=== PATIENT | male | born 1950 | race Caucasian/White ===

== ENCOUNTER 2018-10-24 09:43 | Emergency (ER) | payer MEDICARE ==
[~2018-10-24] VITALS: Ht 180.3 cm; Wt 94.3 kg
--- NOTE | 2018-10-24 10:39 | Diagnostic Imaging Report ---
Indication: Cough and congestion with fever. Comparison: None. Discussion: Two views of the chest were obtained. Infiltrates are noted within the right lung, likely pneumonia. Normal heart size. The lungs are mildly hyperinflated. No pleural fluid or pneumothorax. No osseous abnormality. Impression: 1. Right lung pneumonia. Dictated by: Dictated on workstation # [id number]
--- NOTE | 2018-10-24 11:07 | ED Cough/URI ---
General Chief Complaint: Respiratory Problems Stated Complaint: WHEEZING,SOB,COUGH History of Present Illness Date Seen by Provider: October 24, 2018 Time Seen by Provider: 10:48 This is a 68-year-old man with a history of atrial fibrillation on xarelto, here for 1 week of cough. He is concerned that he has pneumonia as he has had it several times in the past. He has not smoked for 30 years. Cough is productive of clear mucus. No chest pain, has mild shortness of breath. No leg swelling. He may have had a mild subjective fever yesterday. No antibiotics, hospitalizations, or travel within 3 months. Allergies and Home Medications Allergies Coded Allergies: No Known Drug Allergies (Unverified , 10/24/18) Home Medications Albuterol Sulfate 1 Puff Puff, 2 PUFF INH Q4H PRN for COUGH 1 PUFF = 90 MCG Prescribed by: MASSIEL CALDERA on 10/24/18 1110 Azithromycin 250 Mg Tablet, 250 MG PO DAILY Prescribed by: MASSIEL CALDERA on 10/24/18 1110 Benzonatate 100 Mg Capsule, 200 MG PO BID PRN for COUGH Prescribed by: MASSIEL CALDERA on 10/24/18 1110 Patient Home Medication List Home Medication List Reviewed: Yes Review of Systems Review of Systems Constitutional: no symptoms reported EENTM: no symptoms reported Respiratory: see HPI Cardiovascular: no symptoms reported Gastrointestinal: no symptoms reported Genitourinary: no symptoms reported Musculoskeletal: no symptoms reported Skin: no symptoms reported Psychiatric/Neurological: No Symptoms Reported Hematologic/Lymphatic: No Symptoms Reported Immunological/Allergic: no symptoms reported Past Jbuqlfm-Tyglcb-Homupw Hx Past Med/Social Hx: Reviewed Nursing Past Med/Soc Hx Patient Social History Alcohol Use: Occasionally Uses Recreational Drug Use: No Smoking Status: Never a Smoker 2nd Hand Smoke Exposure: No Recent Foreign Travel: No Contact w/Someone Who Travel: No Recent Hopitalizations: No Physical Abuse: No Sexual Abuse: No Mistreated: No Fear: No Seasonal Allergies Seasonal Allergies: No Past Medical History Surgeries: Yes Appendectomy, Tonsillectomy Respiratory: Yes Pneumonia Cardiac: Yes Atrial Fibrillation, Hypertension Neurological: No Genitourinary: No Gastrointestinal: No Musculoskeletal: No Endocrine: No HEENT: No Cancer: No Psychosocial: No Integumentary: No Blood Disorders: No Physical Exam Vital Signs - First Documented 10/24/18 09:58 Temp 99.8 Pulse 99 Resp 24 B/P (MAP) 160/101 (120) Pulse Ox 91 Capillary Refill : Height: '" Weight: lbs. oz. kg; BMI Method: General Appearance: no apparent distress Eyes: Bilateral Eye Normal Inspection, Bilateral Eye PERRL, Bilateral Eye EOMI HEENT: other (moist mucous membranes) Neck: supple Respiratory: other (good air exchange bilaterally with scattered wheezes in the left upper lung field anteriorly) Cardiovascular: normal peripheral pulses, regular rate, rhythm, no edema Gastrointestinal: non tender, soft Neurologic/Psychiatric: alert, normal mood/affect, oriented x 3; No abnormal gait Skin: warm/dry Progress/Results/Core Measures Suspected Sepsis SIRS Temperature: Pulse: Respiratory Rate: Blood Pressure / Mean: Results/Orders My Orders Orders - MASSIEL CALDERA DO Chest Pa/Lat (2 View) (10/24/18 10:10) Ekg Tracing (10/24/18 10:10) Amoxicillin/Clavulanate Tablet (Augmenti (10/24/18 11:11) Azithromycin Tablet (Zithromax Tablet) (10/24/18 11:15) Vital Signs/I&O 10/24/18 09:58 Temp 99.8 Pulse 99 Resp 24 B/P (MAP) 160/101 (120) Pulse Ox 91 Capillary Refill : Progress Note : Progress Note We will treat for community-acquired pneumonia with first dose of Augmentin and azithromycin given in the emergency department. He has minimal wheezing as documented in physical exam, I will prescribe an albuterol inhaler that he may try, I do not feel he needs to add steroids and have him using the inhaler around the clock. I will also prescribe Tessalon. I have recommended the patient follow up with his doctor soon as possible. Paper rx for augmentin (2g PO BID X 10 days)) given. Departure Impression Primary Impression: CAP (community acquired pneumonia) Disposition: 01 HOME, SELF-CARE Condition: Stable Departure-Patient Inst. Referrals: NO,LOCAL PHYSICIAN (PCP) Primary Care Physician Patient Instructions: Pneumonia, Adult (DC) Scripts Albuterol Sulfate (VENTOLIN HFA) 1 Puff Puff 2 PUFF INH Q4H PRN for COUGH for 7 Days, #1 INHALER 1 PUFF = 90 MCG Prov: MASSIEL CALDERA DO 10/24/18 Benzonatate (TESSALON PERLES) 100 Mg Capsule 200 MG PO BID PRN for COUGH, #20 CAP Prov: MASSIEL CALDERA DO 10/24/18 Azithromycin (Azithromycin) 250 Mg Tablet 250 MG PO DAILY, #4 TAB 0 Refills Prov: MASSIEL CALDERA DO 10/24/18 MASSIEL CALDERA DO October 24, 2018 11:07
[2018-10-24] MEDS ORDERED: BENZ100C18 PO (11:10)
[2018-10-24] MEDS ORDERED: AZIT250T12 PO (11:10)
[2018-10-24] MEDS ORDERED: RT-ALBUINH INH (11:10)
[2018-10-24] MEDS ORDERED: AUGMENTIN 500 MG TAB (AMOXICILLIN/CLAVULANATE) PO STA (11:11)
[2018-10-24] MEDS ORDERED: AZITHROMYCIN 250 MG TAB (ZITHROMAX) PO ONE (11:15)
[2018-10-24] MEDS ORDERED: AUGMENTIN 875 MG TAB (AMOXICILLIN/CLAVULANATE) ONE (11:23)
[2018-10-24 11:30] VITALS: BP 155/95
== END 2018-10-24 11:30 | disposition home or self-care (01) ==
LOC: ER FS 09:45
DX: J18.9 Pneumonia, unspecified organism (principal); I48.91 Unspecified atrial fibrillation; I10 Essential (primary) hypertension; Z87.01 Personal history of pneumonia (recurrent); Z90.89 Acquired absence of other organs; Z90.49 Acquired absence of other specified parts of digestive tract
CPT/HCPCS: 71046; 93005

== ENCOUNTER 2018-10-31 14:45 | Inpatient (IN) | payer MEDICARE ==
[~2018-10-31] VITALS: Ht 180.3 cm; Wt 98.5 kg
[~2018-10-31 14:45] MED LIST: AZIT250T12 PO; BENZ100C18 PO; RT-ALBUINH INH
--- NOTE | 2018-10-31 15:13 | ED Respiratory ---
General Chief Complaint: Respiratory Problems Stated Complaint: SOA Source: patient, RN notes reviewed, old records Exam Limitations: no limitations History of Present Illness Date Seen by Provider: October 31, 2018 Time Seen by Provider: 15:08 Allergies and Home Medications Allergies Coded Allergies: lisinopril (Verified Allergy, Severe, Anaphylaxis, 10/31/18) allopurinol (Verified Allergy, Unknown, Hives, 10/31/18) amlodipine (Verified Allergy, Unknown, swelling, 10/31/18) hydralazine (Verified Allergy, Unknown, 10/31/18) levofloxacin (Verified Allergy, Unknown, Hallucinations, 10/31/18) Home Medications Albuterol Sulfate 1 Puff Puff, 2 PUFF INH Q4H PRN for COUGH 1 PUFF = 90 MCG Prescribed by: MASSIEL CALDERA on 10/24/18 1110 Azithromycin 250 Mg Tablet, 250 MG PO DAILY Prescribed by: MASSIEL CALDERA on 10/24/18 1110 Benzonatate 100 Mg Capsule, 200 MG PO BID PRN for COUGH Prescribed by: MASSIEL CALDERA on 10/24/18 1110 Patient Home Medication List Home Medication List Reviewed: No Review of Systems Review of Systems Constitutional: see HPI Respiratory: see HPI, short of breath All Other Systems Reviewed Negative Unless Noted: Yes (Negative excepted noted.) Past Aysikcb-Hzyatq-Uvvszf Hx Patient Social History 2nd Hand Smoke Exposure: No Recent Hopitalizations: No Seasonal Allergies Seasonal Allergies: No Past Medical History Surgeries: Yes Appendectomy, Tonsillectomy Respiratory: Yes Pneumonia Cardiac: Yes Atrial Fibrillation, Hypertension Neurological: No Genitourinary: No Gastrointestinal: No Musculoskeletal: No Endocrine: No HEENT: No Cancer: No Psychosocial: No Integumentary: No Blood Disorders: No Physical Exam Vital Signs - First Documented 10/31/18 15:00 Temp 97.8 Pulse 114 Resp 24 B/P (MAP) 160/116 (131) Pulse Ox 91 O2 Delivery Room Air Capillary Refill : Height: 5'11.00" Weight: 208lbs. oz. 94.774329aj; BMI Method:Stated General Appearance: WD/WN, no apparent distress Respiratory: crackles Cardiovascular: irregularly irregular Neurologic/Psychiatric: no motor/sensory deficits, alert, normal mood/affect, oriented x 3 Skin: warm/dry Progress/Results/Core Measures Suspected Sepsis SIRS Temperature: Pulse: Respiratory Rate: Laboratory Tests 10/31/18 15:15: White Blood Count 8.9 Blood Pressure / Mean: Laboratory Tests 10/31/18 15:15: Creatinine 0.90, Platelet Count 284, Total Bilirubin 1.1H Results/Orders Lab Results Laboratory Tests Test 10/31/18 15:15 Range/Units White Blood Count 8.9 4.3-11.0 10^3/uL Red Blood Count 4.16 L 4.35-5.85 10^6/uL Hemoglobin 13.7 13.3-17.7 G/DL Hematocrit 42 40-54 % Mean Corpuscular Volume 100 H 80-99 FL Mean Corpuscular Hemoglobin 33 25-34 PG Mean Corpuscular Hemoglobin Concent 33 32-36 G/DL Red Cell Distribution Width 14.2 10.0-14.5 % Platelet Count 284 130-400 10^3/uL Mean Platelet Volume 10.5 H 7.4-10.4 FL Neutrophils (%) (Auto) 71 42-75 % Lymphocytes (%) (Auto) 14 12-44 % Monocytes (%) (Auto) 9 0-12 % Eosinophils (%) (Auto) 3 0-10 % Basophils (%) (Auto) 1 0-10 % Neutrophils # (Auto) 6.3 1.8-7.8 X 10^3 Lymphocytes # (Auto) 1.2 1.0-4.0 X 10^3 Monocytes # (Auto) 0.8 0.0-1.0 X 10^3 Eosinophils # (Auto) 0.3 0.0-0.3 10^3/uL Basophils # (Auto) 0.1 0.0-0.1 10^3/uL Sodium Level 139 135-145 MMOL/L Potassium Level 4.1 3.6-5.0 MMOL/L Chloride Level 99 98-107 MMOL/L Carbon Dioxide Level 25 21-32 MMOL/L Anion Gap 15 H 5-14 MMOL/L Blood Urea Nitrogen 22 H 7-18 MG/DL Creatinine 0.90 0.60-1.30 MG/DL Estimat Glomerular Filtration Rate > 60 BUN/Creatinine Ratio 24 Glucose Level 180 H 70-105 MG/DL Calcium Level 9.1 8.5-10.1 MG/DL Corrected Calcium 8.9 8.5-10.1 MG/DL Magnesium Level 2.0 1.8-2.4 MG/DL Total Bilirubin 1.1 H 0.1-1.0 MG/DL Aspartate Amino Transf (AST/SGOT) 20 5-34 U/L Alanine Aminotransferase (ALT/SGPT) 18 0-55 U/L Alkaline Phosphatase 100 40-136 U/L Troponin T 18 H <=15 NG/L Pro-B-Type Natriuretic Peptide 70164.0 H <75.0 PG/ML Total Protein 7.1 6.4-8.2 GM/DL Albumin 4.2 3.2-4.5 GM/DL My Orders Orders - SIMON MEYER DO Cbc With Automated Diff (10/31/18 15:11) Comprehensive Metabolic Panel (10/31/18 15:11) Magnesium (10/31/18 15:11) Probnp Fs (10/31/18 15:11) Ed Iv/Invasive Line Start (10/31/18 15:11) Chest Pa/Lat (2 View) (10/31/18 15:11) Troponin T (10/31/18 15:50) Ekg Tracing (10/31/18 15:50) Furosemide Injection (Lasix Injection) (10/31/18 16:00) Furosemide Injection (Lasix Injection) (10/31/18 16:45) Nitroglycerin Ointment (Nitrobid Ointme (10/31/18 16:45) Losartan Tablet (Cozaar Tablet) (10/31/18 17:30) Medications Given in ED Current Medications Medications Dose Ordered Sig/Dov Route Start Time Stop Time Status Last Admin Dose Admin Furosemide 40 mg ONCE ONCE IVP 10/31/18 16:00 10/31/18 16:09 DC 10/31/18 16:19 40 MG Furosemide 40 mg ONCE ONCE IVP 10/31/18 16:45 10/31/18 16:46 DC 10/31/18 16:55 40 MG Nitroglycerin 1 inch ONCE ONCE TOP 10/31/18 16:45 10/31/18 16:46 DC 10/31/18 16:55 1 INCH Vital Signs/I&O 10/31/18 15:00 Temp 97.8 Pulse 114 Resp 24 B/P (MAP) 160/116 (131) Pulse Ox 91 O2 Delivery Room Air Capillary Refill : Progress Note : Progress Note Improved c/ O2 and meds. Dr. Robert good c/ the 80 MG of Lasix IV and request the patient receive 100 mg of Losartan po now and daily. Patient has seen a ocean biologist @ [facility] but wishes not to return there. Will attempt to obtain records from there to aid in the transition of care. ECG Initial ECG Impression Date: October 31, 2018 Initial ECG Impression Time: 16:13 Initial ECG Rate: 92 Initial ECG Rhythm: A Fib/Flutter Initial ECG Intervals: QT (prolonged) Initial ECG Impression: Nonspecific Changes (ST-T wave ), Atrial Fibrillation Initial ECG Comparisson: No Previous ECG Available Diagnostic Imaging Diagonstic Imaging: Xray Plain Films/CT/US/NM/MRI: chest (pneumonia appears slightly improved) Departure Impression Primary Impression: Dyspnea Additional Impressions: Acute exacerbation of CHF (congestive heart failure) Atrial fibrillation with normal ventricular rate Labile hypertension Disposition: XFER SHT-TRM HOSP Condition: Stable Transfer Time Spoke to Accepting Phy: 16:30 Transfer Progress Notes Discussed patient c/ both Dr. Barber and then Dr. Jones @ Dr. Barber's request. Patient has been accepted in transfer by Dr. Barber & Dr. Jones will see the patient in consultation in the AM, 11/01. Transfer Facility: [facility] Method of Transfer: EMS Departure-Patient Inst. Referrals: ERICH SANDOVAL MD (PCP/Family) Primary Care Physician SIMON MEYER DO October 31, 2018 15:13
[2018-10-31 15:23] LABS: EOSINOPHILS % (AUTO) 3 % (0-10); HEMATOCRIT 42 % (40-54); HEMOGLOBIN 13.7 G/DL (13.3-17.7); LYMPHOCYTES % (AUTO) 14 % (12-44); MEAN CORPUSCULAR HEMOGLOBIN 33 PG (25-34); MEAN CORPUSCULAR HGB CONC 33 G/DL (32-36); MEAN CORPUSCULAR VOLUME 100 FL (80-99); MEAN PLATELET VOLUME 10.5 FL (7.4-10.4); MONOCYTES % (AUTO) 9 % (0-12); NEUTROPHILS % (AUTO) 71 % (42-75); PLATELET COUNT 284 10^3/uL (130-400); RED CELL DISTRIBUTION WIDTH 14.2 % (10.0-14.5); WHITE BLOOD COUNT 8.9 10^3/uL (4.3-11.0)
[2018-10-31 15:24] LABS: BASOPHILS # (AUTO) 0.1 10^3/uL (0.0-0.1); BASOPHILS % (AUTO) 1 % (0-10); EOSINOPHILS # (AUTO) 0.3 10^3/uL (0.0-0.3); LYMPHOCYTES # (AUTO) 1.2 X 10^3 (1.0-4.0); MONOCYTES # (AUTO) 0.8 X 10^3 (0.0-1.0); NEUTROPHILS # (AUTO) 6.3 X 10^3 (1.8-7.8)
--- NOTE | 2018-10-31 15:37 | Diagnostic Imaging Report ---
INDICATION: Shortness of breath. Comparison made with prior examination from 10/24/2018. FINDINGS: There is cardiomegaly. There is minimal venous congestion. There is persistent right basilar infiltrate which may be slightly improved. There is no pleural effusion or pneumothorax. Mediastinum is unremarkable. IMPRESSION: Slight improvement in the right basilar infiltrate. Cardiomegaly and mild central pulmonary venous congestion. Dictated by: Dictated on workstation # [id number]
[2018-10-31 15:48] LABS: BUN/CREATININE RATIO 24; CARBON DIOXIDE 25 MMOL/L (21-32); CHLORIDE 99 MMOL/L (98-107); GFR ESTIMATED > 60; POTASSIUM 4.1 MMOL/L (3.6-5.0); SODIUM 139 MMOL/L (135-145)
[2018-10-31 15:49] LABS: ALANINE AMINOTRANSFERASE 18 U/L (0-55); ALBUMIN 4.2 GM/DL (3.2-4.5); ALKALINE PHOSPHATASE 100 U/L (40-136); BILIRUBIN,TOTAL 1.1 MG/DL (0.1-1.0); CALCIUM 9.1 MG/DL (8.5-10.1); GLUCOSE 180 MG/DL (70-105); TOTAL PROTEIN 7.1 GM/DL (6.4-8.2)
[2018-10-31] MEDS ORDERED: FUROSEMIDE 40 MG/4 ML INJ (LASIX) IVP ONE ×2 (16:00→16:45)
[2018-10-31] MEDS ORDERED: NITROGLYCERIN 2% OINT 1 GM UNIT DOSE PACKET TOP ONE (16:45)
[2018-10-31] MEDS ORDERED: LOSARTAN 100 MG (COZAAR) TABLET PO ONE (17:30)
--- NOTE | 2018-10-31 17:53 | NUR ---
REPORT RECEIVED FROM VOIP NETWORK TECHNICIAN.
[2018-10-31 18:39] VITALS: BP 162/93
--- NOTE | 2018-10-31 18:40 | NUR ---
ANNA LUNA admitted to room 412-1, with an admitting diagnosis of PNEUMONIA, CHF, A-FIB, AND DYSPNEA, on 10/31/18 from [facility] via [facility], accompanied by EMS STAFF.ANNA LUNA introduced to surroundings, call light, bed controls, phone, TV, temperature control, lights, meal times, smoking policy, visitor policy, side rail policy, bathrooms and showers. Patient Rights given to patient in the handbook. ANNA LUNA verbalizes understanding that [facility] is not responsible for the loss or damage to any personal effects or valuables that are kept in the patients posession during their hospitalization. ANNA LUNA verbalizes understanding of Interdisciplinary Patient Education. Patient and/or family were informed about the Rapid Response Team and its purpose.
[2018-10-31 19:26] VITALS: BP 160/89
[2018-10-31 19:51] VITALS: BP 160/89
[2018-10-31] MEDS ORDERED: RT-ALBUTEROL/IPRATROPIUM 3 ML (DUONEB) VIAL INH PRN (20:00)
[2018-10-31] MEDS ORDERED: POTA-51 PO (20:10)
[2018-10-31] MEDS ORDERED: RANI150T90 PO (20:18)
[2018-10-31] MEDS ORDERED: RIVA20TA PO (20:18)
[2018-10-31] MEDS ORDERED: FURO20TA4 PO (20:18)
[2018-10-31] MEDS ORDERED: CLON0.2T PO (20:18)
[2018-10-31] MEDS ORDERED: TAMS0.4C98 PO (20:18)
[2018-10-31] MEDS ORDERED: CARV25TA PO (20:18)
[2018-10-31] MEDS ORDERED: FESO4TAB PO (20:18)
[2018-10-31] MEDS ORDERED: DOCU100C37 PO (20:30)
[2018-10-31] MEDS ORDERED: MELA1TAB15 PO (20:30)
[2018-10-31] MEDS ORDERED: AMOX1TAB39 PO (20:30)
[2018-10-31] MEDS ORDERED: DOXE25CA46 PO (20:30)
[2018-10-31] MEDS ORDERED: TRAM50TA2 PO (20:30)
[2018-10-31] MEDS: RT-ALBUTEROL/IPRATROPIUM 3 ML (DUONEB) VIAL INH SCH (21:20)
[2018-10-31] MEDS ORDERED: cloNIDine 0.2 MG (CATAPRES) TAB ONE (21:45)
[2018-10-31] MEDS ORDERED: LOSARTAN 100 MG (COZAAR) TABLET ONE (21:52)
[2018-11-01] VITALS (7 sets, daily range): BP systolic 131–186; BP diastolic 82–119
[2018-11-01] MEDS: RT-ALBUTEROL/IPRATROPIUM 3 ML (DUONEB) VIAL INH SCH ×4 (02:24→21:39)
[2018-11-01] MEDS ORDERED: DOXEPIN HCL 25 MG PO SCH (05:30)
[2018-11-01] MEDS: FUROSEMIDE 40 MG/4 ML INJ (LASIX) IVP SCH ×2 (05:41→06:01)
[2018-11-01] MEDS: CARVEDILOL 12.5 MG (COREG) TABLET PO SCH ×2 (06:17→17:09)
[2018-11-01] MEDS: KCL 20 MEQ TAB (K-DUR) PO SCH (06:17)
[2018-11-01] MEDS ORDERED: ALPRAZolam 0.25 MG (XANAX) TAB PO PRN (07:30)
[2018-11-01] MEDS ORDERED: ALPR0.254 PO (07:50)
[2018-11-01 08:03] LABS: BILIRUBIN,URINE NEGATIVE (NEGATIVE); CLARITY,URINE SLIGHTLY CLOUDY; COLOR,URINE YELLOW; GLUCOSE, URINE (UA) NEGATIVE (NEGATIVE); KETONES,URINE NEGATIVE (NEGATIVE); LEUKOCYTE ESTERASE ,URINE NEGATIVE (NEGATIVE); NITRITE,URINE NEGATIVE (NEGATIVE); PH,URINE 8 (5-9); PROTEIN,URINE 2+ (NEGATIVE); UROBILINOGEN,URINE NORMAL (NORMAL)
[2018-11-01 08:19] LABS: RBC,URINE RARE /HPF
[2018-11-01 08:20] LABS: BACTERIA,URINE NEGATIVE /HPF; SQUAMOUS EPITHELIAL CELL,UR RARE /HPF
[2018-11-01] MEDS: DOCUSATE SODIUM 100 MG (COLACE) CAP PO SCH ×2 (08:30→21:00)
[2018-11-01] MEDS: cloNIDine 0.2 MG (CATAPRES) TAB PO SCH ×2 (08:31→21:00)
[2018-11-01] MEDS: FAMOTIDINE 20 MG (PEPCID) TABLET PO SCH ×2 (08:31→20:08)
[2018-11-01] MEDS ORDERED: NON-FORMULARY MEDICATION 1 EA EA (Ranitidine HCl (Acid Reducer (RANITIDINE)) 150 MG) PO SCH (09:00)
[2018-11-01] MEDS ORDERED: NON-FORMULARY MEDICATION 1 EA EA (Carvedilol 25 MG) PO SCH (09:00)
[2018-11-01] MEDS ORDERED: NON-FORMULARY MEDICATION 1 EA EA (Docusate Sodium 100 MG) PO SCH (09:00)
[2018-11-01] MEDS ORDERED: [UNRECOGNIZED DRUG - OTHER] PO SCH (09:00)
[2018-11-01] MEDS ORDERED: NON-FORMULARY MEDICATION 1 EA EA (Potassium Chloride 20 MEQ) PO SCH (09:00)
[2018-11-01] MEDS ORDERED: FUROSEMIDE 20 MG (LASIX) TAB PO SCH (09:00)
[2018-11-01] MEDS ORDERED: NON-FORMULARY MEDICATION 1 EA EA (Clonidine HCl 0.2 MG) PO SCH (09:00)
[2018-11-01] MEDS ORDERED: AMOXICILLIN PO SCH (09:00)
[2018-11-01] MEDS ORDERED: POTASSIUM CLAV PO SCH (09:00)
--- NOTE | 2018-11-01 10:51 | NUR ---
0900 PO DOSE OF LASIX NOT GIVEN. PATIENT RECEIVED 80 MG IV LASIX EARLIER THIS MORNING. LIST OF MEDICATION NOT AVAILABLE IN OUR PHARMACY GIVEN TO PATIENT'S . SHE THINKS THE PATIENT WILL GO HOME TODAY SO SHE WILL WAIT FOR THE DOCTOR TO COME THIS MORNING BEFORE SHE DRIVES HOME TO GET IT.. REQUEST FOR MEDICAL RECORDS FROM [facility] IN [place] SIGNED AND FAXED.
--- NOTE | 2018-11-01 13:57 | Consultation-Cardiology ---
HPI-Cardiology Cardiology Consultation: Date of Consultation 11/01/18 Time Seen by a Provider: 13:50 Date of Admission Attending Physician Gita Jones MD [facility] Physician requesting consult: Dr Barber Admitting Physician Laura Hill MD Consulting Physician GITA JONES MD, [facility] HPI: Chief Complaint: Reason for consultation: Elevated BNP HPI 68 yo man with multiple comorbidities that are outlined below who has been having increasing shortness of breath for the last 1-2 weeks. Was diagnosed with pneumonia a week ago, according to him, and started on antibiotics. Shortness of breath was even worse a week later. Went to ER yesterday and was hosp for decomp CHF. Denies cp or palp or syncope or significant ankle swelling. Notes gen malaise and weakness and tiredness Review of Systems-Cardiology Review of Systems Constitutional: malaise, tiredness; No weight loss, No weight gain Eyes: No vision change Ears/Nose/Throat: No ear discharge, No nasal drainage, No recent hearing loss Respiratory: As described under HPI Cardiovascular: As described under HPI Gastrointestinal: No constipation, No diarrhea, No nausea, No vomiting Genitourinary: No dysuria, No hematuria, No urine frequency changes Musculoskeletal: No back pain, No joint pain Skin: No rash, No ulcerations Psychiatric/Neurological: No seizure, No focal weakness, No syncope Hematologic: No bleeding abnormalities All Other Systems Reviewed Negative Unless Noted: Yes (Negative excepted noted.) THR-Nsibay-Zpvagj Hx Patient Social History Alcohol Use: Occasionally Uses Recreational Drug Use: No Smoking Status: Former Smoker 2nd Hand Smoke Exposure: No Recent Foreign Travel: No Recent Infectious Disease Expo: No Past Medical History PMH As described under Assessment. Family Medical History Family Medical History: Does not report fam h/o early CAD Allergies and Home Medications Allergies Coded Allergies: lisinopril (Verified Allergy, Severe, Anaphylaxis, 10/31/18) allopurinol (Verified Allergy, Unknown, Hives, 10/31/18) amlodipine (Verified Allergy, Unknown, swelling, 10/31/18) hydralazine (Verified Allergy, Unknown, 10/31/18) levofloxacin (Verified Allergy, Unknown, Hallucinations, 10/31/18) Home Medications Albuterol Sulfate 1 Puff Puff, 2 PUFF INH Q4H PRN for COUGH 1 PUFF = 90 MCG Prescribed by: MASSIEL CALDERA on 10/24/18 1110 Alprazolam 0.25 Mg Tablet, 1 TAB PO TID, (Reported) Amoxicillin/Potassium Clav 1 Each Tab.er.12h, 2 EACH PO BID, (Reported) Azithromycin 250 Mg Tablet, 250 MG PO DAILY Prescribed by: MASSIEL CALDERA on 10/24/18 1110 Benzonatate 100 Mg Capsule, 200 MG PO BID PRN for COUGH Prescribed by: MASSIEL CALDERA on 10/24/18 1110 Carvedilol 25 Mg Tablet, 25 MG PO BID, (Reported) Clonidine HCl 0.2 Mg Tablet, 0.2 MG PO BID, (Reported) Docusate Sodium 100 Mg Capsule, 100 MG PO BID, (Reported) Doxepin HCl 25 Mg Capsule, 25 MG PO PRN, (Reported) Fesoterodine Fumarate 4 Mg Tab.sr.24h, 4 MG PO HS, (Reported) Furosemide 20 Mg Tablet, 20 MG PO BID, (Reported) Melatonin/Pyridoxine 1 Each Tablet, 1 EACH PO HS, (Reported) Potassium Chloride 20 Meq Tablet.er, 20 MEQ PO DAILY, (Reported) Ranitidine HCl 150 Mg Tablet, 150 MG PO BID, (Reported) Rivaroxaban 20 Mg Tablet, 20 MG PO HS, (Reported) Tamsulosin HCl 0.4 Mg Cap, 0.4 MG PO HS, (Reported) Tramadol HCl 50 Mg Tablet, 50 MG PO HS, (Reported) Patient Home Medication List Home Medication List Reviewed: Yes Physical Exam-Cardiology Physical Exam Vital Signs/I&O 11/01/18 11/01/18 11/01/18 11/01/18 04:55 06:51 06:59 07:00 Temp 98.6 Pulse 92 84 77 Resp 16 B/P (MAP) 186/119 (141) 163/86 (111) Pulse Ox 96 O2 Delivery Nasal Cannula Nasal Cannula O2 Flow Rate 3.00 2.00 11/01/18 11/01/18 11/01/18 11/01/18 08:00 08:23 11:18 13:00 Temp 98.0 98.0 Pulse 76 60 57 Resp 18 B/P (MAP) 170/88 (115) 131/82 (98) Pulse Ox 94 94 98 O2 Delivery Nasal Cannula Nasal Cannula Nasal Cannula O2 Flow Rate 2.00 2.00 2.00 11/01/18 00:00 Intake Total 100 ml Output Total 1150 ml Balance -1050 ml Capillary Refill : Less Than 3 Seconds Constitutional: AAO x 3, well-developed, well-nourished HEENT: EOMI, hearing is well preserved, xanthelasmas are seen Neck: carotid pulses are 2 + bilaterally, with good upstrokes Respiratory: No accessory muscle use; other (fair air entry, diminished at the bases; basal crackles) Cardiovascular: irregularly irregular, S1 and S2, systolic murmur (2/6 KIM at card base) Gastrointestinal: No tender; soft; No guarding, No rebound; audible bowel sounds Extremities: No clubbing, No cyanosis, No significant edema Neurologic/Psychiatric: oriented x 3, grossly intact, power is 5/5 both on sides Skin: No rash on exposed areas, No ulcerations on exposed areas Data Review Labs Laboratory Tests 10/31/18 15:15: White Blood Count 8.9, Red Blood Count 4.16L, Hemoglobin 13.7, Hematocrit 42, Mean Corpuscular Volume 100H, Mean Corpuscular Hemoglobin 33, Mean Corpuscular Hemoglobin Concent 33, Red Cell Distribution Width 14.2, Platelet Count 284, Mean Platelet Volume 10.5H, Neutrophils (%) (Auto) 71, Lymphocytes (%) (Auto) 14, Monocytes (%) (Auto) 9, Eosinophils (%) (Auto) 3, Basophils (%) (Auto) 1, Neutrophils # (Auto) 6.3, Lymphocytes # (Auto) 1.2, Monocytes # (Auto) 0.8, Eosinophils # (Auto) 0.3, Basophils # (Auto) 0.1, Sodium Level 139, Potassium Level 4.1, Chloride Level 99, Carbon Dioxide Level 25, Anion Gap 15H, Blood Urea Nitrogen 22H, Creatinine 0.90, Estimat Glomerular Filtration Rate > 60, BUN/Creatinine Ratio 24, Glucose Level 180H, Calcium Level 9.1, Corrected Calcium 8.9, Magnesium Level 2.0, Total Bilirubin 1.1H, Aspartate Amino Transf (AST/SGOT) 20, Alanine Aminotransferase (ALT/SGPT) 18, Alkaline Phosphatase 100, Troponin T 18H, Pro-B-Type Natriuretic Peptide 95969.0H, Total Protein 7.1, Albumin 4.2 11/01/18 05:33: Urine Color YELLOW, Urine Clarity SLIGHTLY CLOUDY, Urine pH 8, Urine Specific Herod 1.015L, Urine Protein 2+H, Urine Glucose (UA) NEGATIVE, Urine Ketones NEGATIVE, Urine Nitrite NEGATIVE, Urine Bilirubin NEGATIVE, Urine Urobilinogen NORMAL, Urine Leukocyte Esterase NEGATIVE, Urine RBC (Auto) NEGATIVE, Urine RBC RARE, Urine WBC NONE, Urine Squamous Epithelial Cells RARE, Urine Crystals NONE, Urine Bacteria NEGATIVE, Urine Casts NONE, Urine Mucus NEGATIVE, Urine Culture Indicated NO Laboratory Tests 10/31/18 15:15 A/P-Cardiology Assessment/Admission Diagnosis Ac on chronic diastolic CHF. Echo of 10/15/17 at [facility]: LVEF 55-60%, mod MR, mod LVH, RV enlargement mod TR, RVSP 51 mmHg Chronic A Fib Chronic oral anticoag (rivaroxaban) Intolerance/allergy to AKIL-inhib and ARB, per pt report (rash and hives) DM II Pt reports that a card cath in or around 2014 at [facility] did not show any significant CAD Remote h/o tobacco use Recent pneumonia, managed by the Med ce Discussion and Recomendations * Diuretics to treat decompensated CHF * Continue rivaroxaban for stroke prophylaxis * Continue arvedilol for hypertension and for vent rate control * Continue clonidine for htn * Add hydralazine for bp control. D/c losartan because of reported allergy * Monitor labs * Echo * I discussed his case with Dr Barber this am * I reviewed the records of his hospitalization to [facility] in October 2017 for similar symptoms Clinical Quality Measures DVT/VTE Risk/Contraindication: Risk Factor Score Per Nursin RFS Level Per Nursing on Admit: 4+=Very High GITA JONES MD FACP FAC CCDS November 01, 2018 13:57
--- NOTE | 2018-11-01 14:18 | History & Physicial (CHS) ---
HPI History of Present Illness: This is a 68 yo male, patient of Dr. Sandoval's who presented to the [place] ER with c/o of increasing dyspnea. Pt has had dyspnea worse than his baseline for the past 1-2 weeks. He has been treated with antibiotics for pnuemonia and was starting to improve. He then developed increased SOA, especially with activity over the past couple of days and was found to have a BNP of 17,000 in the ER. 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 Pt reports improvement in dyspnea since admission. Denies, fever/chills, or increased swelling. Source: patient Exam Limitations: no limitations Date seen by provider: November 01, 2018 Time Seen by Provider: 11:30 Attending Physician Gita Jones MD Facp Facc Ccds PCP Erich Sandoval MD Consult Date of Admission October 31, 2018 at 17:25 Home Medications Home Medications Reviewed patient Home Medication Reconciliation performed by pharmacy medication reconciliations audiovisual aids technician and/or nursing. Patients Allergies have been reviewed. Allergies Coded Allergies: lisinopril (Verified Allergy, Severe, Anaphylaxis, 10/31/18) allopurinol (Verified Allergy, Unknown, Hives, 10/31/18) amlodipine (Verified Allergy, Unknown, swelling, 10/31/18) hydralazine (Verified Allergy, Unknown, 10/31/18) levofloxacin (Verified Allergy, Unknown, Hallucinations, 10/31/18) RIC-Sylyml-Nrtcnx Hx Patient Social History Marrital Status: Alcohol Use: Occasionally Uses Recreational Drug Use: No Smoking Status: Former Smoker 2nd Hand Smoke Exposure: No Recent Foreign Travel: No Contact w/other who traveled: No Recent Hopitalizations: No Recent Infectious Disease Expo: No Past Medical History Chronic A-fib Cardiomyopathy COPD, O2 dependent CHF Hypertension 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 hx of esophageal stricture s/p dilation s/p EGD s/p Appendectomy s/p tonsillectomy s/p heart cath Review of Systems (CHC) Constitutional: see HPI Reviewed Test Results Reviewed Test Results Lab Laboratory Tests 10/31/18 15:15: White Blood Count 8.9, Red Blood Count 4.16L, Hemoglobin 13.7, Hematocrit 42, Mean Corpuscular Volume 100H, Mean Corpuscular Hemoglobin 33, Mean Corpuscular Hemoglobin Concent 33, Red Cell Distribution Width 14.2, Platelet Count 284, Mean Platelet Volume 10.5H, Neutrophils (%) (Auto) 71, Lymphocytes (%) (Auto) 14, Monocytes (%) (Auto) 9, Eosinophils (%) (Auto) 3, Basophils (%) (Auto) 1, Neutrophils # (Auto) 6.3, Lymphocytes # (Auto) 1.2, Monocytes # (Auto) 0.8, Eosinophils # (Auto) 0.3, Basophils # (Auto) 0.1, Sodium Level 139, Potassium L evel 4.1, Chloride Level 99, Carbon Dioxide Level 25, Anion Gap 15H, Blood Urea Nitrogen 22H, Creatinine 0.90, Estimat Glomerular Filtration Rate > 60, BUN/Creatinine Ratio 24, Glucose Level 180H, Calcium Level 9.1, Corrected Calcium 8.9, Magnesium Level 2.0, Total Bilirubin 1.1H, Aspartate Amino Transf (AST/SGOT) 20, Alanine Aminotransferase (ALT/SGPT) 18, Alkaline Phosphatase 100, Troponin T 18H, Pro-B-Type Natriuretic Peptide 78776.0H, Total Protein 7.1, Albumin 4.2 11/01/18 05:33: Urine Color YELLOW, Urine Clarity SLIGHTLY CLOUDY, Urine pH 8, Urine Specific Edison 1.015L, Urine Protein 2+H, Urine Glucose (UA) NEGATIVE, Urine Ketones NEGATIVE, Urine Nitrite NEGATIVE, Urine Bilirubin NEGATIVE, Urine Urobilinogen NORMAL, Urine Leukocyte Esterase NEGATIVE, Urine RBC (Auto) NEGATIVE, Urine RBC RARE, Urine WBC NONE, Urine Squamous Epithelial Cells RARE, Urine Crystals NONE, Urine Bacteria NEGATIVE, Urine Casts NONE, Urine Mucus NEGATIVE, Urine Culture Indicated NO Radiology Date of Exam: 10/31/18 CHEST PA/LAT (2 VIEW) INDICATION: Shortness of breath. Comparison made with prior examination from 10/24/2018. FINDINGS: There is cardiomegaly. There is minimal venous congestion. There is persistent right basilar infiltrate which may be slightly improved. There is no pleural effusion or pneumothorax. Mediastinum is unremarkable. IMPRESSION: Slight improvement in the right basilar infiltrate. Cardiomegaly and mild central pulmonary venous congestion. Physical Exam-([facility]) Physical Exam Vital Signs VS - Last 72 Hours, by Label 10/31/18 10/31/18 10/31/18 10/31/18 15:00 17:53 18:39 19:22 Temp 97.8 97.8 97.9 Pulse 114 84 86 Resp 24 19 20 B/P (MAP) 160/116 (131) 167/117 (134) 162/93 Pulse Ox 91 96 93 98 O2 Delivery Room Air Room Air Nasal Cannula Nasal Cannula O2 Flow Rate 3.00 2.00 10/31/18 10/31/18 10/31/18 10/31/18 19:26 19:46 19:51 21:20 Temp 98.1 Pulse 84 80 84 Resp 18 B/P (MAP) 160/89 (112) Pulse Ox 94 91 97 O2 Delivery Nasal Cannula Nasal Cannula O2 Flow Rate 2.00 2.00 FiO2 21 11/01/18 11/01/18 11/01/18 11/01/18 00:36 01:00 04:55 06:51 Temp 98.9 98.6 Pulse 89 80 92 Resp 19 B/P (MAP) 169/93 (118) 186/119 (141) Pulse Ox 93 96 O2 Delivery Nasal Cannula Nasal Cannula O2 Flow Rate 3.00 2.00 11/01/18 11/01/18 11/01/18 11/01/18 06:59 07:00 08:00 08:23 Temp 98.0 Pulse 84 77 76 Resp 16 18 B/P (MAP) 163/86 (111) 170/88 (115) Pulse Ox 94 94 O2 Delivery Nasal Cannula Nasal Cannula O2 Flow Rate 2.00 2.00 11/01/18 11/01/18 11:18 13:00 Temp 98.0 Pulse 60 57 Resp 18 B/P (MAP) 131/82 (98) Pulse Ox 98 O2 Delivery Nasal Cannula O2 Flow Rate 2.00 Capillary Refill : Less Than 3 Seconds General Appearance: WD/WN, no apparent distress HEENT: PERRL/EOMI Respiratory: no respiratory distress, no accessory muscle use, decreased breath sounds Cardiovascular: regular rate, rhythm, no edema Gastrointestinal: soft Extremities: normal capillary refill Neurologic/Psychiatric: alert, normal mood/affect, oriented x 3 Skin: normal color, warm/dry Assessment/Plan Assessment/Plan Admission Status: Inpatient Order (span 2 midnights) Reason for Inpatient Admission: Anticipate need for 2 midnights for monitoring and treatment with IV diuretics Assessment & Plan Hospital follow-up appointment schedule with Dr. Sandoval for 11/13/18 at 9am. (1) Acute exacerbation of CHF (congestive heart failure) Status: Acute Assessment & Plan: 11/01 - BNP on admission 17,423; CXR c/w with CHF exacerbation, improvement in infiltrate - admitted to medical floor; cardiology consulted - IV Lasix; continue other cardiac medications; intolerance to AKIL-I w/ h/o of angioedema Qualifiers: Qualified Codes: I50.23 - Acute on chronic systolic (congestive) heart failure (2) Dyspnea Status: Acute Assessment & Plan: - secondary to CHF exacerbation and chronic COPD (3) Atrial fibrillation with normal ventricular rate Status: Chronic Assessment & Plan: - rate controlled - continue Xarelto (4) Labile hypertension Status: Acute Assessment & Plan: - continue home medications; hydralazine added by Cardiology (5) COPD with hypoxia Status: Chronic Assessment & Plan: - continue Duoneb/MAT protocol - on 2L O2 at home (currently on 2L) - was given Incruse samples by Dr. Sandoval but had not yet started (6) Diabetes Status: Chronic Assessment & Plan: - A1c done 10/21/18 5.3; not currently on medications/diet controlled. Qualifiers: Qualified Codes: E11.42 - Type 2 diabetes mellitus with diabetic polyneuropathy Clinical Quality Measures DVT/VTE Risk/Contraindication: Risk Factor Score Per Nursin RFS Level Per Nursing on Admit: 4+=Very High Copy Copies To 1: ERICH SANDOVAL MD, LINDA K DO November 01, 2018 14:18
[2018-11-01] MEDS ORDERED: LOSARTAN 100 MG (COZAAR) TABLET PO SCH (17:00)
[2018-11-01] MEDS ORDERED: doxAzosin 4 MG (CARDURA) TAB PO SCH (21:00)
[2018-11-01] MEDS ORDERED: TAMSULOSIN 0.4 MG (FLOMAX) CAP PO SCH (21:00)
[2018-11-01] MEDS ORDERED: NON-FORMULARY MEDICATION 1 EA EA (Fesoterodine Fumarate (Toviaz) 4 MG) PO SCH (21:00)
[2018-11-01] MEDS ORDERED: MELATONIN 3 MG TABLET PO SCH (21:00)
[2018-11-01] MEDS ORDERED: RIVAROXABAN 20 MG TABLET (XARELTO) PO SCH (21:00)
[2018-11-02 00:25] VITALS: BP 150/88
[2018-11-02] MEDS: RT-ALBUTEROL/IPRATROPIUM 3 ML (DUONEB) VIAL INH SCH ×2 (03:14→08:31)
[2018-11-02 04:45] VITALS: BP 161/106
[2018-11-02 05:38] LABS: BASOPHILS % (AUTO) 0 % (0-10); EOSINOPHILS # (AUTO) 0.3 10^3/uL (0.0-0.3); EOSINOPHILS % (AUTO) 5 % (0-10); HEMATOCRIT 38 % (40-54); HEMOGLOBIN 12.4 G/DL (13.3-17.7); LYMPHOCYTES # (AUTO) 1.1 X 10^3 (1.0-4.0); LYMPHOCYTES % (AUTO) 17 % (12-44); MEAN CORPUSCULAR HEMOGLOBIN 33 PG (25-34); MEAN CORPUSCULAR HGB CONC 33 G/DL (32-36); MEAN CORPUSCULAR VOLUME 99 FL (80-99); MEAN PLATELET VOLUME 9.9 FL (7.4-10.4); MONOCYTES # (AUTO) 0.7 X 10^3 (0.0-1.0); MONOCYTES % (AUTO) 11 % (0-12); NEUTROPHILS # (AUTO) 4.6 X 10^3 (1.8-7.8); NEUTROPHILS % (AUTO) 68 % (42-75); PLATELET COUNT 226 10^3/uL (130-400); RED CELL DISTRIBUTION WIDTH 14.3 % (10.0-14.5); WHITE BLOOD COUNT 6.8 10^3/uL (4.3-11.0)
[2018-11-02 05:59] LABS: ALANINE AMINOTRANSFERASE 18 U/L (0-55); ALBUMIN 3.8 GM/DL (3.2-4.5); ALKALINE PHOSPHATASE 90 U/L (40-136); BUN/CREATININE RATIO 19; CARBON DIOXIDE 21 MMOL/L (21-32); CHLORIDE 104 MMOL/L (98-107); CREATININE SERUM 1.02 MG/DL (0.60-1.30); GFR ESTIMATED > 60; GLUCOSE 119 MG/DL (70-105); MAGNESIUM 2.2 MG/DL (1.8-2.4); SODIUM 137 MMOL/L (135-145); TOTAL PROTEIN 6.7 GM/DL (6.4-8.2)
[2018-11-02] MEDS ORDERED: CARVEDILOL 12.5 MG (COREG) TABLET PO SCH (07:00)
[2018-11-02] MEDS: KCL 20 MEQ TAB (K-DUR) PO SCH (07:36)
--- NOTE | 2018-11-02 07:39 | NUR ---
Dr. Simons notified this am with update on Patient's vs and bradycardia of 45-55 throughout night. Medication changes made cardura and carvedilol. Patient informed and vu.
[2018-11-02 08:00] VITALS: BP 141/83
[2018-11-02] MEDS: DOCUSATE SODIUM 100 MG (COLACE) CAP PO SCH (08:28)
[2018-11-02] MEDS: FAMOTIDINE 20 MG (PEPCID) TABLET PO SCH (08:28)
[2018-11-02] MEDS: cloNIDine 0.2 MG (CATAPRES) TAB PO SCH (08:28)
[2018-11-02] MEDS ORDERED: FUROSEMIDE 40 MG (LASIX) TAB PO SCH (09:00)
[2018-11-02] MEDS ORDERED: doxAzosin 4 MG (CARDURA) TAB PO SCH (09:00)
[2018-11-02] MEDS ORDERED: DOXA4TAB2 PO (10:12)
[2018-11-02] MEDS ORDERED: FURO80TA3 PO (10:12)
[2018-11-02] MEDS ORDERED: CARV12.53 PO (10:12)
--- NOTE | 2018-11-02 10:41 | Discharge Summary-Hospitalist ---
Diagnosis/Chief Complaint Date of Admission October 31, 2018 at 17:25 Date of Discharge Discharge Date: November 02, 2018 Discharge Diagnosis (1) Acute exacerbation of CHF (congestive heart failure) Status: Acute (2) Atrial fibrillation with normal ventricular rate Status: Chronic (3) COPD with hypoxia Status: Chronic (4) Diabetes Status: Chronic (5) Dyspnea Status: Acute (6) Labile hypertension Status: Acute Discharge Summary Discharge Physical Exam Allergies: Coded Allergies: lisinopril (Verified Allergy, Severe, Anaphylaxis, 10/31/18) allopurinol (Verified Allergy, Unknown, Hives, 10/31/18) amlodipine (Verified Allergy, Unknown, swelling, 10/31/18) hydralazine (Verified Allergy, Unknown, 10/31/18) levofloxacin (Verified Allergy, Unknown, Hallucinations, 10/31/18) Vitals & I&Os Vital Signs Date Time Temp Pulse Resp B/P (MAP) Pulse Ox O2 Delivery O2 Flow Rate FiO2 11/02/18 11:00 61 16 141/83 95 Nasal Cannula 2.00 11/02/18 08:00 98.2 10/31/18 19:51 21 General Appearance: No Apparent Distress, WD/WN, Chronically ill Respiratory: Chest Non Tender, Lungs Clear, Normal Breath Sounds, No Accessory Muscle Use, No Respiratory Distress Cardiovascular: Regular Rate, Rhythm, No Edema, No Gallop, No JVD, No Murmur, Normal Peripheral Pulses Neurologic/Psychiatric: Alert, Oriented x3, No Motor/Sensory Deficits, Normal Mood/Affect Hospital Course Was the Problem List Reviewed?: Yes Hospital course: patient had a brief hospital course. Patient was admitted and Cardiology managed AFw/RVR and exacerbation of CHF with volume overload. Patient tolerated aggressive diuresis well. Dr Hill is his PCP and Dr Rivera if his primary [place]. Patient did very well thru the course and hypoxia resolved with diuresis and overall he did well and was able to be DC with modification of his diuretic therapy at DC. Labs (last 24 hrs) Laboratory Tests 11/02/18 05:15: White Blood Count 6.8, Red Blood Count 3.80L, Hemoglobin 12.4L, Hematocrit 38L, Mean Corpuscular Volume 99, Mean Corpuscular Hemoglobin 33, Mean Corpuscular Hemoglobin Concent 33, Red Cell Distribution Width 14.3, Platelet Count 226, Mean Platelet Volume 9.9, Neutrophils (%) (Auto) 68, Lymphocytes (%) (Auto) 17, Monocytes (%) (Auto) 11, Eosinophils (%) (Auto) 5, Basophils (%) (Auto) 0, Neutrophils # (Auto) 4.6, Lymphocytes # (Auto) 1.1, Monocytes # (Auto) 0.7, Eosinophils # (Auto) 0.3, Basophils # (Auto) 0.0, Sodium Level 137, Potassium Level 4.0, Chloride Level 104, Carbon Dioxide Level 21, Anion Gap 12, Blood Urea Nitrogen 19H, Creatinine 1.02, Estimat Glomerular Filtration Rate > 60, BUN/Creatinine Ratio 19, Glucose Level 119H, Calcium Level 9.0, Corrected Calcium 9.2, Magnesium Level 2.2, Total Bilirubin 1.0, Aspartate Amino Transf (AST/SGOT) 17, Alanine Aminotransferase (ALT/SGPT) 18, Alkaline Phosphatase 90, Total Protein 6.7, Albumin 3.8, Thyroid Stimulating Hormone (TSH) 3.65 Patient resulted labs reviewed. Pending Labs Discussion & Recommendations Discharge Planning: <30 minutes discharge planning Discharge Home Medications: Active Scripts Active Furosemide 80 Mg Tablet 80 Mg PO DAILY Carvedilol 12.5 Mg Tablet 12.5 Mg PO BID WITH MEALS Doxazosin Mesylate 4 Mg Tablet 4 Mg PO BID Ventolin Hfa (Albuterol Sulfate) 1 Puff Puff 2 Puff INH Q4H PRN 7 Days 1 PUFF = 90 MCG Tessalon Perles (Benzonatate) 100 Mg Capsule 200 Mg PO BID PRN Reported Alprazolam 0.25 Mg Tablet 1 Tab PO TID Doxepin HCl 25 Mg Capsule 25 Mg PO PRN Tramadol HCl 50 Mg Tablet 50 Mg PO HS Melatonin 5 mg Tablet (Melatonin/Pyridoxine) 1 Each Tablet 1 Each PO HS Docusate Sodium 100 Mg Capsule 100 Mg PO BID Acid Pipe Fitter Marine (RANITIDINE) (Ranitidine HCl) 150 Mg Tablet 150 Mg PO BID Toviaz (Fesoterodine Fumarate) 4 Mg Tab.sr.24h 4 Mg PO HS Xarelto (Rivaroxaban) 20 Mg Tablet 20 Mg PO HS Clonidine HCl 0.2 Mg Tablet 0.2 Mg PO BID Flomax (Tamsulosin HCl) 0.4 Mg Cap 0.4 Mg PO HS Potassium Chloride 20 Meq Tablet.er 20 Meq PO DAILY Instructions to patient/family Please see electronic discharge instructions given to patient. 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
[2018-11-02 11:00] VITALS: BP 141/83
--- NOTE | 2018-11-02 18:06 | Progress Note-Cardiology ---
Cardiology SOAP Progress Note Subjective: Shortness of breath better. No cp or palp or syncope. Doesn't wish to stay in the hosp any longer. Insists on going home Objective: I&O/Vital Signs 11/02/18 11/02/18 11/02/18 11/02/18 07:00 08:00 08:00 08:32 Temp 98.2 Pulse 50 61 Resp 16 B/P (MAP) 141/83 (102) Pulse Ox 94 93 95 O2 Delivery Nasal Cannula Nasal Cannula Nasal Cannula O2 Flow Rate 2.00 2.00 2.00 11/02/18 11:00 Pulse 61 Resp 16 B/P (MAP) 141/83 Pulse Ox 95 O2 Delivery Nasal Cannula O2 Flow Rate 2.00 11/01/18 23:59 Intake Total 950 ml Output Total 300 ml Balance 650 ml Weight (Pounds): 217 Weight (Ounces): 4.0 Weight (Calculated Kilograms): 98.911600 Constitutional: AAO x 3, well-developed, well-nourished Respiratory: No accessory muscle use; other (fair air entry, diminished at the bases; basal crackles) Cardiovascular: irregularly irregular, S1 and S2, systolic murmur (2/6 KIM at card base) Gastrointestional: No tender; soft; No guarding, No rebound; audible bowel sounds Extremities: No clubbing, No cyanosis, No significant edema Neurologic/Psychiatric: oriented x 3, grossly intact, power is 5/5 both on sides Skin: No rash on exposed areas, No ulcerations on exposed areas Results/Procedures: Labs Laboratory Tests 11/02/18 05:15: White Blood Count 6.8, Red Blood Count 3.80L, Hemoglobin 12.4L, Hematocrit 38L, Mean Corpuscular Volume 99, Mean Corpuscular Hemoglobin 33, Mean Corpuscular Hemoglobin Concent 33, Red Cell Distribution Width 14.3, Platelet Count 226, Mean Platelet Volume 9.9, Neutrophils (%) (Auto) 68, Lymphocytes (%) (Auto) 17, Monocytes (%) (Auto) 11, Eosinophils (%) (Auto) 5, Basophils (%) (Auto) 0, Neutrophils # (Auto) 4.6, Lymphocytes # (Auto) 1.1, Monocytes # (Auto) 0.7, Eosinophils # (Auto) 0.3, Basophils # (Auto) 0.0, Sodium Level 137, Potassium Level 4.0, Chloride Level 104, Carbon Dioxide Level 21, Anion Gap 12, Blood Urea Nitrogen 19H, Creatinine 1.02, Estimat Glomerular Filtration Rate > 60, BUN/Creatinine Ratio 19, Glucose Level 119H, Calcium Level 9.0, Corrected Calcium 9.2, Magnesium Level 2.2, Total Bilirubin 1.0, Aspartate Amino Transf (AST/SGOT) 17, Alanine Aminotransferase (ALT/SGPT) 18, Alkaline Phosphatase 90, Total Protein 6.7, Albumin 3.8, Thyroid Stimulating Hormone (TSH) 3.65 A/P: Assessment: Ac on chronic systolic and diastolic CHF Echo of 11/02/18: LVEF 40-45%, mod MR, mod to sev TR, biatrial enlargement, RVSP 35 mmHg Chronic A Fib Chronic oral anticoag (rivaroxaban) Intolerance/allergy to AKIL-inhib and ARB, per pt report (rash and hives). He also reports intolerance to hydralazine (nonspecific) DM II Pt reports that a card cath in or around 2014 at [facility] did not show any significant CAD Remote h/o tobacco use Recent pneumonia, managed by the Med Svce Plan: * Diuretics to treat decompensated CHF * Continue rivaroxaban for stroke prophylaxis * Reduce carvedilol because of bradycardia (slow vent response to A Fib) * Add doxazosin for bp control * Increase furosemide. 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
== END 2018-11-02 11:00 | disposition home or self-care (01) | DRG 293 ==
LOC: EDUNIT# 14:45 → ER FS 14:46 → 4TH 17:25
PROVIDERS: ADMIT Family Medicine; ATTEND Internal Medicine Cardiovascular Disease
DX: I11.0 Hypertensive heart disease with heart failure (principal); I50.43 Acute on chronic combined systolic (congestive) and diastolic (congestive) heart failure; I48.2 Chronic atrial fibrillation; I08.1 Rheumatic disorders of both mitral and tricuspid valves; E11.42 Type 2 diabetes mellitus with diabetic polyneuropathy; J44.9 Chronic obstructive pulmonary disease, unspecified; R09.02 Hypoxemia; Z87.01 Personal history of pneumonia (recurrent); Z99.81 Dependence on supplemental oxygen; Z87.891 Personal history of nicotine dependence
CPT/HCPCS: 36415; 71046; 80053; 81000; 83735; 83880; 84443; 84484; 85025; 93005; 93306; 94640; 94760; 96374; 96375

== ENCOUNTER 2021-05-29 10:35 | Emergency (ER) | payer MEDICARE ==
[~2021-05-29] VITALS: Ht 180 cm; Wt 104.0 kg
[~2021-05-29 10:35] MED LIST changes: +ALPR.25T PO; +AMOX1TAB39 PO; +CARV12.53 PO; +CARV25TA PO; +CLN.2T PO; +DOCU100C37 PO; +DOXA4TAB2 PO; +DOXE25CA46 PO; +FESO4TAB PO; +FURO20TA4 PO; +FURO80TA3 PO; +MELA1TAB15 PO; +POTA-51 PO; +RANI150T90 PO; +RIVA20TA PO; +TMSL.4C PO; +TRM50T PO
--- OUTSIDE RECORDS SUMMARY | 2021-05-29 10:45 | XMS REPORT | Clinical Summary ---
Author Author [facility] Organization [facility] Address Unknown Phone Unavailable Care Team Providers Care Hydroponics Worker Name Role Phone PCP Unavailable Allergies Not on File Medications End Date Status Medication Sig Dispensed Refills Start Date Active furosemide (LASIX) 20 MG Take 1 tablet 1 0 tablet by mouth 4 daily Active tamsulosin (FLOMAX) 0.4 Take 1 tablet 1 0 mg Cp24 by mouth 4 daily Active potassium chloride Take 1 tablet 1 0 08/20 (K-DUR,KLOR-CON) 20 MEQ by mouth 4 tablet daily Active lisinopril Take 1 tablet 1 0 (PRINIVIL,ZESTRIL) 40 MG by mouth 4 tablet daily Active traMADol 100 mg TM24 Take 1 tablet 1 0 by mouth as 4 needed Active digoxin (LANOXIN) 250 mcg Take 1 tablet 1 0 tablet by mouth 4 daily Active carvedilol (COREG) 12.5 take 1 tablet 1 0 MG tablet by mouth 4 twice daily Active apixaban (ELIQUIS) 5 mg Take 1 tablet 1 0 tablet by mouth 4 twice daily Active Problems Not on file Family History Relation Name Status Comments Father Cause of was RA, pneumonia at age 42. (Age 42) Mother Cause of was Parkinson's at age 75. 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
--- OUTSIDE RECORDS SUMMARY | 2021-05-29 10:45 | XMS REPORT | Clinical Summary ---
Author Author [facility] Organization [facility] Address Unknown Phone Unavailable Care Team Providers Care Software Installation Engineer Name Role Phone Laura Hill MD PCP Source Comments Some departments are not documenting in the electronic medical record. If you d o not see the information that you expected, contact Release of Information in [facility] [employer] Information Management department at [phone] for further assistan ce in locating additional records.[facility] Allergies Comments Active Allergy Reactions Severity Noted Date Allopurinol RASH Medium 03/20/2018 Amlodipine UNKNOWN Low 12/04/2017 Lupus syndrome Hydralazine SEE COMMENTS High 11/16/2018 Levofloxacin HALLUCINATION High 12/04/2017 S Lisinopril ANAPHYLAXIS High 12/04/2017 Medications End Date Status Medication Sig Dispensed Refills Start Date Active tamsulosin (FLOMAX) 0.4 Take 0.4 mg 0 mg capsule by mouth daily. Do not crush, chew or open capsules. Take 30 minutes following the same meal each day. Active traMADol (ULTRAM) 50 mg Take 100 mg 0 tablet by mouth every 6 hours as needed for Pain. Active ranitidine(+) (ZANTAC) Take 150 mg 0 150 mg tablet by mouth twice daily. Active fesoterodine ER(+) Take 4 mg by 0 (TOVIAZ) 4 mg tablet mouth at bedtime daily. Active ALPRAZolam (XANAX) 0.25 Take 0.25 mg 0 mg tablet by mouth three times daily as needed for Anxiety. Active potassium chloride SR Take 20 mEq 0 (K-DUR) 20 mEq tablet by mouth daily. Take with a meal and a full glass of water. Active albuterol-ipratropium Inhale 3 mL 0 (DUO-NEB, DUO-VENT) 0.5 solution by mg-3 mg(2.5 mg base)/3 mL nebulizer as nebulizer solution directed twice daily. Active rivaroxaban (XARELTO) 20 Take 20 mg by 0 mg tablet mouth daily. Take with food. Active cloNIDine (CATAPRESS) 0.2 Take 0.2 mg 0 mg tablet by mouth twice daily. Active carvedilol (COREG) 25 mg Take 1 tablet 180 tablet 3 tablet by mouth 8 twice daily. Take with food. Additional Information Patient taking differently: 25 mg Oral TWICE DAILY, Take with food., Indications: 12.5 BID, Reported on 11/16/2018 Active furosemide (LASIX) 40 mg Take 1 tablet 90 tablet 3 tablet by mouth 8 daily. Additional Information Patient taking differently: 80 mg Oral DAILY, Reported on 11/16/2018 Active doxepin (SINEQUAN) 25 mg Take 25 mg by 0 capsule mouth at bedtime daily. Active melatonin 5 mg tab Take 5 mg by 0 mouth at bedtime daily. Active docusate sodium (STOOL Take by 0 SOFTENER PO) mouth daily. Active triamcinolone acetonide Apply 80 g 0 (KENALOG) 0.1 % topical topically to 8 cream affected area twice daily. Apply to your legs and her feet. Do not use on there areas including the face Active metOLazone (ZAROXOLYN) Take 2.5 mg 0 2.5 mg tablet by mouth every 48 hours. Active triamcinolone acetonide Apply twice 454 g 1 (KENALOG) 0.1 % topical daily to 8 ointment affected areas on the body. Do not apply to the face, armpits, genitalia Active digoxin (LANOXIN) 250 mcg Take 1 tablet 0 03/0 tablet by mouth 4 daily Active ketoconazole (NIZORAL) 2 APPLY TO 3 04/28 % topical cream AFFECTED AREA 8 ON FEET BID Active blood sugar diagnostic TEST FOUR 0 08/04/2 01 ([employer] ULTRA BLUE TEST TIMES DAILY 8 STRIP) test strip Active Ceramides 1,3,6-11 lotn Apply to 0 affected area. Active doxazosin (CARDURA) 4 mg Take 4 mg by 0 tablet mouth twice daily. Active Problems Problem Noted Date Weakness 02/24/2018 Overview: Formatting of this note might be differ ent from the original. Unclear if residual weakness could b e related to previous use of Hydralazine, though symptoms do not see m to be improving with stopping the medication Neuromuscular weakness could cause r estrictive pattern on PFT and should remain in the differential given curren t symptoms Family history or parkinson's in mot her - further evaluation with PCP vs neurology referral No previous imaging of head for revi ew SOB (shortness of breath) 01/01/2018 Last Assessment & Plan: Formatting of this note might be differ ent from the original. Continued profound fatigue with asso ciated dyspnea Given CT findings cardiac etiology s hould remain in the differential Hgb improved at 12 on most recent la bs CT with small bilateral pleural effu sions, though these are unlikely to be contributing give the small size Restrictive pattern present on pulmonary function tyrone ting 12/08/2017 Overview: Formatting of this note might be differ ent from the original. PFT (11/2017) FVC 2.64L (58% pred) FEV1 1.92L (51% pred) FEV1/FVC 73 RV 1.68L (70% pred) DLCO 80% pred Inhaler Regimen Incruse Ellipta Albuterol CT screening CT CHEST W (02/19/18) There is mild pulmonary venous conge stion and interstitial edema throughout both lung s. Mild diffuse groundglass opacity is also seen throughout both lungs, lik chel representing edema. mild emphysema and central bronchiec tasis compatible with DOPE Last Assessment & Plan: Formatting of this note might be differ ent from the original. CT chest today with findings most co nsistent with volume overload without evidence of interstitial lung d isease Previous PFT reviewed with moderate restriction with preserved DLCO - also suggestive of cardiac etiology Referral to cardiology for further e valuation and management of diuretics vs PCP Given associated weakness could cons ider obtaining MIP/MEP to assess for neuromuscular weakness. Chronic respiratory failure with hypoxia 12/08/2017 Type 2 diabetes mellitus 12/08/2017 Atrial fibrillation 12/08/2017 Chronic anticoagulation 12/08/2017 Essential hypertension 12/08/[address] 12/04/2017 Overview: Formatting of this note is different fr om the original. Hilar and mediastinal lymphadenopathy ? CTA chest (12/04/17) - without evidenc e of PE and worsening mediastinal and hilar lymphadenopathy with associat ed diffuse GGO throughout both lungs, and focal consolidation of bilat eral lower lobes ? PET (12/08/17) - bulky metabolically a ctive mediastinal and hilar lymphadenopathy with right subclavicula r lymphadenopathy (max SUV noted in pretracheal LN at 6.64) ? EBUS (12/08/17) Cytology negative Pathology/flow cytometry negative L ast Assessment & Plan: Formatting of this note might be differ ent from the original. Repeat chest CT with decrease in siz e of thoracic lymphadenopathy - decreased suspicion for malignant etiol ogy Plan for repeat chest CT in 3 mo Resolved Problems Problem Noted Date Resolved Date Severe malnutrition 12/07/2017 05/26/2018 Fever 12/04/2017 05/26/2018 Overview: Formatting of this note is different fr om the original. ? Bone Marrow (11/24/17) - Low level mon oclonal B population of uncertain significance. ? Blood cx (12/04) negative ? 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 Symptoms improved with d/c of hydral azine No longer having cyclical fevers or sweating Continue with plan for follow-up wit h rheumatology 03/20/18 for further evaluation Surgical History Surgery Date Site/Laterality Comments BRONCHOSCOPY 12/08/2017 N/A BRONCHOSCOPY pe rformed by Sachin Kwan MD at [facility] BRONCHOSCOPY 12/08/2017 N/A BRONCHOSCOPY WI TH ULTRASOUND performed by Sachin Kwan MD at END[facility]GI BRONCHOSCOPY 12/08/2017 BRONCHOSCOPY WITH B IOPSY performed by Sachin Kwan MD at END[facility]GI Medical History Medical History Date Comments COPD (chronic obstructive pulmonary disease) (HCC) A-fib (HCC) Heart failure (HCC) Chronic respiratory failure with hypoxia (HCC) Diabetes (HCC) Family History Medical History Relation Name Comments Arthritis-rheumatoid Father Relation Name Status Comments Father Social History Date Tobacco Use Types Packs/Day Years Used Quit: 12/05/1996 Former Smoker 1 35 Smokeless Tobacco: Former Quit: 12/05/1996 User Comments Alcohol Use Standard Drinks/Week Yes 0 (1 standard drink = 0.6 o z pure alcohol) Alcohol Habits Answer Date Recorded How often do you have a drink containing alcohol? Monthly or less 05/25/2018 How many drinks containing alcohol do you have on No t asked a typical day when you are drinking? How often do you have six or more drinks on one Not asked occasion? Comment: Not asked Sex Assigned at Date Recorded Not on file Last Filed Vital Signs Reading Time Taken Comments Vital Sign 147/79 11/16/2018 1:07 PM CDT Blood Pressure 70 11/16/2018 1:07 PM CDT Pulse 36.7 C (98.1 F) 11/16/2018 1:07 PM CDT Temperature 16 11/16/2018 1:07 PM CDT Respiratory Rate 95% 11/16/2018 1:07 PM CDT ra Oxygen Saturation - - Inhaled Oxygen Concentration 96.2 kg (212 lb) 11/16/2018 1:07 PM CDT Weight 177.2 cm (5' 9.75") 11/16/2018 1:07 PM CDT Height 30.64 11/16/2018 1:07 PM CDT Body Mass Index Plan of Treatment Health Maintenance Due Date Last Done Comments MEDICARE ANNUAL WELLNESS 1950 VISIT PNEUMONIA (PPSV23) 1956 VACCINE (1 of 2 - PPSV23) DTAP/TDAP VACCINES (1 - 1968 Tdap) PHYSICAL (COMPREHENSIVE) 1968 EXAM COLORECTAL CANCER 2000 SCREENING SHINGLES RECOMBINANT 2000 VACCINE (1 of 2) ABDOMINAL AORTIC ANEURYSM 08/26/2015 SCREENING INFLUENZA VACCINE 01/14/2021 HEPATITIS C SCREENING Completed 12/30/2017 Results Not on filefrom Last 3 Months Insurance Type Payer Benefit Subscriber ID Effective Phone Address Plan / Dates Group Medicare MEDICARE MEDICARE [id number] 2015-P [phone] [address] [place] [address] PPO [facility] [id number] 2017-P [id number] [place] [address] [phone] 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 12/11/2017 7:32 PM Full Code 12/04/2017 7:24 PM Provider has discussed Code Status No, more discussi on w/Patient or Family? needed Care Teams Start Date End Date Software Installation Engineer Relationship Specialty 12/12/17 Laura Hill MD PCP - General [address] [address]
--- NOTE | 2021-05-29 10:48 | ED Cough/URI ---
General Chief Complaint: Respiratory Problems Stated Complaint: COUGH,SOB History of Present Illness Date Seen by Provider: May 29, 2021 Time Seen by Provider: 10:43 Initial Comments 70-year-old male presents with shortness of breath. He reports that he started out couple days ago with a "cold" feels like it is worsened over the last 2 to 3 days. He has a history of both pulmonary edema with CHF along with COPD. Reports increased cough. He denies any fevers or chills. Patient denies any chest pain. Patient normally uses 3 L oxygen at night for the last couple years but has been using it during the day recently. Patient reports he is tried his inhalers with no relief. Patient has been vaccinated for Covid along with receiving a booster shot. Allergies and Home Medications Allergies Coded Allergies: lisinopril (Verified Allergy, Severe, Anaphylaxis, 10/31/18) allopurinol (Verified Allergy, Unknown, Hives, 10/31/18) amlodipine (Verified Allergy, Unknown, swelling, 10/31/18) hydralazine (Verified Allergy, Unknown, 10/31/18) levofloxacin (Verified Allergy, Unknown, Hallucinations, 10/31/18) Patient Home Medication List Home Medication List Reviewed: Yes ALPRAZolam (Xanax Tablet) 0.25 Mg Tablet, 1 TAB PO TID, (Reported) Entered as Reported by: GE HAWKINS on 11/01/18 0750 Albuterol Sulfate (Ventolin Hfa) 1 Puff Puff, 2 PUFF INH Q4H PRN for COUGH Prescribed by: MASSIEL CALDERA on 10/24/18 111 Benzonatate (Tessalon Perles) 100 Mg Capsule, 200 MG PO BID PRN for COUGH Prescribed by: MASSIEL CALDERA on 10/24/18 111 Carvedilol (Carvedilol) 12.5 Mg Tablet, 12.5 MG PO BID WITH MEALS Prescribed by: HERMES REN on 11/02/18 1012 Clonidine HCl (Clonidine HCl) 0.2 Mg Tablet, 0.2 MG PO BID, (Reported) Entered as Reported by: JACQUI CORONADO on 10/31/182017 Docusate Sodium (Docusate Sodium) 100 Mg Capsule, 100 MG PO BID, (Reported) Entered as Reported by: JACQUI CORONADO on 10/31/182029 Doxazosin Mesylate (Doxazosin Mesylate) 4 Mg Tablet, 4 MG PO BID Prescribed by: HERMES REN on 11/02/18 101 Doxepin HCl (Doxepin HCl) 25 Mg Capsule, 25 MG PO PRN, (Reported) Entered as Reported by: JACQUI CORONADO on 10/31/182029 Doxycycline Hyclate (Doxycycline Hyclate) 100 Mg Tablet, 100 MG PO BID Prescribed by: CAROLINE SU on 05/29/21 120 Fesoterodine Fumarate (Toviaz) 4 Mg Tab.sr.24h, 4 MG PO HS, (Reported) Entered as Reported by: JACQUI CORONADO on 10/31/182017 Furosemide (Furosemide) 80 Mg Tablet, 80 MG PO DAILY Prescribed by: HERMES REN on 11/02/18 101 Melatonin/Pyridoxine (Melatonin 5 mg Tablet) 1 Each Tablet, 1 EACH PO HS, (Reported) Entered as Reported by: JACQUI CORONADO on 10/31/182029 Potassium Chloride (Potassium Chloride) 20 Meq Tablet.er, 20 MEQ PO DAILY, (Reported) Entered as Reported by: JACQUI CORONADO on 10/31/182009 Prednisone (Prednisone) 20 Mg Tab, 40 MG PO DAILY Prescribed by: CAROLINE SU on 05/29/21 120 Ranitidine HCl (Acid Petroleum Inspector (RANITIDINE)) 150 Mg Tablet, 150 MG PO BID, (R eported) Entered as Reported by: JACQUI CORONADO on 10/31/182017 Rivaroxaban (Xarelto) 20 Mg Tablet, 20 MG PO HS, (Reported) Entered as Reported by: JACQUI CORONADO on 10/31/182017 Tamsulosin HCl (Flomax) 0.4 Mg Cap, 0.4 MG PO HS, (Reported) Entered as Reported by: JACQUI CORNOADO on 10/31/182017 Tramadol HCl (Tramadol HCl) 50 Mg Tablet, 50 MG PO HS, (Reported) Entered as Reported by: JACQUI CORONADO on 10/31/182029 Review of Systems Review of Systems Constitutional: No chills, No fever EENTM: nose congestion Respiratory: cough, orthopnea, short of breath Cardiovascular: No chest pain, No palpitations Gastrointestinal: No abdominal pain, No nausea, No vomiting Genitourinary: no symptoms reported Musculoskeletal: no symptoms reported Skin: no symptoms reported Psychiatric/Neurological: No Symptoms Reported Hematologic/Lymphatic: No Symptoms Reported Immunological/Allergic: no symptoms reported Past [place]-Ngyoah-Atsipp Hx Seasonal Allergies Seasonal Allergies: No Past Medical History Surgeries: Yes Appendectomy, Tonsillectomy Respiratory: Yes Pneumonia Cardiac: Yes Atrial Fibrillation, Hypertension Neurological: No Genitourinary: No Gastrointestinal: No Musculoskeletal: No Endocrine: No HEENT: No Cancer: No Psychosocial: No Integumentary: No Blood Disorders: No Physical Exam Vital Signs - First Documented 05/29/21 05/29/21 10:45 10:57 Temp 36.2 Pulse 81 Resp 16 B/P (MAP) 142/78 (99) Pulse Ox 94 O2 Delivery Room Air O2 Flow Rate 2.00 Capillary Refill : Height: 5'11.00" Weight: 217lbs. 4.0oz. 98.950579yh; 30.3 BMI Method:Stated General Appearance: mild distress HEENT: PERRL/EOMI Respiratory: no respiratory distress, no accessory muscle use, decreased breath sounds, other (Coarse breath sounds throughout) Cardiovascular: normal peripheral pulses, regular rate, rhythm Gastrointestinal: non tender, soft Neurologic/Psychiatric: alert, normal mood/affect, oriented x 3 Skin: normal color, warm/dry Focused Exam Lactate Level 05/29/21 10:50: Lactic Acid Level 1.83 Lactic Acid Level Laboratory Tests Test 05/29/21 10:50 Lactic Acid Level 1.83 MMOL/L (0.50-2.00) Progress/Results/Core Measures Suspected Sepsis SIRS Temperature: Pulse: Respiratory Rate: Laboratory Tests 05/29/21 10:50: White Blood Count 7.7 Blood Pressure / Mean: 05/29/21 10:50: Lactic Acid Level 1.83 Laboratory Tests 05/29/21 10:50: Creatinine 1.22, Platelet Count 234, Total Bilirubin 1.2H Results/Orders Lab Results Laboratory Tests Test 05/29/21 10:50 Range/Units White Blood Count 7.7 4.3-11.0 10^3/uL Red Blood Count 4.27 L 4.30-5.52 10^6/uL Hemoglobin 13.5 13.3-17.7 g/dL Hematocrit 41 40-54 % Mean Corpuscular Volume 97 80-99 fL Mean Corpuscular Hemoglobin 32 25-34 pg Mean Corpuscular Hemoglobin Concent 33 32-36 g/dL Red Cell Distribution Width 13.6 10.0-14.5 % Platelet Count 234 130-400 10^3/uL Mean Platelet Volume 9.9 9.0-12.2 fL Neutrophils (%) (Auto) 82 H 42-75 % Lymphocytes (%) (Auto) 7 L 12-44 % Monocytes (%) (Auto) 6 0-12 % Eosinophils (%) (Auto) 4 0-10 % Basophils (%) (Auto) 1 0-10 % Neutrophils # (Auto) 6.3 1.8-7.8 X 10^3 Lymphocytes # (Auto) 0.5 L 1.0-4.0 X 10^3 Monocytes # (Auto) 0.5 0.0-1.0 X 10^3 Eosinophils # (Auto) 0.3 0.0-0.3 10^3/uL Basophils # (Auto) 0.0 0.0-0.1 10^3/uL Neutrophils % (Manual) 71 % Lymphocytes % (Manual) 5 % Monocytes % (Manual) 5 % Eosinophils % (Manual) 5 % Basophils % (Manual) 1 % Band Neutrophils 11 % Atypical Lymphocytes 2 % Platelet Estimate NORMAL Macrocytosis 1+ Sodium Level 132 L 135-145 MMOL/L Potassium Level 4.3 3.6-5.0 MMOL/L Chloride Level 94 L 98-107 MMOL/L Carbon Dioxide Level 23 21-32 MMOL/L Anion Gap 15 H 5-14 MMOL/L Blood Urea Nitrogen 15 7-18 MG/DL Creatinine 1.22 0.60-1.30 MG/DL Estimat Glomerular Filtration Rate 59 BUN/Creatinine Ratio 12 Glucose Level 171 H 70-105 MG/DL Lactic Acid Level 1.83 0.50-2.00 MMOL/L Calcium Level 9.6 8.5-10.1 MG/DL Corrected Calcium 8.5-10.1 MG/DL Magnesium Level 1.8 1.6-2.4 MG/DL Total Bilirubin 1.2 H 0.1-1.0 MG/DL Aspartate Amino Transf (AST/SGOT) 14 5-34 U/L Alanine Aminotransferase (ALT/SGPT) 7 0-55 U/L Alkaline Phosphatase 136 40-136 U/L C-Reactive Protein 3.05 H <0.50 MG/DL Pro-B-Type Natriuretic Peptide 6832.0 H <75.0 PG/ML Total Protein 9.2 H 6.4-8.2 GM/DL Albumin 4.6 H 3.2-4.5 GM/DL Influenza Type A Antigen NEGATIVE NEGATIVE Influenza Type B Antigen NEGATIVE NEGATIVE My Orders Orders - SU,CAROLINE L DO Cbc With Automated Diff (05/29/21 10:51) Comprehensive Metabolic Panel (05/29/21 10:51) Lactic Acid Analyzer (05/29/21 10:51) Magnesium (05/29/21 10:51) Probnp Fs (05/29/21 10:51) Crp Fs (05/29/21 10:51) Covid 19 Inhouse Test (05/29/21 10:51) Chest Pa/Lat (2 View) (05/29/21 10:51) Albuterol/Ipra Inhalation Soln (Duoneb I (05/29/21 11:00) Svn Small Volume Nebulizer (05/29/21 10:55) Influenza A & B Antigens (05/29/21 11:04) Ekg Tracing (05/29/21 11:05) Manual Differential (05/29/21 10:50) Medications Given in ED Current Medications Medications Dose Ordered Sig/Dov Route Start Time Stop Time Status Last Admin Dose Admin Albuterol/ Ipratropium 3 ml ONCE ONCE INH 05/29/21 11:00 05/29/21 11:01 DC 05/29/21 11:14 3 ML Vital Signs/I&O 05/29/21 05/29/21 05/29/21 10:45 10:57 12:05 Temp 36.2 36.2 Pulse 81 82 Resp 16 20 B/P (MAP) 142/78 (99) 132/76 Pulse Ox 94 98 O2 Delivery Room Air Nasal Cannula Nasal Cannula O2 Flow Rate 2.00 2.00 Capillary Refill : Progress Note : Progress Note Patient stable in the upper 90s oxygen on his baseline 2 to 3 L home oxygen. Patient's x-ray shows some bilateral infiltrates. I will start him on doxycycline and prednisone with his history of COPD. Patient should follow-up with a primary care provider in the next 2 to 3 days for recheck of his symptoms. Patient stable and discharged home ECG Initial ECG Impression Date: May 29, 2021 Initial ECG Impression Time: 10:53 Initial ECG Impression: Atrial Fibrillation Initial ECG Comparisson: Unchanged Comment no acute finding Departure Impression Primary Impression: Pneumonia Qualified Codes: J18.9 - Pneumonia, unspecified organism Disposition: 01 HOME, SELF-CARE Condition: Stable Departure-Patient Inst. Referrals: ERICH SANDOVAL MD (PCP/Family) Primary Care Physician Patient Instructions: Pneumonia, Adult ED Add. Discharge Instructions: Use your inhaler every 4 hours while awake for the next 24 to 48 hours, follow- up with your primary care provider Friday of the week for recheck of your symp toms All discharge instructions reviewed with patient and/or family. Voiced understanding. Scripts Prednisone (Prednisone) 20 Mg Tab 40 MG PO DAILY, #6 TAB 0 Refills Prov: CAROLINE SU DO 05/29/21 Doxycycline Hyclate (Doxycycline Hyclate) 100 Mg Tablet 100 MG PO BID, #20 TAB 0 Refills Prov: CAROLINE SU DO 05/29/21 CAROLINE SU DO May 29, 2021 10:48
[2021-05-29] MEDS ORDERED: RT-ALBUTEROL/IPRATROPIUM 3 ML (DUONEB) VIAL INH ONE (11:00)
[2021-05-29 11:14] LABS: BASOPHILS % (AUTO) 1 % (0-10); EOSINOPHILS % (AUTO) 4 % (0-10); HEMATOCRIT 41 % (40-54); HEMOGLOBIN 13.5 g/dL (13.3-17.7); LYMPHOCYTES % (AUTO) 7 % (12-44); MEAN CORPUSCULAR HEMOGLOBIN 32 pg (25-34); MEAN CORPUSCULAR HGB CONC 33 g/dL (32-36); MEAN CORPUSCULAR VOLUME 97 fL (80-99); MEAN PLATELET VOLUME 9.9 fL (9.0-12.2); MONOCYTES % (AUTO) 6 % (0-12); PLATELET COUNT 234 10^3/uL (130-400); WHITE BLOOD COUNT 7.7 10^3/uL (4.3-11.0)
[2021-05-29 11:15] LABS: EOSINOPHILS # (AUTO) 0.3 10^3/uL (0.0-0.3); LYMPHOCYTES # (AUTO) 0.5 X 10^3 (1.0-4.0); MONOCYTES # (AUTO) 0.5 X 10^3 (0.0-1.0); NEUTROPHILS # (AUTO) 6.3 X 10^3 (1.8-7.8); NEUTROPHILS % (AUTO) 82 % (42-75)
--- NOTE | 2021-05-29 11:23 | Diagnostic Imaging Report ---
INDICATION: Cough. Comparison with 10/31/2018. FINDINGS: Two views. Cardiomegaly is again noted. Prominence of the pulmonary vasculature. Increased interstitial infiltrates are noted throughout both lungs. No pneumothorax or pleural effusion. IMPRESSION: Cardiomegaly with pulmonary venous congestive changes. Increasing interstitial infiltrates are noted bilaterally. Dictated by: Dictated on workstation # [id number]
[2021-05-29 11:32] LABS: ALANINE AMINOTRANSFERASE 7 U/L (0-55); ALKALINE PHOSPHATASE 136 U/L (40-136); BILIRUBIN,TOTAL 1.2 MG/DL (0.1-1.0); BUN/CREATININE RATIO 12; CALCIUM 9.6 MG/DL (8.5-10.1); CARBON DIOXIDE 23 MMOL/L (21-32); CHLORIDE 94 MMOL/L (98-107); CREATININE SERUM 1.22 MG/DL (0.60-1.30); GFR ESTIMATED 59; GLUCOSE 171 MG/DL (70-105); MAGNESIUM 1.8 MG/DL (1.6-2.4); POTASSIUM 4.3 MMOL/L (3.6-5.0); SODIUM 132 MMOL/L (135-145)
[2021-05-29 11:33] LABS: ALBUMIN 4.6 GM/DL (3.2-4.5); TOTAL PROTEIN 9.2 GM/DL (6.4-8.2)
[2021-05-29 11:39] LABS: ATYPICAL LYMPHOCYTES 2 %; BAND NEUTROPHILS 11 %; BASOPHILS % (MANUAL) 1 %; EOSINOPHILS % (MANUAL) 5 %; LYMPHOCYTES % (MANUAL) 5 %; MONOCYTES % (MANUAL) 5 %; NEUTROPHILS % (MANUAL) 71 %
[2021-05-29 11:40] LABS: PLATELET ESTIMATE NORMAL
[2021-05-29] MEDS ORDERED: DOXY100T2 PO (12:01)
[2021-05-29] MEDS ORDERED: PRD20T PO (12:01)
[2021-05-29 12:05] VITALS: BP 132/76
== END 2021-05-29 12:11 | disposition home or self-care (01) ==
LOC: EDUNIT# 10:35 → ER FS 10:40
DX: J18.9 Pneumonia, unspecified organism (principal); I11.0 Hypertensive heart disease with heart failure; I50.9 Heart failure, unspecified; I48.91 Unspecified atrial fibrillation; Z20.822 Contact with and (suspected) exposure to COVID-19; Z79.01 Long term (current) use of anticoagulants
CPT/HCPCS: 36415; 71046; 80053; 83605; 83735; 83880; 85007; 85027; 86141; 87636; 87804; 93005

== ENCOUNTER → 2021-06-04 | Outpatient (CLI) | payer MEDICARE ==
[~2021-06-04] MED LIST changes: +DOXY100T2 PO; +PRD20T PO
--- NOTE | 2021-06-04 09:21 | Diagnostic Imaging Report ---
EXAMINATION: CHEST (PA AND LATERAL) CLINICAL INDICATION: 70-year-old male, shortness of breath. Evaluation for pneumonia. COMPARISON: May 29, 2021. FINDINGS: Heart size and mediastinal contours are unchanged. There is no identified pneumothorax. There is no large pleural effusion. There are multifocal bilateral alveolar and/or interstitial opacities with unchanged appearance since the comparison study. There is a redemonstrated chronic deformity of the left clavicle. IMPRESSION: 1. Unchanged multifocal bilateral interstitial and/or alveolar opacities. Differential diagnostic considerations would include COVID 19 infection and multifocal pneumonia/pneumonitis. Interstitial edema, additional alveolar consolidative processes, and additional causes of pneumonitis are also in the differential diagnosis. Dictated by: Dictated on workstation # [id number]
== END ==
LOC: RAD FS 09:00
PROVIDERS: ATTEND Registered Nurse Emergency
DX: J18.9 Pneumonia, unspecified organism (principal)
CPT/HCPCS: 71046

== ENCOUNTER 2021-12-02 21:11 | Inpatient (IN) | payer MEDICARE ==
[~2021-12-02] VITALS: Ht 187.9 cm; Wt 90.0 kg
[2021-12-02 21:31] LABS: BASOPHILS % (AUTO) 0 % (0-10); EOSINOPHILS # (AUTO) 0.1 10^3/uL (0.0-0.3); EOSINOPHILS % (AUTO) 1 % (0-10); HEMATOCRIT 40 % (40-54); HEMOGLOBIN 13.1 g/dL (13.3-17.7); LYMPHOCYTES # (AUTO) 0.9 10^3/uL (1.0-4.0); LYMPHOCYTES % (AUTO) 7 % (12-44); MEAN CORPUSCULAR HEMOGLOBIN 30 pg (25-34); MEAN CORPUSCULAR HGB CONC 33 g/dL (32-36); MEAN CORPUSCULAR VOLUME 90 fL (80-99); MEAN PLATELET VOLUME 10.2 fL (9.0-12.2); MONOCYTES # (AUTO) 0.7 10^3/uL (0.0-1.0); MONOCYTES % (AUTO) 5 % (0-12); NEUTROPHILS # (AUTO) 11.4 10^3/uL (1.8-7.8); NEUTROPHILS % (AUTO) 86 % (42-75); PLATELET COUNT 121 10^3/uL (130-400); WHITE BLOOD COUNT 13.3 10^3/uL (4.3-11.0)
--- NOTE | 2021-12-02 21:31 | ED Cough/URI ---
General Chief Complaint: Respiratory Problems Stated Complaint: TROUBLE BREATHING/FEVER/COUGH Source: patient Exam Limitations: no limitations History of Present Illness Date Seen by Provider: Dec 02, 2021 Time Seen by Provider: 21:20 Initial Comments Patient is a 71-year-old male with history of COPD, and congestive heart failure home O2 dependent requiring 3 L at baseline who presents with increased shortness of breath, productive cough with clear sputum and tactile fever earlier this evening. Symptoms began earlier today and have gradually progressed throughout this evening. Patient has used his home inhaler twice today with limited relief. He reports generalized weakness fatigue and wheezing. He is unable to walk greater than 6 feet without stopping to catch his breath which is less than 25% his normal capacity. He denies increased leg pain or swelling. He has been immunized for both COVID and influenza and last received his COVID booster May 14, 2021. No other acute symptoms or complaints. Patient is a non-smoker. Timing/Duration: this morning Severity/Quality: other Prior Episodes/Possible Cause: other Associated Symptoms: other Allergies and Home Medications Allergies Coded Allergies: lisinopril (Verified Allergy, Severe, Anaphylaxis, 10/31/18) allopurinol (Verified Allergy, Unknown, Hives, 10/31/18) amlodipine (Verified Allergy, Unknown, swelling, 10/31/18) hydralazine (Verified Allergy, Unknown, 10/31/18) levofloxacin (Verified Allergy, Unknown, Hallucinations, 10/31/18) Patient Home Medication List Home Medication List Reviewed: Yes ALPRAZolam (Xanax Tablet) 0.25 Mg Tablet, 1 TAB PO TID, (Reported) Entered as Reported by: GE HAWKINS on 11/01/18 0750 Albuterol Sulfate (Ventolin Hfa) 1 Puff Puff, 2 PUFF INH Q4H PRN for COUGH Prescribed by: MASSIEL CALDERA on 10/24/18 1110 Benzonatate (Tessalon Perles) 100 Mg Capsule, 200 MG PO BID PRN for COUGH Prescribed by: MASSIEL CALDERA on 10/24/18 1110 Carvedilol (Carvedilol) 12.5 Mg Tablet, 12.5 MG PO BID WITH MEALS Prescribed by: HERMES REN on 11/02/18 1012 Clonidine HCl (Clonidine HCl) 0.2 Mg Tablet, 0.2 MG PO BID, (Reported) Entered as Reported by: JACQUI CORONADO on 10/31/182017 Docusate Sodium (Docusate Sodium) 100 Mg Capsule, 100 MG PO BID, (Reported) Entered as Reported by: JACQUI CORONADO on 10/31/182029 Doxazosin Mesylate (Doxazosin Mesylate) 4 Mg Tablet, 4 MG PO BID Prescribed by: HERMES REN on 11/02/18 101 Doxepin HCl (Doxepin HCl) 25 Mg Capsule, 25 MG PO PRN, (Reported) Entered as Reported by: JACQUI CORONADO on 10/31/182029 Doxycycline Hyclate (Doxycycline Hyclate) 100 Mg Tablet, 100 MG PO BID Prescribed by: CAROLINE SU on 05/29/21 120 Fesoterodine Fumarate (Toviaz) 4 Mg Tab.sr.24h, 4 MG PO HS, (Reported) Entered as Reported by: JACQUI CORONADO on 10/31/182017 Furosemide (Furosemide) 80 Mg Tablet, 80 MG PO DAILY Prescribed by: HERMES REN on 11/02/18 1012 Melatonin/Pyridoxine (Melatonin 5 mg Tablet) 1 Each Tablet, 1 EACH PO HS, (Reported) Entered as Reported by: JACQUI CORONADO on 10/31/182029 Potassium Chloride (Potassium Chloride) 20 Meq Tablet.er, 20 MEQ PO DAILY, (Reported) Entered as Reported by: JACQUI CORONADO on 10/31/182009 Prednisone (Prednisone) 20 Mg Tab, 40 MG PO DAILY Prescribed by: CAROLINE SU on 05/29/21 120 Ranitidine HCl (Acid Casing Wringer Operator (RANITIDINE)) 150 Mg Tablet, 150 MG PO BID, (Reported) Entered as Reported by: JACQUI CORONADO on 10/31/182017 Rivaroxaban (Xarelto) 20 Mg Tablet, 20 MG PO HS, (Reported) Entered as Reported by: JACQUI CORONADO on 10/31/182017 Tamsulosin HCl (Flomax) 0.4 Mg Cap, 0.4 MG PO HS, (Reported) Entered as Reported by: JACQUI CORONADO on 10/31/182017 Tramadol HCl (Tramadol HCl) 50 Mg Tablet, 50 MG PO HS, (Reported) Entered as Reported by: JACQUI CORONADO on 10/31/18 2030 Review of Systems Review of Systems Constitutional: see HPI EENTM: see HPI Respiratory: see HPI Cardiovascular: see HPI Gastrointestinal: see HPI Genitourinary: see HPI Musculoskeletal: see HPI Skin: see HPI Psychiatric/Neurological: See HPI Hematologic/Lymphatic: See HPI Immunological/Allergic: see HPI All Other Systems Reviewed Negative Unless Noted: Yes Past Bdcjjae-Malzms-Pyfmso Hx Patient Social History Tobacco Use?: No Smoking Status: Former Smoker Use of E-Cig and/or Vaping dev: No Substance use?: No Alcohol Use?: No Seasonal Allergies Seasonal Allergies: No Past Medical History Surgeries: Yes Appendectomy, Tonsillectomy Respiratory: Yes Pneumonia Cardiac: Yes Atrial Fibrillation, Hypertension Neurological: No Genitourinary: No Gastrointestinal: No Musculoskeletal: No Endocrine: No HEENT: No Cancer: No Psychosocial: No Integumentary: No Blood Disorders: No Physical Exam Vital Signs - First Documented 12/02/21 21:15 Temp 38.2 Pulse 110 Resp 24 B/P (MAP) 154/78 (103) Pulse Ox 80 O2 Delivery Room Air Capillary Refill : Height: 5'11.00" Weight: 217lbs. 4.0oz. 98.563921hv; 32.00 BMI Method:Stated General Appearance: mild distress (Respiratory) Eyes: Bilateral Eye Normal Inspection, Bilateral Eye PERRL, Bilateral Eye EOMI HEENT: PERRL/EOMI, pharynx normal Neck: full range of motion, supple Respiratory: decreased breath sounds, accessory muscle use, rhonchi, wheezing, other Cardiovascular: regular rate, rhythm Gastrointestinal: non tender, soft Extremities: non-tender, normal inspection Neurologic/Psychiatric: shade cutter II-XII nml as tested, no motor/sensory deficits, alert, oriented x 3 Skin: normal color Focused Exam Sepsis Stage: Ruled Out Lactate Level 12/02/21 21:25: Lactic Acid Level 2.88*H Lactic Acid Level Laboratory Tests Test 12/02/21 21:25 Lactic Acid Level 2.88 MMOL/L (0.50-2.00) *H Progress/Results/Core Measures Suspected Sepsis SIRS Temperature: Pulse: Respiratory Rate: Laboratory Tests 12/02/21 21:25: White Blood Count 13.3H Blood Pressure / Mean: 12/02/21 21:25: Lactic Acid Level 2.88*H Laboratory Tests 12/02/21 21:25: Creatinine 0.97, Platelet Count 121L, Total Bilirubin 0.8 Results/Orders Lab Results Laboratory Tests Test 12/02/21 21:25 12/02/21 21:35 12/02/21 21:45 Range/Units White Blood Count 13.3 H 4.3-11.0 10^3/uL Red Blood Count 4.39 4.30-5.52 10^6/uL Hemoglobin 13.1 L 13.3-17.7 g/dL Hematocrit 40 40-54 % Mean Corpuscular Volume 90 80-99 fL Mean Corpuscular Hemoglobin 30 25-34 pg Mean Corpuscular Hemoglobin Concent 33 32-36 g/dL Red Cell Distribution Width 16.3 H 10.0-14.5 % Platelet Count 121 L 130-400 10^3/uL Mean Platelet Volume 10.2 9.0-12.2 fL Immature Granulocyte % (Auto) 1 % Neutrophils (%) (Auto) 86 H 42-75 % Lymphocytes (%) (Auto) 7 L 12-44 % Monocytes (%) (Auto) 5 0-12 % Eosinophils (%) (Auto) 1 0-10 % Basophils (%) (Auto) 0 0-10 % Neutrophils # (Auto) 11.4 H 1.8-7.8 10^3/uL Lymphocytes # (Auto) 0.9 L 1.0-4.0 10^3/uL Monocytes # (Auto) 0.7 0.0-1.0 10^3/uL Eosinophils # (Auto) 0.1 0.0-0.3 10^3/uL Basophils # (Auto) 0.0 0.0-0.1 10^3/uL Immature Granulocyte # (Auto) 0.1 0.0-0.1 10^3/uL Neutrophils % (Manual) 91 % Lymphocytes % (Manual) 5 % Monocytes % (Manual) 4 % Percent Immature Platelet Fraction 3.3 0.0-7.6 % Sodium Level 131 L 135-145 MMOL/L Potassium Level 4.4 3.6-5.0 MMOL/L Chloride Level 95 L 98-107 MMOL/L Carbon Dioxide Level 21 21-32 MMOL/L Anion Gap 15 H 5-14 MMOL/L Blood Urea Nitrogen 22 H 7-18 MG/DL Creatinine 0.97 0.60-1.30 MG/DL Estimat Glomerular Filtration Rate 83 BUN/Creatinine Ratio 23 Glucose Level 199 H 70-105 MG/DL Lactic Acid Level 2.88 *H 0.50-2.00 MMOL/L Calcium Level 9.0 8.5-10.1 MG/DL Corrected Calcium 8.8 8.5-10.1 MG/DL Total Bilirubin 0.8 0.1-1.0 MG/DL Aspartate Amino Transf (AST/SGOT) 19 5-34 U/L Alanine Aminotransferase (ALT/SGPT) 20 0-55 U/L Alkaline Phosphatase 104 40-136 U/L Troponin I < 0.30 <0.30 NG/ML Pro-B-Type Natriuretic Peptide 5510.0 H <75.0 PG/ML Total Protein 7.7 6.4-8.2 GM/DL Albumin 4.3 3.2-4.5 GM/DL Blood Gas Puncture Site RIGHT WRIST Blood Gas Patient Temperature 38.2 Arterial Blood pH 7.54 H 7.37-7.43 Arterial Blood Partial Pressure CO2 27 L 35-45 MMHG Arterial Blood Partial Pressure O2 172 H 79-93 MMHG Arterial Blood HCO3 23 23-27 MMOL/L Arterial Blood Total CO2 23.9 21.0-31.0 MMOL/L Arterial Blood Oxygen Saturation 100 94-100 % Arterial Blood Base Excess 1.5 -2.5-2.5 MMOL/L Khalif Test N/A Blood Gas Ventilator Setting NO Blood Gas Inspired Oxygen ROOM AIR My Orders Orders - VANG,YU DO Chest 1 View Ap/Pa Only (12/02/21 21:24) Cbc With Automated Diff (12/02/21 21:25) Comprehensive Metabolic Panel (12/02/21 21:25) Troponin I Fs (12/02/21 21:25) Probnp Fs (12/02/21 21:25) Blood Culture (12/02/21 21:25) Lactic Acid Analyzer (12/02/21 21:25) Covid 19 Inhouse Test (12/02/21 21:25) Influenza A And B By Pcr (12/02/21 21:25) Isolation Central Supply Req (12/02/21 21:25) Albuterol/Ipra Inhalation Soln (Duoneb I (12/02/21 21:45) Svn Small Volume Nebulizer (12/02/21 21:31) Ed Iv/Invasive Line Start (12/02/21 21:32) Manual Differential (12/02/21 21:25) Ekg Tracing (12/02/21 21:32) Blood Culture (12/02/21 21:35) Furosemide Injection (Lasix Injection) (12/02/21 21:45) Piperacillin Sodium/Tazobactam (Zosyn Vi (12/02/21 21:45) Methylprednisolone Sod Succ (Solu-Medrol (12/02/21 21:45) Arterial Blood Gas (12/02/21 21:45) Oxygen-Administer (12/02/21 21:59) Medications Given in ED Current Medications Medications Dose Ordered Sig/Dov Route Start Time Stop Time Status Last Admin Dose Admin Albuterol/ Ipratropium 6 ml ONCE ONCE INH 12/02/21 21:45 12/02/21 21:46 DC 12/02/21 21:40 6 ML Furosemide 40 mg ONCE ONCE IVP 12/02/21 21:45 12/02/21 21:46 DC 12/02/21 21:52 40 MG Methylprednisolone Sodium Succinate 125 mg ONCE ONCE IVP 12/02/21 21:45 12/02/21 21:46 DC 12/02/21 21:51 125 MG Piperacillin Sod/ Tazobactam Sod 4.5 gm/Sodium Chloride 100 ml @ 200 mls/hr ONCE ONCE IV 12/02/21 21:45 12/02/21 22:14 12/02/21 21:51 200 MLS/HR Vital Signs/I&O 12/02/21 21:15 Temp 38.2 Pulse 110 Resp 24 B/P (MAP) 154/78 (103) Pulse Ox 80 O2 Delivery Room Air Capillary Refill : Departure Communication (Admissions) EKG: A. fib, rate controlled, no acute ST-T wave changes. Chest x-ray: Pulmonary edema with right basilar infiltrate per radiology report. Patient with acute on chronic respiratory failure, multifactorial secondary to COPD exacerbation, CHF, and pneumonia. Patient requiring 4 to 5 L of oxygen at baseline. Lactic acid likely elevated due to hypoxia. Patient is clinically fluid overloaded with elevated BNP with findings of heart failure. IV fluid bolus currently not indicated. Blood pressure is stable. Antibiotics, steroid DuoNeb given with clinical improvement. Case discussed in detail with Dr. Fraser on-call for hospitalist service who requests ICU admission. Impression Primary Impression: COPD with hypoxia Additional Impressions: Pneumonia Congestive heart failure Disposition: 20 Condition: Critical Admissions Decision to Admit Reason: Admit from ER (General) Decision to Admit/Date: Dec 02, 2021 Time/Decision to Admit Time: 22:00 (Dr. Fraser) Transfer Method of Transfer: EMS Departure-Patient Inst. Referrals: ERICH SANDOVAL MD (PCP/Family) Primary Care Physician YU VANG DO Dec 02, 2021 21:31
--- NOTE | 2021-12-02 21:36 | Diagnostic Imaging Report ---
INDICATION: Shortness of air and fever. EXAMINATION: Chest, 12/02/2021. FINDINGS: There is cardiomegaly. There is pulmonary vascular congestion with findings of edema throughout both lungs. There is a focal infiltrate in the medial right lung base. There is no effusion. There is no pneumothorax. IMPRESSION: 1. Pulmonary edema. 2. Right base infiltrate. Dictated by: Dictated on workstation # [id number]
[2021-12-02] MEDS ORDERED: methylPREDNISolone 125 MG (Solu-MEDROL) VIAL IVP ONE (21:45)
[2021-12-02] MEDS ORDERED: RT-ALBUTEROL/IPRATROPIUM 3 ML (DUONEB) VIAL INH ONE (21:45)
[2021-12-02] MEDS ORDERED: FUROSEMIDE 40 MG/4 ML INJ (LASIX) IVP ONE (21:45)
[2021-12-02] MEDS ORDERED: methylPREDNISolone 125 MG (Solu-MEDROL) VIAL IM ONE (21:45)
[2021-12-02] MEDS ORDERED: PIPERACILLIN SODIUM/TAZOBACTAM 4.5 GM in NS (IVPB) 100 ML IV ONE (21:45)
[2021-12-02 21:48] LABS: LYMPHOCYTES % (MANUAL) 5 %; MONOCYTES % (MANUAL) 4 %; NEUTROPHILS % (MANUAL) 91 %
[2021-12-02 21:49] LABS: ALANINE AMINOTRANSFERASE 20 U/L (0-55); ALBUMIN 4.3 GM/DL (3.2-4.5); ALKALINE PHOSPHATASE 104 U/L (40-136); BILIRUBIN,TOTAL 0.8 MG/DL (0.1-1.0); BUN/CREATININE RATIO 23; CARBON DIOXIDE 21 MMOL/L (21-32); CHLORIDE 95 MMOL/L (98-107); CREATININE SERUM 0.97 MG/DL (0.60-1.30); GFR ESTIMATED 83; GLUCOSE 199 MG/DL (70-105); POTASSIUM 4.4 MMOL/L (3.6-5.0); SODIUM 131 MMOL/L (135-145); TOTAL PROTEIN 7.7 GM/DL (6.4-8.2)
[2021-12-02 22:03] LABS: ABG BASE EXCESS 1.5 MMOL/L (-2.5-2.5); ABG OXYGEN SATURATION 100 % (94-100); ABG PCO2 27 MMHG (35-45); ABG PH 7.54 (7.37-7.43); ABG PO2 172 MMHG (79-93); ABG TCO2 23.9 MMOL/L (21.0-31.0)
[2021-12-02 22:04] LABS: INSPIRED O2 ROOM AIR; VENTILATOR NO
[2021-12-02 22:05] LABS: PATIENT TEMP 38.2
[2021-12-03] MEDS ORDERED: ACETAMINOPHEN 500 MG TAB (TYLENOL) PO PRN (01:15)
[2021-12-03] MEDS ORDERED: VANCOMYCIN 750 MG/NS 250 ML IVPB IV ONE ×2 (01:15)
[2021-12-03] MEDS ORDERED: VANCOMYCIN 1 GM/NS 250 ML IVPB IV ONE ×2 (01:30)
--- NOTE | 2021-12-03 01:38 | Tele-ICU Consult ---
History of Present Illness History of Present Illness Date Seen by Provider: Dec 03, 2021 Time Seen by Provider: 01:31 History of Present Illness 71 yo M with Hx of CHF, COPD on 3 lpm oxygen at home, chronic a fib , HTN, comes to ED with worsening exercise tolerance, cough, fatigue Given IV Lasix, started on IV Vanco, IV Zosyn, IV Medtrol, previous echo in 2018 showed LVEF 55-60%, had then elevated RVSP 54 ABG 7.54/, CXR shows marked cardiomegaly, mild CHF Allergies and Home Medications Allergies Coded Allergies: lisinopril (Verified Allergy, Severe, Anaphylaxis, 10/31/18) allopurinol (Verified Allergy, Unknown, Hives, 10/31/18) amlodipine (Verified Allergy, Unknown, swelling, 10/31/18) hydralazine (Verified Allergy, Unknown, 10/31/18) levofloxacin (Verified Allergy, Unknown, Hallucinations, 10/31/18) Home Medications ALPRAZolam 0.25 Mg Tablet, 1 TAB PO TID, (Reported) Albuterol Sulfate 1 Puff Puff, 2 PUFF INH Q4H PRN for COUGH 1 PUFF = 90 MCG Prescribed by: MASSIEL CALDERA on 10/24/18 1110 Benzonatate 100 Mg Capsule, 200 MG PO BID PRN for COUGH Prescribed by: MASSIEL CALDERA on 10/24/18 1110 Carvedilol 12.5 Mg Tablet, 12.5 MG PO BID WITH MEALS Prescribed by: HERMES REN on 11/02/18 1012 Clonidine HCl 0.2 Mg Tablet, 0.2 MG PO BID, (Reported) Docusate Sodium 100 Mg Capsule, 100 MG PO BID, (Reported) Doxazosin Mesylate 4 Mg Tablet, 4 MG PO BID Prescribed by: HERMES REN on 11/02/18 1012 Doxepin HCl 25 Mg Capsule, 25 MG PO PRN, (Reported) Doxycycline Hyclate 100 Mg Tablet, 100 MG PO BID Prescribed by: CAROLINE SU on 05/29/21 1201 Fesoterodine Fumarate 4 Mg Tab.sr.24h, 4 MG PO HS, (Reported) Furosemide 80 Mg Tablet, 80 MG PO DAILY Prescribed by: HERMES REN on 11/02/18 1012 Melatonin/Pyridoxine 1 Each Tablet, 1 EACH PO HS, (Reported) Potassium Chloride 20 Meq Tablet.er, 20 MEQ PO DAILY, (Reported) Prednisone 20 Mg Tab, 40 MG PO DAILY Prescribed by: CAROLINE SU on 05/29/21 1201 Ranitidine HCl 150 Mg Tablet, 150 MG PO BID, (Reported) Rivaroxaban 20 Mg Tablet, 20 MG PO HS, (Reported) Tamsulosin HCl 0.4 Mg Cap, 0.4 MG PO HS, (Reported) Tramadol HCl 50 Mg Tablet, 50 MG PO HS, (Reported) Past Medical/Social/Family Hx Patient Social History Tobacco Use?: No Smoking Status: Former Smoker Use of E-Cig and/or Vaping dev: No Substance use?: No Alcohol Use?: No Current Status Advance Directives: No Primary Language: Georgian Preferred Spoken Language: Georgian Past Medical History Chronic A-fib Cardiomyopathy COPD, O2 dependent CHF Hypertension 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 4.0oz. 98.965598bf; 32.00 BMI Method:Stated Lactic Acid Level Laboratory Tests Test 12/02/21 23:00 Lactic Acid Level 1.39 MMOL/L (0.50-2.00) Exam Exam Patient acknowledged, consented, and participated in this virtual visit which was conducted using real time audio/video Vital Signs Date Time Temp Pulse Resp B/P (MAP) Pulse Ox O2 Delivery O2 Flow Rate FiO2 12/03/21 01:08 86 14 131/91 96 Nasal Cannula 4.00 12/03/21 00:59 87 12/03/21 00:45 36.7 87 31 128/84 93 Nasal Cannula 4.00 12/02/21 23:29 88 20 117/71 98 Nasal Cannula 4.00 12/02/21 21:15 38.2 110 24 154/78 (103) 80 Room Air 12/02/21 21:15 97 Nasal Cannula 4.00 97 Height & Weight Height: 5'11.00" Weight: 217lbs. 4.0oz. 98.589576we; 32.00 BMI Method:Stated General Appearance: Anxious Respiratory: Crackles, Wheezing Cardiovascular: Irregularly Irregular Capillary Refill: Less Than 3 Seconds Gastrointestinal: normal bowel sounds, non tender, soft Extremity: Pedal Edema, Other (+1 leg edema) Results Lab Laboratory Tests 12/02/21 21:25 Assessment/Plan Assessment/Plan Looks like CHF with BNP > 5000, marked cardiomegaly on CHF got 20 mg IV Lasix, will give another 40, UO has been good, Cr 0.97 Critical Care: Critically Ill Patient Time spent with patient (mins): 30 JUDIT SERRATO MD Dec 03, 2021 01:38
[2021-12-03] MEDS ORDERED: VANCOMYCIN 750 MG/VIAL IV ONE (02:12)
[2021-12-03] MEDS ORDERED: NS IV ONE (02:15)
[2021-12-03] MEDS ORDERED: VANCOMYCIN IV ONE (02:15)
[2021-12-03] MEDS ORDERED: FUROSEMIDE 40 MG/4 ML INJ (LASIX) ONE (03:44)
[2021-12-03] MEDS: methylPREDNISolone 125 MG (Solu-MEDROL) VIAL IV SCH ×2 (03:52→09:00)
[2021-12-03] MEDS: PIPERACILLIN SODIUM/TAZOBACTAM 4.5 GM in NS (IVPB) 100 ML IV SCH ×3 (03:53→20:49)
[2021-12-03] MEDS: CATHETER FLUSH 10 ML SYR IVP SCH ×3 (03:53→20:45)
[2021-12-03] MEDS ORDERED: FUROSEMIDE 40 MG/4 ML INJ (LASIX) IVP ONE (04:00)
[2021-12-03 04:54] LABS: BASOPHILS % (AUTO) 0 % (0-10); EOSINOPHILS % (AUTO) 0 % (0-10); LYMPHOCYTES # (AUTO) 0.7 10^3/uL (1.0-4.0); LYMPHOCYTES % (AUTO) 6 % (12-44)
[2021-12-03 04:56] LABS: HEMATOCRIT 41 % (40-54); HEMOGLOBIN 13.3 g/dL (13.3-17.7); MEAN CORPUSCULAR HEMOGLOBIN 30 pg (25-34); MEAN CORPUSCULAR HGB CONC 33 g/dL (32-36); MEAN CORPUSCULAR VOLUME 92 fL (80-99); MEAN PLATELET VOLUME 10.1 fL (9.0-12.2); MONOCYTES # (AUTO) 0.2 10^3/uL (0.0-1.0); MONOCYTES % (AUTO) 2 % (0-12); NEUTROPHILS # (AUTO) 10.9 10^3/uL (1.8-7.8); NEUTROPHILS % (AUTO) 92 % (42-75); PLATELET COUNT 122 10^3/uL (130-400); WHITE BLOOD COUNT 11.8 10^3/uL (4.3-11.0)
[2021-12-03 05:03] LABS: ALBUMIN 4.2 GM/DL (3.2-4.5)
[2021-12-03 05:04] LABS: POTASSIUM 3.5 MMOL/L (3.6-5.0)
[2021-12-03 05:05] LABS: CALCIUM 8.8 MG/DL (8.5-10.1)
[2021-12-03 05:06] LABS: TOTAL PROTEIN 7.9 GM/DL (6.4-8.2)
[2021-12-03 05:08] LABS: BILIRUBIN,TOTAL 1.2 MG/DL (0.1-1.0)
[2021-12-03 05:09] LABS: PHOSPHORUS 3.5 MG/DL (2.3-4.7)
[2021-12-03 05:10] LABS: CREATININE SERUM 1.12 MG/DL (0.60-1.30)
[2021-12-03 05:13] LABS: MAGNESIUM 1.8 MG/DL (1.6-2.4)
[2021-12-03] MEDS ORDERED: KCL 20 MEQ TAB (K-DUR) PO ONE ×3 (06:30→08:00)
--- NOTE | 2021-12-03 07:30 | Diagnostic Imaging Report ---
HISTORY: Acute on chronic respiratory failure COMPARISON: 12/02/2021 TECHNIQUE: Frontal view of the chest FINDINGS: There are interstitial and airspace opacities throughout the lungs bilaterally, with central predominance. There is no pleural effusion or pneumothorax. There is mild cardiomegaly. There is an old posttraumatic deformity of the left clavicle. IMPRESSION: 1. Interstitial and airspace opacities bilaterally, similar to the prior exam, may be due to edema or infection. Dictated by: Dictated on workstation # [id number]
[2021-12-03] MEDS ORDERED: RT-ALBUTEROL/IPRATROPIUM 3 ML (DUONEB) VIAL IH SCH (08:00)
[2021-12-03] MEDS: FUROSEMIDE 40 MG/4 ML INJ (LASIX) IVP SCH ×2 (08:59→16:44)
[2021-12-03 09:22] LABS: ABG BASE EXCESS 6.2 MMOL/L (-2.5-2.5); ABG OXYGEN SATURATION 75 % (94-100); ABG PCO2 39 MMHG (35-45); ABG PH 7.49 (7.37-7.43); ABG TCO2 31.1 MMOL/L (21.0-31.0)
[2021-12-03 09:35] LABS: ABG PO2 36 MMHG (79-93)
[2021-12-03 09:36] LABS: INSPIRED O2 4 L; VENTILATOR NO
--- NOTE | 2021-12-03 10:18 | Tele-ICU Progress Note ---
Progress Note f/up on consult done last night Available chart/ vitals / labs / Images reviewed Video assessment done using teleICU camera Discussed with RN. 71 yo M with Hx of CHF, COPD on 3 lpm oxygen at home, chronic a fib , HTN, comes to ED with worsening exercise tolerance, cough, fatigue Acute resp failure - combination LRTI , VO , bronchospm -lasix given , responded well- to continue - IV steroids and ABX started Advanced COPD with AECOPD ( home on 3 l o2 at night ) -IV steroids , nebs Elevated lactate - probably due to hypoxia Sao2 80s on arrival and not repsresent saepsis severity LRTI -NEG covid and flu - if no riskfor MDR - CAP coverage is suggested while cx pending A fib h/o EF 45% 2018 -? AC FUEL VERIFICATION TECHNICIAN Focused Exam Lactate Level 12/02/21 21:25: Lactic Acid Level 2.88*H 12/02/21 23:00: Lactic Acid Level 1.39 Height, Weight, BMI Height: 5'11.00" Weight: 217lbs. 4.0oz. 98.761151ny; 25.49 BMI Method:Stated SADIE WISDOM MD Dec 03, 2021 10:18
[2021-12-03] MEDS ORDERED: GBPN600T PO (11:20)
[2021-12-03] MEDS ORDERED: ISOS30TA82 PO (11:20)
[2021-12-03] MEDS ORDERED: TOLT4CAP26 PO (11:20)
[2021-12-03] MEDS ORDERED: PRED5TAB PO (11:20)
[2021-12-03] MEDS ORDERED: BUME1TAB8 PO (11:20)
[2021-12-03] MEDS ORDERED: ACET-2267 PO (11:20)
[2021-12-03] MEDS ORDERED: RIVA20TA2 PO (11:20)
[2021-12-03] MEDS ORDERED: POTA-179 PO (11:20)
[2021-12-03] MEDS ORDERED: AMLO-250 PO (11:20)
[2021-12-03] MEDS ORDERED: DOCU100C37 PO (11:20)
[2021-12-03] MEDS ORDERED: CARV25TA PO (11:20)
[2021-12-03] MEDS ORDERED: METF-399 PO (11:20)
[2021-12-03] MEDS ORDERED: GUAI600T43 PO (11:20)
[2021-12-03] MEDS ORDERED: TRAM50TA3 PO (11:20)
[2021-12-03] MEDS ORDERED: LOSA100T57 PO (11:20)
[2021-12-03] MEDS ORDERED: IPRA3AMP31 NEB (11:23)
[2021-12-03] MEDS ORDERED: VANCOMYCIN 1 GM/NS 250 ML IVPB IV SCH ×2 (14:00)
[2021-12-03] MEDS: GABAPENTIN 600 MG (NEURONTIN) TAB PO PRN (17:36)
[2021-12-03] MEDS: methylPREDNISolone 40 MG/ML (Solu-MEDROL) VIAL IV SCH (17:37)
[2021-12-03] MEDS: RT-ALBUTEROL/IPRATROPIUM 3 ML (DUONEB) VIAL IH SCH (18:50)
[2021-12-03] MEDS ORDERED: NS 100 ML (IVPB) BAG IV ONE (19:30)
[2021-12-03] MEDS ORDERED: IOHEXOL 350 MG/ML 100 ML (OMNIPAQUE 350) VIAL IV ONE (19:30)
[2021-12-03] MEDS ORDERED: HOLD METFORMIN - RECEIVED CONTRAST 20 ML VIAL IV SCH (19:30)
[2021-12-03] MEDS ORDERED: CATHETER FLUSH 10 ML SYR IV PRN (19:30)
--- NOTE | 2021-12-03 19:32 | History & Physical-Hospitalist ---
History of Present Illness HPI/Chief Complaint Mauro Park is a 71 year old male with PMH HTN, HFpEF, COPD, chronic respiratory failure on nocturnal oxygen, former smoker, T2DM, AFib on Xarelto, who presented with shortness of breath. He has had a cough productive of clear sputum. He has had fever. He denies nausea and vomiting. He denies abdominal pain. He denies diarrhea. He denies dysuria. He denies chest pain. He reports compliance with his medications. He quit smoking many years ago. Source: patient Exam Limitations: no limitations Date Seen 12/03/21 Time Seen by a Provider: 10:00 Attending Physician Laura Hill MD PCP Admitting Physician: Norma Butcher MD Attending Physician: Norma Butcher MD Referring Physician Date of Admission Dec 03, 2021 at 00:31 Home Medications & Allergies Home Medications Reviewed patient Home Medication Reconciliation performed by pharmacy medication reconciliations radio electronics technician and/or nursing. Patients Allergies have been reviewed. Allergies Allergies Coded Allergies lisinopril (Verified Allergy, Severe, Anaphylaxis, 10/31/18) allopurinol (Verified Allergy, Unknown, Hives, 10/31/18) amlodipine (Verified Allergy, Unknown, swelling, PT STILL TAKES AT HOME, 12/03/21) hydralazine (Verified Allergy, Unknown, 10/31/18) levofloxacin (Verified Allergy, Unknown, Hallucinations, 10/31/18) Past Cmwoboi-Ssukne-Jzkcwg Hx Patient Social History Tobacco Use?: No Smoking Status: Unknown if Ever Smoked Use of E-Cig and/or Vaping dev: No Substance use?: No Alcohol Use?: No Seasonal Allergies Seasonal Allergies: No Current Status Advance Directives: No Communicates: Verbally Primary Language: Jamaican Preferred Spoken Language: Jamaican Past Medical History Surgeries: Appendectomy, Tonsillectomy Pneumonia Atrial Fibrillation, Hypertension Blood Disorders: No Chronic A-fib Cardiomyopathy COPD, O2 dependent CHF Hypertension 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 hx of esophageal stricture s/p dilation s/p EGD s/p Appendectomy s/p tonsillectomy s/p heart cath Family Medical History No Pertinent Family Hx Review of Systems Constitutional: fever, malaise EENTM: no symptoms reported Respiratory: cough, phlegm, short of breath Cardiovascular: no symptoms reported Gastrointestinal: no symptoms reported Genitourinary: no symptoms reported Musculoskeletal: no symptoms reported Skin: no symptoms reported Psychiatric/Neurological: No Symptoms Reported Physical Exam Physical Exam Vital Signs Vital Signs - First Documented 12/02/21 21:15 Temp 38.2 Pulse 110 Resp 24 B/P (MAP) 154/78 (103) Pulse Ox 97 O2 Delivery Nasal Cannula O2 Flow Rate 4.00 FiO2 97 Capillary Refill : Less Than 3 Seconds Height, Weight, BMI Height: 5'11.00" Weight: 217lbs. 4.0oz. 98.663072dj; 25.49 BMI Method:Stated General Appearance: No Apparent Distress, WD/WN HEENT: PERRL/EOMI, Pharynx Normal Neck: Normal Inspection, Supple Respiratory: No Respiratory Distress, Decreased Breath Sounds, Wheezing Cardiovascular: Regular Rate, Rhythm, No Murmur Gastrointestinal: Normal Bowel Sounds, Non Tender, Soft Extremity: Normal Inspection, No Pedal Edema Neurologic/Psychiatric: Alert, Oriented x3, No Motor/Sensory Deficits, Normal Mood/Affect Skin: Normal Color, Warm/Dry Results Results/Procedures Labs Laboratory Tests 12/02/21 21:25 12/03/21 04:45 Patient resulted labs reviewed. Imaging: Reviewed Imaging Report Assessment/Plan Admission Diagnosis Severe sepsis due to pneumonia Admission Status: Inpatient Order (span 2 midnights) Reason for Inpatient Admission: Respiratory failure Assessment and Plan Acute on chronic respiratory failure with hypoxia Severe sepsis due to pneumonia Acute on chronic HFpEF COPD with acute exacerbation Supplemental oxygen requirement above baseline Chest xray with bilateral infiltrates, pneumonia vs fluid overload Lactic acid >2 IV fluids held due to fluid overload Given Lasix, continue IV antibiotics IV steroids MAT protocol Echo with elevated right heart pressures Obtain CT chest to further evaluate Cardiology consulted HTN AFib Continue home meds T2DM Sliding scale insulin Diagnosis/Problems Diagnosis/Problems (1) Acute on chronic respiratory failure with hypoxia Status: Acute (2) Severe sepsis Status: Acute (3) Lactic acidosis Status: Acute (4) PNA (pneumonia) Status: Acute (5) Acute on chronic heart failure with preserved ejection fraction (HFpEF) Status: Acute (6) COPD with acute exacerbation Status: Acute (7) Pulmonary hypertension Status: Acute (8) Permanent atrial fibrillation Status: Chronic (9) Primary hypertension Status: Chronic (10) Diabetes Status: Chronic Qualifiers: Diabetes mellitus type: type 2 NORMA BUTCHER MD Dec 03, 2021 19:32
--- NOTE | 2021-12-03 19:40 | Consultation-Cardiology ---
HPI-Cardiology Cardiology Consultation: Date of Consultation 12/03/21 Date of Admission 12/02/21 Attending Physician Laura Hill MD Admitting Physician Admitting Physician: Norma Fraser MD Attending Physician: Norma Fraser MD Consulting Physician ALEKSANDER VILLA JR, MD HPI: Time Seen by a Provider: 19:35 Chief Complaint: REASON FOR CONSULTATION: Atrial fibrillation and heart failure. I had the pleasure of seeing Mauro on the medical/surgical unit at [facility] in [place], [place] today. He has a history of probable permanent atrial fibrillation, heart failure with preserved ejection fraction, severe hypertension and chronic obstructive pulmonary disease. He normally follows with a data management specialist in [place]. For the past couple of days he has had increasing dyspnea accompanied by a slight fever and cough productive of some light-colored sputum. He was also having some worsening wheezing. His shortness of breath continued to get worse so he came to the emergency room for further evaluation. He was felt to be having an exacerbation of his chronic obstructive pulmonary disease as well as possible superimposed pneumonia and heart failure. As such, in light of the heart failure, a cardiology consultation was requested. He states that his breathing is starting to improve but is not completely back to his baseline. He denies chest discomfort, paroxysmal nocturnal dyspnea, orthopnea, palpitations, lightheadedness, syncope, or ankle edema. Certain portions of this document may have been dictated utilizing voice recognition technology. Inherent to this technology, typographical and grammatical errors may exist. As much as I am diligent to identify and correct these mistakes, some errors may remain in the document. Review of Systems-Cardiology Review of Systems Other comments Review of 10 organ systems is as per the history of present illness, otherwise negative. All Other Systems Reviewed Negative Unless Noted: Yes [id number] Hx Patient Social History Marrital Status: Smoking Status: Former Smoker 2nd Hand Smoke Exposure: No Have you traveled recently?: No Alcohol Use?: No Past Medical History PMH As described under Assessment. Family Medical History Family Medical History: The patient does not know of any family history of premature coronary artery disease in first-degree relatives. Allergies and Home Medications Allergies Coded Allergies: lisinopril (Verified Allergy, Severe, Anaphylaxis, 10/31/18) allopurinol (Verified Allergy, Unknown, Hives, 10/31/18) amlodipine (Verified Allergy, Unknown, swelling, PT STILL TAKES AT HOME, 12/03/21) hydralazine (Verified Allergy, Unknown, 10/31/18) levofloxacin (Verified Allergy, Unknown, Hallucinations, 10/31/18) Patient Home Medication List Home Medication List Reviewed: Yes Acetaminophen (Tylenol Extra Strength) 500 Mg Tablet, 1,000 MG PO Q8H PRN for PAIN-MILD (1-4), (Reported) Entered as Reported by: JUAN WHITLEY on 12/03/211119 Last Action: Held Amlodipine Besylate (Amlodipine Besylate) 5 Mg Tablet, 5 MG PO HS, (Reported) Entered as Reported by: JUAN WHITLEY on 12/03/211119 Last Action: Continued Bumetanide (Bumetanide) 1 Mg Tablet, 2 MG PO DAILY, (Reported) Entered as Reported by: JUAN WHITLEY on 12/03/211119 Last Action: Held Carvedilol (Carvedilol) 25 Mg Tablet, 25 MG PO BID, (Reported) Entered as Reported by: JUAN WHITLEY on 12/03/211119 Last Action: Converted Clonidine HCl (Clonidine HCl) 0.2 Mg Tablet, 0.2 MG PO BID, (Reported) Entered as Reported by: JACQUI CORONADO on 10/31/182017 Last Action: Continued Docusate Sodium (Docusate Sodium) 100 Mg Capsule, 100 MG PO DAILY, (Reported) Entered as Reported by: JUAN WHITLEY on 12/03/211119 Last Action: Continued Gabapentin (Gabapentin) 600 Mg Tablet, 600 MG PO TID PRN for PAIN-BREAKTHROUGH, (Reported) Entered as Reported by: JUAN WHITLEY on 12/03/211119 Last Action: Continued Guaifenesin (Mucinex) 600 Mg Tab.er.12h, 600 MG PO Q12H PRN for CONGESTION, (Reported) Entered as Reported by: JUAN WHITLEY on 12/03/211119 Last Action: Held Ipratropium/Albuterol Sulfate (Iprat-Albut 0.5-3(2.5) mg/3 ml) 0.5 Mg-3 Mg (2.5 Mg Base)/3 Ml Ampul.neb, 3 ML NEB Q6H PRN for SHORTNESS OF BREATH, (Reported) Entered as Reported by: JUAN WHITLEY on 12/03/211122 Last Action: Held Isosorbide Mononitrate (Isosorbide Mononitrate ER) 30 Mg Tab.er.24h, 30 MG PO DAILY, (Reported) Entered as Reported by: JUAN WHITLEY on 12/03/211119 Last Action: Continued Losartan Potassium (Losartan Potassium) 100 Mg Tablet, 100 MG PO HS, (Reported) Entered as Reported by: JUAN WHITLEY on 12/03/211119 Last Action: Continued Metformin HCl (Metformin HCl) 1,000 Mg Tablet, 1,000 MG PO BID WITH MEALS, (Reported) Entered as Reported by: JUAN WHITLEY on 12/03/211119 Last Action: Held Potassium Chloride (Potassium Chloride) 20 Meq Tab.er.prt, 20 MEQ PO DAILY, (Reported) Entered as Reported by: JUAN WHITLEY on 12/03/211119 Last Action: Held Prednisone (Prednisone) 5 Mg Tablet, 5 MG PO DAILY, (Reported) Entered as Reported by: JUAN WHITLEY on 12/03/211119 Last Action: Held Rivaroxaban (Xarelto Tablet) 20 Mg Tablet, 20 MG PO HS, (Reported) Entered as Reported by: JUAN WHITLEY on 12/03/211119 Last Action: Continued Tamsulosin HCl (Flomax) 0.4 Mg Cap, 0.4 MG PO HS, (Reported) Entered as Reported by: JACQUI CORONADO on 10/31/182017 Last Action: Continued Tolterodine Tartrate (Tolterodine Tartrate ER) 4 Mg Cap.er.24h, 4 MG PO HS, (Reported) Entered as Reported by: JUAN WHITLEY on 12/03/211119 Last Action: Held Tramadol HCl (Tramadol HCl) 50 Mg Tablet, 100 MG PO Q6H PRN for PAIN-MODERATE (5-7), (Reported) Entered as Reported by: JUAN WHITLEY on 12/03/211119 Last Action: Continued Discontinued Medications ALPRAZolam (Xanax Tablet) 0.25 Mg Tablet, 1 TAB PO TID, (Reported) Discontinued Reason: No Longer Taking Entered as Reported by: GE HAWKINS on 11/01/18 0750 Last Action: Discontinued Albuterol Sulfate (Ventolin Hfa) 1 Puff Puff, 2 PUFF INH Q4H PRN for COUGH Discontinued Reason: No Longer Taking Prescribed by: MASSIEL CALDERA on 10/24/181109 Last Action: Discontinued Benzonatate (Tessalon Perles) 100 Mg Capsule, 200 MG PO BID PRN for COUGH Discontinued Reason: No Longer Taking Prescribed by: MASSIEL CALDERA on 10/24/181109 Last Action: Discontinued Carvedilol (Carvedilol) 12.5 Mg Tablet, 12.5 MG PO BID WITH MEALS Discontinued Reason: No Longer Taking Prescribed by: HERMES REN on 11/02/181011 Last Action: Discontinued Docusate Sodium (Docusate Sodium) 100 Mg Capsule, 100 MG PO BID, (Reported) Discontinued Reason: No Longer Taking Entered as Reported by: JACQUI CORONADO on 10/31/182029 Last Action: Discontinued Doxazosin Mesylate (Doxazosin Mesylate) 4 Mg Tablet, 4 MG PO BID Discontinued Reason: No Longer Taking Prescribed by: HERMES REN on 11/02/181011 Last Action: Discontinued Doxepin HCl (Doxepin HCl) 25 Mg Capsule, 25 MG PO PRN, (Reported) Discontinued Reason: No Longer Taking Entered as Reported by: JACQUI CORONADO on 10/31/182029 Last Action: Discontinued Doxycycline Hyclate (Doxycycline Hyclate) 100 Mg Tablet, 100 MG PO BID Discontinued Reason: No Longer Taking Prescribed by: CAROLINE SU on 05/29/21 1201 Last Action: Discontinued Fesoterodine Fumarate (Toviaz) 4 Mg Tab.sr.24h, 4 MG PO HS, (Reported) Discontinued Reason: No Longer Taking Entered as Reported by: JACQUI CORONADO on 10/31/182017 Last Action: Discontinued Furosemide (Furosemide) 80 Mg Tablet, 80 MG PO DAILY Discontinued Reason: No Longer Taking Prescribed by: HERMES REN on 11/02/181011 Last Action: Discontinued Melatonin/Pyridoxine (Melatonin 5 mg Tablet) 1 Each Tablet, 1 EACH PO HS, (Reported) Discontinued Reason: No Longer Taking Entered as Reported by: JACQUI CORONADO on 10/31/182029 Last Action: Discontinued Potassium Chloride (Potassium Chloride) 20 Meq Tablet.er, 20 MEQ PO DAILY, (Reported) Discontinued Reason: No Longer Taking Entered as Reported by: JACQUI CORONADO on 10/31/182009 Last Action: Discontinued Prednisone (Prednisone) 20 Mg Tab, 40 MG PO DAILY Discontinued Reason: No Longer Taking Prescribed by: CAROLINE SU on 05/29/21 1201 Last Action: Discontinued Ranitidine HCl (Acid Gunstock Repairer (RANITIDINE)) 150 Mg Tablet, 150 MG PO BID, (Reported) Discontinued Reason: No Longer Taking Entered as Reported by: JACQUI CORONADO on 10/31/182017 Last Action: Discontinued Rivaroxaban (Xarelto) 20 Mg Tablet, 20 MG PO HS, (Reported) Discontinued Reason: No Longer Taking Entered as Reported by: JACQUI CORONADO on 10/31/182017 Last Action: Discontinued Tramadol HCl (Tramadol HCl) 50 Mg Tablet, 50 MG PO HS, (Reported) Discontinued Reason: No Longer Taking Entered as Reported by: JACQUI CORONADO on 10/31/182029 Last Action: Discontinued Exam Vital Signs Vital Signs Date Time Temp Pulse Resp B/P (MAP) Pulse Ox O2 Delivery O2 Flow Rate FiO2 12/03/21 18:50 95 Nasal Cannula 2.00 12/03/21 16:15 36.7 70 20 161/81 12/02/21 21:15 97 Physical Exam General: Alert. No acute distress. Well nourished and appears stated age. Eye: Extraocular movements are intact. Conjunctivae are clear. There are no xanthelasma. HENT: Normocephalic. Atraumatic. Carotid pulsations 2/2 without bruits. Neck: Jugular venous pressure does not appear elevated. No thyromegaly appreciated. Respiratory: Lungs have diffusely decreased breath sounds with some scattered wheezes. Respirations are non-labored. Breath sounds are equal. Symmetrical chest wall expansion. Cardiovascular: Normal rate. Iregular rhythm. No murmur. No gallop. Point of maximal impulse is not appear displaced. Good pulses equal in all extremities. No edema. Gastrointestinal: Soft. Normal bowel sounds. Skin: Skin turgor is normal. There is no pallor. Musculoskeletal: No kyphosis or scoliosis appreciated. Neurologic: Alert and oriented to person, place, time. Cranial nerves 3-12 appear grossly intact. The patient has good motor tone strength in the upper and lower extremities bilaterally. Psychiatric: Cooperative. Appropriate mood & affect. Labs Laboratory Tests Test 12/02/21 21:25 12/02/21 21:35 12/02/21 21:45 12/02/21 23:00 Range/Units White Blood Count 13.3 H 4.3-11.0 10^3/uL Red Blood Count 4.39 4.30-5.52 10^6/uL Hemoglobin 13.1 L 13.3-17.7 g/dL Hematocrit 40 40-54 % Mean Corpuscular Volume 90 80-99 fL Mean Corpuscular Hemoglobin 30 25-34 pg Mean Corpuscular Hemoglobin Concent 33 32-36 g/dL Red Cell Distribution Width 16.3 H 10.0-14.5 % Platelet Count 121 L 130-400 10^3/uL Mean Platelet Volume 10.2 9.0-12.2 fL Immature Granulocyte % (Auto) 1 % Neutrophils (%) (Auto) 86 H 42-75 % Lymphocytes (%) (Auto) 7 L 12-44 % Monocytes (%) (Auto) 5 0-12 % Eosinophils (%) (Auto) 1 0-10 % Basophils (%) (Auto) 0 0-10 % Neutrophils # (Auto) 11.4 H 1.8-7.8 10^3/uL Lymphocytes # (Auto) 0.9 L 1.0-4.0 10^3/uL Monocytes # (Auto) 0.7 0.0-1.0 10^3/uL Eosinophils # (Auto) 0.1 0.0-0.3 10^3/uL Basophils # (Auto) 0.0 0.0-0.1 10^3/uL Immature Granulocyte # (Auto) 0.1 0.0-0.1 10^3/uL Neutrophils % (Manual) 91 % Lymphocytes % (Manual) 5 % Monocytes % (Manual) 4 % Percent Immature Platelet Fraction 3.3 0.0-7.6 % Sodium Level 131 L 135-145 MMOL/L Potassium Level 4.4 3.6-5.0 MMOL/L Chloride Level 95 L 98-107 MMOL/L Carbon Dioxide Level 21 21-32 MMOL/L Anion Gap 15 H 5-14 MMOL/L Blood Urea Nitrogen 22 H 7-18 MG/DL Creatinine 0.97 0.60-1.30 MG/DL Estimat Glomerular Filtration Rate 83 BUN/Creatinine Ratio 23 Glucose Level 199 H 70-105 MG/DL Lactic Acid Level 2.88 *H 1.39 0.50-2.00 MMOL/L Calcium Level 9.0 8.5-10.1 MG/DL Corrected Calcium 8.8 8.5-10.1 MG/DL Total Bilirubin 0.8 0.1-1.0 MG/DL Aspartate Amino Transf (AST/SGOT) 19 5-34 U/L Alanine Aminotransferase (ALT/SGPT) 20 0-55 U/L Alkaline Phosphatase 104 40-136 U/L Troponin I < 0.30 <0.30 NG/ML Pro-B-Type Natriuretic Peptide 5510.0 H <75.0 PG/ML Total Protein 7.7 6.4-8.2 GM/DL Albumin 4.3 3.2-4.5 GM/DL Influenza Type A (RT-PCR) Not Detected Not Detecte Influenza Type B (RT-PCR) Not Detected Not Detecte SARS-CoV-2 RNA (RT-PCR) Not Detected Not Detecte Blood Gas Puncture Site RIGHT WRIST Blood Gas Patient Temperature 38.2 Arterial Blood pH 7.54 H 7.37-7.43 Arterial Blood Partial Pressure CO2 27 L 35-45 MMHG Arterial Blood Partial Pressure O2 172 H 79-93 MMHG Arterial Blood HCO3 23 23-27 MMOL/L Arterial Blood Total CO2 23.9 21.0-31.0 MMOL/L Arterial Blood Oxygen Saturation 100 94-100 % Arterial Blood Base Excess 1.5 -2.5-2.5 MMOL/L Khalif Test N/A Blood Gas Ventilator Setting NO Blood Gas Inspired Oxygen ROOM AIR Test 12/03/21 04:45 12/03/21 09:10 Range/Units White Blood Count 11.8 H 4.3-11.0 10^3/uL Red Blood Count 4.41 4.30-5.52 10^6/uL Hemoglobin 13.3 13.3-17.7 g/dL Hematocrit 41 40-54 % Mean Corpuscular Volume 92 80-99 fL Mean Corpuscular Hemoglobin 30 25-34 pg Mean Corpuscular Hemoglobin Concent 33 32-36 g/dL Red Cell Distribution Width 16.4 H 10.0-14.5 % Platelet Count 122 L 130-400 10^3/uL Mean Platelet Volume 10.1 9.0-12.2 fL Immature Granulocyte % (Auto) 1 % Neutrophils (%) (Auto) 92 H 42-75 % Lymphocytes (%) (Auto) 6 L 12-44 % Monocytes (%) (Auto) 2 0-12 % Eosinophils (%) (Auto) 0 0-10 % Basophils (%) (Auto) 0 0-10 % Neutrophils # (Auto) 10.9 H 1.8-7.8 10^3/uL Lymphocytes # (Auto) 0.7 L 1.0-4.0 10^3/uL Monocytes # (Auto) 0.2 0.0-1.0 10^3/uL Eosinophils # (Auto) 0.0 0.0-0.3 10^3/uL Basophils # (Auto) 0.0 0.0-0.1 10^3/uL Immature Granulocyte # (Auto) 0.1 0.0-0.1 10^3/uL Percent Immature Platelet Fraction 2.5 0.0-7.6 % Sodium Level 138 135-145 MMOL/L Potassium Level 3.5 L 3.6-5.0 MMOL/L Chloride Level 98 98-107 MMOL/L Carbon Dioxide Level 24 21-32 MMOL/L Anion Gap 16 H 5-14 MMOL/L Blood Urea Nitrogen 21 H 7-18 MG/DL Creatinine 1.12 0.60-1.30 MG/DL Estimat Glomerular Filtration Rate 70 BUN/Creatinine Ratio 19 Glucose Level 261 H 70-105 MG/DL Calcium Level 8.8 8.5-10.1 MG/DL Corrected Calcium 8.6 8.5-10.1 MG/DL Phosphorus Level 3.5 2.3-4.7 MG/DL Magnesium Level 1.8 1.6-2.4 MG/DL Total Bilirubin 1.2 H 0.1-1.0 MG/DL Aspartate Amino Transf (AST/SGOT) 21 5-34 U/L Alanine Aminotransferase (ALT/SGPT) 24 0-55 U/L Alkaline Phosphatase 96 40-136 U/L Total Protein 7.9 6.4-8.2 GM/DL Albumin 4.2 3.2-4.5 GM/DL Blood Gas Puncture Site LT RAD Blood Gas Patient Temperature 36.0 Arterial Blood pH 7.49 H 7.37-7.43 Arterial Blood Partial Pressure CO2 39 35-45 MMHG Arterial Blood Partial Pressure O2 36 *L 79-93 MMHG Arterial Blood HCO3 30 H 23-27 MMOL/L Arterial Blood Total CO2 31.1 H 21.0-31.0 MMOL/L Arterial Blood Oxygen Saturation 75 L 94-100 % Arterial Blood Base Excess 6.2 H -2.5-2.5 MMOL/L Khalif Test NA Blood Gas Ventilator Setting NO Blood Gas Inspired Oxygen 4 L ECG Impression ECG Comment Electrocardiogram from the emergency room on 12/02 shows atrial fibrillation with a ventricular rate of [address] changes. Diagnosis/Problems Diagnosis/Problems (1) Acute on chronic heart failure with preserved ejection fraction (HFpEF) Status: Acute Assessment & Plan: His echocardiogram shows normal ejection fraction. He did have an elevated BNP level and pulmonary congestion on his chest x-ray. He is now on intravenous Lasix and his shortness of breath seems to be improving. I suspect a good portion of his dyspnea is related to his underlying lung disease with possible superimposed pneumonia. (2) Permanent atrial fibrillation Status: Chronic Assessment & Plan: His heart rate seems reasonably controlled with carvedilol and he is on Xarelto for stroke prophylaxis. These should be continued. (3) Mitral regurgitation Assessment & Plan: He also has mild to moderate mitral regurgitation. 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 (4) Pulmonary hypertension Status: Acute Assessment & Plan: He has severe pulmonary hypertension noted on his echocardiogram from earlier today. This is most likely due to his chronic obstructive pulmonary disease as well as superimposed heart failure. He should continue with home oxygen as he already has in place. (5) Primary hypertension Status: Chronic Assessment & Plan: Continue outpatient antihypertensive medication. (6) Acute on chronic respiratory failure with hypoxia Status: Acute Assessment & Plan: I suspect the majority of his respiratory failure is related to his underlying lung disease. The hospitalist is managing the lung disease. ALEKSANDER VILLA JR, MD Dec 03, 2021 19:40
--- NOTE | 2021-12-03 20:24 | Diagnostic Imaging Report ---
PROCEDURE: CT angiography of the chest with contrast. TECHNIQUE: Multiple contiguous axial images were obtained through the chest after uneventful bolus administration of intravenous contrast. 3D reconstructed CTA MIP acquisitions were also performed. Auto Exposure Controls were utilized during the CT exam to meet ALARA standards for radiation dose reduction. INDICATION: Acute on chronic respiratory failure. EXAMINATION: CTA of the chest from 12/03/2021. FINDINGS: There are no central or proximal segmental pulmonary emboli. There is atherosclerotic disease within the aorta which is poorly opacified. There is a small hiatal hernia. There is diffuse adenopathy within the perihilar regions bilaterally with mediastinal adenopathy also noted. Diffuse airspace opacities noted throughout both lungs worse in the right lower lobe. Some airspace opacity scattered about both upper lobes as well. Findings consistent with pneumonia perhaps superimposed upon chronic interstitial disease. There are emphysematous changes in the apices. No pneumothorax. There are no significant pericardial or pleural effusions. There is hepatic steatosis. No acute process in the visualized upper abdomen. There is no acute osseous abnormality. IMPRESSION: 1. No central or proximal segmental pulmonary embolus. 2. Diffuse bilateral infiltrates likely superimposed upon chronic interstitial disease with emphysematous changes also noted. Other findings as above. Dictated by: Dictated on workstation # [id number]
[2021-12-03] MEDS: cloNIDine 0.2 MG (CATAPRES) TAB PO SCH (20:44)
[2021-12-03] MEDS ORDERED: amLODIPine 5 MG (NORVASC) TAB PO SCH (21:00)
[2021-12-03] MEDS ORDERED: LOSARTAN 100 MG (COZAAR) TABLET PO SCH (21:00)
[2021-12-03] MEDS ORDERED: RIVAROXABAN 20 MG TABLET (XARELTO) PO SCH (21:00)
[2021-12-03] MEDS ORDERED: TAMSULOSIN 0.4 MG (FLOMAX) CAP PO SCH (21:00)
[2021-12-03] MEDS: inSUlin ASPART (NovoLOG) 1 UNIT/0.01 ML (CHARGE PER UNIT) SC SCH (22:11)
[2021-12-04] MEDS: methylPREDNISolone 40 MG/ML (Solu-MEDROL) VIAL IV SCH ×2 (01:05→09:39)
[2021-12-04] MEDS: CATHETER FLUSH 10 ML SYR IVP SCH ×2 (03:58→14:00)
[2021-12-04] MEDS: GABAPENTIN 600 MG (NEURONTIN) TAB PO PRN (03:58)
[2021-12-04] MEDS: PIPERACILLIN SODIUM/TAZOBACTAM 4.5 GM in NS (IVPB) 100 ML IV SCH ×2 (03:58→11:25)
[2021-12-04 05:35] LABS: BASOPHILS % (AUTO) 0 % (0-10); EOSINOPHILS % (AUTO) 0 % (0-10); HEMATOCRIT 40 % (40-54); HEMOGLOBIN 13.3 g/dL (13.3-17.7); LYMPHOCYTES # (AUTO) 0.8 10^3/uL (1.0-4.0); LYMPHOCYTES % (AUTO) 7 % (12-44); MEAN CORPUSCULAR HEMOGLOBIN 30 pg (25-34); MEAN CORPUSCULAR HGB CONC 34 g/dL (32-36); MEAN CORPUSCULAR VOLUME 90 fL (80-99); MONOCYTES # (AUTO) 0.3 10^3/uL (0.0-1.0); MONOCYTES % (AUTO) 3 % (0-12); NEUTROPHILS # (AUTO) 9.8 10^3/uL (1.8-7.8); NEUTROPHILS % (AUTO) 89 % (42-75); PLATELET COUNT 132 10^3/uL (130-400)
[2021-12-04 05:52] LABS: ALBUMIN 3.9 GM/DL (3.2-4.5); POTASSIUM 3.2 MMOL/L (3.6-5.0)
[2021-12-04 05:53] LABS: CALCIUM 8.6 MG/DL (8.5-10.1)
[2021-12-04 05:55] LABS: TOTAL PROTEIN 7.7 GM/DL (6.4-8.2)
[2021-12-04 05:56] LABS: BILIRUBIN,TOTAL 0.9 MG/DL (0.1-1.0)
[2021-12-04 05:58] LABS: CREATININE SERUM 1.15 MG/DL (0.60-1.30); PHOSPHORUS 3.8 MG/DL (2.3-4.7)
[2021-12-04] MEDS ORDERED: KCL 20 MEQ TAB (K-DUR) PO SCH (06:00)
[2021-12-04] MEDS ORDERED: MAGNESIUM 1 GM/100 ML IVPB 100 ML IV SCH (06:00)
[2021-12-04] MEDS: inSUlin ASPART (NovoLOG) 1 UNIT/0.01 ML (CHARGE PER UNIT) SC SCH ×2 (06:26→11:32)
[2021-12-04] MEDS: FUROSEMIDE 40 MG/4 ML INJ (LASIX) IVP SCH (06:26)
[2021-12-04] MEDS ORDERED: KCL 20 MEQ TAB (K-DUR) PO ONE ×2 (06:30→08:30)
[2021-12-04] MEDS: RT-ALBUTEROL/IPRATROPIUM 3 ML (DUONEB) VIAL IH SCH (07:46)
[2021-12-04 07:58] VITALS: BP 120/70
[2021-12-04] MEDS: cloNIDine 0.2 MG (CATAPRES) TAB PO SCH (08:19)
[2021-12-04] MEDS ORDERED: DOCUSATE SODIUM 100 MG (COLACE) CAP PO SCH (09:00)
[2021-12-04] MEDS ORDERED: ISOSORBIDE MONONITRATE 30 MG (IMDUR) TAB PO SCH (09:00)
[2021-12-04 11:20] VITALS: BP 137/75
[2021-12-04] MEDS ORDERED: AMOX1TAB12 PO (11:58)
[2021-12-04] MEDS ORDERED: PRED10TA22 PO (11:58)
[2021-12-04] MEDS ORDERED: TROUGH ORDER-PHARMACY XX ONE (13:00)
--- NOTE | 2021-12-04 19:06 | Discharge Summary ---
Discharge Summary Hospital Course Problems/Dx: (1) Severe sepsis Status: Acute (2) PNA (pneumonia) Status: Acute (3) COPD with acute exacerbation Status: Acute (4) Acute on chronic heart failure with preserved ejection fraction (HFpEF) Status: Acute (5) Permanent atrial fibrillation Status: Chronic (6) Mitral regurgitation (7) Pulmonary hypertension Status: Acute (8) Primary hypertension Status: Chronic (9) Acute on chronic respiratory failure with hypoxia Status: Acute Hospital Course Date of Admission: Dec 03, 2021 at 00:31 Admission Diagnosis : Severe sepsis due to pneumonia Family Physician/Provider: Erich Sandoval MD Date of Discharge: 12/04/21 Discharge Diagnosis: Severe sepsis due to pneumonia, acute on chronic respiratory failure with hypoxia, COPD exacerbation, CHF exacerbation Hospital Course: Mauro Park is a 71 year old male who was admitted with multi-factorial respiratory failure. He had severe sepsis due to pneumonia. He was treated with IV antibiotics and improved. He was given a course of antibiotics to complete at home. He was also treated for acute on chronic HFpEF exacerbation with IV diuretics. Cardiology was consulted and assisted with his care. He was treated for acute COPD exacerbation with steroids and was given a taper to complete as an outpatient. His oxygen requirement returned to his baseline and he was discharged home in stable condition. He should follow up with his PCP in about a week. Labs and Pending Lab Test: Laboratory Tests 12/03/21 21:06: Glucometer 381H 12/04/21 05:23: White Blood Count 11.0, Red Blood Count 4.39, Hemoglobin 13.3, Hematocrit 40, Mean Corpuscular Volume 90, Mean Corpuscular Hemoglobin 30, Mean Corpuscular Hemoglobin Concent 34, Red Cell Distribution Width 15.9H, Platelet Count 132, Mean Platelet Volume 10.0, Immature Granulocyte % (Auto) 1, Neutrophils (%) (Auto) 89H, Lymphocytes (%) (Auto) 7L, Monocytes (%) (Auto) 3, Eosinophils (%) (Auto) 0, Basophils (%) (Auto) 0, Neutrophils # (Auto) 9.8H, Lymphocytes # (Auto) 0.8L, Monocytes # (Auto) 0.3, Eosinophils # (Auto) 0.0, Basophils # (Auto) 0.0, Immature Granulocyte # (Auto) 0.1, Sodium Level 137, Potassium Level 3.2L, Chloride Level 97L, Carbon Dioxide Level 24, Anion Gap 16H, Blood Urea Nitrogen 27H, Creatinine 1.15, Estimat Glomerular Filtration Rate 68, BUN/Creatinine Ratio 23, Glucose Level 276H, Calcium Level 8.6, Corrected Calcium 8.7, Phosphorus Level 3.8, Magnesium Level 2.0, Total Bilirubin 0.9, Aspartate Amino Transf (AST/SGOT) 18, Alanine Aminotransferase (ALT/SGPT) 22, Alkaline Phosphatase 91, Total Protein 7.7, Albumin 3.9 12/04/21 11:19: Glucometer 385H Microbiology 12/03/21 Gram Stain - Final, Resulted 12/03/21 Sputum Culture - Preliminary, Resulted Usual upper respiratory maria eugenia 12/02/21 Blood Culture - Preliminary, Resulted No growth Home Meds Active Amox Tr-K Clv 875-125 mg Tab (Amoxicillin/Potassium Clav) 875 Mg-125 Mg Tablet 1 Each PO BID 5 Days Prednisone 10 Mg Tab.ds.pk 10 Mg PO DAILY Take 6 tabs(60mg)daily,decrease by 1 tab(10mg)every other day. Reported Iprat-Albut 0.5-3(2.5) mg/3 ml (Ipratropium/Albuterol Sulfate) 0.5 Mg-3 Mg (2.5 Mg Base)/3 Ml Ampul.neb 3 Ml NEB Q6H PRN Docusate Sodium 100 Mg Capsule 100 Mg PO DAILY Mucinex (Guaifenesin) 600 Mg Tab.er.12h 600 Mg PO Q12H PRN Tylenol Extra Strength (Acetaminophen) 500 Mg Tablet 1,000 Mg PO Q8H PRN Amlodipine Besylate 5 Mg Tablet 5 Mg PO HS Bumetanide 1 Mg Tablet 2 Mg PO DAILY TAKES 2 (1MG) TABS Carvedilol 25 Mg Tablet 25 Mg PO BID Isosorbide Mononitrate ER (Isosorbide Mononitrate) 30 Mg Tab.er.24h 30 Mg PO DAILY Losartan Potassium 100 Mg Tablet 100 Mg PO HS Xarelto Tablet (Rivaroxaban) 20 Mg Tablet 20 Mg PO HS Metformin HCl 1,000 Mg Tablet 1,000 Mg PO BID WITH MEALS Prednisone 5 Mg Tablet 5 Mg PO DAILY Tolterodine Tartrate ER (Tolterodine Tartrate) 4 Mg Cap.er.24h 4 Mg PO HS Tramadol HCl 50 Mg Tablet 100 Mg PO Q6H PRN TAKES 2 (50MG) TABS Gabapentin 600 Mg Tablet 600 Mg PO TID PRN Potassium Chloride 20 Meq Tab.er.prt 20 Meq PO DAILY Clonidine HCl 0.2 Mg Tablet 0.2 Mg PO BID Flomax (Tamsulosin HCl) 0.4 Mg Cap 0.4 Mg PO HS Assessment/Pt Instructions See instructions Discharge Planning: >30 minutes discharge planning Discharge Instructions Discharge Diet: Low Sodium Diet Activity as Tolerated: Yes Consultations Cardiology, TeleICU Discharge Physical Examination Vital Signs Vital Signs Date Time Temp Pulse Resp B/P (MAP) Pulse Ox O2 Delivery O2 Flow Rate FiO2 12/04/21 14:29 12/04/21 12:24 65 12/04/21 12:21 36.4 17 91 Nasal Cannula 1.00 12/04/21 08:00 97 General Appearance: No Apparent Distress, WD/WN Allergies: Coded Allergies: lisinopril (Verified Allergy, Severe, Anaphylaxis, 10/31/18) allopurinol (Verified Allergy, Unknown, Hives, 10/31/18) amlodipine (Verified Allergy, Unknown, swelling, PT STILL TAKES AT HOME, 12/03/21) hydralazine (Verified Allergy, Unknown, 10/31/18) levofloxacin (Verified Allergy, Unknown, Hallucinations, 10/31/18) Copy Copies To 1: ERICH SANDOVAL MD Discharge Summary Date of Admission Dec 03, 2021 at 00:31 Date of Discharge Dec 04, 2021 at 14:55 Discharge Date: Dec 04, 2021 Discharge Time: 14:55 Admission Diagnosis Severe sepsis due to pneumonia Consults/Procedures Consulations Cardiology, TeleICU Discharge Diagnosis Acute on chronic respiratory failure with hypoxia Severe sepsis due to pneumonia Acute on chronic HFpEF COPD with acute exacerbation (1) Severe sepsis Status: Acute (2) PNA (pneumonia) Status: Acute (3) COPD with acute exacerbation Status: Acute (4) Acute on chronic heart failure with preserved ejection fraction (HFpEF) Status: Acute (5) Permanent atrial fibrillation Status: Chronic (6) Mitral regurgitation (7) Pulmonary hypertension Status: Acute (8) Primary hypertension Status: Chronic (9) Acute on chronic respiratory failure with hypoxia Status: Acute PABLO BUTCHER MD Dec 04, 2021 19:06
== END 2021-12-04 14:55 | disposition home or self-care (01) | DRG 871 ==
LOC: EDUNIT# 21:11 → ER FS 21:15 → ICU 12-03 00:31 → 4TH 12-03 15:25
PROVIDERS: ADMIT Internal Medicine; ATTEND Internal Medicine
DX: A41.9 Sepsis, unspecified organism (principal); J18.9 Pneumonia, unspecified organism; I50.33 Acute on chronic diastolic (congestive) heart failure; J96.21 Acute and chronic respiratory failure with hypoxia; J44.0 Chronic obstructive pulmonary disease with (acute) lower respiratory infection; J44.1 Chronic obstructive pulmonary disease with (acute) exacerbation; I48.21 Permanent atrial fibrillation; I42.9 Cardiomyopathy, unspecified; Z20.822 Contact with and (suspected) exposure to COVID-19; R65.20 Severe sepsis without septic shock; I11.0 Hypertensive heart disease with heart failure; Z79.01 Long term (current) use of anticoagulants; E11.40 Type 2 diabetes mellitus with diabetic neuropathy, unspecified; I34.0 Nonrheumatic mitral (valve) insufficiency; I27.20 Pulmonary hypertension, unspecified; Z99.81 Dependence on supplemental oxygen; Z87.891 Personal history of nicotine dependence; Z79.52 Long term (current) use of systemic steroids; Z88.1 Allergy status to other antibiotic agents; Z91.09 Other allergy status, other than to drugs and biological substances
CPT/HCPCS: 36415; 71045; 71275; 80053; 82805; 82947; 83605; 83735; 83880; 84100; 84484; 85007; 85025; 85027; 87040; 87070; 87081; 87205; 87636; 93005; 93306; 94640; 94761; 99291

== ENCOUNTER 2021-12-31 06:24 | Inpatient (IN) | payer MEDICARE ==
[~2021-12-31] VITALS: Ht 180 cm; Wt 85.0 kg
[~2021-12-31 06:24] MED LIST changes: +ACET-2267 PO; +AMLO-250 PO; +AMOX1TAB12 PO; +BUME1TAB8 PO; +GBPN600T PO; +GUAI600T43 PO; +IPRA3AMP31 NEB; +ISOS30TA82 PO; +LOSA100T57 PO; +METF-399 PO; +POTA-179 PO; +PRED10TA22 PO; +PRED5TAB PO; +RIVA20TA2 PO; +TOLT4CAP26 PO; +TRAM50TA3 PO
[2021-12-31 06:49] LABS: BASOPHILS % (AUTO) 0 % (0-10); EOSINOPHILS # (AUTO) 0.2 10^3/uL (0.0-0.3); EOSINOPHILS % (AUTO) 2 % (0-10); HEMATOCRIT 30 % (40-54); HEMOGLOBIN 9.8 g/dL (13.3-17.7); LYMPHOCYTES # (AUTO) 0.6 10^3/uL (1.0-4.0); LYMPHOCYTES % (AUTO) 8 % (12-44); MEAN CORPUSCULAR HEMOGLOBIN 30 pg (25-34); MEAN CORPUSCULAR HGB CONC 33 g/dL (32-36); MEAN CORPUSCULAR VOLUME 91 fL (80-99); MEAN PLATELET VOLUME 9.3 fL (9.0-12.2); MONOCYTES # (AUTO) 0.6 10^3/uL (0.0-1.0); MONOCYTES % (AUTO) 9 % (0-12); NEUTROPHILS # (AUTO) 5.5 10^3/uL (1.8-7.8); NEUTROPHILS % (AUTO) 79 % (42-75); PLATELET COUNT 216 10^3/uL (130-400)
[2021-12-31] MEDS ORDERED: RT-ALBUTEROL/IPRATROPIUM 3 ML (DUONEB) VIAL INH STA (06:49)
[2021-12-31] MEDS ORDERED: FUROSEMIDE 40 MG/4 ML INJ (LASIX) IVP STA (06:49)
--- NOTE | 2021-12-31 06:56 | ED Dyspnea ---
General Chief Complaint: Respiratory Problems Stated Complaint: SOB Nursing Triage Note: Pt brought in by ems with sob that has worsened over the last few days Source of Information: Patient, EMS, Old Records (RYAN NOLAND MD) History of Present Illness Date Seen by Provider: Dec 31, 2021 Time Seen by Provider: 06:24 Initial Comments 71-year-old male presenting by EMS from home with complaint of increased shortness of breath over the day yesterday and tonight. He recently was admitted to the hospital in [place] at the end of November for similar symptoms. At that time he was found to have COPD exacerbation with CHF and pneumonia. He reports that he is on home oxygen and his baseline is 3 L/min. He feels like he has increased swelling in his legs compared to usual. He has increased shortness of breath with minimal exertion. He states he has been coughing up clear-colored sputum. He felt like he had a fever overnight. He has not done a breathing treatment since yesterday. EMS reports he was 85 to 87% on his home oxygen so they placed him on a nonrebreather which brought him up to 97%. Timing/Duration: Increasing (over the last 24 hours or more) Severity: Severe Activities at Onset: None Prior Episodes/Possible Cause: Chronic Episodes, Frequent Episodes Modifying Factors: Worse With Activity, Worse With Coughing; Improves With Oxygen Associated Symptoms: Anxiety, Cough, Edema, Fever (subjective), Weakness, Wheezing (RYAN NOLAND MD) Initial Comments Agree with H & P (LIZZY BOWSER MD) Allergies and Home Medications Allergies Coded Allergies: lisinopril (Verified Allergy, Severe, Anaphylaxis, 10/31/18) allopurinol (Verified Allergy, Unknown, Hives, 10/31/18) amlodipine (Verified Allergy, Unknown, swelling, PT STILL TAKES AT HOME, 12/03/21) hydralazine (Verified Allergy, Unknown, 10/31/18) levofloxacin (Verified Allergy, Unknown, Hallucinations, 10/31/18) Patient Home Medication List Home Medication List Reviewed: Yes (RYAN NOLAND MD) Home Medication List Reviewed: Yes (LIZZY BOWSER MD) Acetaminophen (Tylenol Extra Strength) 500 Mg Tablet, 1,000 MG PO Q8H PRN for PAIN-MILD (1-4), (Reported) Entered as Reported by: JUAN WHITLEY on 12/03/21 112 Amlodipine Besylate (Amlodipine Besylate) 5 Mg Tablet, 5 MG PO HS, (Reported) Entered as Reported by: JUAN WHITLEY on 12/03/21 112 Amoxicillin/Potassium Clav (Amox Tr-K Clv 875-125 mg Tab) 875 Mg-125 Mg Tablet, 1 EACH PO BID Prescribed by: PABLO BUTCHER on 12/04/21 1158 Bumetanide (Bumetanide) 1 Mg Tablet, 2 MG PO DAILY, (Reported) Entered as Reported by: JUAN WHITLEY on 12/03/211119 Carvedilol (Carvedilol) 25 Mg Tablet, 25 MG PO BID, (Reported) Entered as Reported by: JUAN WHITLEY on 12/03/211119 Clonidine HCl (Clonidine HCl) 0.2 Mg Tablet, 0.2 MG PO BID, (Reported) Entered as Reported by: JACQUI CORONADO on 10/31/182017 Docusate Sodium (Docusate Sodium) 100 Mg Capsule, 100 MG PO DAILY, (Reported) Entered as Reported by: JUAN WHITLEY on 12/03/211119 Gabapentin (Gabapentin) 600 Mg Tablet, 600 MG PO TID PRN for PAIN-BREAKTHROUGH, (Reported) Entered as Reported by: JUAN WHITLEY on 12/03/211119 Guaifenesin (Mucinex) 600 Mg Tab.er.12h, 600 MG PO Q12H PRN for CONGESTION, (Reported) Entered as Reported by: JUAN WHITLEY on 12/03/211119 Ipratropium/Albuterol Sulfate (Iprat-Albut 0.5-3(2.5) mg/3 ml) 0.5 Mg-3 Mg (2.5 Mg Base)/3 Ml Ampul.neb, 3 ML NEB Q6H PRN for SHORTNESS OF BREATH, (Reported) Entered as Reported by: JUAN WHITLEY on 12/03/21 112 Isosorbide Mononitrate (Isosorbide Mononitrate ER) 30 Mg Tab.er.24h, 30 MG PO DAILY, (Reported) Entered as Reported by: JUAN WHITLEY on 12/03/21 112 Losartan Potassium (Losartan Potassium) 100 Mg Tablet, 100 MG PO HS, (Reported) Entered as Reported by: JUAN WHITLEY on 12/03/211119 Metformin HCl (Metformin HCl) 1,000 Mg Tablet, 1,000 MG PO BID WITH MEALS, (Reported) Entered as Reported by: JUAN WHITLEY on 12/03/211119 Potassium Chloride (Potassium Chloride) 20 Meq Tab.er.prt, 20 MEQ PO DAILY, (Reported) Entered as Reported by: JUAN WHITLEY on 12/03/211119 Prednisone (Prednisone) 5 Mg Tablet, 5 MG PO DAILY, (Reported) Entered as Reported by: JUAN WHITLEY on 12/03/211119 Prednisone (Prednisone) 10 Mg Tab.ds.pk, 10 MG PO DAILY Prescribed by: PABLO BUTCHER on 12/04/21 115 Rivaroxaban (Xarelto Tablet) 20 Mg Tablet, 20 MG PO HS, (Reported) Entered as Reported by: JUAN WHITLEY on 12/03/211119 Tamsulosin HCl (Flomax) 0.4 Mg Cap, 0.4 MG PO HS, (Reported) Entered as Reported by: JACQUI CORONADO on 10/31/182017 Tolterodine Tartrate (Tolterodine Tartrate ER) 4 Mg Cap.er.24h, 4 MG PO HS, (Reported) Entered as Reported by: JUAN WHITLEY on 12/03/211119 Tramadol HCl (Tramadol HCl) 50 Mg Tablet, 100 MG PO Q6H PRN for PAIN-MODERATE (5-7), (Reported) Entered as Reported by: JUAN WHITLEY on 12/03/211119 Review of Systems Review of Systems Constitutional: fever (subjective) EENTM: no symptoms reported Respiratory: see HPI, cough, dyspnea on exertion, phlegm, short of breath; No stridor; wheezing Cardiovascular: No chest pain Gastrointestinal: No abdominal pain, No nausea, No vomiting Genitourinary: no symptoms reported Musculoskeletal: no symptoms reported Skin: No rash Psychiatric/Neurological: Anxiety Endocrine: No Symptoms Reported Hematologic/Lymphatic: Denies Blood Clots (RYAN NOLAND MD) Past Guzdktt-Rcvjpr-Auwptr Hx Patient Social History Tobacco Use?: No Use of E-Cig and/or Vaping dev: No Substance use?: No Alcohol Use?: No Pt feels they are or have been: No (RYAN NOLAND MD) Seasonal Allergies Seasonal Allergies: No (RYAN NOLAND MD) Past Medical History Surgery/Hospitalization HX: Hypertension, atrial fibrillation, congestive heart failure, COPD that is O2 dependent at home, pneumonia Surgeries: Yes Appendectomy, Tonsillectomy Respiratory: Yes Pneumonia, COPD Cardiac: Yes Atrial Fibrillation, Cardiomyopathy, Hypertension Neurological: No Genitourinary: No Gastrointestinal: No Musculoskeletal: No Endocrine: No HEENT: No Cancer: No Psychosocial: No Integumentary: No Blood Disorders: No (RYAN NOLAND MD) Family Medical History No Pertinent Family Hx (RYAN NOLAND MD) Physical Exam Vital Signs Vital Signs - First Documented 12/31/21 06:35 Temp 37.1 Pulse 89 Resp 24 B/P (MAP) 108/84 (92) Pulse Ox 87 O2 Delivery Room Air O2 Flow Rate 6.00 FiO2 93 (LIZZY BOWSER MD) Vital Signs Capillary Refill : (RYAN NOLAND MD) Height, Weight, BMI Height: 5'11.00" Weight: 217lbs. 4.0oz. 98.684800sk; 25.49 BMI Method:Stated General Appearance: Anxious, Chronically ill, Moderate Distress HEENT: PERRL/EOMI, Pharynx Normal, Other (poor dentition) Neck: Full Range of Motion, Normal Inspection, Non Tender, Supple Respiratory: Chest Non Tender, Accessory Muscle Use, Decreased Breath Sounds, Rales, Respiratory Distress, Wheezing Cardiovascular: Normal Peripheral Pulses, Irregularly Irregular Peripheral Pulses: 2+ Radial Pulses (R), 2+ Radial Pulses (L) Gastrointestinal: Normal Bowel Sounds, No Pulsatile Mass, Non Tender, Soft Rectal: Deferred Extremity: Normal Capillary Refill, No Calf Tenderness, Pedal Edema (1+ pitting edema up to his knees) Neurologic/Psychiatric: Alert, Oriented x3, extract operator II-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 Norm as Tested Skin: Normal Color, Warm/Dry (RYAN NOLAND MD) Focused Exam Lactate Level 12/31/21 06:55: Lactic Acid Level 1.88 (LIZZY BOWSER MD) Lactic Acid Level Laboratory Tests Test 12/31/21 06:55 Lactic Acid Level 1.88 MMOL/L (0.50-2.00) (LIZZY BOWSER MD) Progress/Results/Core Measures Results/Orders Lab Results Laboratory Tests Test 12/31/21 06:43 12/31/21 06:49 12/31/21 06:55 12/31/21 07:31 Range/Units White Blood Count 7.0 4.3-11.0 10^3/uL Red Blood Count 3.25 L 4.30-5.52 10^6/uL Hemoglobin 9.8 L 13.3-17.7 g/dL Hematocrit 30 L 40-54 % Mean Corpuscular Volume 91 80-99 fL Mean Corpuscular Hemoglobin 30 25-34 pg Mean Corpuscular Hemoglobin Concent 33 32-36 g/dL Red Cell Distribution Width 17.1 H 10.0-14.5 % Platelet Count 216 130-400 10^3/uL Mean Platelet Volume 9.3 9.0-12.2 fL Immature Granulocyte % (Auto) 2 % Neutrophils (%) (Auto) 79 H 42-75 % Lymphocytes (%) (Auto) 8 L 12-44 % Monocytes (%) (Auto) 9 0-12 % Eosinophils (%) (Auto) 2 0-10 % Basophils (%) (Auto) 0 0-10 % Neutrophils # (Auto) 5.5 1.8-7.8 10^3/uL Lymphocytes # (Auto) 0.6 L 1.0-4.0 10^3/uL Monocytes # (Auto) 0.6 0.0-1.0 10^3/uL Eosinophils # (Auto) 0.2 0.0-0.3 10^3/uL Basophils # (Auto) 0.0 0.0-0.1 10^3/uL Immature Granulocyte # (Auto) 0.2 H 0.0-0.1 10^3/uL Neutrophils % (Manual) 86 % Lymphocytes % (Manual) 10 % Monocytes % (Manual) 3 % Eosinophils % (Manual) 1 % Prothrombin Time 17.9 H 12.2-14.7 SEC INR Comment 1.4 0.8-1.4 Activated Partial Thromboplast Time 42 H 24-35 SEC D-Dimer 0.81 H 0.00-0.49 UG/ML Sodium Level 132 L 135-145 MMOL/L Potassium Level 4.5 3.6-5.0 MMOL/L Chloride Level 98 98-107 MMOL/L Carbon Dioxide Level 23 21-32 MMOL/L Anion Gap 11 5-14 MMOL/L Blood Urea Nitrogen 19 H 7-18 MG/DL Creatinine 1.30 0.60-1.30 MG/DL Estimat Glomerular Filtration Rate 59 BUN/Creatinine Ratio 15 Glucose Level 183 H 70-105 MG/DL Calcium Level 8.5 8.5-10.1 MG/DL Corrected Calcium 8.7 8.5-10.1 MG/DL Magnesium Level 1.6 1.6-2.4 MG/DL Total Bilirubin 1.2 H 0.1-1.0 MG/DL Aspartate Amino Transf (AST/SGOT) 19 5-34 U/L Alanine Aminotransferase (ALT/SGPT) 9 0-55 U/L Alkaline Phosphatase 114 40-136 U/L Troponin I < 0.30 <0.30 NG/ML C-Reactive Protein 8.01 H <0.50 MG/DL Pro-B-Type Natriuretic Peptide 9507.0 H <125.0 PG/ML Total Protein 7.2 6.4-8.2 GM/DL Albumin 3.7 3.2-4.5 GM/DL Influenza Type A (RT-PCR) Not Detected Not Detecte Influenza Type B (RT-PCR) Not Detected Not Detecte SARS-CoV-2 RNA (RT-PCR) Not Detected Not Detecte Blood Gas Puncture Site RT RADIAL Blood Gas Patient Temperature 37.1 C Arterial Blood pH 7.48 H 7.37-7.43 Arterial Blood Partial Pressure CO2 31 L 35-45 MMHG Arterial Blood Partial Pressure O2 62 L 79-93 MMHG Arterial Blood HCO3 23 23-27 MMOL/L Arterial Blood Total CO2 24.1 21.0-31.0 MMOL/L Arterial Blood Oxygen Saturation 93 L 94-100 % Arterial Blood Base Excess 0.3 -2.5-2.5 MMOL/L Khalif Test OK Blood Gas Ventilator Setting NO Blood Gas Inspired Oxygen 6 LITERS Lactic Acid Level 1.88 0.50-2.00 MMOL/L Urine Color YELLOW Urine Clarity CLEAR Urine pH 5.5 5-9 Urine Specific [place] 1.015 L 1.016-1.022 Urine Protein NEGATIVE NEGATIVE Urine Glucose (UA) NEGATIVE NEGATIVE Urine Ketones NEGATIVE NEGATIVE Urine Nitrite NEGATIVE NEGATIVE Urine Bilirubin NEGATIVE NEGATIVE Urine Urobilinogen 1.0 < = 1.0 MG/DL Urine Leukocyte Esterase NEGATIVE NEGATIVE Urine RBC (Auto) NEGATIVE NEGATIVE Urine RBC NONE /HPF Urine WBC RARE /HPF Urine Squamous Epithelial Cells NONE /HPF Urine Crystals NONE /LPF Urine Bacteria NEGATIVE /HPF Urine Casts PRESENT /LPF Urine Hyaline Casts RARE /LPF Urine Mucus NEGATIVE /LPF Urine Culture Indicated NO (LIZZY BOWSER MD) My Orders Orders - LIZZY BOWSER MD Albuterol/Ipra Inhalation Soln (Duoneb I (12/31/21 07:30) Svn Small Volume Nebulizer (12/31/21 07:28) Azithromycin Injection (Zithromax Inject (12/31/21 07:45) Cefepime Injection (Maxipime Injection) (12/31/21 07:45) Ed Admission (Communication) (12/31/21 07:38) Ct Angio Chest W (12/31/21 07:41) Iohexol Injection (Omnipaque 350 Mg/Ml 1 (12/31/21 08:15) Received Contrast (Hold Metformin- Contr (12/31/21 08:15) Ns (Ivpb) (Sodium Chloride 0.9% Ivpb Bag (12/31/21 08:15) (LIZZY BOWSER MD) Medications Given in ED Current Medications Medications Dose Ordered Sig/Dov Route Start Time Stop Time Status Last Admin Dose Admin Albuterol/ Ipratropium 3 ml ONCE ONCE INH 12/31/21 07:30 12/31/21 07:31 DC 12/31/21 07:31 3 ML Azithromycin 500 mg/Sodium Chloride 255 ml @ 250 mls/hr ONCE ONCE IV 12/31/21 07:45 12/31/21 08:46 12/31/21 08:23 250 MLS/HR Cefepime HCl 1000 mg/Sodium Chloride 50 ml @ 100 mls/hr ONCE ONCE IV 12/31/21 07:45 12/31/21 08:14 DC 12/31/21 07:49 100 MLS/HR Iohexol 100 ml ONCE ONCE IV 12/31/21 08:15 12/31/21 08:16 DC 12/31/21 08:07 100 ML Sodium Chloride 100 ml ONCE ONCE IV 12/31/21 08:15 12/31/21 08:16 DC 12/31/21 08:07 100 ML (LIZZY BOWSER MD) Vital Signs/I&O 12/31/21 12/31/21 12/31/21 12/31/21 06:35 06:35 06:59 07:37 Temp 37.1 37.0 Pulse 89 81 Resp 24 23 B/P (MAP) 108/84 (92) 98/57 Pulse Ox 87 93 98 O2 Delivery Room Air Nasal Cannula Nasal Cannula OxyMask O2 Flow Rate 6.00 6.00 5.00 FiO2 93 (LIZZY BOWSER MD) Blood Pressure Mean: 92 Admisison Planning May Need Admission (Planning): 06:30 (RYAN NOLAND MD) Progress Progress Note : Progress Note Obtain labs and chest x-ray as well as electrocardiogram. ABG to look for his pH and check his CO2 and O2 levels. Evaluate for CO2 retention. Blood cultures and lactic acid since he reports having subjective fever at home. Cardiac enzymes including troponin and proBNP to evaluate for congestive heart failure or acute myocardial infarction. Nasal swab to check for COVID and influenza. Give DuoNeb breathing treatment to try and help with his breathing, Lasix 80 mg IV x1 to try and help for possible congestive heart failure standpoint, Decadron 10 mg IV to help from the COPD standpoint. Differential diagnosis includes COPD exacerbation, CHF exacerbation, pneumonia, COVID, influenza, pulmonary embolism (RYAN NOLAND MD) Progress Note : Progress Note Signed out to me by Dr Noland 1. ACUTE CHF EXACERBATION/ ACUTE PULMONARY EDEMA: - CXR: - BNP is in the 9,000's - Lasix 80mg iv given by night physician - On 5 L NC, noticed pt breathing through mouth and changed to oxi-mask - Discussed with hospitalist, Dr Butcher and pt accepted to ICU. - Pt will benefit from ICU consult and cardiology consult 2. ACUTE COPD EXACERBATION: - Duo Neb x2 & Dexa 10mg iv given - Pt normally on 3L O2 at home 3. RECURRENT PNA: - Pt was admitted for PNA at the end of November 2021 - WBC is normal but elevated neutrophils - Blood cultures sent - COVID test and Rapid Flu test negative - Azithro & Cefepime iv STAT 4. ELEVATED D-DIMER: - D-dimer is 0.81 - CTA CHEST : No pulmonary emboli. Advanced emphysema. Diffuse geographic groundglass opacities are similar to the prior exam. These could be due to edema and/or infectious process. There is also likely a degree of air trapping given the COPD. Diffuse mediastinal and bilateral hilar lymphadenopathy is similar to the prior exam and is indeterminate. Cardiomegaly. Small right pleural effusion. - No PE 5. ANEMIA: - Drop in Hb from 13 to 9 since November 2021 - Further work-up and monitoring needed upon admission (LIZZY BOWSER MD) Initial ECG Impression Date: Dec 31, 2021 Initial ECG Impression Time: 06:48 Initial ECG Rate: 92 Initial ECG Rhythm: A Fib/Flutter Initial ECG Comparisson: Unchanged Comment Atrial fibrillation with a heart rate [address] elevation QT interval 370 ms with a QTc interval 419 ms. There is artifact on the tracing. Overall appears similar to prior tracings in the system. (RYAN NOLAND MD) Diagnostic Imaging Diagonstic Imaging: Xray Plain Films/CT/US/NM/MRI: chest (RYAN NOLAND MD) Diagonstic Imaging: CT Comments [facility] [place], [place] NAME: [facility] REC#: [id number] PT STATUS: REG ER : 1950 PHYSICIAN: LIZZY BOWSER MD ADMIT DATE: 12/31/21/ER FS Draft Date of Exam:12/31/21 CT ANGIO CHEST W PROCEDURE: CT angiography of the chest with contrast. TECHNIQUE: Multiple contiguous axial images were obtained through the chest after uneventful bolus administration of intravenous contrast. 3D reconstructed CTA MIP acquisitions were also performed. Auto Exposure Controls were utilized during the CT exam to meet ALARA standards for radiation dose reduction. INDICATION: Shortness of breath. Elevated D-dimer. COMPARISON: CTA chest 12/03/2021. FINDINGS: No pulmonary artery filling defects. Normal caliber thoracic aorta. Cardiomegaly. No pericardial effusion. Diffuse mediastinal and bilateral hilar lymphadenopathy. Advanced emphysema. Diffuse geographic groundglass opacities are similar to the prior exam. Small right pleural effusion. No pneumothorax. No acute osseous findings. The visualized upper abdominal contents are unremarkable. IMPRESSION: 1. No pulmonary emboli. 2. Advanced emphysema. Diffuse geographic groundglass opacities are similar to the prior exam. These could be due to edema and/or infectious process. There is also likely a degree of air trapping given the COPD. 3. Diffuse mediastinal and bilateral hilar lymphadenopathy is similar to the prior exam and is indeterminate. 4. Cardiomegaly. 5. Small right pleural effusion. Dictated on workstation # [id number] Dict: 12/31/21 0813 Trans: 12/31/21 0819 CVB [id number] Interpreted by: JULIA GARCIA MD Electronically signed by: [place], [place] NAME: [facility] REC#: [id number] PT STATUS: REG ER : 1950 PHYSICIAN: RYAN NOLAND MD ADMIT DATE: 12/31/21/ER FS Draft Date of Exam:12/31/21 CHEST 1 VIEW AP/PA ONLY EXAM: CHEST 1 VIEW AP/PA ONLY INDICATION: Cough. Shortness of breath. COMPARISON: 12/03/2021. FINDINGS: Cardiomegaly. Stable diffuse interstitial and airspace opacities. No pleural effusion or pneumothorax. No acute osseous findings. IMPRESSION: Cardiomegaly with diffuse interstitial and airspace opacities are similar to the prior exam. Findings could be chronic versus residual recurrent pneumonitis and/or edema. Dictated on workstation # [id number] Dict: 12/31/21 0700 Trans: 12/31/21 0704 CVB [id number] Interpreted by: JULIA GARCIA MD Electronically signed by: (LIZZY BOWSER MD) Transfer of Care Time: 07:00 Care transferred to: Dr. Bowser (RYAN NOLAND MD) Departure Impression Primary Impression: COPD with hypoxia Additional Impressions: Permanent atrial fibrillation Pulmonary edema Qualified Codes: J81.0 - Acute pulmonary edema Recurrent pneumonia Anemia Qualified Codes: D64.9 - Anemia, unspecified Disposition: 30 STILL A PATIENT Condition: Stable Admissions Decision to Admit Reason: Admit from ER (General) (LIZZY BOWSER MD) Transfer Transfer Reason: Exceeds level of care Time Spoke to Accepting Phy: 07:15 Transfer Progress Notes dISCUSSED WITH dR Butcher Transfer Facility: [facility] (LIZZY BOWSER MD) Departure-Patient Inst. Referrals: ERICH SANDOVAL MD (PCP/Family) Primary Care Physician RYAN NOLAND MD Dec 31, 2021 06:56 LIZZY BOWSER MD Dec 31, 2021 07:38
[2021-12-31 07:02] LABS: EOSINOPHILS % (MANUAL) 1 %; LYMPHOCYTES % (MANUAL) 10 %; MONOCYTES % (MANUAL) 3 %; NEUTROPHILS % (MANUAL) 86 %
--- NOTE | 2021-12-31 07:04 | Diagnostic Imaging Report ---
EXAM: CHEST 1 VIEW AP/PA ONLY INDICATION: Cough. Shortness of breath. COMPARISON: 12/03/2021. FINDINGS: Cardiomegaly. Stable diffuse interstitial and airspace opacities. No pleural effusion or pneumothorax. No acute osseous findings. IMPRESSION: Cardiomegaly with diffuse interstitial and airspace opacities are similar to the prior exam. Findings could be chronic versus residual recurrent pneumonitis and/or edema. Dictated by: Dictated on workstation # [id number]
[2021-12-31 07:05] LABS: INR 1.4 (0.8-1.4); PROTHROMBIN TIME PATIENT 17.9 SEC (12.2-14.7)
[2021-12-31 07:10] LABS: ABG PH 7.48 (7.37-7.43)
[2021-12-31 07:11] LABS: ABG BASE EXCESS 0.3 MMOL/L (-2.5-2.5); ABG OXYGEN SATURATION 93 % (94-100); ABG PCO2 31 MMHG (35-45); ABG PO2 62 MMHG (79-93); ABG TCO2 24.1 MMOL/L (21.0-31.0); ALLENS TEST OK; VENTILATOR NO
[2021-12-31 07:13] LABS: INSPIRED O2 6 LITERS; PATIENT TEMP 37.1 C
[2021-12-31 07:20] LABS: BUN/CREATININE RATIO 15; CALCIUM 8.5 MG/DL (8.5-10.1); CARBON DIOXIDE 23 MMOL/L (21-32); CHLORIDE 98 MMOL/L (98-107); GFR ESTIMATED 59; GLUCOSE 183 MG/DL (70-105); POTASSIUM 4.5 MMOL/L (3.6-5.0); SODIUM 132 MMOL/L (135-145)
[2021-12-31 07:22] LABS: ALKALINE PHOSPHATASE 114 U/L (40-136); BILIRUBIN,TOTAL 1.2 MG/DL (0.1-1.0)
[2021-12-31 07:23] LABS: ALANINE AMINOTRANSFERASE 9 U/L (0-55); ALBUMIN 3.7 GM/DL (3.2-4.5); MAGNESIUM 1.6 MG/DL (1.6-2.4); TOTAL PROTEIN 7.2 GM/DL (6.4-8.2)
[2021-12-31] MEDS ORDERED: RT-ALBUTEROL/IPRATROPIUM 3 ML (DUONEB) VIAL INH ONE (07:30)
[2021-12-31 07:37] LABS: BILIRUBIN,URINE NEGATIVE (NEGATIVE); CLARITY,URINE CLEAR; COLOR,URINE YELLOW; GLUCOSE, URINE (UA) NEGATIVE (NEGATIVE); KETONES,URINE NEGATIVE (NEGATIVE); LEUKOCYTE ESTERASE ,URINE NEGATIVE (NEGATIVE); NITRITE,URINE NEGATIVE (NEGATIVE); PH,URINE 5.5 (5-9); PROTEIN,URINE NEGATIVE (NEGATIVE)
[2021-12-31 07:41] LABS: BACTERIA,URINE NEGATIVE /HPF; WBC,URINE RARE /HPF
[2021-12-31 07:42] LABS: HYALINE CASTS, URINE RARE /LPF
[2021-12-31] MEDS ORDERED: CEFEPIME INJECTION 1,000 MG in NS (IVPB) 50 ML IV ONE (07:45)
[2021-12-31] MEDS ORDERED: AZITHROMYCIN INJECTION 500 MG in NS (IVPB) 250 ML IV ONE (07:45)
[2021-12-31] MEDS ORDERED: IOHEXOL 350 MG/ML 100 ML (OMNIPAQUE 350) VIAL IV ONE (08:15)
[2021-12-31] MEDS ORDERED: HOLD METFORMIN - RECEIVED CONTRAST 20 ML VIAL IV SCH (08:15)
[2021-12-31] MEDS ORDERED: NS 100 ML (IVPB) BAG IV ONE (08:15)
--- NOTE | 2021-12-31 08:20 | Diagnostic Imaging Report ---
PROCEDURE: CT angiography of the chest with contrast. TECHNIQUE: Multiple contiguous axial images were obtained through the chest after uneventful bolus administration of intravenous contrast. 3D reconstructed CTA MIP acquisitions were also performed. Auto Exposure Controls were utilized during the CT exam to meet ALARA standards for radiation dose reduction. INDICATION: Shortness of breath. Elevated D-dimer. COMPARISON: CTA chest 12/03/2021. FINDINGS: No pulmonary artery filling defects. Normal caliber thoracic aorta. Cardiomegaly. No pericardial effusion. Diffuse mediastinal and bilateral hilar lymphadenopathy. Advanced emphysema. Diffuse geographic groundglass opacities are similar to the prior exam. Small right pleural effusion. No pneumothorax. No acute osseous findings. The visualized upper abdominal contents are unremarkable. IMPRESSION: 1. No pulmonary emboli. 2. Advanced emphysema. Diffuse geographic groundglass opacities are similar to the prior exam. These could be due to edema and/or infectious process. There is also likely a degree of air trapping given the COPD. 3. Diffuse mediastinal and bilateral hilar lymphadenopathy is similar to the prior exam and is indeterminate. 4. Cardiomegaly. 5. Small right pleural effusion. Dictated by: Dictated on workstation # [id number]
[2021-12-31] MEDS ORDERED: ONDANSETRON 4 MG/2 ML (SDV) Z0FRAN IVP PRN (10:00)
[2021-12-31] MEDS ORDERED: MELATONIN 3 MG TABLET PO PRN (10:00)
[2021-12-31] MEDS ORDERED: diphenhydrAMINE 25 MG TAB (BENADRYL) PO PRN (10:00)
[2021-12-31] MEDS ORDERED: LACTULOSE SYRUP 10GM/15ML (ENULOSE) 30ML UDC PO PRN (10:00)
[2021-12-31] MEDS ORDERED: ENOXAPARIN 40 MG/0.4 ML (LOVENOX) SYR SC SCH (10:00)
[2021-12-31] MEDS ORDERED: CALCIUM CARBONATE 500 MG (TUMS) TAB.CHEW PO PRN (10:00)
[2021-12-31] MEDS ORDERED: ACETAMINOPHEN 325 MG TABLET PO PRN (10:00)
[2021-12-31] MEDS ORDERED: ALPRAZolam 0.25 MG (XANAX) TAB PO PRN ×2 (10:00→21:00)
[2021-12-31] MEDS ORDERED: guaiFENesin/CODEINE (ROBITUSSIN AC) 10ML UDC PO PRN (10:00)
--- NOTE | 2021-12-31 10:00 | Tele-ICU Consult ---
History of Present Illness History of Present Illness Date Seen by Provider: Dec 31, 2021 Time Seen by Provider: 10:00 Date of Admission (Tele-ICU Physician , consultation) Available chart/ vitals / labs / Images reviewed H&P is from ER notes Patient's information available about PMH, Shx, Fhx allergy reviewed in EMR. ROS as per chart and RN report Now in ICU, hemodynamically stable Video assessment done using teleICU camera, rest of exam as per RN Discussed with RN. Consultants: Hospital course: RECENT admission 12/03/21-->12/04/21, TX for sepsis/PNA with abx and for CHF with diuresis and AECOPD with steroids 12/31/21 to ER with Dwight ALEMAN, in ER given Lasix 80 mg IV x1 Decadron 10 mg IV, CTA - neg for PE A/P Acute resp failure - combination LRTI , VO , bronchospm ( 12/31/21 - CTA - neg for PE , + GGO -lasix given -- IV steroids and ABX started Advanced COPD with AECOPD ( home on 3 l o2 at night ) -IV steroids , nebs LRTI vs PNA -NEG covid and flu -- CAP coverage is suggested while cx pending A fib , rate controllled - 12-03-21 LVEF 55-60% -OAC xarelto Anemia - hb 9.8 from 13 previously , no acute bleeding - as per PCP Puln HTN - ECHO 12/2021 PASP 78 mmHg DM II - ISS Lines : (Central Line Necessity Reviewed) Morfin: OG: Nutrition: Analgesia: Anxiety/ delirium VTE Prophylaxis: xarelto Stress Ulcer Prophylaxis: na Plans in collaboration with bedside consultants and IM MDs. Discussed with RN to reach out if any questions or concerns A total of 31 minutes of critical care time was devoted to this patient today, required to treat and/or prevent further deterioration of critical care condition ( as above ) . Allergies and Home Medications Allergies Coded Allergies: lisinopril (Verified Allergy, Severe, Anaphylaxis, 10/31/18) allopurinol (Verified Allergy, Unknown, Hives, 10/31/18) amlodipine (Verified Allergy, Unknown, swelling, PT STILL TAKES AT HOME, 12/03/21) hydralazine (Verified Allergy, Unknown, 10/31/18) levofloxacin (Verified Allergy, Unknown, Hallucinations, 10/31/18) Home Medications Acetaminophen 500 Mg Tablet, 1,000 MG PO Q8H PRN for PAIN-MILD (1-4), (Reported) Amlodipine Besylate 5 Mg Tablet, 5 MG PO HS, (Reported) Amoxicillin/Potassium Clav 875 Mg-125 Mg Tablet, 1 EACH PO BID Prescribed by: PABLO BUTCHER on 12/04/21 1158 Bumetanide 1 Mg Tablet, 2 MG PO DAILY, (Reported) TAKES 2 (1MG) TABS Carvedilol 25 Mg Tablet, 25 MG PO BID, (Reported) Clonidine HCl 0.2 Mg Tablet, 0.2 MG PO BID, (Reported) Docusate Sodium 100 Mg Capsule, 100 MG PO DAILY, (Reported) Gabapentin 600 Mg Tablet, 600 MG PO TID PRN for PAIN-BREAKTHROUGH, (Reported) Guaifenesin 600 Mg Tab.er.12h, 600 MG PO Q12H PRN for CONGESTION, (Reported) Ipratropium/Albuterol Sulfate 0.5 Mg-3 Mg (2.5 Mg Base)/3 Ml Ampul.neb, 3 ML NEB Q6H PRN for SHORTNESS OF BREATH, (Reported) Isosorbide Mononitrate 30 Mg Tab.er.24h, 30 MG PO DAILY, (Reported) Losartan Potassium 100 Mg Tablet, 100 MG PO HS, (Reported) Metformin HCl 1,000 Mg Tablet, 1,000 MG PO BID WITH MEALS, (Reported) Potassium Chloride 20 Meq Tab.er.prt, 20 MEQ PO DAILY, (Reported) Prednisone 5 Mg Tablet, 5 MG PO DAILY, (Reported) Prednisone 10 Mg Tab.ds.pk, 10 MG PO DAILY Take 6 tabs(60mg)daily,decrease by 1 tab(10mg)every other day. Prescribed by: PABLO BUTCHER on 12/04/21 1158 Rivaroxaban 20 Mg Tablet, 20 MG PO HS, (Reported) Tamsulosin HCl 0.4 Mg Cap, 0.4 MG PO HS, (Reported) Tolterodine Tartrate 4 Mg Cap.er.24h, 4 MG PO HS, (Reported) Tramadol HCl 50 Mg Tablet, 100 MG PO Q6H PRN for PAIN-MODERATE (5-7), (Reported) TAKES 2 (50MG) TABS Past Medical/Social/Family Hx Patient Social History Tobacco Use?: No Use of E-Cig and/or Vaping dev: No Substance use?: No Alcohol Use?: No Pt stated abuse/neglect: No Current Status Advance Directives: No Primary Language: Spanish Preferred Spoken Language: Spanish Past Medical History Chronic A-fib Cardiomyopathy COPD, O2 dependent CHF Hypertension 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 4.0oz. 98.843799ub; 25.49 BMI Method:Stated Lactic Acid Level Laboratory Tests Test 12/31/21 06:55 Lactic Acid Level 1.88 MMOL/L (0.50-2.00) Exam Exam Patient acknowledged, consented, and participated in this virtual visit which was conducted using real time audio/video Vital Signs Date Time Temp Pulse Resp B/P (MAP) Pulse Ox O2 Delivery O2 Flow Rate FiO2 12/31/21 07:37 37.0 81 23 98/57 98 OxyMask 5.00 12/31/21 06:59 Nasal Cannula 6.00 12/31/21 06:35 93 Nasal Cannula 6.00 93 12/31/21 06:35 37.1 89 24 108/84 (92) 87 Room Air Height & Weight Height: 5'11.00" Weight: 217lbs. 4.0oz. 98.269482qc; 25.49 BMI Method:Stated General Appearance: Anxious, Chronically ill, Moderate Distress, Other HEENT: PERRL/EOMI, Pharynx Normal, Other (poor dentition) Neck: Full Range of Motion, Normal Inspection, Non Tender, Supple Respiratory: Chest Non Tender, Accessory Muscle Use, Decreased Breath Sounds, Rales, Respiratory Distress, Wheezing Cardiovascular: Normal Peripheral Pulses, Irregularly Irregular Peripheral Pulses: 2+ Radial Pulses (R), 2+ Radial Pulses (L) Extremity: Normal Capillary Refill, No Calf Tenderness, Pedal Edema (1+ pitting edema up to his knees) Neurologic/Psychiatric: Alert, Oriented x3, 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
--- NOTE | 2021-12-31 11:11 | Consultation-Cardiology ---
HPI-Cardiology Cardiology Consultation: Date of Consultation 12/31/21 Time Seen by a Provider: 10:40 Date of Admission 12-31-21 Attending Physician Laura Hill MD Admitting Physician Admitting Physician: Pablo Butcher MD Attending Physician: Daniella Donald DO Consulting Physician Gita Jones MD HPI: Chief Complaint: Progressive dyspnea Mr. Park is a 71 yr old male admitted to ICU 6 from the [facility] ED. His is at the bedside. They report he has had increasing SOB, cough at home over the last few days. He denies any c/o chest pain, other than musculoskeletal w hen he coughs. No c/o palpitations, syncope or near syncope. He has had increasing LE swelling over the last few days. He has chronic a-fib for which he is on Xarelto for stroke prophylaxis and has been compliant. He follow with cardiology in [place], [place] (Dr. James) and pulmonolgy (Dr. Gray). He reports his breathing is better now than it was earlier this morning. No c/o fever or chills. No c/o n/v/d. Review of Systems-Cardiology Review of Systems Constitutional: No chills, No fever Eyes: No vision change Ears/Nose/Throat: No epistaxis, No recent hearing loss Respiratory: As described under HPI Cardiovascular: As described under HPI Gastrointestinal: As described under HPI Genitourinary: No dysuria, No hematuria Musculoskeletal: no symptoms reported Skin: No rash on exposed areas, No ulcerations on exposed areas Psychiatric/Neurological: No anxiety, No depression, No seizure, No focal weakness, No syncope Hematologic: No bleeding abnormalities BML-Xejugu-Sdtunj Hx Patient Social History 2nd Hand Smoke Exposure: No Have you traveled recently?: No Alcohol Use?: No Pt feels they are or have been: No Past Medical History PMH As described under Assessment. Family Medical History Family Medical History: No reported family h/o CAD. He reports his mother had HTN. Allergies and Home Medications Allergies Coded Allergies: lisinopril (Verified Allergy, Severe, Anaphylaxis, 10/31/18) allopurinol (Verified Allergy, Unknown, Hives, 10/31/18) amlodipine (Verified Allergy, Unknown, swelling, PT STILL TAKES AT HOME, ) hydralazine (Verified Allergy, Unknown, 10/31/18) levofloxacin (Verified Allergy, Unknown, Hallucinations, 10/31/18) Patient Home Medication List ALPRAZolam (ALPRAZolam) 0.25 Mg Tablet, 0.25 MG PO TID PRN for ANXIETY, (Reported) Entered as Reported by: JUAN WHITLEY on 12/31/211338 Last Action: Continued Acetaminophen (Tylenol Extra Strength) 500 Mg Tablet, 1,000 MG PO Q8H PRN for PAIN-MILD (1-4), (Reported) Entered as Reported by: JUAN WHITLEY on 12/03/211119 Last Action: Held Albuterol Sulfate (Ventolin Hfa) 1 Puff Puff, 2 PUFF INH Q4H PRN for SHORTNESS OF BREATH, (Reported) Entered as Reported by: JUAN WHITLEY on 12/31/211338 Last Action: Continued Amlodipine Besylate (Amlodipine Besylate) 5 Mg Tablet, 5 MG PO HS, (Reported) Entered as Reported by: JUAN WHITLEY on 12/03/211119 Last Action: Reviewed Bumetanide (Bumetanide) 1 Mg Tablet, 2 MG PO DAILY, (Reported) Entered as Reported by: JUAN WHITLEY on 12/03/211119 Last Action: Held Carvedilol (Carvedilol) 25 Mg Tablet, 25 MG PO BID, (Reported) Entered as Reported by: JUAN WHITLEY on 12/03/211119 Last Action: Converted Clonidine HCl (Clonidine HCl) 0.2 Mg Tablet, 0.2 MG PO BID, (Reported) Entered as Reported by: JACQUI CORONADO on 10/31/182017 Last Action: Continued Docusate Sodium (Docusate Sodium) 100 Mg Capsule, 100 MG PO DAILY, (Reported) Entered as Reported by: JUAN WHITLEY on 12/03/211119 Last Action: Continued Gabapentin (Gabapentin) 600 Mg Tablet, 600 MG PO TID PRN for PAIN-BREAKTHROUGH, (Reported) Entered as Reported by: JUAN WHITLEY on 12/03/211119 Last Action: Continued Guaifenesin (Mucinex) 600 Mg Tab.er.12h, 600 MG PO Q12H PRN for CONGESTION, ( Reported) Entered as Reported by: JUAN WHITLEY on 12/03/211119 Last Action: Continued Ipratropium/Albuterol Sulfate (Iprat-Albut 0.5-3(2.5) mg/3 ml) 0.5 Mg-3 Mg (2.5 Mg Base)/3 Ml Ampul.neb, 3 ML NEB Q6H PRN for SHORTNESS OF BREATH, (Reported) Entered as Reported by: JUAN WHITLEY on 12/03/211122 Last Action: Continued Isosorbide Mononitrate (Isosorbide Mononitrate ER) 30 Mg Tab.er.24h, 30 MG PO DAILY, (Reported) Entered as Reported by: JUAN WHITLEY on 12/03/211119 Last Action: Continued Losartan Potassium (Losartan Potassium) 100 Mg Tablet, 100 MG PO HS, (Reported) Entered as Reported by: JUAN WHITLEY on 12/03/211119 Last Action: Continued Metformin HCl (Metformin HCl) 1,000 Mg Tablet, 1,000 MG PO BID WITH MEALS, (Reported) Entered as Reported by: JUAN WHITLEY on 12/03/211119 Last Action: Converted Potassium Chloride (Potassium Chloride) 20 Meq Tab.er.prt, 20 MEQ PO DAILY, (Reported) Entered as Reported by: JUAN WHITLEY on 12/03/211119 Last Action: Continued Prednisone (Prednisone) 5 Mg Tablet, 5 MG PO DAILY, (Reported) Entered as Reported by: JUAN WHITLEY on 12/03/211119 Last Action: Held Rivaroxaban (Xarelto Tablet) 20 Mg Tablet, 20 MG PO HS, (Reported) Entered as Reported by: JUAN WHITLEY on 12/03/211119 Last Action: Continued Tamsulosin HCl (Flomax) 0.4 Mg Cap, 0.4 MG PO HS, (Reported) Entered as Reported by: JACQUI CORONADO on 10/31/182017 Last Action: Continued Tolterodine Tartrate (Tolterodine Tartrate ER) 4 Mg Cap.er.24h, 4 MG PO HS, (Reported) Entered as Reported by: JUAN WHITLEY on 12/03/211119 Last Action: Converted Tramadol HCl (Tramadol HCl) 50 Mg Tablet, 100 MG PO Q6H PRN for PAIN-MODERATE (5-7), (Reported) Entered as Reported by: JUAN WHITLEY on 12/03/21 1120 Last Action: Continued Discontinued Medications Prednisone (Prednisone) 10 Mg Tab.ds.pk, 10 MG PO DAILY Discontinued Reason: No Longer Taking Prescribed by: PABLO BUTCHER on 12/04/21 1158 Last Action: Discontinued Physical Exam-Cardiology Physical Exam Vital Signs/I&O 01/01/22 01/01/22 01/01/22 01/01/22 00:00 00:00 00:00 01:00 Temp 36.0 Pulse 78 80 Resp 29 22 B/P (MAP) 153/92 144/95 Pulse Ox 96 95 O2 Delivery High Flow N/C Nasal Cannula Nasal Cannula O2 Flow Rate 3.00 3.00 01/01/22 01/01/22 01/01/22 01/01/22 01:00 02:00 03:00 04:00 Pulse 73 78 74 82 Resp 15 27 B/P (MAP) 139/101 129/79 126/73 Pulse Ox 97 99 98 O2 Delivery Nasal Cannula Nasal Cannula Nasal Cannula O2 Flow Rate 3.00 3.00 3.00 01/01/22 01/01/22 01/01/22 01/01/22 04:00 04:00 05:00 06:00 Temp 35.9 Pulse 75 80 Resp 34 14 B/P (MAP) 117/69 112/73 Pulse Ox 99 92 O2 Delivery High Flow N/C Nasal Cannula Nasal Cannula O2 Flow Rate 3.00 3.00 01/01/22 01/01/22 01/01/22 01/01/22 06:34 07:00 07:38 08:00 Temp 35.8 Pulse 78 86 78 Resp 20 14 B/P (MAP) 118/82 118/73 Pulse Ox 96 95 O2 Delivery Nasal Cannula Nasal Cannula O2 Flow Rate 3.00 3.00 01/01/22 09:00 Pulse 87 Resp 13 B/P (MAP) 118/105 Pulse Ox 93 O2 Delivery Nasal Cannula O2 Flow Rate 3.00 01/01/22 00:00 Intake Total 1145 ml Output Total 2010 ml Balance -865 ml Capillary Refill : Constitutional: AAO x 3, well-developed, well-nourished HEENT: PERRL, hearing is well preserved, oral hygience is good Neck: No carotid bruit; carotid pulses are 2 + bilaterally Respiratory: No accessory muscle use, No respiratory distress; other (diminished throughout with scattered rhonchi) Cardiovascular: irregularly irregular; No JVD; S1 and S2 Gastrointestinal: No tender; soft, round, audible bowel sounds Extremities: other (bilat pitting edema LE) Neurologic/Psychiatric: grossly intact (moves all extremities) Skin: No rash on exposed areas, No ulcerations on exposed areas Data Review Labs Laboratory Tests 12/31/21 11:33: Glucometer 240H 12/31/21 15:40: Glucometer 356H 12/31/21 17:08: Glucometer 364H 12/31/21 20:35: Glucometer 374H 01/01/22 04:15: Blood Gas Puncture Site NOT INDICATED, Blood Gas Patient Temperature 36.0, Arterial Blood pH 7.44H, Arterial Blood Partial Pressure CO2 40, Arterial Blood Partial Pressure O2 67L, Arterial Blood HCO3 27, Arterial Blood Total CO2 28.6, Arterial Blood Oxygen Saturation 96, Arterial Blood Base Excess 3.3H, Khalif Test NA, Blood Gas Ventilator Setting NO, Blood Gas Inspired Oxygen 3L 01/01/22 05:00: White Blood Count 6.5, Red Blood Count 3.43L, Hemoglobin 10.3L, Hematocrit 31L, Mean Corpuscular Volume 91, Mean Corpuscular Hemoglobin 30, Mean Corpuscular Hemoglobin Concent 33, Red Cell Distribution Width 16.5H, Platelet Count 239, Mean Platelet Volume 9.7, Immature Granulocyte % (Auto) 2, Neutrophils (%) (Auto) 81H, Lymphocytes (%) (Auto) 12, Monocytes (%) (Auto) 5, Eosinophils (%) (Auto) 0, Basophils (%) (Auto) 0, Neutrophils # (Auto) 5.2, Lymphocytes # (Auto) 0.8L, Monocytes # (Auto) 0.3, Eosinophils # (Auto) 0.0, Basophils # (Auto) 0.0, Immature Granulocyte # (Auto) 0.1, Sodium Level 136, Potassium Level 3.2L, Chloride Level 100, Carbon Dioxide Level 22, Anion Gap 14, Blood Urea Nitrogen 20H, Creatinine 1.07, Estimat Glomerular Filtration Rate 74, BUN/Creatinine Ratio 19, Glucose Level 184H, Calcium Level 8.5, Corrected Calcium 8.9, Phosphorus Level 3.2, Magnesium Level 1.9, Total Bilirubin 1.0, Aspartate Amino Transf (AST/SGOT) 19, Alanine Aminotransferase (ALT/SGPT) 12, Alkaline Phosphatase 99, Total Protein 7.4, Albumin 3.5 01/01/22 10:29: Glucometer 216H Microbiology 12/31/21 MRSA Screen - Final, Complete MRSA not isolated Radiology NAME: ANNA PARK [facility] REC#: [id number] PT STATUS: REG ER : 1950 PHYSICIAN: RYAN NOLAND MD ADMIT DATE: 12/31/21/ER FS Signed Date of Exam:12/31/21 CHEST 1 VIEW AP/PA ONLY EXAM: CHEST 1 VIEW AP/PA ONLY INDICATION: Cough. Shortness of breath. COMPARISON: 12/03/2021. FINDINGS: Cardiomegaly. Stable diffuse interstitial and airspace opacities. No pleural effusion or pneumothorax. No acute osseous findings. IMPRESSION: Cardiomegaly with diffuse interstitial and airspace opacities are similar to the prior exam. Findings could be chronic versus residual recurrent pneumonitis and/or edema. Dictated by: Dictated on workstation # [id number] Dict: 12/31/21 0700 Trans: 12/31/21 0858 [facility] [id number] Interpreted by: JULIA GARCIA MD Electronically signed by: JULIA GARCIA MD 12/31/21 0858 NAME: ANNA PARK [facility] REC#: [id number] PT STATUS: REG ER : 1950 PHYSICIAN: LIZZY CABRALES MD ADMIT DATE: 12/31/21/ER FS Signed Date of Exam:12/31/21 CT ANGIO CHEST W PROCEDURE: CT angiography of the chest with contrast. TECHNIQUE: Multiple contiguous axial images were obtained through the chest after uneventful bolus administration of intravenous contrast. 3D reconstructed CTA MIP acquisitions were also performed. Auto Exposure Controls were utilized during the CT exam to meet ALARA standards for radiation dose reduction. INDICATION: Shortness of breath. Elevated D-dimer. COMPARISON: CTA chest 12/03/2021. FINDINGS: No pulmonary artery filling defects. Normal caliber thoracic aorta. Cardiomegaly. No pericardial effusion. Diffuse mediastinal and bilateral hilar lymphadenopathy. Advanced emphysema. Diffuse geographic groundglass opacities are similar to the prior exam. Small right pleural effusion. No pneumothorax. No acute osseous findings. The visualized upper abdominal contents are unremarkable. IMPRESSION: 1. No pulmonary emboli. 2. Advanced emphysema. Diffuse geographic groundglass opacities are similar to the prior exam. These could be due to edema and/or infectious process. There is also likely a degree of air trapping given the COPD. 3. Diffuse mediastinal and bilateral hilar lymphadenopathy is similar to the prior exam and is indeterminate. 4. Cardiomegaly. 5. Small right pleural effusion. Dictated by: Dictated on workstation # [id number] Dict: 12/31/21 0813 Trans: 12/31/21 0859 [facility] [id number] Interpreted by: JULIA GARCIA MD Electronically signed by: JULIA GARCIA MD 12/31/2159 ECG Impression ECG Initial ECG Impression: Atrial Fibrillation A/P-Cardiology Assessment/Admission Diagnosis Multi-factorial progressive dyspnea likely d/t acute on chronic exacerbation of COPD and acute on chronic diastolic CHF Chronic a-fib - rate controlled - OAC with Xarelto Acute on chronic exacerbation of COPD Ac on chronic diastolic CHF Echocardiogram of 12-03-[address] Alcazar showed LVEF 55-60%. Biatrial enlargement. Mild to mod MR. Mod TR. Grade 2 diastolic dysfunction. PASP 78 mmHg Intolerance/allergy to AKIL-inhib and ARB, per pt report (rash and hives). He also reports intolerance to hydralazine (nonspecific) DM II Pt reports that a card cath in or around 2014 at [facility] did not show any significant CAD Remote h/o tobacco us Discussion and Recomendations Multi-factorial progressive dyspnea for reasons noted above Acute on chronic diastolic CHF - treat with diuretics - echo from 12-03-[address] Alcazar reviewed Acute on chronic exacerbation of COPD - management per medical services Chronic a-fib - rate controlled - continue Xarelto for stroke prophylaxis Monitor lab closely - replace electrolytes as indicated We would like to thank medical services for this consult Further recs will be based on his hospital course HERMES REN Dec 31, 2021 11:11
--- NOTE | 2021-12-31 11:38 | History & Physical ---
NATY LUONG A MED STUDENT 12/31/21 1138: History of Present Illness History of Present Illness Reason for visit/HPI Mauro is a 71 yo male who presented to ED for SOA and increased lower extremity edema. Pt has pmhx of HTN, Afib on OAC, CHF and COPD. Pt was last seen in hospital on November for acute CHF exacerbation, COPD exacerbation and severe sepsis d/t pneumonia. Pt reports he is on 3L of oxygen at home and became SOA yesterday and last noc so he went to the ED this morning. Pt also noticed increased swelling in his legs. In the ED pt was found to have an ABG of 7.48/ , BNP of 9507.0 and Hgb of 9.8. Pt was given duoneb, lasix and decadron in ED. Pt was admitted to ICU for suspected acute CHF exacerbation and pulmonary edema. Once on the floor, pt reported he was feeling better already and his SOA had improved. Pt reports his PCP is Dr. Hill, buttoner is Dr. James of [place] and Food Packer is Dr. Gray of [place]. Pt denies fever, chills, CP, palpitations, abdominal pain at this time. Date of Admission Dec 31, 2021 at 09:25 Date Seen by a Provider: Dec 31, 2021 Time Seen by a Provider: 11:45 I consulted on this patient on 12/31/21 11:33 Attending Physician Laura Hill MD Admitting Physician Admitting Physician: Pablo Butcher MD Attending Physician: Daniella Soto DO Consult Allergies and Home Medications Allergies Coded Allergies: lisinopril (Verified Allergy, Severe, Anaphylaxis, 10/31/18) allopurinol (Verified Allergy, Unknown, Hives, 10/31/18) amlodipine (Verified Allergy, Unknown, swelling, PT STILL TAKES AT HOME, 12/03/21) hydralazine (Verified Allergy, Unknown, 10/31/18) levofloxacin (Verified Allergy, Unknown, Hallucinations, 10/31/18) Patient Home Medication List ALPRAZolam (ALPRAZolam) 0.25 Mg Tablet, 0.25 MG PO TID PRN for ANXIETY, (Reported) Entered as Reported by: JUAN WHITLEY on 7/181338 Last Action: Continued Acetaminophen (Tylenol Extra Strength) 500 Mg Tablet, 1,000 MG PO Q8H PRN for PAIN-MILD (1-4), (Reported) Entered as Reported by: JUAN WHITLEY on 12/03/211119 Last Action: Held Albuterol Sulfate (Ventolin Hfa) 1 Puff Puff, 2 PUFF INH Q4H PRN for SHORTNESS OF BREATH, (Reported) Entered as Reported by: JUAN WHITLEY on 12/31/211338 Last Action: Continued Amlodipine Besylate (Amlodipine Besylate) 5 Mg Tablet, 5 MG PO HS, (Reported) Entered as Reported by: JUAN WHITLEY on 12/03/211119 Last Action: Reviewed Bumetanide (Bumetanide) 1 Mg Tablet, 2 MG PO DAILY, (Reported) Entered as Reported by: JUAN WHITLEY on 12/03/211119 Last Action: Held Carvedilol (Carvedilol) 25 Mg Tablet, 25 MG PO BID, (Reported) Entered as Reported by: JUAN WHITLEY on 12/03/211119 Last Action: Converted Clonidine HCl (Clonidine HCl) 0.2 Mg Tablet, 0.2 MG PO BID, (Reported) Entered as Reported by: JACQUI CORONADO on 10/31/182017 Last Action: Continued Docusate Sodium (Docusate Sodium) 100 Mg Capsule, 100 MG PO DAILY, (Reported) Entered as Reported by: JUAN WHITLEY on 12/03/211119 Last Action: Continued Gabapentin (Gabapentin) 600 Mg Tablet, 600 MG PO TID PRN for PAIN-BREAKTHROUGH, (Reported) Entered as Reported by: JUAN WHITLEY on 12/03/211119 Last Action: Continued Guaifenesin (Mucinex) 600 Mg Tab.er.12h, 600 MG PO Q12H PRN for CONGESTION, (Reported) Entered as Reported by: JUAN WHITLEY on 12/03/211119 Last Action: Continued Ipratropium/Albuterol Sulfate (Iprat-Albut 0.5-3(2.5) mg/3 ml) 0.5 Mg-3 Mg (2.5 Mg Base)/3 Ml Ampul.neb, 3 ML NEB Q6H PRN for SHORTNESS OF BREATH, (Reported) Entered as Reported by: JUAN WHITLEY on 12/03/211122 Last Action: Continued Isosorbide Mononitrate (Isosorbide Mononitrate ER) 30 Mg Tab.er.24h, 30 MG PO DAILY, (Reported) Entered as Reported by: JUAN WHITLEY on 12/03/211119 Last Action: Continued Losartan Potassium (Losartan Potassium) 100 Mg Tablet, 100 MG PO HS, (Reported) Entered as Reported by: JUAN WHITLEY on 12/03/211119 Last Action: Continued Metformin HCl (Metformin HCl) 1,000 Mg Tablet, 1,000 MG PO BID WITH MEALS, (Reported) Entered as Reported by: JUAN WHITLEY on 12/03/211119 Last Action: Converted Potassium Chloride (Potassium Chloride) 20 Meq Tab.er.prt, 20 MEQ PO DAILY, (Reported) Entered as Reported by: JUAN WHITLEY on 12/03/211119 Last Action: Continued Prednisone (Prednisone) 5 Mg Tablet, 5 MG PO DAILY, (Reported) Entered as Reported by: JUAN WHITLEY on 12/03/211119 Last Action: Held Rivaroxaban (Xarelto Tablet) 20 Mg Tablet, 20 MG PO HS, (Reported) Entered as Reported by: JUAN WHITLEY on 12/03/211119 Last Action: Continued Tamsulosin HCl (Flomax) 0.4 Mg Cap, 0.4 MG PO HS, (Reported) Entered as Reported by: JACQUI CORONADO on 10/31/182017 Last Action: Continued Tolterodine Tartrate (Tolterodine Tartrate ER) 4 Mg Cap.er.24h, 4 MG PO HS, (Reported) Entered as Reported by: JUAN WHITLEY on 12/03/211119 Last Action: Converted Tramadol HCl (Tramadol HCl) 50 Mg Tablet, 100 MG PO Q6H PRN for PAIN-MODERATE (5-7), (Reported) Entered as Reported by: JUAN WHITLEY on 12/03/211119 Last Action: Continued Discontinued Medications Prednisone (Prednisone) 10 Mg Tab.ds.pk, 10 MG PO DAILY Discontinued Reason: No Longer Taking Prescribed by: PABLO BUTCHER on 12/04/21 1158 Last Action: Discontinued Past Hyqvtqq-Lozuka-Htzsid Hx Patient Social History Tobacco Use?: No Smoking Status: Former Smoker Smokeless type used: Chew Smokeless Tobacco Frequency: Former User Use of E-Cig and/or Vaping dev: No Use of E-Cig and/or Vaping Antione: Never a User Substance use?: No Alcohol Use?: Yes Alcohol type: Beer Alcohol Frequency: Couple times a week Additional Alcohol Comments: 2 BEERS Pt feels they are or have been: No Seasonal Allergies Seasonal Allergies: No Current Status Advance Directives: No Primary Language: Paraguayan Preferred Spoken Language: Paraguayan Sensory deficits: Vision impairment Past Medical History Surgeries: Appendectomy, Tonsillectomy Pneumonia, COPD Atrial Fibrillation, Cardiomyopathy, Hypertension Blood Disorders: No Chronic A-fib Cardiomyopathy COPD, O2 dependent CHF Hypertension 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 hx of esophageal stricture s/p dilation s/p EGD s/p Appendectomy s/p tonsillectomy s/p heart cath Family Medical History No Pertinent Family Hx Review of Systems Constitutional: No chills, No fever EENTM: No blurred vision, No double vision Respiratory: cough (clear sputum), short of breath Cardiovascular: No chest pain, No palpitations Gastrointestinal: No abdominal pain, No nausea, No vomiting Genitourinary: No dysuria, No frequency Skin: No lesions, No lumps Psychiatric/Neurological: Denies Numbness, Denies Weakness Physical Exam Vital Signs Vital Signs - First Documented 12/31/21 06:35 Temp 37.1 Pulse 89 Resp 24 B/P (MAP) 108/84 (92) Pulse Ox 87 O2 Delivery Room Air O2 Flow Rate 6.00 FiO2 93 Capillary Refill : Height, Weight, BMI Height: 5'11.00" Weight: 217lbs. 4.0oz. 98.037436lj; 28.36 BMI Method:Stated General Appearance: No Apparent Distress, WD/WN HEENT: PERRL/EOMI, Pharynx Normal Neck: Full Range of Motion, Normal Inspection Respiratory: Chest Non Tender, Lungs Clear Cardiovascular: Regular Rate, Rhythm, No Murmur Gastrointestinal: Non Tender, Soft Extremity: Non Tender, No Calf Tenderness Neurologic/Psychiatric: Alert, Oriented x3, Normal Mood/Affect Skin: Normal Color, Warm/Dry Lymphatic: No Adenopathy Assessment/Plan Assessment and Plan Acute CHF exacerbation with pulmonary edema COPD exacerbation Recurrent pneumonia Anemia Afib on OAC Diabetes HTN Acute CHF exacerbation with pulmonary edema -BNP 9507.0 -Recent hospitalization 12/03/21-echo was done and was normal -Cardiology consulted, appreciate their recs -Lasix started -Troponin normal, less likely to be acute NE COPD exacerbation -Duoneb -CTA showed advanced emphysema, bilateral hilar lymphadenopathy, cardiomegaly and R. pleural effusion -CXR confirmed this -MAT protocol Recurrent pneumonia -Azithromycin and Cefepime -Encourage incentive spirometry Anemia -Hgb currently 9.8, will continue to monitor Afib on OAC -Rate controlled -On enoxaparin Diabetes -SSI HTN -Currently well controlled Diet: Regular DVT prophylaxis: Enoxaparin and SCDs DANIELLA SOTO DO 01/01/22 0843: Allergies and Home Medications Allergies Coded Allergies: lisinopril (Verified Allergy, Severe, Anaphylaxis, 10/31/18) allopurinol (Verified Allergy, Unknown, Hives, 10/31/18) amlodipine (Verified Allergy, Unknown, swelling, PT STILL TAKES AT HOME, 12/03/21) hydralazine (Verified Allergy, Unknown, 10/31/18) levofloxacin (Verified Allergy, Unknown, Hallucinations, 10/31/18) Patient Home Medication List Home Medication List Reviewed: Yes ALPRAZolam (ALPRAZolam) 0.25 Mg Tablet, 0.25 MG PO TID PRN for ANXIETY, (Reported) Entered as Reported by: JUAN WHITLEY on 12/31/211338 Last Action: Continued Acetaminophen (Tylenol Extra Strength) 500 Mg Tablet, 1,000 MG PO Q8H PRN for PAIN-MILD (1-4), (Reported) Entered as Reported by: JUAN WHITLEY on 12/03/211119 Last Action: Held Albuterol Sulfate (Ventolin Hfa) 1 Puff Puff, 2 PUFF INH Q4H PRN for SHORTNESS OF BREATH, (Reported) Entered as Reported by: JUAN WHITLEY on 12/31/211338 Last Action: Continued Amlodipine Besylate (Amlodipine Besylate) 5 Mg Tablet, 5 MG PO HS, (Reported) Entered as Reported by: JUAN WHITLEY on 12/03/21 112 Last Action: Reviewed Bumetanide (Bumetanide) 1 Mg Tablet, 2 MG PO DAILY, (Reported) Entered as Reported by: JUAN WHITLEY on 12/03/211119 Last Action: Held Carvedilol (Carvedilol) 25 Mg Tablet, 25 MG PO BID, (Reported) Entered as Reported by: JUAN WHITLEY on 12/03/211119 Last Action: Converted Clonidine HCl (Clonidine HCl) 0.2 Mg Tablet, 0.2 MG PO BID, (Reported) Entered as Reported by: JACQUI CORONADO on 10/31/182017 Last Action: Continued Docusate Sodium (Docusate Sodium) 100 Mg Capsule, 100 MG PO DAILY, (Reported) Entered as Reported by: JUAN WHITLEY on 12/03/211119 Last Action: Continued Gabapentin (Gabapentin) 600 Mg Tablet, 600 MG PO TID PRN for PAIN-BREAKTHROUGH, (Reported) Entered as Reported by: JUAN WHITLEY on 12/03/211119 Last Action: Continued Guaifenesin (Mucinex) 600 Mg Tab.er.12h, 600 MG PO Q12H PRN for CONGESTION, (Rep orted) Entered as Reported by: JUAN WHITLEY on 12/03/211119 Last Action: Continued Ipratropium/Albuterol Sulfate (Iprat-Albut 0.5-3(2.5) mg/3 ml) 0.5 Mg-3 Mg (2.5 Mg Base)/3 Ml Ampul.neb, 3 ML NEB Q6H PRN for SHORTNESS OF BREATH, (Reported) Entered as Reported by: JUAN WHITLEY on 12/03/211122 Last Action: Continued Isosorbide Mononitrate (Isosorbide Mononitrate ER) 30 Mg Tab.er.24h, 30 MG PO DAILY, (Reported) Entered as Reported by: JUAN WHITLEY on 12/03/211119 Last Action: Continued Losartan Potassium (Losartan Potassium) 100 Mg Tablet, 100 MG PO HS, (Reported) Entered as Reported by: JUAN WHITLEY on 12/03/211119 Last Action: Continued Metformin HCl (Metformin HCl) 1,000 Mg Tablet, 1,000 MG PO BID WITH MEALS, (Reported) Entered as Reported by: JUAN WHITLEY on 12/03/211119 Last Action: Converted Potassium Chloride (Potassium Chloride) 20 Meq Tab.er.prt, 20 MEQ PO DAILY, (Reported) Entered as Reported by: JUAN WHITLEY on 12/03/211119 Last Action: Continued Prednisone (Prednisone) 5 Mg Tablet, 5 MG PO DAILY, (Reported) Entered as Reported by: JUAN WHITLEY on 12/03/211119 Last Action: Held Rivaroxaban (Xarelto Tablet) 20 Mg Tablet, 20 MG PO HS, (Reported) Entered as Reported by: JUAN WHITLEY on 12/03/211119 Last Action: Continued Tamsulosin HCl (Flomax) 0.4 Mg Cap, 0.4 MG PO HS, (Reported) Entered as Reported by: JACQUI CORONADO on 10/31/182017 Last Action: Continued Tolterodine Tartrate (Tolterodine Tartrate ER) 4 Mg Cap.er.24h, 4 MG PO HS, (Reported) Entered as Reported by: JUAN WHITLEY on 12/03/211119 Last Action: Converted Tramadol HCl (Tramadol HCl) 50 Mg Tablet, 100 MG PO Q6H PRN for PAIN-MODERATE (5-7), (Reported) Entered as Reported by: JUAN WHITLEY on 12/03/211119 Last Action: Continued Discontinued Medications Prednisone (Prednisone) 10 Mg Tab.ds.pk, 10 MG PO DAILY Discontinued Reason: No Longer Taking Prescribed by: PABLO BUTCHER on 12/04/211157 Last Action: Discontinued Past Tlthteb-Kirnzz-Ejnxeg Hx Patient Social History Marrital Status: Employed/Student: retired Review of Systems Constitutional: see HPI Respiratory: dyspnea on exertion, short of breath Cardiovascular: chest pain Physical Exam General Appearance: WD/WN, Anxious, Chronically ill, Mild Distress Eyes: Bilateral Eye Normal Inspection, Bilateral Eye PERRL, Bilateral Eye EOMI HEENT: PERRL/EOMI, Normal ENT Inspection, Pharynx Normal Neck: Full Range of Motion, Normal Inspection, Non Tender, Supple, Carotid Bruit Respiratory: Chest Non Tender, No Accessory Muscle Use, No Respiratory Distress, Decreased Breath Sounds, Rales, Wheezing Cardiovascular: Regular Rate, Rhythm, No Edema, No Gallop, No JVD, No Murmur, Normal Peripheral Pulses Gastrointestinal: Normal Bowel Sounds, No Organomegaly, No Pulsatile Mass, Non Tender, Soft Back: Normal Inspection, No CVA Tenderness, No Vertebral Tenderness Extremity: Normal Capillary Refill, Normal Inspection, Normal Range of Motion, Non Tender, No Calf Tenderness, No Pedal Edema Neurologic/Psychiatric: Alert, Oriented x3, No Motor/Sensory Deficits, Normal Mood/Affect Skin: Normal Color, Warm/Dry Lymphatic: No Adenopathy Assessment/Plan Assessment and Plan Problems: (1) COPD with hypoxia Status: Chronic (2) Congestive heart failure Status: Acute (3) Pulmonary hypertension Status: Acute (4) Primary hypertension Status: Chronic (5) Diabetes Status: Chronic (6) Mitral regurgitation (7) Permanent atrial fibrillation Status: Chronic (8) Recurrent pneumonia Status: Acute (9) Pneumonia Status: Acute (10) Pulmonary edema Status: Acute Qualifiers: Qualified Codes: J81.0 - Acute pulmonary edema Admission Diagnosis Admission Status: Inpatient Order (span 2 midnights) Reason for Inpatient Admission: CHF and pneumonia Supervisory-Addendum Brief Verification & Attestation Participated in pt care: history, MDM, physical Personally performed: exam, history, MDM, supervision of care Care discussed with: Medical Student Procedures: n/a Results interpretation: Verified all documentation Verification and Attestation of Medical Student E/M Service A medical student performed and documented this service in my presence. I reviewed and verified all information documented by the medical student and made modifications to such information, when appropriate. I personally performed the physical exam and medical decision making. Daniella Soto, Jan 01, 2022,08:44 NATY LUONG MED STUDENT Dec 31, 2021 11:38 DANIELLA SOTO DO Jan 01, 2022 08:43
[2021-12-31] MEDS ORDERED: CEFEPIME INJECTION 1,000 MG in NS (IVPB) 50 ML IV SCH (12:00)
[2021-12-31] MEDS: methylPREDNISolone 125 MG (Solu-MEDROL) VIAL IVP SCH ×2 (12:37→18:18)
[2021-12-31] MEDS: inSUlin ASPART (NovoLOG) 1 UNIT/0.01 ML (CHARGE PER UNIT) SC SCH ×3 (12:37→20:38)
[2021-12-31] MEDS ORDERED: ALPR0.254 PO (13:39)
[2021-12-31] MEDS ORDERED: RT-ALBUINH INH (13:39)
[2021-12-31] MEDS ORDERED: RIVAROXABAN 20 MG TABLET (XARELTO) PO SCH (17:00)
[2021-12-31] MEDS: FUROSEMIDE 40 MG/4 ML INJ (LASIX) IVP SCH (18:18)
[2021-12-31] MEDS: HYDROcodone/APAP 5 MG/325 MG (LORTAB) TAB PO PRN (18:20)
--- NOTE | 2021-12-31 18:36 | Consultation-Cardiology ---
HPI-Cardiology Cardiology Consultation: Date of Consultation 12/31/21 Time Seen by a Provider: 17:30 Date of Admission Attending Physician Laura Hill MD Admitting Physician Admitting Physician: Pablo Butcher MD Attending Physician: Daniella Donald DO Consulting Physician DANIELA DEGROOT MD, MA, FACP, FACC, [facility] [place], CCDS HPI: Chief Complaint: Progressive dyspnea Mr. Park is a 71 yr old male admitted to ICU 6 from the [facility] ED. His is at the bedside. They report he has had increasing SOB, cough at home over the last few days. He denies any c/o chest pain, other than musculoskeletal when he coughs. No c/o palpitations, syncope or near syncope. He has had increasing LE swelling over the last few days. He has chronic a-fib for which he is on Xarelto for stroke prophylaxis and has been compliant. He follow with cardiology in [place], [place] (Dr. James) and pulmonolgy (Dr. Gray). He reports his breathing is better now than it was earlier this morning. No c/o fever or chills. No c/o n/v/d. Review of Systems-Cardiology Review of Systems Constitutional: No chills, No fever Eyes: No vision change Ears/Nose/Throat: No epistaxis, No recent hearing loss Respiratory: As described under HPI Cardiovascular: As described under HPI Gastrointestinal: As described under HPI Genitourinary: No dysuria, No hematuria Musculoskeletal: no symptoms reported Skin: No rash on exposed areas, No ulcerations on exposed areas Psychiatric/Neurological: No anxiety, No depression, No seizure, No focal weakness, No syncope Hematologic: No bleeding abnormalities XIS-Hvxwmg-Iuotmg Hx Patient Social History Smoking Status: Former Smoker 2nd Hand Smoke Exposure: No Have you traveled recently?: Yes Alcohol Use?: Yes Pt feels they are or have been: No Past Medical History PMH As described under Assessment. Family Medical History Family Medical History: No reported family h/o CAD. He reports his mother had HTN. Allergies and Home Medications Allergies Coded Allergies: lisinopril (Verified Allergy, Severe, Anaphylaxis, 10/31/18) allopurinol (Verified Allergy, Unknown, Hives, 10/31/18) amlodipine (Verified Allergy, Unknown, swelling, PT STILL TAKES AT HOME, 12/03/21) hydralazine (Verified Allergy, Unknown, 10/31/18) levofloxacin (Verified Allergy, Unknown, Hallucinations, 10/31/18) Patient Home Medication List Home Medication List Reviewed: Yes ALPRAZolam (ALPRAZolam) 0.25 Mg Tablet, 0.25 MG PO TID PRN for ANXIETY, (Reported) Entered as Reported by: JUAN WHITLEY on 12/31/211338 Last Action: Reviewed Acetaminophen (Tylenol Extra Strength) 500 Mg Tablet, 1,000 MG PO Q8H PRN for PAIN-MILD (1-4), (Reported) Entered as Reported by: JUAN WHITLEY on 12/03/211119 Last Action: Reviewed Albuterol Sulfate (Ventolin Hfa) 1 Puff Puff, 2 PUFF INH Q4H PRN for SHORTNESS OF BREATH, (Reported) Entered as Reported by: JUAN WHITLEY on 12/31/211338 Last Action: Reviewed Amlodipine Besylate (Amlodipine Besylate) 5 Mg Tablet, 5 MG PO HS, (Reported) Entered as Reported by: JUAN WHITLEY on 12/03/211119 Last Action: Reviewed Bumetanide (Bumetanide) 1 Mg Tablet, 2 MG PO DAILY, (Reported) Entered as Reported by: JUAN WHITLEY on 12/03/211119 Last Action: Reviewed Carvedilol (Carvedilol) 25 Mg Tablet, 25 MG PO BID, (Reported) Entered as Reported by: JUAN WHITLEY on 12/03/211119 Last Action: Reviewed Clonidine HCl (Clonidine HCl) 0.2 Mg Tablet, 0.2 MG PO BID, (Reported) Entered as Reported by: JACQUI CORONADO on 10/31/182017 Last Action: Reviewed Docusate Sodium (Docusate Sodium) 100 Mg Capsule, 100 MG PO DAILY, (Reported) Entered as Reported by: JUAN WHITLEY on 12/03/211119 Last Action: Reviewed Gabapentin (Gabapentin) 600 Mg Tablet, 600 MG PO TID PRN for PAIN-BREAKTHROUGH, (Reported) Entered as Reported by: JUAN WHITLEY on 12/03/211119 Last Action: Reviewed Guaifenesin (Mucinex) 600 Mg Tab.er.12h, 600 MG PO Q12H PRN for CONGESTION, (Reported) Entered as Reported by: JUAN WHITLEY on 12/03/211119 Last Action: Reviewed Ipratropium/Albuterol Sulfate (Iprat-Albut 0.5-3(2.5) mg/3 ml) 0.5 Mg-3 Mg (2.5 Mg Base)/3 Ml Ampul.neb, 3 ML NEB Q6H PRN for SHORTNESS OF BREATH, (Reported) Entered as Reported by: JUAN WHITLEY on 12/03/211122 Last Action: Reviewed Isosorbide Mononitrate (Isosorbide Mononitrate ER) 30 Mg Tab.er.24h, 30 MG PO DAILY, (Reported) Entered as Reported by: JUAN WHITLEY on 12/03/211119 Last Action: Reviewed Losartan Potassium (Losartan Potassium) 100 Mg Tablet, 100 MG PO HS, (Reported) Entered as Reported by: JUAN WHITLEY on 12/03/211119 Last Action: Reviewed Metformin HCl (Metformin HCl) 1,000 Mg Tablet, 1,000 MG PO BID WITH MEALS, (Reported) Entered as Reported by: JUAN WHITLEY on 12/03/211119 Last Action: Reviewed Potassium Chloride (Potassium Chloride) 20 Meq Tab.er.prt, 20 MEQ PO DAILY, (Reported) Entered as Reported by: JUAN WHITLEY on 12/03/211119 Last Action: Reviewed Prednisone (Prednisone) 5 Mg Tablet, 5 MG PO DAILY, (Reported) Entered as Reported by: JUAN WHITLEY on 12/03/211119 Last Action: Reviewed Rivaroxaban (Xarelto Tablet) 20 Mg Tablet, 20 MG PO HS, (Reported) Entered as Reported by: JUAN WHITLEY on 12/03/211119 Last Action: Reviewed Tamsulosin HCl (Flomax) 0.4 Mg Cap, 0.4 MG PO HS, (Reported) Entered as Reported by: JACQUI CORONADO on 10/31/182017 Last Action: Reviewed Tolterodine Tartrate (Tolterodine Tartrate ER) 4 Mg Cap.er.24h, 4 MG PO HS, (Reported) Entered as Reported by: JUAN WHITLEY on 12/03/211119 Last Action: Reviewed Tramadol HCl (Tramadol HCl) 50 Mg Tablet, 100 MG PO Q6H PRN for PAIN-MODERATE (5-7), (Reported) Entered as Reported by: JUAN WHITLEY on 12/03/21 1120 Last Action: Reviewed Discontinued Medications Prednisone (Prednisone) 10 Mg Tab.ds.pk, 10 MG PO DAILY Discontinued Reason: No Longer Taking Prescribed by: PABLO BUTCHER on 12/04/21 1158 Last Action: Discontinued Physical Exam-Cardiology Physical Exam Vital Signs/I&O 12/31/21 12/31/21 12/31/21 12/31/21 06:35 06:35 06:59 07:37 Temp 37.1 37.0 Pulse 89 81 Resp 24 23 B/P (MAP) 108/84 (92) 98/57 Pulse Ox 87 93 98 O2 Delivery Room Air Nasal Cannula Nasal Cannula OxyMask O2 Flow Rate 6.00 6.00 5.00 FiO2 93 12/31/21 12/31/21 12/31/21 12/31/21 09:15 09:30 09:45 09:46 Pulse 86 82 83 Resp 21 15 B/P (MAP) 108/90 113/75 120/86 Pulse Ox 94 96 O2 Delivery OxyMask OxyMask OxyMask O2 Flow Rate 5.00 5.00 5.00 12/31/21 12/31/21 12/31/21 12/31/21 10:00 10:30 11:00 12:00 Pulse 87 93 84 93 Resp 30 13 25 55 B/P (MAP) 117/89 126/87 128/73 115/85 Pulse Ox 96 99 96 93 O2 Delivery OxyMask OxyMask OxyMask OxyMask O2 Flow Rate 5.00 5.00 5.00 5.00 12/31/21 12/31/21 12/31/21 12/31/21 13:00 13:00 14:00 15:00 Pulse 96 94 85 95 Resp 16 30 38 B/P (MAP) 123/75 108/87 122/72 Pulse Ox 91 90 86 O2 Delivery OxyMask OxyMask OxyMask O2 Flow Rate 5.00 5.00 5.00 12/31/21 12/31/21 12/31/21 12/31/21 15:36 16:00 17:00 18:00 Temp 36.0 Pulse 84 92 74 Resp 16 43 44 B/P (MAP) 107/56 135/72 127/81 Pulse Ox 98 91 90 O2 Delivery OxyMask OxyMask OxyMask O2 Flow Rate 5.00 5.00 5.00 12/31/21 18:02 O2 Delivery OxyMask O2 Flow Rate 3.00 Capillary Refill : Constitutional: AAO x 3, well-developed, well-nourished HEENT: PERRL, hearing is well preserved, oral hygience is good Neck: No carotid bruit; carotid pulses are 2 + bilaterally Respiratory: No accessory muscle use, No respiratory distress; other (diminished throughout with scattered rhonchi) Cardiovascular: irregularly irregular; No JVD; S1 and S2 Gastrointestinal: No tender; soft, round, audible bowel sounds Extremities: other (bilat pitting edema LE) Neurologic/Psychiatric: grossly intact (moves all extremities) Skin: No rash on exposed areas, No ulcerations on exposed areas Data Review Labs Laboratory Tests 12/31/21 06:43: White Blood Count 7.0, Red Blood Count 3.25L, Hemoglobin 9.8L, Hematocrit 30L, Mean Corpuscular Volume 91, Mean Corpuscular Hemoglobin 30, Mean Corpuscular H emoglobin Concent 33, Red Cell Distribution Width 17.1H, Platelet Count 216, Mean Platelet Volume 9.3, Immature Granulocyte % (Auto) 2, Neutrophils (%) (Auto) 79H, Lymphocytes (%) (Auto) 8L, Monocytes (%) (Auto) 9, Eosinophils (%) (Auto) 2, Basophils (%) (Auto) 0, Neutrophils # (Auto) 5.5, Lymphocytes # (Auto) 0.6L, Monocytes # (Auto) 0.6, Eosinophils # (Auto) 0.2, Basophils # (Auto) 0.0, Immature Granulocyte # (Auto) 0.2H, Neutrophils % (Manual) 86, Lymphocytes % (Manual) 10, Monocytes % (Manual) 3, Eosinophils % (Manual) 1, Prothrombin Time 17.9H, INR Comment 1.4, Activated Partial Thromboplast Time 42H, D-Dimer 0.81H, Sodium Level 132L, Potassium Level 4.5, Chloride Level 98, Carbon Dioxide Level 23, Anion Gap 11, Blood Urea Nitrogen 19H, Creatinine 1.30, Estimat Glomerular Filtration Rate 59, BUN/Creatinine Ratio 15, Glucose Level 183H, Calcium Level 8.5, Corrected Calcium 8.7, Magnesium Level 1.6, Total Bilirubin 1.2H, Aspartate Amino Transf (AST/SGOT) 19, Alanine Aminotransferase (ALT/SGPT) 9, Alkaline Phos phatase 114, Troponin I < 0.30, C-Reactive Protein 8.01H, Pro-B-Type Natriuretic Peptide 9507.0H, Total Protein 7.2, Albumin 3.7 12/31/21 06:49: Influenza Type A (RT-PCR) Not Detected, Influenza Type B (RT-PCR) Not Detected, SARS-CoV-2 RNA (RT-PCR) Not Detected 12/31/21 06:55: Blood Gas Puncture Site RT RADIAL, Blood Gas Patient Temperature 37.1 C, Arterial Blood pH 7.48H, Arterial Blood Partial Pressure CO2 31L, Arterial Blood Partial Pressure O2 62L, Arterial Blood HCO3 23, Arterial Blood Total CO2 24.1, Arterial Blood Oxygen Saturation 93L, Arterial Blood Base Excess 0.3, Khalif Test OK, Blood Gas Ventilator Setting NO, Blood Gas Inspired Oxygen 6 LITERS, Lactic Acid Level 1.88 12/31/21 07:31: Urine Color YELLOW, Urine Clarity CLEAR, Urine pH 5.5, Urine Specific [place] 1.015L, Urine Protein NEGATIVE, Urine Glucose (UA) NEGATIVE, Urine Ketones NEGATIVE, Urine Nitrite NEGATIVE, Urine Bilirubin NEGATIVE, Urine Urobilinogen 1.0, Urine Leukocyte Esterase NEGATIVE, Urine RBC (Auto) NEGATIVE, Urine RBC NONE, Urine WBC RARE, Urine Squamous Epithelial Cells NONE, Urine Crystals NONE, Urine Bacteria NEGATIVE, Urine Casts PRESENT, Urine Hyaline Casts RARE, Urine Mucus NEGATIVE, Urine Culture Indicated NO 12/31/21 11:33: Glucometer 240H 12/31/21 15:40: Glucometer 356H 12/31/21 17:08: Glucometer 364H A/P-Cardiology Assessment/Admission Diagnosis Multi-factorial progressive dyspnea (see below) - ac exac of COPD - probable reactive airways disease - pulmnary hypertension and cor pulmonale - ac on ch diastolic dysfunction of LV due to hypertensive cardiovascular disease - pt reports a cardiac that showed no significant CAD and normal LV function at [place], [place] within the last 2-3 years Chronic a-fib - rate controlled - OAC with Xarelto Echocardiogram of 12-03-[address] Alcazar showed LVEF 55-60%. Biatrial enlargement. Mild to mod MR. Mod TR. Grade 2 diastolic dysfunction. PASP 78 mmHg Intolerance/allergy to AKIL-inhib and ARB, per pt report (rash and hives). He also reports intolerance to hydralazine (nonspecific) DM II Remote h/o tobacco use (quit in 1995, 1ppd for several years prior to that) Discussion and Recomendations Multi-factorial progressive dyspnea for reasons noted above Acute on chronic diastolic CHF - treat with diuretics - echo from 12-03-[address] Alcazar reviewed Acute on chronic exacerbation of COPD - management per medical services Chronic a-fib - rate controlled - continue Xarelto for stroke prophylaxis Monitor lab closely - replace electrolytes as indicated We would like to thank Medical services for this consult Further recs will be based on his hospital course DANIELA DEGROOT MD FACP FAC CCDS Dec 31, 2021 18:36
[2021-12-31] MEDS: SENNA W/DOCUSATE (SENOKOT S) TABLET PO SCH (20:38)
[2021-12-31] MEDS: DOCUSATE SODIUM 100 MG (COLACE) CAP PO SCH (20:38)
[2021-12-31] MEDS: CEFEPIME INJECTION 1,000 MG in NS (IVPB) 50 ML IV SCH (20:39)
[2021-12-31] MEDS ORDERED: RT-ALBUTEROL SULF 2.5 MG/3 ML PRE-MIX VIAL INH PRN (21:00)
[2021-12-31] MEDS ORDERED: GABAPENTIN 600 MG (NEURONTIN) TAB PO PRN (21:00)
[2021-12-31] MEDS ORDERED: RT-ALBUTEROL/IPRATROPIUM 3 ML (DUONEB) VIAL IH PRN (21:00)
[2021-12-31] MEDS ORDERED: guaiFENesin (MUCINEX) 600 MG TAB PO PRN (21:00)
[2021-12-31] MEDS: RIVAROXABAN 20 MG TABLET (XARELTO) PO SCH (22:05)
[2021-12-31] MEDS: cloNIDine 0.2 MG (CATAPRES) TAB PO SCH (22:05)
[2021-12-31] MEDS: TAMSULOSIN 0.4 MG (FLOMAX) CAP PO SCH (22:06)
[2021-12-31] MEDS: LOSARTAN 100 MG (COZAAR) TABLET PO SCH (22:26)
[2022-01-01] MEDS: methylPREDNISolone 125 MG (Solu-MEDROL) VIAL IVP SCH ×5 (00:47→23:26)
[2022-01-01] MEDS: CEFEPIME INJECTION 1,000 MG in NS (IVPB) 50 ML IV SCH ×4 (03:26→20:51)
[2022-01-01 04:23] LABS: ABG BASE EXCESS 3.3 MMOL/L (-2.5-2.5); ABG OXYGEN SATURATION 96 % (94-100); ABG PCO2 40 MMHG (35-45); ABG PH 7.44 (7.37-7.43); ABG PO2 67 MMHG (79-93); ABG TCO2 28.6 MMOL/L (21.0-31.0)
[2022-01-01 04:28] LABS: INSPIRED O2 3L; VENTILATOR NO
[2022-01-01 05:26] LABS: BASOPHILS % (AUTO) 0 % (0-10); EOSINOPHILS % (AUTO) 0 % (0-10); HEMATOCRIT 31 % (40-54); HEMOGLOBIN 10.3 g/dL (13.3-17.7); LYMPHOCYTES # (AUTO) 0.8 10^3/uL (1.0-4.0); LYMPHOCYTES % (AUTO) 12 % (12-44); MEAN CORPUSCULAR HEMOGLOBIN 30 pg (25-34); MEAN CORPUSCULAR HGB CONC 33 g/dL (32-36); MEAN CORPUSCULAR VOLUME 91 fL (80-99); MEAN PLATELET VOLUME 9.7 fL (9.0-12.2); MONOCYTES # (AUTO) 0.3 10^3/uL (0.0-1.0); MONOCYTES % (AUTO) 5 % (0-12); NEUTROPHILS # (AUTO) 5.2 10^3/uL (1.8-7.8); NEUTROPHILS % (AUTO) 81 % (42-75); PLATELET COUNT 239 10^3/uL (130-400); WHITE BLOOD COUNT 6.5 10^3/uL (4.3-11.0)
[2022-01-01 05:43] LABS: ALBUMIN 3.5 GM/DL (3.2-4.5); POTASSIUM 3.2 MMOL/L (3.6-5.0)
[2022-01-01 05:44] LABS: CALCIUM 8.5 MG/DL (8.5-10.1)
[2022-01-01 05:46] LABS: TOTAL PROTEIN 7.4 GM/DL (6.4-8.2)
[2022-01-01 05:49] LABS: CREATININE SERUM 1.07 MG/DL (0.60-1.30); PHOSPHORUS 3.2 MG/DL (2.3-4.7)
[2022-01-01 05:52] LABS: MAGNESIUM 1.9 MG/DL (1.6-2.4)
[2022-01-01] MEDS ORDERED: POTASSIUM CL 10MEQ/50ML IVPB 50 ML IV SCH ×2 (06:00)
[2022-01-01] MEDS ORDERED: KCL 20 MEQ TAB (K-DUR) PO SCH (06:00)
[2022-01-01] MEDS ORDERED: MAGNESIUM 1 GM/100 ML IVPB 100 ML IV SCH ×2 (06:00)
[2022-01-01] MEDS: KCL 20 MEQ TAB (K-DUR) PO SCH ×2 (06:26→10:33)
[2022-01-01] MEDS: FUROSEMIDE 40 MG/4 ML INJ (LASIX) IVP SCH ×2 (06:33→16:02)
[2022-01-01] MEDS: inSUlin ASPART (NovoLOG) 1 UNIT/0.01 ML (CHARGE PER UNIT) SC SCH ×4 (06:33→20:51)
[2022-01-01] MEDS ORDERED: metFORMIN 500 MG (GLUCOPHAGE) TAB PO SCH (08:00)
--- NOTE | 2022-01-01 08:36 | Diagnostic Imaging Report ---
INDICATION: CHF. COPD. Respiratory failure. COMPARISON: CT chest dated 12/31/2021 FINDINGS: Single frontal radiograph view of the chest was obtained and again demonstrates diffuse coarse prominence of the interstitium, right greater than left. This does appear progressed on the right when compared to prior study. This may relate to layering pleural effusion. There is no large effusion on the left. No pneumothorax is seen on either side. Cardiac silhouette is enlarged. Osseous structures show no gross acute abnormalities. IMPRESSION: 1. Persistent diffuse coarse prominence interstitium with interval diffuse progression on the right. Again, this may relate to layering pleural effusion superimposed on acute interstitial pneumonia or edema. Progression of underlying interstitial disease, however must be considered as well. 2. Mild cardiomegaly. Dictated by: Dictated on workstation # [id number]
--- NOTE | 2022-01-01 08:55 | Progress Note - Cardiology ---
Cardiology SOAP Progress Note Subjective: Breathing has improved No cp or palp or syncope No n/v/d Gen weakness and malaise present Objective: I&O/Vital Signs 12/31/21 12/31/21 12/31/21 01/01/22 21:00 22:00 23:00 00:00 Pulse 76 80 93 Resp 21 30 B/P (MAP) 141/90 148/86 144/113 Pulse Ox 97 97 O2 Delivery Nasal Cannula Nasal Cannula Nasal Cannula High Flow N/C O2 Flow Rate 3.00 3.00 3.00 01/01/22 01/01/22 01/01/22 01/01/22 00:00 00:00 01:00 01:00 Temp 36.0 Pulse 78 80 73 Resp 29 22 B/P (MAP) 153/92 144/95 Pulse Ox 96 95 O2 Delivery Nasal Cannula Nasal Cannula O2 Flow Rate 3.00 3.00 01/01/22 01/01/22 01/01/22 01/01/22 02:00 03:00 04:00 04:00 Temp 35.9 Pulse 78 74 82 Resp 15 27 B/P (MAP) 139/101 129/79 126/73 Pulse Ox 97 99 98 O2 Delivery Nasal Cannula Nasal Cannula Nasal Cannula O2 Flow Rate 3.00 3.00 3.00 01/01/22 01/01/22 01/01/22 01/01/22 04:00 05:00 06:00 07:38 Temp 35.8 Pulse 75 80 Resp 34 14 B/P (MAP) 117/69 112/73 Pulse Ox 99 92 O2 Delivery High Flow N/C Nasal Cannula Nasal Cannula O2 Flow Rate 3.00 3.00 01/01/22 00:00 Intake Total 1145 ml Output Total 2010 ml Balance -865 ml Weight (Pounds): 217 Weight (Ounces): 4.0 Weight (Calculated Kilograms): 98.245440 Constitutional: AAO x 3, well-developed, well-nourished Respiratory: No accessory muscle use, No respiratory distress; other (diminished throughout with scattered rhonchi) Cardiovascular: irregularly irregular; No JVD; S1 and S2 Gastrointestional: No tender; soft, round, audible bowel sounds Extremities: other (bilat pitting edema LE) Neurologic/Psychiatric: grossly intact (moves all extremities) Skin: No rash on exposed areas, No ulcerations on exposed areas Results/Procedures: Labs Laboratory Tests 12/31/21 11:33: Glucometer 240H 12/31/21 15:40: Glucometer 356H 12/31/21 17:08: Glucometer 364H 12/31/21 20:35: Glucometer 374H 01/01/22 04:15: Blood Gas Puncture Site NOT INDICATED, Blood Gas Patient Temperature 36.0, Arterial Blood pH 7.44H, Arterial Blood Partial Pressure CO2 40, Arterial Blood Partial Pressure O2 67L, Arterial Blood HCO3 27, Arterial Blood Total CO2 28.6, Arterial Blood Oxygen Saturation 96, Arterial Blood Base Excess 3.3H, Khalif Test NA, Blood Gas Ventilator Setting NO, Blood Gas Inspired Oxygen 3L 01/01/22 05:00: White Blood Count 6.5, Red Blood Count 3.43L, Hemoglobin 10.3L, Hematocrit 31L, Mean Corpuscular Volume 91, Mean Corpuscular Hemoglobin 30, Mean Corpuscular Hemoglobin Concent 33, Red Cell Distribution Width 16.5H, Platelet Count 239, Mean Platelet Volume 9.7, Immature Granulocyte % (Auto) 2, Neutrophils (%) (Auto) 81H, Lymphocytes (%) (Auto) 12, Monocytes (%) (Auto) 5, Eosinophils (%) (Auto) 0, Basophils (%) (Auto) 0, Neutrophils # (Auto) 5.2, Lymphocytes # (Auto) 0.8L, Monocytes # (Auto) 0.3, Eosinophils # (Auto) 0.0, Basophils # (Auto) 0.0, Immature Granulocyte # (Auto) 0.1, Sodium Level 136, Potassium Level 3.2L, Chloride Level 100, Carbon Dioxide Level 22, Anion Gap 14, Blood Urea Nitrogen 20H, Creatinine 1.07, Estimat Glomerular Filtration Rate 74, BUN/Creatinine Ratio 19, Glucose Level 184H, Calcium Level 8.5, Corrected Calcium 8.9, Phos phorus Level 3.2, Magnesium Level 1.9, Total Bilirubin 1.0, Aspartate Amino Transf (AST/SGOT) 19, Alanine Aminotransferase (ALT/SGPT) 12, Alkaline Phosphatase 99, Total Protein 7.4, Albumin 3.5 Microbiology 12/31/21 MRSA Screen - Final, Complete MRSA not isolated Laboratory Tests 12/31/21 06:43 01/01/22 05:00 A/P: Assessment: Multi-factorial progressive dyspnea (see below) - ac exac of COPD - probable reactive airways disease - pulmnary hypertension and cor pulmonale - ac on ch diastolic dysfunction of LV due to hypertensive cardiovascular disease - pt reports a cardiac that showed no significant CAD and normal LV function at [place], [place] within the last 2-3 years Chronic a-fib - rate controlled - OAC with Xarelto Echocardiogram of 12-03-[address] Alcazar showed LVEF 55-60%. Biatrial enlargement. Mild to mod MR. Mod TR. Grade 2 diastolic dysfunction. PASP 78 mmHg Intolerance/allergy to AKIL-inhib and ARB, per pt report (rash and hives). He also reports intolerance to hydralazine (nonspecific) DM II Remote h/o tobacco use (quit in 1995, 1ppd for several years prior to that) Plan: Management plan as outline in consultation note of 12/31/21 Monitor lab closely - replace electrolytes as indicated We would like to thank Medical services for this consult Further recs will be based on his hospital course DANIELA DEGROOT MD FACP FAC CCDS Jan 01, 2022 08:55
[2022-01-01] MEDS ORDERED: KCL 20 MEQ TAB (K-DUR) PO ONE (09:00)
[2022-01-01] MEDS: ISOSORBIDE MONONITRATE 30 MG (IMDUR) TAB PO SCH (09:39)
[2022-01-01] MEDS: AZITHROMYCIN INJECTION 500 MG in NS (IVPB) 250 ML IV SCH (09:39)
[2022-01-01] MEDS: cloNIDine 0.2 MG (CATAPRES) TAB PO SCH ×2 (09:40→20:50)
[2022-01-01] MEDS: SENNA W/DOCUSATE (SENOKOT S) TABLET PO SCH ×2 (09:40→20:50)
[2022-01-01] MEDS: HYDROcodone/APAP 5 MG/325 MG (LORTAB) TAB PO PRN ×3 (09:47→20:51)
--- NOTE | 2022-01-01 10:31 | Progress Note ---
NATY LUONG A MED STUDENT 01/01/22 1030: Subjective Date Seen by a Provider: Jan 01, 2022 Time Seen by a Provider: 07:55 Subjective/Events-last exam Pt lying in bed comfortably this morning. Pt reports he had a liquid BM yesterday. At baseline pt has constipation and upset stomach with little appetite. Pt has no other concerns at this time. Review of Systems General: No Chills, No Fatigue HEENT: No Head Aches, No Visual Changes Pulmonary: Dyspnea; No Cough Cardiovascular: No: Chest Pain, Palpitations Gastrointestinal: Abdominal Pain, Diarrhea; No: Nausea, Vomiting Genitourinary: No Dysuria, No Frequency Musculoskeletal: No: neck pain, shoulder pain Neurological: No: Weakness, Numbness Focused Exam Lactate Level 12/31/21 06:55: Lactic Acid Level 1.88 Objective Exam Last Set of Vital Signs Vital Signs Date Time Temp Pulse Resp B/P (MAP) Pulse Ox O2 Delivery O2 Flow Rate FiO2 01/01/22 09:00 87 13 118/105 93 Nasal Cannula 3.00 01/01/22 07:38 35.8 12/31/21 06:35 93 Capillary Refill : I&O Intake and Output 01/01/22 00:00 Intake Total 1145 ml Output Total 2860 ml Balance -1715 ml Intake Oral 840 ml IV Total 305 ml Output Urine Total 2860 ml Daily Weight Change No General: Alert, Oriented X3 HEENT: Atraumatic, PERRLA Neck: Supple, No JVD Lungs: Other (Diffuse crackles bilaterally) Heart: No Murmurs, Other (irregularly irregular rhythm) Abdomen: Normal Bowel Sounds, Soft Extremities: No Edema, No Tenderness/Swelling Skin: No Rashes, No Breakdown Neuro: Normal Speech, Normal Tone Psych/Mental Status: Mental Status NL Results Lab Laboratory Tests 12/31/21 11:33: Glucometer 240H 12/31/21 15:40: Glucometer 356H 12/31/21 17:08: Glucometer 364H 12/31/21 20:35: Glucometer 374H 01/01/22 04:15: Blood Gas Puncture Site NOT INDICATED, Blood Gas Patient Temperature 36.0, Arterial Blood pH 7.44H, Arterial Blood Partial Pressure CO2 40, Arterial Blood Partial Pressure O2 67L, Arterial Blood HCO3 27, Arterial Blood Total CO2 28.6, Arterial Blood Oxygen Saturation 96, Arterial Blood Base Excess 3.3H, Khalif Test NA, Blood Gas Ventilator Setting NO, Blood Gas Inspired Oxygen 3L 01/01/22 05:00: White Blood Count 6.5, Red Blood Count 3.43L, Hemoglobin 10.3L, Hematocrit 31L, Mean Corpuscular Volume 91, Mean Corpuscular Hemoglobin 30, Mean Corpuscular Hemoglobin Concent 33, Red Cell Distribution Width 16.5H, Platelet Count 239, Mean Platelet Volume 9.7, Immature Granulocyte % (Auto) 2, Neutrophils (%) (Auto) 81H, Lymphocytes (%) (Auto) 12, Monocytes (%) (Auto) 5, Eosinophils (%) (Auto) 0, Basophils (%) (Auto) 0, Neutrophils # (Auto) 5.2, Lymphocytes # (Auto) 0.8L, Monocytes # (Auto) 0.3, Eosinophils # (Auto) 0.0, Basophils # (Auto) 0.0, Immature Granulocyte # (Auto) 0.1, Sodium Level 136, Potassium Level 3.2L, Chloride Level 100, Carbon Dioxide Level 22, Anion Gap 14, Blood Urea Nitrogen 20H, Creatinine 1.07, Estimat Glomerular Filtration Rate 74, BUN/Creatinine Ratio 19, Glucose Level 184H, Calcium Level 8.5, Corrected Calcium 8.9, Phosphorus Level 3.2, Magnesium Level 1.9, Total Bilirubin 1.0, Aspartate Amino Transf (AST/SGOT) 19, Alanine Aminotransferase (ALT/SGPT) 12, Alkaline Phosphatase 99, Total Protein 7.4, Albumin 3.5 Microbiology 12/31/21 MRSA Screen - Final, Complete MRSA not isolated Assessment/Plan Assessment/Plan Assess & Plan/Chief Complaint Acute CHF exacerbation with pulmonary edema COPD exacerbation Recurrent pneumonia Anemia Afib on OAC Diabetes HTN Acute CHF exacerbation with pulmonary edema -Requiring 3L NC, baseline at home is 2.5L NC -Will need home O2 study at some point prior to d/c -ABG 7. -Diuretics per cardiology management, appreciate their assistance COPD exacerbation -MAT protocol -Encourage incentive spirometry Recurrent pneumonia -Azithromycin and Cefepime -CXR showed diffuse coarse interstitium with progression on right-possibly from worsening pleural effusion or worsening interstitial disease -F/u CXR tomorrow 01/02 Anemia -Hgb stable Afib on OAC -Xarelto Diabetes -SSI HTN -Well controlled, continue to monitor Diet: Regular DVT prophylaxis: SCDs Will transfer to 4th floor today Clinical Quality Measures Admission Status Admission Dx Acute CHF exacerbation with pulmonary edema COPD exacerbation Recurrent pneumonia Anemia Afib on OAC Diabetes HTN Acute CHF exacerbation with pulmonary edema -BNP 9507.0 -Recent hospitalization 12/03/21-echo was done and was normal -Cardiology consulted, appreciate their recs -Lasix started -Troponin normal, less likely to be acute OR COPD exacerbation -Duoneb -CTA showed advanced emphysema, bilateral hilar lymphadenopathy, cardiomegaly and R. pleural effusion -CXR confirmed this -MAT protocol Recurrent pneumonia -Azithromycin and Cefepime -Encourage incentive spirometry Anemia -Hgb currently 9.8, will continue to monitor Afib on OAC -Rate controlled -On enoxaparin Diabetes -SSI HTN -Currently well controlled Diet: Regular DVT prophylaxis: Enoxaparin and SCDs DANIELLA SOTO DO 01/02/22 0641: Subjective Subjective/Events-last exam Doing better Moving to 4th floor Assessment/Plan Assessment/Plan Assess & Plan/Chief Complaint Move to 4th PT OT Supervisory-Addendum Brief Verification & Attestation Participated in pt care: history, MDM, physical Personally performed: exam, history, MDM, supervision of care Care discussed with: Medical Student Procedures: n/a Results interpretation: Verified all documentation Verification and Attestation of Medical Student E/M Service A medical student performed and documented this service in my presence. I reviewed and verified all information documented by the medical student and made modifications to such information, when appropriate. I personally performed the physical exam and medical decision making. Daniella Soto, Jan 02, 2022,06:41 NATY LUONG MED STUDENT Jan 01, 2022 10:30 DANIELLA SOTO DO Jan 02, 2022 06:41
[2022-01-01] MEDS: DOCUSATE SODIUM 100 MG (COLACE) CAP PO SCH ×3 (10:33→20:50)
--- NOTE | 2022-01-01 10:47 | Tele-ICU Progress Note ---
Subjective Date Seen by a Provider: Jan 01, 2022 Time Seen by a Provider: 10:47 Subjective/Events-last exam (Tele-ICU Physician , Progress Note ) Available chart/ vitals / labs / Images reviewed Video assessment done using teleICU camera, rest of exam as per RN Discussed with RN , EXAM PER RN Events overnight : Afebrile FiO2 - 3L I/O = neg Drips: Pressors: , hemodynamically stable Consultants: Hospital course: (RECENT admission 12/03/21-->12/04/21, TX for sepsis/PNA with abx and for CHF with diuresis and AECOPD with steroids ) 12/31/21 to ER with Dwight SOB, in ER given Lasix 80 mg IV x1 Decadron 10 mg IV, CTA - neg for PE A/P Acute resp failure - combination LRTI , VO , bronchospm ( 12/31/21 - CTA - neg for PE , + GGO -lasix given-- IV steroids and ABX started - on 3 L ( home level ) Advanced COPD with AECOPD ( home on 2.5 l o2 at night ) -IV steroids , nebs LRTI vs PNA -NEG covid and flu -- CAP coverage is suggested while cx pending A fib , rate controllled - 12-03-21 LVEF 55-60% -OAC xarelto Anemia - hb 9.8 from 13 previously , no acute bleeding - as per PCP Puln HTN - ECHO 12/2021 PASP 78 mmHg - monitor fluid status DM II - ISS Lines : (Central Line Necessity Reviewed) Morfin: OG: Nutrition: Analgesia: Anxiety/ delirium VTE Prophylaxis: xarelto Stress Ulcer Prophylaxis: na Plans in collaboration with bedside consultants and IM MDs. Discussed with RN to reach out if any questions or concerns A total of 31 minutes of critical care time was devoted to this patient today, required to treat and/or prevent further deterioration of critical care condition ( as above ) . Sepsis Event Evaluation Height, Weight, BMI Height: 5'11.00" Weight: 217lbs. 4.0oz. 98.920436lc; 26.82 BMI Method:Stated Focused Exam Lactate Level 12/31/21 06:55: Lactic Acid Level 1.88 Exam Exam Patient acknowledged, consented, and participated in this virtual visit which was conducted using real time audio/video Vital Signs Date Time Temp Pulse Resp B/P (MAP) Pulse Ox O2 Delivery O2 Flow Rate FiO2 01/01/22 09:00 87 13 118/105 93 Nasal Cannula 3.00 01/01/22 08:00 78 14 118/73 95 Nasal Cannula 3.00 01/01/22 07:38 35.8 01/01/22 07:00 86 20 118/82 96 Nasal Cannula 3.00 01/01/22 06:34 78 01/01/22 06:00 80 14 112/73 92 Nasal Cannula 3.00 01/01/22 05:00 75 34 117/69 99 Nasal Cannula 3.00 01/01/22 04:00 High Flow N/C 01/01/22 04:00 35.9 01/01/22 04:00 82 126/73 98 Nasal Cannula 3.00 01/01/22 03:00 74 27 129/79 99 Nasal Cannula 3.00 01/01/22 02:00 78 15 139/101 97 Nasal Cannula 3.00 01/01/22 01:00 73 01/01/22 01:00 80 22 144/95 95 Nasal Cannula 3.00 01/01/22 00:00 78 29 153/92 96 Nasal Cannula 3.00 01/01/22 00:00 36.0 01/01/22 00:00 High Flow N/C 12/31/21 23:00 93 144/113 Nasal Cannula 3.00 12/31/21 22:00 80 30 148/86 97 Nasal Cannula 3.00 12/31/21 21:00 76 21 141/90 97 Nasal Cannula 3.00 12/31/21 20:27 36.0 12/31/21 20:05 High Flow N/C 12/31/21 20:00 86 18 118/75 98 Nasal Cannula 3.00 12/31/21 19:00 85 36 136/85 95 Nasal Cannula 3.00 12/31/21 19:00 88 12/31/21 18:02 OxyMask 3.00 12/31/21 18:00 74 44 127/81 90 OxyMask 5.00 12/31/21 17:00 92 43 135/72 91 OxyMask 5.00 12/31/21 16:30 94 High Flow N/C 3.00 12/31/21 16:00 84 16 107/56 98 OxyMask 5.00 12/31/21 15:36 36.0 12/31/21 15:00 95 38 122/72 86 OxyMask 5.00 12/31/21 14:00 85 30 108/87 90 OxyMask 5.00 12/31/21 13:00 94 12/31/21 13:00 96 16 123/75 91 OxyMask 5.00 12/31/21 12:30 100 OxyMask 5.00 12/31/21 12:00 93 55 115/85 93 OxyMask 5.00 12/31/21 11:00 84 25 128/73 96 OxyMask 5.00 I & O 01/01/22 07:00 Intake Total 1145 ml Output Total 3180 ml Balance -2035 ml Height & Weight Height: 5'11.00" Weight: 217lbs. 4.0oz. 98.553157rb; 26.82 BMI Method:Stated General Appearance: WD/WN, Anxious, Chronically ill, Mild Distress HEENT: PERRL/EOMI, Normal ENT Inspection, Pharynx Normal Neck: Full Range of Motion, Normal Inspection, Non Tender, Supple, Carotid Bruit Respiratory: Chest Non Tender, No Accessory Muscle Use, No Respiratory Distress, Decreased Breath Sounds, Rales, Wheezing Cardiovascular: Regular Rate, Rhythm, No Edema, No Gallop, No JVD, No Murmur, Normal Peripheral Pulses Peripheral Pulses: 2+ Radial Pulses (R), 2+ Radial Pulses (L) Extremity: Normal Capillary Refill, Normal Inspection, Normal Range of Motion, Non Tender, No Calf Tenderness, No Pedal Edema Neurologic/Psychiatric: Alert, Oriented x3, No Motor/Sensory Deficits, Normal Mood/Affect Skin: Normal Color, Warm/Dry Lymphatic: No Adenopathy Results Lab Laboratory Tests 12/31/21 06:43 01/01/22 05:00 Assessment/Plan Assessment/Plan 1 SADIE WISDOM MD Jan 01, 2022 10:47
--- NOTE | 2022-01-01 11:09 | Physical Therapy Evaluation ---
PT Evaluation-General Medical Diagnosis Admission Date Dec 31, 2021 at 09:25 Medical Diagnosis: acute CHF/COPD with hypoxia/pulmonary edema Onset Date: Dec 31, 2021 Therapy Diagnosis Therapy Diagnosis: debility/weakness Height/Weight Height (Feet): 5 Height (Inches): 11.00 Weight (Pounds): 217 Weight (Ounces): 4.0 Precautions Precautions/Isolations: Standard Precautions Referral Physician: Odilon Reason for Referral: Evaluation/Treatment Medical History Pertinent Medical History: Atrial Fib, COPD (3L O2 baseline), DM, HTN Current History ER secondary to SOA Reviewed History: Yes Social History Home: Single Level Current Living Status: Spouse Prior Prior Level of Function SCALE: Activities may be completed with or without assistive devices. 3-Conzhekped-tqkoejc completes the activity by him/herself with no assistance from a helper. 5-Set-up or Clean-up Assistance-helper sets up or cleans up; patient completes activity. [place] assists only prior to or following the activity. 4-Supervision or Touching Assistance-helper provides verbal cues and/or touching/steadying and/or contact guard assistance as patient completes activity. Assistance may be provided throughout the activity or intermittently. 3-Partial/Moderate Assistance-helper does LESS THAN HALF the effort. [place] lifts, holds or supports trunk or limbs, but provides less than half the effort. 2-Substantial/Maximal Assistance-helper does MORE THAN HALF the effort. [place] lifts or holds trunk or limbs and provides more than half the effort. 9-Tzjeuuygn-litzir does ALL the effort. Patient does none of the effort to complete the activity. Or, the assistance of 2 or more helpers is required for the patient to complete the activity. If activity was not attempted, code reason: 7-Patient Refused. 9-Not Applicable-not attempted and the patient did not perform the activity before the current illness, exacerbation or injury. 10-Not Attempted due to Environmental Limitations-(lack of equipment, weather restraints, etc.). 88-Not Attempted due to Medical Conditions or Safety Concerns. Bed Mobility: 6 Transfers (B,C,W/C): 6 Gait: 6 Stairs: 6 Indoor Mobility (Ambulation): Independent Stairs: Independent Prior Devices Use: Other-see list below Prior Device Use: cane PRN PT Evaluation-Current Subjective Patient agrees to PT. Objective Patient Orientation: Normal For Age Attachments: Oxygen (3L at rest and 6L with activity per RN) ROM/Strength ROM Lower Extremities bilateral LE WFL Strength Lower Extremities 4/5 grossly bilateral LE Integumentary/Posture Bowel Incontinence: No Bladder Incontinence: No Posture WFL Neuromuscular (Tone, Coordination, Reflexes) grossly intact Sensory Vision: Functional Hearing: Functional Transfers Lying to Sitting/Side of Bed(Q: 4 Sit to Stand (QC): 4 Chair/Hjl-wl-Kznmy Xfer(QC): 4 CGA for safety Gait Mode of Locomotion: Walk Anticipated Mode of Locomotion: Walk Walk 10 feet (QC): 4 Walk 50 ft with 2 Turns(QC): 4 Walk 150 ft (QC): 4 Distance: 250' Gait Assistive Device: FWW Comments/Gait Description 2 episodes of mild LOB with self correct/functional gait sequence Balance Sitting Static: Good Sitting Dynamic: Good Standing Static: Fair Standing Dynamic: Fair Assessment/Needs 71 y.o. male, will be seen short term by skilled PT to address functional strength and mobility to improve current LOF to safely return to home with spou se at maximum LOF. Rehab Potential: Fair PT Lab Engineer Goals Lab Engineer Goals PT Lab Engineer Goals Time Frame: Jan 12, 2022 Roll Left & Right (QC): 6 Sit to Lying (QC): 6 Lying-Sitting on Side/Bed(QC): 6 Sit to Stand (QC): 6 Chair/Tcb-uo-Ewosl Xfer(QC): 6 Toilet Transfer (QC): 6 Walk 10 feet (QC): 6 Walk 50ft with 2 Turns (QC): 6 Walk 150 ft (QC): 6 PT Plan Problem List Problem List: Activity Tolerance, Functional Strength, Safety, Balance, Gait, Transfer Treatment/Plan Treatment Plan: Continue Plan of Care Treatment Plan: Bed Mobility, Education, Functional Activity Jovany, Functional Strength, Gait, Safety, Therapeutic Exercise, Transfers Treatment Duration: Jan 12, 2022 Frequency: 6 times per week Estimated Hrs Per Day: .25 hour per day Patient and/or Family Agrees t: Yes Time/GCodes Time In: 1010 Time Out: 1027 Total Billed Treatment Time: 17 Total Billed Treatment 1 visit EVModC 17 min TRISTA GENTILE PT Jan 01, 2022 11:09
--- NOTE | 2022-01-01 11:13 | Occupational Therapy Eval ---
OT Evaluation-General/PLF Medical Diagnosis Admission Date Dec 31, 2021 at 09:25 Medical Diagnosis: Acute CHF, COPD Onset Date: Dec 31, 2021 Therapy Diagnosis Therapy Diagnosis: reduced adl status Height/Weight Height (Feet): 5 Height (Inches): 11.00 Weight (Pounds): 217 Weight (Ounces): 4.0 Precautions Precautions/Isolations: Fall Prevention, Standard Precautions Referral Referral Reason: Evaluation/Treatment Medical History Pertinent Medical History: Atrial Fib, COPD, Heart Failure Current History Pt arrived to ER with c/o increased SOB and LE swelling. Per patient, he lives with his in a single story home. He was indep with adls and his performs all iadls. Pt uses a cane and 3L oxygen at baseline. Reviewed History: Yes Social History Home: Single Level Current Living Status: Spouse Entry Into Home: Stairs Without Railing Steps Into Home: 2 ADL-Prior Level of Function SCALE: Activities may be completed with or without assistive devices. 5-Ipsnxajqge-xgmjkaw completes the activity by him/herself with no assistance from a helper. 5-Set-up or Clean-up Assistance-helper sets up or cleans up; patient completes activity. [place] assists only prior to or following the activity. 4-Supervision or Touching Assistance-helper provides verbal cues and/or touching/steadying and/or contact guard assistance as patient completes activity. Assistance may be provided throughout the activity or intermittently. 3-Partial/Moderate Assistance-helper does LESS THAN HALF the effort. [place] lifts, holds or supports trunk or limbs, but provides less than half the effort. 2-Substantial/Maximal Assistance-helper does MORE THAN HALF the effort. [place] lifts or holds trunk or limbs and provides more than half the effort. 3-Tqjomhzoj-qgwutp does ALL the effort. Patient does none of the effort to complete the activity. Or, the assistance of 2 or more helpers is required for the patient to complete the activity. If activity was not attempted, code reason: 7-Patient Refused. 9-Not Applicable-not attempted and the patient did not perform the activity before the current illness, exacerbation or injury. 10-Not Attempted due to Environmental Limitations-(lack of equipment, weather restraints, etc.). 88-Not Attempted due to Medical Conditions or Safety Concerns. Self Care: Independent Functional Cognition: Independent DME/Equipment: Bath Chair (owns but was not using), Grab Bars, Shower Drive Self: Yes OT Current Status Subjective Pt denies pain, agreeable to OT eval. Appearance Pt returned to sitting in recliner, all needs within reach at OT departure. Mental Status/Objective Patient Orientation: Person, Place, Situation Attachments: IV, Oxygen (3L), Telemetry Current Glasses/Contacts: Yes Hearing Aids: No Dentures/Partials: No Hand Dominance: Right Upper Extremity ROM WNL Upper Extremity Strength 4/5 throughout ADL-Treatment Eating (QC): 6 Oral Hygiene (QC): 5 (Per clinical judgment) Lower Body Dressing (QC): 4 (per clinical judgment (steadying assist)) On/Off Footwear (QC): 4 At OT arrival, Pt had just returned to sitting in chair after walking with physical therapy. Pt was on 6L oxygen with activity, 86%. Significant time and cues for recovery. No physical assistance required to complete donning/doffing socks, however pt desat again into mid 80's with exertion. He was able to stand with SBA, oxygen drops to 88%. Unable to recover in standing. While standing for short time, pt is mildly unsteady, CGA/steadying assist needed. Education OT Patient Education: Correct positioning, Energy conservation, Purpose of tx/functional activities, Safety issues Teaching Recipient: Patient, Family Teaching Methods: Discussion Response to Teaching: Verbalize Understanding, Return Demonstration, Reinforcement Needed OT Mcc Goals Mcc Goals Time Frame: Jan 08, 2022 Toileting Hygiene (QC): 4 Shower/Bathe Self (QC): 4 Upper Body Dressing (QC): 5 Lower Body Dressing (QC): 5 On/Off Footwear (QC): 5 1=Demonstrate adherence to instructed precautions during ADL tasks. 2=Patient will verbalize/demonstrate understanding of assistive devices/modifications for ADL. 3=Patient will improve strength/tolerance for activity to enable patient to perform ADL's. OT Education/Plan Problem List/Assessment Assessment: Decreased Activ Tolerance, Decreased UE Strength, Impaired Funct Balance, Impaired Self-Care Skills Discharge Recommendations Plan/Recommendations: Continue POC Therapy Discharge Recommendati: Post Acute OT (Home health OT ) Treatment Plan/Plan of Care Treatment,Training & Education: Yes Patient would benefit from OT for education, treatment and training to promote independence in ADL's, mobility, safety and/or upper extremity function for ADL's. Plan of Care: ADL Retraining, Functional Mobility, Group Exercise/Act as Ind, UE Funct Exercise/Act Treatment Duration: Jan 08, 2022 Frequency: 3 times per week (3-5x/week ) Estimated Hrs Per Day: .25 hour per day Agreement: Yes Rehab Potential: Fair Time/GCodes Start Time: 10:24 Stop Time: 10:36 Total Time Billed (hr/min): 12 Billed Treatment Time 1 visit Lelo Sánchez OT Jan 01, 2022 11:13
--- NOTE | 2022-01-01 11:41 | Pulmonary Consultation ---
History of Present Illness History of Present Illness Date Seen by Provider: Jan 01, 2022 Time Seen by Provider: 11:36 History of Present Illness Available chart/vitals/labs/images reviewed. Video assessment done using telemetry ICU camera, rest of exam as per RN. Discussion with the RN, exam as per RN. Hospital course Is a 71-year-old male with past medical history of for hypertension, type 2 diabetes mellitus, diastolic congestive heart failure, atrial fibrillation and an anticoagulant therapy, has a diagnosis of COPD and chronic respiratory failure. Apparently he has been having increasing shortness of breath for the last 3 years and he has been using oxygen 2-1/2 L nasal cannula nightly at home. In the last 2 years he has been in and out of hospitals with pneumonia and shortness of breath and he is a frustrated. Today he is in the intensive care unit with exacerbation of COPD/congestive heart failure and his requested a pulmonary consult. Apparently they have a an appointment with the blacksmith helper about 70 miles away at the end of this month but they are not sure whether they are going to make it or not and meanwhile they requested a pulmonary consultation hence I am doing this pulmonary consultation. Patient denies any history of fever however he has increasing sputum production which is whitish and sometimes it is mixed with the colored sputum. No hemoptysis pr esent. No chest pain present. He quit smoking in 1995 before that he had a 30 pack years of 4 cigarette smoking present. Currently has bilateral leg edema up to knees about 1-2+. He has been on Bumex as an outpatient. I have reviewed his medical records in this hospital which they did not show any pulmonary function test. I also reviewed his chest x-rays and CT of the chest which did not show any pulmonary emboli but has a bilateral groundglass opacities. He is COVID vaccinated and bolstered and no history of COVID pneumonia so far in this epidemic. Currently he is sitting in the bedside chair and his is in and out of the chair and able to answer my questions via the video camera. Allergies and Home Medications Allergies Coded Allergies: lisinopril (Verified Allergy, Severe, Anaphylaxis, 10/31/18) allopurinol (Verified Allergy, Unknown, Hives, 10/31/18) amlodipine (Verified Allergy, Unknown, swelling, PT STILL TAKES AT HOME, 12/03/21) hydralazine (Verified Allergy, Unknown, 10/31/18) levofloxacin (Verified Allergy, Unknown, Hallucinations, 10/31/18) Home Medications ALPRAZolam 0.25 Mg Tablet, 0.25 MG PO TID PRN for ANXIETY, (Reported) Acetaminophen 500 Mg Tablet, 1,000 MG PO Q8H PRN for PAIN-MILD (1-4), (Reported) Albuterol Sulfate 1 Puff Puff, 2 PUFF INH Q4H PRN for SHORTNESS OF BREATH, (Reported) 1 PUFF = 90 MCG Amlodipine Besylate 5 Mg Tablet, 5 MG PO HS, (Reported) Bumetanide 1 Mg Tablet, 2 MG PO DAILY, (Reported) TAKES 2 (1MG) TABS Carvedilol 25 Mg Tablet, 25 MG PO BID, (Reported) Clonidine HCl 0.2 Mg Tablet, 0.2 MG PO BID, (Reported) Docusate Sodium 100 Mg Capsule, 100 MG PO DAILY, (Reported) Gabapentin 600 Mg Tablet, 600 MG PO TID PRN for PAIN-BREAKTHROUGH, (Reported) Guaifenesin 600 Mg Tab.er.12h, 600 MG PO Q12H PRN for CONGESTION, (Reported) Ipratropium/Albuterol Sulfate 0.5 Mg-3 Mg (2.5 Mg Base)/3 Ml Ampul.neb, 3 ML NEB Q6H PRN for SHORTNESS OF BREATH, (Reported) Isosorbide Mononitrate 30 Mg Tab.er.24h, 30 MG PO DAILY, (Reported) Losartan Potassium 100 Mg Tablet, 100 MG PO HS, (Reported) Metformin HCl 1,000 Mg Tablet, 1,000 MG PO BID WITH MEALS, (Reported) Potassium Chloride 20 Meq Tab.er.prt, 20 MEQ PO DAILY, (Reported) Prednisone 5 Mg Tablet, 5 MG PO DAILY, (Reported) Rivaroxaban 20 Mg Tablet, 20 MG PO HS, (Reported) Tamsulosin HCl 0.4 Mg Cap, 0.4 MG PO HS, (Reported) Tolterodine Tartrate 4 Mg Cap.er.24h, 4 MG PO HS, (Reported) Tramadol HCl 50 Mg Tablet, 100 MG PO Q6H PRN for PAIN-MODERATE (5-7), (Reported) TAKES 2 (50MG) TABS Past Medical/Social/Family Hx Patient Social History Marrital Status: Employed/Student: retired Tobacco Use?: Yes Tobacco type used: Cigarettes Smoking Status: Former Smoker Smokeless type used: Chew Smokeless Tobacco Frequency: Former User Use of E-Cig and/or Vaping dev: No E-Cig and/or Vaping Freq: Never a User Substance use?: No Alcohol Use?: Yes Alcohol type: Beer Alcohol Frequency: Couple times a week 2 BEERS Pt stated abuse/neglect: No Immunizations Up To Date Influenza Vaccine Up-to-Date: Yes; Up-to-Date Current Status Advance Directives: No Primary Language: Zambian Preferred Spoken Language: Zambian Sensory deficits: Vision impairment Past Medical History Chronic A-fib Cardiomyopathy COPD, O2 dependent CHF Hypertension 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 4.0oz. 98.046657lo; 26.82 BMI Method:Stated Exam Exam Patient acknowledged, consented, and participated in this virtual visit which was conducted using real time audio/video Vital Signs Date Time Temp Pulse Resp B/P (MAP) Pulse Ox O2 Delivery O2 Flow Rate FiO2 01/01/22 10:00 79 20 125/81 94 Nasal Cannula 3.00 01/01/22 09:00 87 13 118/105 93 Nasal Cannula 3.00 01/01/22 08:00 78 14 118/73 95 Nasal Cannula 3.00 01/01/22 07:38 35.8 01/01/22 07:00 86 20 118/82 96 Nasal Cannula 3.00 01/01/22 06:34 78 01/01/22 06:00 80 14 112/73 92 Nasal Cannula 3.00 01/01/22 05:00 75 34 117/69 99 Nasal Cannula 3.00 01/01/22 04:00 High Flow N/C 01/01/22 04:00 35.9 01/01/22 04:00 82 126/73 98 Nasal Cannula 3.00 01/01/22 03:00 74 27 129/79 99 Nasal Cannula 3.00 01/01/22 02:00 78 15 139/101 97 Nasal Cannula 3.00 01/01/22 01:00 73 01/01/22 01:00 80 22 144/95 95 Nasal Cannula 3.00 01/01/22 00:00 78 29 153/92 96 Nasal Cannula 3.00 01/01/22 00:00 36.0 01/01/22 00:00 High Flow N/C 12/31/21 23:00 93 144/113 Nasal Cannula 3.00 12/31/21 22:00 80 30 148/86 97 Nasal Cannula 3.00 12/31/21 21:00 76 21 141/90 97 Nasal Cannula 3.00 12/31/21 20:27 36.0 12/31/21 20:05 High Flow N/C 12/31/21 20:00 86 18 118/75 98 Nasal Cannula 3.00 12/31/21 19:00 85 36 136/85 95 Nasal Cannula 3.00 12/31/21 19:00 88 12/31/21 18:02 OxyMask 3.00 12/31/21 18:00 74 44 127/81 90 OxyMask 5.00 12/31/21 17:00 92 43 135/72 91 OxyMask 5.00 12/31/21 16:30 94 High Flow N/C 3.00 12/31/21 16:00 84 16 107/56 98 OxyMask 5.00 12/31/21 15:36 36.0 12/31/21 15:00 95 38 122/72 86 OxyMask 5.00 12/31/21 14:00 85 30 108/87 90 OxyMask 5.00 12/31/21 13:00 94 12/31/21 13:00 96 16 123/75 91 OxyMask 5.00 12/31/21 12:30 100 OxyMask 5.00 12/31/21 12:00 93 55 115/85 93 OxyMask 5.00 I & O 01/01/22 06:59 Intake Total 1145 ml Output Total 3180 ml Balance -2035 ml Height & Weight Height: 5'11.00" Weight: 217lbs. 4.0oz. 98.331105mf; 26.82 BMI Method:Stated General Appearance: WD/WN, Anxious, Chronically ill, Mild Distress HEENT: PERRL/EOMI, Normal ENT Inspection, Pharynx Normal Neck: Full Range of Motion, Normal Inspection, Non Tender, Supple, Carotid Bruit Respiratory: Chest Non Tender, No Accessory Muscle Use, No Respiratory Distress, Decreased Breath Sounds, Rales, Wheezing Cardiovascular: Regular Rate, Rhythm, No Edema, No Gallop, No JVD, No Murmur, Normal Peripheral Pulses Peripheral Pulses: 2+ Radial Pulses (R), 2+ Radial Pulses (L) Extremity: Normal Capillary Refill, Normal Inspection, Normal Range of Motion, Non Tender, No Calf Tenderness, No Pedal Edema Neurologic/Psychiatric: Alert, Oriented x3, No Motor/Sensory Deficits, Normal Mood/Affect Skin: Normal Color, Warm/Dry Lymphatic: No Adenopathy Other comments PE PER RN AND ATTENDING PHYSICIAN Results Lab Laboratory Tests 12/31/21 06:43 01/01/22 05:00 Assessment/Plan Assessment/Plan 1. His exertional dyspnea and chronic respiratory failure is due to a combination of chronic congestive heart failure, interstitial lung disease and possibly underlying COPD which may be predisposing her to recurrent pneumonias and and acute exacerbation of congestive heart failure in a patient with chronic atrial fibrillation. 2. Type 2 diabetes mellitus 3. Pulmonary hypertension probably due to underlying interstitial lung disease and COPD. Recommendations 1. Continue diuretic therapy and management of atrial fibrillation for maintenance director. 2. Will add air duo 1 puff twice a day in addition to albuterol nebulizer treatment as well as inhaler and continue home oxygen to keep o2 sat >92%.. 3. Continue SOLU-MEDROL for now and wean tolerated to home dose of prednisone 5 mg po qd 4. Advised her to go ahead and see any marketing content specialist and to take the current chest x-rays and CT scan of the chest images for his perusal. 4. Advised to get a complete pulmonary function test when he is stable 5. Pulmonary rehab once he is stable. 6. I have discussed with the patient's and patient in detail and he appreciated the input. 7. Advised him to get a flu shot he is very fall season and pneumococcal vaccine every 10 years. Critical Care: Critically Ill Patient Time spent with patient (mins): 30 ROBERTO NAGY MD Jan 01, 2022 11:41
[2022-01-01] MEDS ORDERED: HOLD METFORMIN - RECEIVED CONTRAST 20 ML VIAL IV ONE (13:15)
[2022-01-01] MEDS: RT--FLUTICASONE/SALMETEROL 232-14 (AIRDUO RespiCLICK) IH SCH (19:26)
[2022-01-01] MEDS: TOLTERODINE LA 2 MG (DETROL LA) CAP PO SCH (20:49)
[2022-01-01] MEDS: RIVAROXABAN 20 MG TABLET (XARELTO) PO SCH (20:50)
[2022-01-01] MEDS: TAMSULOSIN 0.4 MG (FLOMAX) CAP PO SCH (20:50)
[2022-01-01] MEDS: LOSARTAN 100 MG (COZAAR) TABLET PO SCH (20:50)
[2022-01-02] MEDS: CEFEPIME INJECTION 1,000 MG in NS (IVPB) 50 ML IV SCH ×4 (03:30→21:06)
[2022-01-02] MEDS: inSUlin ASPART (NovoLOG) 1 UNIT/0.01 ML (CHARGE PER UNIT) SC SCH ×4 (06:00→20:32)
[2022-01-02] MEDS: methylPREDNISolone 125 MG (Solu-MEDROL) VIAL IVP SCH ×2 (06:12→21:14)
[2022-01-02] MEDS: FUROSEMIDE 40 MG/4 ML INJ (LASIX) IVP SCH (06:13)
[2022-01-02 06:29] LABS: BASOPHILS % (AUTO) 0 % (0-10); EOSINOPHILS % (AUTO) 0 % (0-10); HEMATOCRIT 31 % (40-54); HEMOGLOBIN 10.1 g/dL (13.3-17.7); LYMPHOCYTES # (AUTO) 0.8 10^3/uL (1.0-4.0); LYMPHOCYTES % (AUTO) 6 % (12-44); MEAN CORPUSCULAR HEMOGLOBIN 30 pg (25-34); MEAN CORPUSCULAR HGB CONC 33 g/dL (32-36); MEAN CORPUSCULAR VOLUME 91 fL (80-99); MEAN PLATELET VOLUME 9.6 fL (9.0-12.2); MONOCYTES # (AUTO) 0.7 10^3/uL (0.0-1.0); MONOCYTES % (AUTO) 5 % (0-12); NEUTROPHILS # (AUTO) 11.7 10^3/uL (1.8-7.8); NEUTROPHILS % (AUTO) 88 % (42-75); PLATELET COUNT 288 10^3/uL (130-400); WHITE BLOOD COUNT 13.3 10^3/uL (4.3-11.0)
[2022-01-02 06:52] LABS: ALBUMIN 3.4 GM/DL (3.2-4.5)
[2022-01-02 06:53] LABS: ANISOCYTOSIS SLIGHT; BAND NEUTROPHILS 3 %; LYMPHOCYTES % (MANUAL) 4 %; MONOCYTES % (MANUAL) 6 %; NEUTROPHILS % (MANUAL) 87 %; POTASSIUM 3.3 MMOL/L (3.6-5.0)
[2022-01-02 06:54] LABS: CALCIUM 8.3 MG/DL (8.5-10.1)
[2022-01-02 06:55] LABS: TOTAL PROTEIN 7.1 GM/DL (6.4-8.2)
[2022-01-02 06:57] LABS: BILIRUBIN,TOTAL 0.8 MG/DL (0.1-1.0)
[2022-01-02 06:59] LABS: CREATININE SERUM 0.99 MG/DL (0.60-1.30)
[2022-01-02 07:01] LABS: MAGNESIUM 1.9 MG/DL (1.6-2.4)
[2022-01-02] MEDS: RT--FLUTICASONE/SALMETEROL 232-14 (AIRDUO RespiCLICK) IH SCH ×2 (07:38→21:02)
[2022-01-02] MEDS: DOCUSATE SODIUM 100 MG (COLACE) CAP PO SCH ×3 (07:41→21:14)
[2022-01-02 07:49] VITALS: BP 119/79
[2022-01-02] MEDS: SENNA W/DOCUSATE (SENOKOT S) TABLET PO SCH ×2 (08:17→21:15)
[2022-01-02] MEDS: AZITHROMYCIN INJECTION 500 MG in NS (IVPB) 250 ML IV SCH (08:17)
[2022-01-02] MEDS: cloNIDine 0.2 MG (CATAPRES) TAB PO SCH ×2 (08:17→21:15)
[2022-01-02] MEDS: KCL 20 MEQ TAB (K-DUR) PO SCH ×2 (08:18)
[2022-01-02] MEDS: ISOSORBIDE MONONITRATE 30 MG (IMDUR) TAB PO SCH (08:19)
[2022-01-02] MEDS: metFORMIN 500 MG (GLUCOPHAGE) TAB PO SCH ×2 (08:19→17:14)
[2022-01-02] MEDS ORDERED: LACTULOSE SYRUP 10GM/15ML (ENULOSE) 30ML UDC PO ONE (10:15)
[2022-01-02] MEDS ORDERED: SENNA W/DOCUSATE (SENOKOT S) TABLET PO ONE (10:15)
--- NOTE | 2022-01-02 10:46 | Progress Note - Cardiology ---
Cardiology SOAP Progress Note Subjective: Lying in bed States he likely is discharging home tomorrow Feels his breathing is much better than before No c/o CP or palpitations Objective: I&O/Vital Signs 01/02/22 01/02/22 01/02/22 01/02/22 07:38 07:49 08:00 11:29 Temp 36.4 36.2 Pulse 70 88 Resp 20 18 B/P (MAP) 119/79 (92) 119/71 (87) Pulse Ox 95 96 96 95 O2 Delivery Nasal Cannula Room Air High Flow N/C Nasal Cannula O2 Flow Rate 4.00 3.00 3.00 FiO2 93 01/02/22 15:47 Temp 36.4 Pulse 85 Resp 19 B/P (MAP) 116/72 (87) Pulse Ox 98 O2 Delivery Nasal Cannula O2 Flow Rate 3.00 01/02/22 00:00 Intake Total 650 ml Output Total 675 ml Balance -25 ml Weight (Pounds): 217 Weight (Ounces): 4.0 Weight (Calculated Kilograms): 98.883657 Constitutional: AAO x 3, well-developed, well-nourished Respiratory: No accessory muscle use, No respiratory distress; other (diminished throughout with scattered rhonchi) Cardiovascular: irregularly irregular; No JVD; S1 and S2 Gastrointestional: No tender; soft, round, audible bowel sounds Extremities: no lower extremity edema bilateral Neurologic/Psychiatric: grossly intact (moves all extremities) Skin: No rash on exposed areas, No ulcerations on exposed areas Results/Procedures: Labs Laboratory Tests 01/01/22 20:01: Glucometer 244H 01/02/22 05:24: Glucometer 112H 01/02/22 06:04: White Blood Count 13.3H, Red Blood Count 3.37L, Hemoglobin 10.1L, Hematocrit 31L , Mean Corpuscular Volume 91, Mean Corpuscular Hemoglobin 30, Mean Corpuscular Hemoglobin Concent 33, Red Cell Distribution Width 16.5H, Platelet Count 288, Mean Platelet Volume 9.6, Immature Granulocyte % (Auto) 1, Neutrophils (%) (Auto) 88H, Lymphocytes (%) (Auto) 6L, Monocytes (%) (Auto) 5, Eosinophils (%) (Auto) 0, Basophils (%) (Auto) 0, Neutrophils # (Auto) 11.7H, Lymphocytes # (Auto) 0.8L, Monocytes # (Auto) 0.7, Eosinophils # (Auto) 0.0, Basophils # (Auto) 0.0, Immature Granulocyte # (Auto) 0.1, Neutrophils % (Manual) 87, Lymphocytes % (Manual) 4, Monocytes % (Manual) 6, Band Neutrophils 3, Anisocytosis SLIGHT, Sodium Level 140, Potassium Level 3.3L, Chloride Level 101, Carbon Dioxide Level 24, Anion Gap 15H, Blood Urea Nitrogen 21H, Creatinine 0.99, Estimat Glomerular Filtration Rate 81, BUN/Creatinine Ratio 21, Glucose Level 91, Calcium Level 8.3L, Corrected Calcium 8.8, Magnesium Level 1.9, Total Bilirubin 0.8, Aspartate Amino Transf (AST/SGOT) 19, Alanine Aminotransferase (ALT/SGPT) 11, Alkaline Phosphatase 90, Total Protein 7.1, Albumin 3.4 01/02/22 10:48: Glucometer 182H 01/02/22 15:53: Glucometer 131H Microbiology 12/31/21 MRSA Screen - Final, Complete MRSA not isolated 12/31/21 Blood Culture - Preliminary, Resulted No growth Procedures NAME: ANNA LUNA [facility] REC#: [id number] PT STATUS: ADM IN : 1950 PHYSICIAN: LISSET SOTO DO ADMIT DATE: 12/31/21 Signed Date of Exam:01/01/22 CHEST 1 VIEW, AP/PA ONLY INDICATION: CHF. COPD. Respiratory failure. COMPARISON: CT chest dated 12/31/2021 FINDINGS: Single frontal radiograph view of the chest was obtained and again demonstrates diffuse coarse prominence of the interstitium, right greater than left. This does appear progressed on the right when compared to prior study. This may relate to layering pleural effusion. There is no large effusion on the left. No pneumothorax is seen on either side. Cardiac silhouette is enlarged. Osseous structures show no gross acute abnormalities. IMPRESSION: 1. Persistent diffuse coarse prominence interstitium with interval diffuse progression on the right. Again, this may relate to layering pleural effusion superimposed on acute interstitial pneumonia or edema. Progression of underlying interstitial disease, however must be considered as well. 2. Mild cardiomegaly. Dictated by: Dictated on workstation # [id number] Dict: 01/01/22819 Trans: 01/01/221712 [id number] Interpreted by: ZANDER COLEY MD Electronically signed by: ZANDER COLEY MD 01/01/221712 A/P: Assessment: Multi-factorial progressive dyspnea (see below) - ac exac of COPD - probable reactive airways disease - pulmnary hypertension and cor pulmonale - ac on ch diastolic dysfunction of LV due to hypertensive cardiovascular disease - pt reports a cardiac that showed no significant CAD and normal LV function at [place], [place] within the last 2-3 years Chronic a-fib - rate controlled - OAC with Xarelto Echocardiogram of 12-03-[address] Alcazar showed LVEF 55-60%. Biatrial enlargement. Mild to mod MR. Mod TR. Grade 2 diastolic dysfunction. PASP 78 mmHg Intolerance/allergy to AKIL-inhib and ARB, per pt report (rash and hives). 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
[2022-01-02] MEDS ORDERED: KCL 20 MEQ TAB (K-DUR) PO NR ×2 (11:00→14:00)
--- NOTE | 2022-01-02 11:16 | Physical Therapy Daily Note ---
PT Daily Note-Current Subjective Pt in bed upon arrival and agrees to PT. Says he is feeling better today than yesterday. Family present. Mental Status Patient Orientation: Person, Place, Time, Normal For Age Attachments: Oxygen (3L while at rest and 4L while ambulating ) Transfers SCALE: Activities may be completed with or without assistive devices. 7-Dmtjyojyxt-ufzhslb completes the activity by him/herself with no assistance from a helper. 5-Set-up or Clean-up Assistance-helper sets up or cleans up; patient completes activity. [place] assists only prior to or following the activity. 4-Supervision or Touching Assistance-helper provides verbal cues and/or touching/steadying and/or contact guard assistance as patient completes activity. Assistance may be provided throughout the activity or intermittently. 3-Partial/Moderate Assistance-helper does LESS THAN HALF the effort. [place] lifts, holds or supports trunk or limbs, but provides less than half the effort. 2-Substantial/Maximal Assistance-helper does MORE THAN HALF the effort. [place] lifts or holds trunk or limbs and provides more than half the effort. 7-[place]-eeihkb does ALL the effort. Patient does none of the effort to complete the activity. Or, the assistance of 2 or more helpers is required for the patient to complete the activity. If activity was not attempted, code reason: 7-Patient Refused. 9-Not Applicable-not attempted and the patient did not perform the activity before the current illness, exacerbation or injury. 10-Not Attempted due to Environmental Limitations-(lack of equipment, weather restraints, etc.). 88-Not Attempted due to Medical Conditions or Safety Concerns. Roll Left & Right (QC): 5 Sit to Lying (QC): 5 Lying to Sitting/Side of Bed(Q: 5 Sit to Stand (QC): 4 Gait Training Does the Patient Walk?: Yes Distance: 350' Walk 10 feet (QC): 5 Walk 50 ft with 2 Turns(QC): 5 Walk 150 ft (QC): 4 Gait Persons Needed: 1 Gait Assistive Device: FWW Treatments Pt TFs back to bed post treatment and all needs met as PT departs call light nearby. Assessment Current Status: Good Progress Pt becomes fatigued towards end and treatment. Pt required verbal cues for hand and foot placement during TFs. PT Counseling Case Manager Goals Counseling Case Manager Goals PT Counseling Case Manager Goals Time Frame: Jan 12, 2022 Roll Left & Right (QC): 6 Sit to Lying (QC): 6 Lying-Sitting on Side/Bed(QC): 6 Sit to Stand (QC): 6 Chair/Gbf-nz-Axubn Xfer(QC): 6 Toilet Transfer (QC): 6 Walk 10 feet (QC): 6 Walk 50ft with 2 Turns (QC): 6 Walk 150 ft (QC): 6 PT Plan Problem List Problem List: Activity Tolerance, Functional Strength Treatment/Plan Treatment Plan: Continue Plan of Care Treatment Plan: Bed Mobility, Education, Functional Activity Jovany, Functional Strength, Gait, Safety, Therapeutic Exercise, Transfers Treatment Duration: Jan 12, 2022 Frequency: 6 times per week Estimated Hrs Per Day: .25 hour per day Patient and/or Family Agrees t: Yes Safety Risks/Education Patient Education: Gait Training, Correct Positioning Teaching Recipient: Patient Teaching Methods: Discussion Response to Teaching: Return Demonstration Time/GCodes Time In: 0958 Time Out: 1010 Total Billed Treatment Time: 12 Total Billed Treatment 1, Ex IVETH RICHARDS SIDE DOOR WORKER Jan 02, 2022 11:16
--- NOTE | 2022-01-02 11:16 | Progress Note ---
NATY LUONG A MED STUDENT 01/02/22 1116: Subjective Date Seen by a Provider: Jan 02, 2022 Time Seen by a Provider: 08:15 Subjective/Events-last exam Pt lying in bed comfortably this morning. Reports his SOA has improved on HFNC at 3L. Baseline O2 is 2.5L. Pt has no concerns this morning. Review of Systems General: No Chills, No Fatigue HEENT: No Head Aches, No Visual Changes Pulmonary: Dyspnea; No Cough Cardiovascular: No: Chest Pain, Palpitations Gastrointestinal: No: Nausea, Vomiting Genitourinary: No Dysuria, No Frequency Musculoskeletal: No: neck pain, shoulder pain Neurological: No: Weakness, Numbness Focused Exam Lactate Level 12/31/21 06:55: Lactic Acid Level 1.88 Objective Exam Last Set of Vital Signs Vital Signs Date Time Temp Pulse Resp B/P (MAP) Pulse Ox O2 Delivery O2 Flow Rate FiO2 01/02/22 08:00 96 High Flow N/C 3.00 93 01/02/22 07:49 36.4 70 20 119/79 (92) Capillary Refill : I&O Intake and Output 01/02/22 00:00 Intake Total 1127 ml Output Total 1395 ml Balance -268 ml Intake Oral 1077 ml IV Total 50 ml Output Urine Total 1395 ml General: Alert, Oriented X3 HEENT: Atraumatic, PERRLA Neck: Supple, No JVD Lungs: Normal Air Movement, Other (crackles at bases bilaterally) Heart: Regular Rate, No Murmurs Abdomen: Normal Bowel Sounds, Soft Extremities: No Edema, Normal Pulses Skin: No Rashes, No Breakdown Neuro: Normal Speech, Normal Tone Psych/Mental Status: Mental Status NL Results Lab Laboratory Tests 01/01/22 15:38: Glucometer 225H 01/01/22 20:01: Glucometer 244H 01/02/22 05:24: Glucometer 112H 01/02/22 06:04: White Blood Count 13.3H, Red Blood Count 3.37L, Hemoglobin 10.1L, Hematocrit 31L , Mean Corpuscular Volume 91, Mean Corpuscular Hemoglobin 30, Mean Corpuscular Hemoglobin Concent 33, Red Cell Distribution Width 16.5H, Platelet Count 288, Mean Platelet Volume 9.6, Immature Granulocyte % (Auto) 1, Neutrophils (%) (Auto) 88H, Lymphocytes (%) (Auto) 6L, Monocytes (%) (Auto) 5, Eosinophils (%) (Auto) 0, Basophils (%) (Auto) 0, Neutrophils # (Auto) 11.7H, Lymphocytes # (Auto) 0.8L, Monocytes # (Auto) 0.7, Eosinophils # (Auto) 0.0, Basophils # (Auto) 0.0, Immature Granulocyte # (Auto) 0.1, Neutrophils % (Manual) 87, Lymphocytes % (Manual) 4, Monocytes % (Manual) 6, Band Neutrophils 3, Anisocytosis SLIGHT, Sodium Level 140, Potassium Level 3.3L, Chloride Level 101, Carbon Dioxide Level 24, Anion Gap 15H, Blood Urea Nitrogen 21H, Creatinine 0.99, Estimat Glomerular Filtration Rate 81, BUN/Creatinine Ratio 21, Glucose Level 91, Calcium Level 8.3L, Corrected Calcium 8.8, Magnesium Level 1.9, Total Bilirubin 0.8, Aspartate Amino Transf (AST/SGOT) 19, Alanine Aminotransferase (ALT/SGPT) 11, Alkaline Phosphatase 90, Total Protein 7.1, Albumin 3.4 01/02/22 10:48: Glucometer 182H Microbiology 12/31/21 MRSA Screen - Final, Complete MRSA not isolated 12/31/21 Blood Culture - Preliminary, Resulted No growth Assessment/Plan Assessment/Plan Assess & Plan/Chief Complaint Acute CHF exacerbation with pulmonary edema COPD exacerbation Recurrent pneumonia Anemia Afib on OAC Diabetes HTN Acute CHF exacerbation with pulmonary edema -Requiring 3L NC, baseline at home is 2.5L NC -Will need home O2 study at some point prior to d/c -Diuretics per cardiology management, appreciate their assistance COPD exacerbation -MAT protocol -Steroids likely caused increase in WBC -Encourage incentive spirometry Recurrent pneumonia -Azithromycin unitl 01/05 and Cefepime until 01/06 Anemia -Hgb stable Afib on OAC -Xarelto Diabetes -SSI HTN -Well controlled, continue to monitor Diet: Regular DVT prophylaxis: SCDs Will consider d/c tomorrow if medically stable. Clinical Quality Measures Admission Status Admission Dx Acute CHF exacerbation with pulmonary edema COPD exacerbation Recurrent pneumonia Anemia Afib on OAC Diabetes HTN Acute CHF exacerbation with pulmonary edema -BNP 9507.0 -Recent hospitalization 12/03/21-echo was done and was normal -Cardiology consulted, appreciate their recs -Lasix started -Troponin normal, less likely to be acute NC COPD exacerbation -Duoneb -CTA showed advanced emphysema, bilateral hilar lymphadenopathy, cardiomegaly and R. pleural effusion -CXR confirmed this -MAT protocol Recurrent pneumonia -Azithromycin and Cefepime -Encourage incentive spirometry Anemia -Hgb currently 9.8, will continue to monitor Afib on OAC -Rate controlled -On enoxaparin Diabetes -SSI HTN -Currently well controlled Diet: Regular DVT prophylaxis: Enoxaparin and SCDs DANIELLA SOTO DO 01/02/222112: Subjective Subjective/Events-last exam Pt is doing very well Walking around with PT Oxygen maintained at 3L, he wears 2.5 at home Lungs are much improved Evaluated cardiology consult and labs Review of Systems General: Fatigue, Malaise Objective Exam General: Alert, Oriented X3, Cooperative, No Acute Distress Lungs: Clear to Auscultation, Normal Air Movement Heart: Regular Rate, Normal S1, Normal S2, No Murmurs Psych/Mental Status: Mental Status NL, Mood NL Assessment/Plan Assessment/Plan Assess & Plan/Chief Complaint Ambulate O2 monitor closely Supervisory-Addendum Brief Verification & Attestation Participated in pt care: history, MDM, physical Personally performed: exam, history, MDM, supervision of care Care discussed with: Medical Student Procedures: n/a Results interpretation: Verified all documentation Verification and Attestation of Medical Student E/M Service A medical student performed and documented this service in my presence. I reviewed and verified all information documented by the medical student and made modifications to such information, when appropriate. I personally performed the physical exam and medical decision making. Daniella Soto, Jan 02, 2022,21:12 NATY LUONG MED STUDENT Jan 02, 2022 11:16 DANIELLA SOTO DO Jan 02, 2022 21:13
--- NOTE | 2022-01-02 11:18 | Pulmonary Progress Note ---
Subjective Date Seen by a Provider: Jan 02, 2022 Time Seen by a Provider: 11:40 Subjective/Events-last exam Patient today is in no acute distress while using oxygen. He is not wheezing. Hemodynamically stable and diuresing well with the IV Lasix. He is afebrile. Leg swelling is improving Review of Systems ROS PER RN Sepsis Event Evaluation Height, Weight, BMI Height: 5'11.00" Weight: 217lbs. 4.0oz. 98.136980av; 26.14 BMI Method:Stated Focused Exam Lactate Level 12/31/21 06:55: Lactic Acid Level 1.88 Exam Exam Patient acknowledged, consented, and participated in this virtual visit which was conducted using real time audio/video Vital Signs Date Time Temp Pulse Resp B/P (MAP) Pulse Ox O2 Delivery O2 Flow Rate FiO2 01/02/22 08:00 96 High Flow N/C 3.00 93 01/02/22 07:49 36.4 70 20 119/79 (92) 96 Room Air 01/02/22 07:38 95 Nasal Cannula 4.00 01/02/22 03:28 36.0 86 18 120/73 98 High Flow N/C 3.00 01/01/22 23:32 35.8 83 18 108/63 98 High Flow N/C 3.00 01/01/22 20:48 92 127/71 01/01/22 20:30 High Flow N/C 3.00 01/01/22 19:33 35.8 91 18 112/63 95 High Flow N/C 3.00 01/01/22 19:26 94 Nasal Cannula 4.00 01/01/22 16:12 95 Nasal Cannula 4.00 01/01/22 15:54 35.9 81 18 113/66 95 High Flow N/C 4.00 01/01/22 13:45 High Flow N/C 3.00 01/01/22 13:35 35.9 79 20 121/77 95 Nasal Cannula 3.00 01/01/22 12:00 High Flow N/C 3.00 01/01/22 11:44 35.8 I & O 01/02/22 07:00 Intake Total 1377 ml Output Total 1550 ml Balance -173 ml Height & Weight Height: 5'11.00" Weight: 217lbs. 4.0oz. 98.800507yo; 26.14 BMI Method:Stated General Appearance: WD/WN, Anxious, Chronically ill, Mild Distress HEENT: PERRL/EOMI, Normal ENT Inspection, Pharynx Normal Neck: Full Range of Motion, Normal Inspection, Non Tender, Supple, Carotid Bruit Respiratory: Chest Non Tender, No Accessory Muscle Use, No Respiratory Distress, Decreased Breath Sounds, Rales, Wheezing Cardiovascular: Regular Rate, Rhythm, No Edema, No Gallop, No JVD, No Murmur, Normal Peripheral Pulses Peripheral Pulses: 2+ Radial Pulses (R), 2+ Radial Pulses (L) Extremity: Normal Capillary Refill, Normal Inspection, Normal Range of Motion, Non Tender, No Calf Tenderness, No Pedal Edema Neurologic/Psychiatric: Alert, Oriented x3, No Motor/Sensory Deficits, Normal Mood/Affect Skin: Normal Color, Warm/Dry Lymphatic: No Adenopathy Other comments PE PER RN Results Lab Laboratory Tests 01/01/22 05:00 01/02/22 06:04 Assessment/Plan Assessment/Plan 1. His exertional dyspnea and chronic respiratory failure is due to a combination of chronic congestive heart failure, interstitial lung disease and possibly underlying COPD which may be predisposing her to recurrent pneumonias and and acute exacerbation of congestive heart failure in a patient with chronic atrial fibrillation. 2. Type 2 diabetes mellitus 3. Pulmonary hypertension probably due to underlying interstitial lung disease and COPD. Recommendations 1. 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 2. Will add air duo 1 puff twice a day in addition to albuterol nebulizer treatment as well as inhaler and continue home oxygen to keep o2 sat >92%.. 3. wean solu-medrol 4. Advised her to go ahead and see any palliative care specialist and to take the current chest x-rays and CT scan of the chest images for his perusal. 4. Advised to get a complete pulmonary function test when he is stable 5. Pulmonary rehab once he is stable. 6. I have discussed with the patient's and patient in detail and he appreciated the input. 7. Advised him to get a flu shot he is very fall season and pneumococcal vaccine every 10 years. Critical Care: Critically Ill Patient Time spent with patient (mins): 15 ROBERTO NAGY MD Jan 02, 2022 11:18
[2022-01-02 11:29] VITALS: BP 119/71
[2022-01-02] MEDS ORDERED: KCL 20 MEQ TAB (K-DUR) PO ONE (14:00)
[2022-01-02 15:47] VITALS: BP 116/72
--- NOTE | 2022-01-02 15:58 | Physician Query Clarification ---
Physician Query-General Query to Physician: The medical record reflects the following clinical scenario: The patient, in the setting of History/Risk factors; history of COPD O2 dependent on 3 L continuous per documentation, Chronic CHF Clinical indicators Admission ABG with pH 7.48, PCO2 31, PO2 62 on 6 L,(P/F=141) respiratory rate 24 on admission highest rate of 55 frequently in the 30s and 40s nursing documentation of shortness of air at rest and with exertion on admission Treatment supplemental O2 as high as 6 L, breathing Rx, IV antibiotics, IV Lasix,. IV steroids Question: Do you agree with the impression of Acute respiratory failure and chronic respiratory failure per Dr. Asher Vidal and Dr. Carolyn Calderon? 1. Yes; will document acute on chronic respiratory failure, present on admission in the Progress Notes 2. No; will continue current documentation in the Progress Notes 3. Other; will document explanation of clinical findings 4. Clinically undetermined; no explanation for clinical findings Please clarify and document your clinical opinion in the Progress Notes and Discharge Summary including the definitive and/or presumptive diagnosis, (suspected or probable), related to the above clinical findings. Please include clinical findings supporting your diagnosis. In responding to this query, please exercise your independent professional judgment. The purpose of this communication is to more accurately reflect the complexity of your patients condition. The fact that a question is asked does not imply that any particular answer is desired or expected. Thank you for timely response to this clarification. Savannah Park RN, MSN Clinical Area Sales Manager [phone] [email or web address] PHYSICIAN RESPONSE: Based on the clinical findings in the record, please respond to the query above on this document as an addendum. Physician Response: Physician Response yes If you have questions please contact: [employer] Director: Ext: Thank you for your time and cooperation. Clinical Area Sales Manager/[employer] Director This is a permanent part of the medical record SAVANNAH PARK Jan 02, 2022 15:58 LISSET SOTO DO Jan 02, 2022 20:52
--- NOTE | 2022-01-02 16:11 | Progress Note - Cardiology ---
Cardiology SOAP Progress Note Subjective: Shortness of breath is improving No cp or palp or syncope Gen weakness and malaise present - improving No n/v/d Objective: I&O/Vital Signs 01/02/22 01/02/22 01/02/22 01/02/22 07:38 07:49 08:00 11:29 Temp 36.4 36.2 Pulse 70 88 Resp 20 18 B/P (MAP) 119/79 (92) 119/71 (87) Pulse Ox 95 96 96 95 O2 Delivery Nasal Cannula Room Air High Flow N/C Nasal Cannula O2 Flow Rate 4.00 3.00 3.00 FiO2 93 01/02/22 15:47 Temp 36.4 Pulse 85 Resp 19 B/P (MAP) 116/72 (87) Pulse Ox 98 O2 Delivery Nasal Cannula O2 Flow Rate 3.00 01/02/22 00:00 Intake Total 650 ml Output Total 675 ml Balance -25 ml Weight (Pounds): 217 Weight (Ounces): 4.0 Weight (Calculated Kilograms): 98.884691 Constitutional: AAO x 3, well-developed, well-nourished Respiratory: No accessory muscle use, No respiratory distress; other (diminished throughout with scattered rhonchi) Cardiovascular: irregularly irregular; No JVD; S1 and S2 Gastrointestional: No tender; soft, round, audible bowel sounds Extremities: no lower extremity edema bilateral Neurologic/Psychiatric: grossly intact (moves all extremities) Skin: No rash on exposed areas, No ulcerations on exposed areas Results/Procedures: Labs Laboratory Tests 01/01/22 20:01: Glucometer 244H 01/02/22 05:24: Glucometer 112H 01/02/22 06:04: White Blood Count 13.3H, Red Blood Count 3.37L, Hemoglobin 10.1L, Hematocrit 31L , Mean Corpuscular Volume 91, Mean Corpuscular Hemoglobin 30, Mean Corpuscular Hemoglobin Concent 33, Red Cell Distribution Width 16.5H, Platelet Count 288, Mean Platelet Volume 9.6, Immature Granulocyte % (Auto) 1, Neutrophils (%) (Auto) 88H, Lymphocytes (%) (Auto) 6L, Monocytes (%) (Auto) 5, Eosinophils (%) (Auto) 0, Basophils (%) (Auto) 0, Neutrophils # (Auto) 11.7H, Lymphocytes # (Auto) 0.8L, Monocytes # (Auto) 0.7, Eosinophils # (Auto) 0.0, Basophils # (Auto) 0.0, Immature Granulocyte # (Auto) 0.1, Neutrophils % (Manual) 87, Lymphocytes % (Manual) 4, Monocytes % (Manual) 6, Band Neutrophils 3, Anisocytosis SLIGHT, Sodium Level 140, Potassium Level 3.3L, Chloride Level 101, Carbon Dioxide Level 24, Anion Gap 15H, Blood Urea Nitrogen 21H, Creatinine 0.99, Estimat Glomerular Filtration Rate 81, BUN/Creatinine Ratio 21, Glucose Level 91, Calcium Level 8.3L, Corrected Calcium 8.8, Magnesium Level 1.9, Total Bilirubin 0.8, Aspartate Amino Transf (AST/SGOT) 19, Alanine Aminotransferase (ALT/SGPT) 11, Alkaline Phosphatase 90, Total Protein 7.1, Albumin 3.4 01/02/22 10:48: Glucometer 182H 01/02/22 15:53: Glucometer 131H Microbiology 12/31/21 MRSA Screen - Final, Complete MRSA not isolated 12/31/21 Blood Culture - Preliminary, Resulted No growth Laboratory Tests 01/01/22 05:00 01/02/22 06:04 A/P: Assessment: Multi-factorial progressive dyspnea (see below) - ac exac of COPD - probable reactive airways disease - pulmnary hypertension and cor pulmonale - ac on ch diastolic dysfunction of LV due to hypertensive cardiovascular disease - pt reports a cardiac that showed no significant CAD and normal LV function at [place], [place] within the last 2-3 years Chronic a-fib - rate controlled - OAC with Xarelto Echocardiogram of 12-03-[address] Alcaazr showed LVEF 55-60%. Biatrial enlargeme nt. Mild to mod MR. Mod TR. Grade 2 diastolic dysfunction. PASP 78 mmHg Intolerance/allergy to AKIL-inhib and ARB, per pt report (rash and hives). 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
[2022-01-02 19:43] VITALS: BP 128/81
[2022-01-02] MEDS: HYDROcodone/APAP 5 MG/325 MG (LORTAB) TAB PO PRN (21:13)
[2022-01-02] MEDS: LOSARTAN 100 MG (COZAAR) TABLET PO SCH (21:13)
[2022-01-02] MEDS: RIVAROXABAN 20 MG TABLET (XARELTO) PO SCH (21:13)
[2022-01-02] MEDS: TAMSULOSIN 0.4 MG (FLOMAX) CAP PO SCH (21:15)
[2022-01-02] MEDS: LACTULOSE SYRUP 10GM/15ML (ENULOSE) 30ML UDC PO SCH (21:15)
[2022-01-02] MEDS: TOLTERODINE LA 2 MG (DETROL LA) CAP PO SCH (21:15)
[2022-01-03] VITALS: BP 115/75
[2022-01-03] MEDS: CEFEPIME INJECTION 1,000 MG in NS (IVPB) 50 ML IV SCH ×2 (03:08→08:27)
[2022-01-03 04:00] VITALS: BP 122/64
[2022-01-03] MEDS: inSUlin ASPART (NovoLOG) 1 UNIT/0.01 ML (CHARGE PER UNIT) SC SCH ×2 (05:51→12:03)
[2022-01-03 06:37] LABS: BASOPHILS % (AUTO) 0 % (0-10); EOSINOPHILS % (AUTO) 0 % (0-10); HEMATOCRIT 31 % (40-54); HEMOGLOBIN 10.4 g/dL (13.3-17.7); LYMPHOCYTES # (AUTO) 0.9 10^3/uL (1.0-4.0); LYMPHOCYTES % (AUTO) 6 % (12-44); MEAN CORPUSCULAR HEMOGLOBIN 31 pg (25-34); MEAN CORPUSCULAR HGB CONC 33 g/dL (32-36); MEAN CORPUSCULAR VOLUME 92 fL (80-99); MEAN PLATELET VOLUME 9.3 fL (9.0-12.2); MONOCYTES # (AUTO) 0.5 10^3/uL (0.0-1.0); MONOCYTES % (AUTO) 4 % (0-12); NEUTROPHILS # (AUTO) 12.9 10^3/uL (1.8-7.8); NEUTROPHILS % (AUTO) 88 % (42-75); PLATELET COUNT 277 10^3/uL (130-400); WHITE BLOOD COUNT 14.6 10^3/uL (4.3-11.0)
[2022-01-03] MEDS: RT--FLUTICASONE/SALMETEROL 232-14 (AIRDUO RespiCLICK) IH SCH (06:37)
[2022-01-03 06:47] LABS: ALBUMIN 3.4 GM/DL (3.2-4.5); POTASSIUM 4.4 MMOL/L (3.6-5.0)
[2022-01-03 06:48] LABS: CALCIUM 8.3 MG/DL (8.5-10.1)
[2022-01-03 06:49] LABS: TOTAL PROTEIN 6.9 GM/DL (6.4-8.2)
[2022-01-03 06:51] LABS: BILIRUBIN,TOTAL 0.8 MG/DL (0.1-1.0)
[2022-01-03 06:53] LABS: CREATININE SERUM 1.04 MG/DL (0.60-1.30)
[2022-01-03 06:56] LABS: MAGNESIUM 1.8 MG/DL (1.6-2.4)
[2022-01-03] MEDS: KCL 20 MEQ TAB (K-DUR) PO SCH ×2 (07:28→08:26)
[2022-01-03] MEDS: methylPREDNISolone 125 MG (Solu-MEDROL) VIAL IVP SCH (08:25)
[2022-01-03] MEDS: DOCUSATE SODIUM 100 MG (COLACE) CAP PO SCH ×2 (08:26→08:28)
[2022-01-03] MEDS: cloNIDine 0.2 MG (CATAPRES) TAB PO SCH (08:26)
[2022-01-03] MEDS: metFORMIN 500 MG (GLUCOPHAGE) TAB PO SCH (08:26)
[2022-01-03] MEDS: ISOSORBIDE MONONITRATE 30 MG (IMDUR) TAB PO SCH (08:26)
[2022-01-03] MEDS: AZITHROMYCIN INJECTION 500 MG in NS (IVPB) 250 ML IV SCH (08:27)
[2022-01-03] MEDS: LACTULOSE SYRUP 10GM/15ML (ENULOSE) 30ML UDC PO SCH (08:27)
[2022-01-03 08:28] VITALS: BP 137/89
[2022-01-03] MEDS: SENNA W/DOCUSATE (SENOKOT S) TABLET PO SCH (08:28)
[2022-01-03] MEDS ORDERED: FUROSEMIDE 40 MG (LASIX) TAB PO SCH (09:00)
--- NOTE | 2022-01-03 11:07 | Pulmonary Progress Note ---
Subjective Date Seen by a Provider: Jan 03, 2022 Time Seen by a Provider: 11:02 Subjective/Events-last exam Patient with improvement in breathing and oxygen currently at 3L (baseline 2L). Edema significantly decreased on IV lasix. Started on air duo. Review of Systems General: No Chills, No Night Sweats, No Fatigue, No Malaise, No Appetite, No Other HEENT: No Head Aches, No Visual Changes, No Eye Pain, No Ear Pain, No Dysphasia, No Sinus Congestion, No Post Nasal Drip, No Sore Throat, No Other Pulmonary: No Dyspnea, No Cough, No Pleuritic Chest Pain, No Other Cardiovascular: Edema; No: Chest Pain, Palpitations, Orthopnea, Paroxysmal Noc. Dyspnea, Lt Headedness, Other Genitourinary: No Dysuria, No Frequency, No Incontinence, No Hematuria, No Retention, No Other Musculoskeletal: No: other, neck pain, shoulder pain, arm pain, back pain, hand pain, leg pain, foot pain Neurological: No: Weakness, Numbness, Incoordination, Change in speech, Confusion, Seizures, Other Sepsis Event Evaluation Height, Weight, BMI Height: 5'11.00" Weight: 217lbs. 4.0oz. 98.819484fw; 26.23 BMI Method:Stated Exam Exam Patient acknowledged, consented, and participated in this virtual visit which was conducted using real time audio/video Vital Signs Date Time Temp Pulse Resp B/P (MAP) Pulse Ox O2 Delivery O2 Flow Rate FiO2 01/03/22 08:28 36.3 89 19 137/89 (105) 95 Nasal Cannula 3.00 01/03/22 07:37 98 Nasal Cannula 3.00 01/03/22 06:37 93 Nasal Cannula 4.00 01/03/22 04:00 36.8 82 18 122/64 (83) 98 Nasal Cannula 3.00 01/03/22 00:00 36.8 80 18 115/75 (88) 98 Nasal Cannula 3.00 01/02/22 21:01 93 Nasal Cannula 4.00 01/02/22 20:25 98 Nasal Cannula 3.00 01/02/22 19:43 36.3 80 18 128/81 (97) 98 Nasal Cannula 3.00 01/02/22 15:47 36.4 85 19 116/72 (87) 98 Nasal Cannula 3.00 01/02/22 11:29 36.2 88 18 119/71 (87) 95 Nasal Cannula 3.00 I & O 01/03/22 07:00 Intake Total 1795 ml Output Total 1400 ml Balance 395 ml Height & Weight Height: 5'11.00" Weight: 217lbs. 4.0oz. 98.896963xm; 26.23 BMI Method:Stated General Appearance: WD/WN, Anxious, Chronically ill, Mild Distress HEENT: PERRL/EOMI, Normal ENT Inspection, Pharynx Normal Neck: Full Range of Motion, Normal Inspection, Non Tender, Supple, Carotid Bruit Respiratory: Chest Non Tender, No Accessory Muscle Use, No Respiratory Distress, Decreased Breath Sounds, Rales, Wheezing Cardiovascular: Regular Rate, Rhythm, No Edema, No Gallop, No JVD, No Murmur, Normal Peripheral Pulses Peripheral Pulses: 2+ Radial Pulses (R), 2+ Radial Pulses (L) Extremity: Normal Capillary Refill, Normal Inspection, Normal Range of Motion, Non Tender, No Calf Tenderness, No Pedal Edema Neurologic/Psychiatric: Alert, Oriented x3, No Motor/Sensory Deficits, Normal Mood/Affect Skin: Normal Color, Warm/Dry Lymphatic: No Adenopathy Results Lab Laboratory Tests 01/02/22 06:04 01/03/22 06:29 Assessment/Plan Assessment/Plan Dyspnea: improving. Likely 2/2 acute on chronic COPD exacerbation + heart failure. Pt notes difference with new inhaler. Will cont at this time. Cont to wean oxygen as tolerated. Recommend outpatient pulm followup for PFTs/CT chest. .D/C today CHIRSTOPHER COOK MD Jan 03, 2022 11:07
[2022-01-03] MEDS ORDERED: PRED10TA22 PO (11:18)
[2022-01-03] MEDS ORDERED: CEFD300C3 PO (11:18)
[2022-01-03] MEDS ORDERED: AZIT250T12 PO (11:18)
[2022-01-03] MEDS ORDERED: FLUT1AER5 IH (11:18)
--- NOTE | 2022-01-03 11:19 | Discharge Summary ---
Diagnosis/Chief Complaint Date of Admission Dec 31, 2021 at 09:25 Date of Discharge Discharge Date: Jan 03, 2022 Discharge Diagnosis Acute CHF exacerbation with pulmonary edema COPD exacerbation Recurrent pneumonia Anemia Afib on OAC Diabetes HTN Acute CHF exacerbation with pulmonary edema -BNP 9507.0 -Recent hospitalization 12/03/21-echo was done and was normal -Cardiology consulted, appreciate their recs -Lasix started -Troponin normal, less likely to be acute [place] COPD exacerbation -Duoneb -CTA showed advanced emphysema, bilateral hilar lymphadenopathy, cardiomegaly and R. pleural effusion -CXR confirmed this -MAT protocol Recurrent pneumonia -Azithromycin and Cefepime -Encourage incentive spirometry Anemia -Hgb currently 9.8, will continue to monitor Afib on OAC -Rate controlled -On enoxaparin Diabetes -SSI HTN -Currently well controlled Diet: Regular DVT prophylaxis: Enoxaparin and SCDs Discharge Summary Discharge Physical Examination Allergies: Coded Allergies: lisinopril (Verified Allergy, Severe, Anaphylaxis, 10/31/18) allopurinol (Verified Allergy, Unknown, Hives, 10/31/18) amlodipine (Verified Allergy, Unknown, swelling, PT STILL TAKES AT HOME, 12/03/21) hydralazine (Verified Allergy, Unknown, 10/31/18) levofloxacin (Verified Allergy, Unknown, Hallucinations, 10/31/18) Vitals & I&Os Vital Signs Date Time Temp Pulse Resp B/P (MAP) Pulse Ox O2 Delivery O2 Flow Rate FiO2 01/03/22 12:43 01/03/22 11:31 36.4 79 18 95 Nasal Cannula 3.00 01/02/22 08:00 93 General Appearance: Alert, Oriented X3, Cooperative Respiratory: Clear to Auscultation Cardiovascular: Regular Rate Neuro: Normal Gait, Normal Speech, Strength at 5/5 X4 Ext Psych/Mental Status: Mental Status NL Hospital Course Was the Problem List Reviewed?: Yes Mauro is a 71 yo male who presented to ED for SOA and increased lower extremity edema on 12/31. Pt has pmhx of HTN, Afib on OAC, CHF and COPD. Pt was last seen in hospital on November for acute CHF exacerbation, COPD exacerbation and severe sepsis d/t pneumonia. Pt reports he was on 2.5L of oxygen at home.. In the ED pt was found to have an ABG of 7.48/31/62, BNP of 9507.0 and Hgb of 9.8. Pt was given duoneb, lasix and decadron in ED. Pt was admitted to ICU for suspected acute CHF exacerbation and pulmonary edema and was started on cefepime and azithromycin and home meds were continued. Cardiology was consulted and they continued to recommend lasix. Pt was on 5L O2 on oxymask with adequate saturations and was eventually decreased to NC 3L. On 01/01 he was transferred to general medical floor. Pt worked with PT showing improvement in SOA with ambulation. Ambulatory oxygen study showed pt requiring 2L of oxygen. Pt was found to be medically stable for discharge. Will d/c with azithromycin 500 once daily x 3 days, cefdinir 300 BID x 3 days, prednisone taper and continue home medications as listed in d/c paperwork. Pt reports his PCP is Dr. Hill, densitometrist is Dr. James of [place] and Auto Claims Adjuster is Dr. Gray of [place]. Recommend f/u with PCP in 1 week. [facility] [employer] Labs (last 24 hrs) Laboratory Tests 12/31/21 05:00: Mean Blood Glucose 194H, Hemoglobin A1c 8.4H 12/31/21 06:43: White Blood Count 7.0, Red Blood Count 3.25L, Hemoglobin 9.8L, Hematocrit 30L, Mean Corpuscular Volume 91, Mean Corpuscular Hemoglobin 30, Mean Corpuscular Hemoglobin Concent 33, Red Cell Distribution Width 17.1H, Platelet Count 216, Mean Platelet Volume 9.3, Immature Granulocyte % (Auto) 2, Neutrophils (%) (Auto) 79H, Lymphocytes (%) (Auto) 8L, Monocytes (%) (Auto) 9, Eosinophils (%) (Auto) 2, Basophils (%) (Auto) 0, Neutrophils # (Auto) 5.5, Lymphocytes # (Auto) 0.6L, Monocytes # (Auto) 0.6, Eosinophils # (Auto) 0.2, Basophils # (Auto) 0.0, Immature Granulocyte # (Auto) 0.2H, Neutrophils % (Manual) 86, Lymphocytes % (Manual) 10, Monocytes % (Manual) 3, Eosinophils % (Manual) 1, Prothrombin Time 17.9H, INR Comment 1.4, Activated Partial Thromboplast Time 42H, D-Dimer 0.81H, Sodium Level 132L, Potassium Level 4.5, Chloride Level 98, Carbon Dioxide Level 23, Anion Gap 11, Blood Urea Nitrogen 19H, Creatinine 1.30, Estimat Glomerular Filtration Rate 59, BUN/Creatinine Ratio 15, Glucose Level 183H, Calcium Level 8.5, Corrected Calcium 8.7, Magnesium Level 1.6, Total Bilirubin 1.2H, Aspartate Amino Transf (AST/SGOT) 19, Alanine Aminotransferase (ALT/SGPT) 9, Alkaline Phosphatase 114, Troponin I < 0.30, C-Reactive Protein 8.01H, Pro-B-Type Natriuretic Peptide 9507.0H, Total Protein 7.2, Albumin 3.7 12/31/21 06:49: Influenza Type A (RT-PCR) Not Detected, Influenza Type B (RT-PCR) Not Detected, SARS-CoV-2 RNA (RT-PCR) Not Detected 12/31/21 06:55: Blood Gas Puncture Site RT RADIAL, Blood Gas Patient Temperature 37.1 C, Arterial Blood pH 7.48H, Arterial Blood Partial Pressure CO2 31L, Arterial Blood Partial Pressure O2 62L, Arterial Blood HCO3 23, Arterial Blood Total CO2 24.1, Arterial Blood Oxygen Saturation 93L, Arterial Blood Base Excess 0.3, Khalif Test OK, Blood Gas Ventilator Setting NO, Blood Gas Inspired Oxygen 6 LITERS, Lactic Acid Level 1.88 12/31/21 07:31: Urine Color YELLOW, Urine Clarity CLEAR, Urine pH 5.5, Urine Specific [place] 1.015L, Urine Protein NEGATIVE, Urine Glucose (UA) NEGATIVE, Urine Ketones NEGATIVE, Urine Nitrite NEGATIVE, Urine Bilirubin NEGATIVE, Urine Urobilinogen 1.0, Urine Leukocyte Esterase NEGATIVE, Urine RBC (Auto) NEGATIVE, Urine RBC NONE, Urine WBC RARE, Urine Squamous Epithelial Cells NONE, Urine Crystals NONE, Urine Bacteria NEGATIVE, Urine Casts PRESENT, Urine Hyaline Casts RARE, Urine Mucus NEGATIVE, Urine Culture Indicated NO 12/31/21 11:33: Glucometer 240H 12/31/21 15:40: Glucometer 356H 12/31/21 17:08: Glucometer 364H 12/31/21 20:35: Glucometer 374H 01/01/22 04:15: Blood Gas Puncture Site NOT INDICATED, Blood Gas Patient Temperature 36.0, Arterial Blood pH 7.44H, Arterial Blood Partial Pressure CO2 40, Arterial Blood Partial Pressure O2 67L, Arterial Blood HCO3 27, Arterial Blood Total CO2 28.6, Arterial Blood Oxygen Saturation 96, Arterial Blood Base Excess 3.3H, Khalif Test NA, Blood Gas Ventilator Setting NO, Blood Gas Inspired Oxygen 3L 01/01/22 05:00: White Blood Count 6.5, Red Blood Count 3.43L, Hemoglobin 10.3L, Hematocrit 31L, Mean Corpuscular Volume 91, Mean Corpuscular Hemoglobin 30, Mean Corpuscular Hemoglobin Concent 33, Red Cell Distribution Width 16.5H, Platelet Count 239, Mean Platelet Volume 9.7, Immature Granulocyte % (Auto) 2, Neutrophils (%) (Auto) 81H, Lymphocytes (%) (Auto) 12, Monocytes (%) (Auto) 5, Eosinophils (%) (Auto) 0, Basophils (%) (Auto) 0, Neutrophils # (Auto) 5.2, Lymphocytes # (Auto) 0.8L, Monocytes # (Auto) 0.3, Eosinophils # (Auto) 0.0, Basophils # (Auto) 0.0, Immature Granulocyte # (Auto) 0.1, Sodium Level 136, Potassium Level 3.2L, Chloride Level 100, Carbon Dioxide Level 22, Anion Gap 14, Blood Urea Nitrogen 20H, Creatinine 1.07, Estimat Glomerular Filtration Rate 74, BUN/Creatinine Ratio 19, Glucose Level 184H, Calcium Level 8.5, Corrected Calcium 8.9, Phosphorus Level 3.2, Magnesium Level 1.9, Total Bilirubin 1.0, Aspartate Amino Transf (AST/SGOT) 19, Alanine Aminotransferase (ALT/SGPT) 12, Alkaline Phosphatase 99, Total Protein 7.4, Albumin 3.5 01/01/22 10:29: Glucometer 216H 01/01/22 15:38: Glucometer 225H 01/01/22 20:01: Glucometer 244H 01/02/22 05:24: Glucometer 112H 01/02/22 06:04: White Blood Count 13.3H, Red Blood Count 3.37L, Hemoglobin 10.1L, Hematocrit 31L , Mean Corpuscular Volume 91, Mean Corpuscular Hemoglobin 30, Mean Corpuscular Hemoglobin Concent 33, Red Cell Distribution Width 16.5H, Platelet Count 288, Mean Platelet Volume 9.6, Immature Granulocyte % (Auto) 1, Neutrophils (%) (Auto) 88H, Lymphocytes (%) (Auto) 6L, Monocytes (%) (Auto) 5, Eosinophils (%) (Auto) 0, Basophils (%) (Auto) 0, Neutrophils # (Auto) 11.7H, Lymphocytes # (Auto) 0.8L, Monocytes # (Auto) 0.7, Eosinophils # (Auto) 0.0, Basophils # (Auto) 0.0, Immature Granulocyte # (Auto) 0.1, Neutrophils % (Manual) 87, Lymphocytes % (Manual) 4, Monocytes % (Manual) 6, Band Neutrophils 3, Anisocytosis SLIGHT, Sodium Level 140, Potassium Level 3.3L, Chloride Level 101, Carbon Dioxide Level 24, Anion Gap 15H, Blood Urea Nitrogen 21H, Creatinine 0.99, Estimat Glomerular Filtration Rate 81, BUN/Creatinine Ratio 21, Glucose Level 91, Calcium Level 8.3L, Corrected Calcium 8.8, Magnesium Level 1.9, Total Bilirubin 0.8, Aspartate Amino Transf (AST/SGOT) 19, Alanine Aminotransferase (ALT/SGPT) 11, Alkaline Phosphatase 90, Total Protein 7.1, Albumin 3.4 01/02/22 10:48: Glucometer 182H 01/02/22 15:53: Glucometer 131H 01/02/22 20:25: Glucometer 142H 01/03/22 05:46: Glucometer 88 01/03/22 06:29: White Blood Count 14.6H, Red Blood Count 3.40L, Hemoglobin 10.4L, Hematocrit 31L , Mean Corpuscular Volume 92, Mean Corpuscular Hemoglobin 31, Mean Corpuscular Hemoglobin Concent 33, Red Cell Distribution Width 16.8H, Platelet Count 277, Mean Platelet Volume 9.3, Immature Granulocyte % (Auto) 2, Neutrophils (%) (Auto) 88H, Lymphocytes (%) (Auto) 6L, Monocytes (%) (Auto) 4, Eosinophils (%) (Auto) 0, Basophils (%) (Auto) 0, Neutrophils # (Auto) 12.9H, Lymphocytes # (Auto) 0.9L, Monocytes # (Auto) 0.5, Eosinophils # (Auto) 0.0, Basophils # (Auto) 0.0, Immature Granulocyte # (Auto) 0.2H, Sodium Level 135, Potassium Level 4.4, Chloride Level 101, Carbon Dioxide Level 22, Anion Gap 12, Blood Urea Nitrogen 25H, Creatinine 1.04, Estimat Glomerular Filtration Rate 77, BUN/Creati nine Ratio 24, Glucose Level 89, Calcium Level 8.3L, Corrected Calcium 8.8, Magnesium Level 1.8, Total Bilirubin 0.8, Aspartate Amino Transf (AST/SGOT) 24, Alanine Aminotransferase (ALT/SGPT) 16, Alkaline Phosphatase 81, Total Protein 6.9, Albumin 3.4 01/03/22 11:25: Glucometer 174H Microbiology 12/31/21 MRSA Screen - Final, Complete MRSA not isolated 12/31/21 Blood Culture - Preliminary, Resulted No growth Pending Labs Microbiology Date/Time Source Procedure Growth Status 12/31/21 09:35 Nasal MRSA Screen - Final MRSA not isolated Complete 12/31/21 07:05 Peripheral Not Otherwise Specified Blood Culture - Preliminary No growth Resulted 12/31/21 06:55 Peripheral Rt Ac Blood Culture - Preliminary No growth Resulted Laboratory Tests 12/31/21 05:00: Mean Blood Glucose 194, Hemoglobin A1c 8.4 12/31/21 06:43: White Blood Count 7.0, Red Blood Count 3.25, Hemoglobin 9.8, Hematocrit 30, Mean Corpuscular Volume 91, Mean Corpuscular Hemoglobin 30, Mean Corpuscular Hemoglo bin Concent 33, Red Cell Distribution Width 17.1, Platelet Count 216, Mean Platelet Volume 9.3, Immature Granulocyte % (Auto) 2, Neutrophils (%) (Auto) 79, Lymphocytes (%) (Auto) 8, Monocytes (%) (Auto) 9, Eosinophils (%) (Auto) 2, Basophils (%) (Auto) 0, Neutrophils # (Auto) 5.5, Lymphocytes # (Auto) 0.6, Monocytes # (Auto) 0.6, Eosinophils # (Auto) 0.2, Basophils # (Auto) 0.0, Im mature Granulocyte # (Auto) 0.2, Neutrophils % (Manual) 86, Lymphocytes % (Manual) 10, Monocytes % (Manual) 3, Eosinophils % (Manual) 1, Prothrombin Time 17.9, INR Comment 1.4, Activated Partial Thromboplast Time 42, D-Dimer 0.81, Sodium Level 132, Potassium Level 4.5, Chloride Level 98, Carbon Dioxide Level 23, Anion Gap 11, Blood Urea Nitrogen 19, Creatinine 1.30, Estimat Glomerular Filtration Rate 59, BUN/Creatinine Ratio 15, Glucose Level 183, Calcium Level 8.5, Corrected Calcium 8.7, Magnesium Level 1.6, Total Bilirubin 1.2, Aspartate Amino Transf (AST/SGOT) 19, Alanine Aminotransferase (ALT/SGPT) 9, Alkaline Phosphatase 114, Troponin I < 0.30, C-Reactive Protein 8.01, Pro-B-Type Natriuretic Peptide 9507.0, Total Protein 7.2, Albumin 3.7 12/31/21 06:49: Influenza Type A (RT-PCR) Not Detected, Influenza Type B (RT-PCR) Not Detected, SARS-CoV-2 RNA (RT-PCR) Not Detected 12/31/21 06:55: Blood Gas Puncture Site RT RADIAL, Blood Gas Patient Temperature 37.1 C, Arteria l Blood pH 7.48, Arterial Blood Partial Pressure CO2 31, Arterial Blood Partial Pressure O2 62, Arterial Blood HCO3 23, Arterial Blood Total CO2 24.1, Arterial Blood Oxygen Saturation 93, Arterial Blood Base Excess 0.3, Khalif Test OK, Blood Gas Ventilator Setting NO, Blood Gas Inspired Oxygen 6 LITERS, Lactic Acid Level 1.88 12/31/21 07:31: Urine Color YELLOW, Urine Clarity CLEAR, Urine pH 5.5, Urine Specific [place] 1.015, Urine Protein NEGATIVE, Urine Glucose (UA) NEGATIVE, Urine Ketones NEGATIVE, Urine Nitrite NEGATIVE, Urine Bilirubin NEGATIVE, Urine Urobilinogen 1.0, Urine Leukocyte Esterase NEGATIVE, Urine RBC (Auto) NEGATIVE, Urine RBC NONE, Urine WBC RARE, Urine Squamous Epithelial Cells NONE, Urine Crystals NONE, Urine Bacteria NEGATIVE, Urine Casts PRESENT, Urine Hyaline Casts RARE, Urine Mucus NEGATIVE, Urine Culture Indicated NO 12/31/21 11:33: Glucometer 240 12/31/21 15:40: Glucometer 356 12/31/21 17:08: Glucometer 364 12/31/21 20:35: Glucometer 374 01/01/22 04:15: Blood Gas Puncture Site NOT INDICATED, Blood Gas Patient Temperature 36.0, Arterial Blood pH 7.44, Arterial Blood Partial Pressure CO2 40, Arterial Blood Partial Pressure O2 67, Arterial Blood HCO3 27, Arterial Blood Total CO2 28.6, Arterial Blood Oxygen Saturation 96, Arterial Blood Base Excess 3.3, Khalif Test NA, Blood Gas Ventilator Setting NO, Blood Gas Inspired Oxygen 3L 01/01/22 05:00: White Blood Count 6.5, Red Blood Count 3.43, Hemoglobin 10.3, Hematocrit 31, Mean Corpuscular Volume 91, Mean Corpuscular Hemoglobin 30, Mean Corpuscular Hemoglobin Concent 33, Red Cell Distribution Width 16.5, Platelet Count 239, Mean Platelet Volume 9.7, Immature Granulocyte % (Auto) 2, Neutrophils (%) (Auto) 81, Lymphocytes (%) (Auto) 12, Monocytes (%) (Auto) 5, Eosinophils (%) (Auto) 0, Basophils (%) (Auto) 0, Neutrophils # (Auto) 5.2, Lymphocytes # (Auto) 0.8, Monocytes # (Auto) 0.3, Eosinophils # (Auto) 0.0, Basophils # (Auto) 0.0, Immature Granulocyte # (Auto) 0.1, Sodium Level 136, Potassium Level 3.2, Chloride Level 100, Carbon Dioxide Level 22, Anion Gap 14, Blood Urea Nitrogen 20, Creatinine 1.07, Estimat Glomerular Filtration Rate 74, BUN/Creatinine Ratio 19, Glucose Level 184, Calcium Level 8.5, Corrected Calcium 8.9, Phosphorus Level 3.2, Magnesium Level 1.9, Total Bilirubin 1.0, Aspartate Amino Transf (AST/SGOT) 19, Alanine Aminotransferase (ALT/SGPT) 12, Alkaline Phosphatase 99, Total Protein 7.4, Albumin 3.5 01/01/22 10:29: Glucometer 216 01/01/22 15:38: Glucometer 225 01/01/22 20:01: Glucometer 244 01/02/22 05:24: Glucometer 112 01/02/22 06:04: White Blood Count 13.3, Red Blood Count 3.37, Hemoglobin 10.1, Hematocrit 31, Mean Corpuscular Volume 91, Mean Corpuscular Hemoglobin 30, Mean Corpuscular Hemoglobin Concent 33, Red Cell Distribution Width 16.5, Platelet Count 288, Mean Platelet Volume 9.6, Immature Granulocyte % (Auto) 1, Neutrophils (%) (Auto) 88, Lymphocytes (%) (Auto) 6, Monocytes (%) (Auto) 5, Eosinophils (%) (Au to) 0, Basophils (%) (Auto) 0, Neutrophils # (Auto) 11.7, Lymphocytes # (Auto) 0.8, Monocytes # (Auto) 0.7, Eosinophils # (Auto) 0.0, Basophils # (Auto) 0.0, Immature Granulocyte # (Auto) 0.1, Neutrophils % (Manual) 87, Lymphocytes % (Manual) 4, Monocytes % (Manual) 6, Band Neutrophils 3, Anisocytosis SLIGHT, Sodium Level 140, Potassium Level 3.3, Chloride Level 101, Carbon Dioxide Level 24, Anion Gap 15, Blood Urea Nitrogen 21, Creatinine 0.99, Estimat Glomerular Filtration Rate 81, BUN/Creatinine Ratio 21, Glucose Level 91, Calcium Level 8.3, Corrected Calcium 8.8, Magnesium Level 1.9, Total Bilirubin 0.8, Aspartate Amino Transf (AST/SGOT) 19, Alanine Aminotransferase (ALT/SGPT) 11, Alkaline Phosphatase 90, Total Protein 7.1, Albumin 3.4 01/02/22 10:48: Glucometer 182 01/02/22 15:53: Glucometer 131 01/02/22 20:25: Glucometer 142 01/03/22 05:46: Glucometer 88 01/03/22 06:29: White Blood Count 14.6, Red Blood Count 3.40, Hemoglobin 10.4, Hematocrit 31, Mean Corpuscular Volume 92, Mean Corpuscular Hemoglobin 31, Mean Corpuscular Hemoglobin Concent 33, Red Cell Distribution Width 16.8, Platelet Count 277, Mean Platelet Volume 9.3, Immature Granulocyte % (Auto) 2, Neutrophils (%) (Auto) 88, Lymphocytes (%) (Auto) 6, Monocytes (%) (Auto) 4, Eosinophils (%) (Auto) 0, Basophils (%) (Auto) 0, Neutrophils # (Auto) 12.9, Lymphocytes # (Auto) 0.9, Monocytes # (Auto) 0.5, Eosinophils # (Auto) 0.0, Basophils # (Auto) 0.0, Immature Granulocyte # (Auto) 0.2, Sodium Level 135, Potassium Level 4.4, Chloride Level 101, Carbon Dioxide Level 22, Anion Gap 12, Blood Urea Nitrogen 25, Creatinine 1.04, Estimat Glomerular Filtration Rate 77, BUN/Creatinine Ratio 24, Glucose Level 89, Calcium Level 8.3, Corrected Calcium 8.8, Magnesium Level 1.8, Total Bilirubin 0.8, Aspartate Amino Transf (AST/SGOT) 24, Alanine Aminotransferase (ALT/SGPT) 16, Alkaline Phosphatase 81, Total Protein 6.9, Albumin 3.4 01/03/22 11:25: Glucometer 174 Discharge Home Medications: Active Scripts Active Cefdinir 300 Mg Capsule 300 Mg PO BID Azithromycin 250 Mg Tablet 250 Mg PO DAILY Prednisone 10 Mg Tab.ds.pk 10 Mg PO DAILY Take 4 tabs(40mg)daily,decrease by 1 tab(10MG)daily. Fluticasone-Salmeterol 232-14 (Fluticasone/Salmeterol) 232 Mcg-14 Mcg/Actuation Aer.pow.ba 0 Each IH RTBID BID. If needs prior auth please contact Dr Hill Reported Ventolin Hfa (Albuterol Sulfate) 1 Puff Puff 2 Puff INH Q4H PRN 1 PUFF = 90 MCG ALPRAZolam 0.25 Mg Tablet 0.25 Mg PO TID PRN Iprat-Albut 0.5-3(2.5) mg/3 ml (Ipratropium/Albuterol Sulfate) 0.5 Mg-3 Mg (2.5 Mg Base)/3 Ml Ampul.neb 3 Ml NEB Q6H PRN Docusate Sodium 100 Mg Capsule 100 Mg PO DAILY Mucinex (Guaifenesin) 600 Mg Tab.er.12h 600 Mg PO Q12H PRN Tylenol Extra Strength (Acetaminophen) 500 Mg Tablet 1,000 Mg PO Q8H PRN Amlodipine Besylate 5 Mg Tablet 5 Mg PO HS Bumetanide 1 Mg Tablet 2 Mg PO DAILY TAKES 2 (1MG) TABS Carvedilol 25 Mg Tablet 25 Mg PO BID Isosorbide Mononitrate ER (Isosorbide Mononitrate) 30 Mg Tab.er.24h 30 Mg PO D AILY Losartan Potassium 100 Mg Tablet 100 Mg PO HS Xarelto Tablet (Rivaroxaban) 20 Mg Tablet 20 Mg PO HS Metformin HCl 1,000 Mg Tablet 1,000 Mg PO BID WITH MEALS Tolterodine Tartrate ER (Tolterodine Tartrate) 4 Mg Cap.er.24h 4 Mg PO HS Tramadol HCl 50 Mg Tablet 100 Mg PO Q6H PRN TAKES 2 (50MG) TABS Gabapentin 600 Mg Tablet 600 Mg PO TID PRN Potassium Chloride 20 Meq Tab.er.prt 20 Meq PO DAILY Clonidine HCl 0.2 Mg Tablet 0.2 Mg PO BID Flomax (Tamsulosin HCl) 0.4 Mg Cap 0.4 Mg PO HS Instructions to patient/family Please see electronic discharge instructions given to patient. Diagnosis/Problems Diagnosis/Problems (1) COPD with hypoxia Status: Chronic (2) Congestive heart failure Status: Acute (3) Pulmonary hypertension Status: Acute (4) Primary hypertension Status: Chronic (5) Diabetes Status: Chronic (6) Mitral regurgitation (7) Permanent atrial fibrillation Status: Chronic (8) Recurrent pneumonia Status: Acute (9) Pneumonia Status: Acute (10) Pulmonary edema Status: Acute Qualifiers: Qualified Codes: J81.0 - Acute pulmonary edema LISSET SOTO DO Jan 03, 2022 11:18
[2022-01-03 11:31] VITALS: BP 128/77
--- NOTE | 2022-01-03 12:07 | Progress Note ---
NATY LUONG MED STUDENT 01/03/22 1207: Progress Note Mauro is a 71 yo male who presented to ED for SOA and increased lower extremity edema on 12/31. Pt has pmhx of HTN, Afib on OAC, CHF and COPD. Pt was last seen in hospital on November for acute CHF exacerbation, COPD exacerbation and severe sepsis d/t pneumonia. Pt reports he was on 2.5L of oxygen at home.. In the ED pt was found to have an ABG of 7.48//62, BNP of 9507.0 and Hgb of 9.8. Pt was given duoneb, lasix and decadron in ED. Pt was admitted to ICU for suspected acute CHF exacerbation and pulmonary edema and was started on cefepime and azithromycin and home meds were continued. Cardiology was consulted and they continued to recommend lasix. Pt was on 5L O2 on oxymask with adequate saturations and was eventually decreased to NC 3L. On 01/01 he was transferred to general medical floor. Pt worked with PT showing improvement in SOA with ambulation. Ambulatory oxygen study showed pt requiring 2L of oxygen. Pt was found to be medically stable for discharge. Will d/c with azithromycin 500 once daily x 3 days, cefdinir 300 BID x 3 days, prednisone taper and continue home medications as listed in d/c paperwork. Pt reports his PCP is Dr. Hill, nail specialist is Dr. James of [place] and Receiving Weigher is Dr. Gray of [place]. Recommend f/u with PCP in 1 week. DANIELLA SOTO DO 01/03/222025: Supervisory-Addendum Brief Verification & Attestation Participated in pt care: history, MDM, physical Personally performed: exam, history, MDM, supervision of care Care discussed with: Medical Student Procedures: n/a Results interpretation: Verified all documentation Verification and Attestation of Medical Student E/M Service A medical student performed and documented this service in my presence. I reviewed and verified all information documented by the medical student and made modifications to such information, when appropriate. I personally performed the physical exam and medical decision making. Daniella Soto, Jan 03, 2022,20:26 NATY LUONG MED STUDENT Jan 03, 2022 12:07 DANIELLA SOTO DO Jan 03, 2022 20:26
== END 2022-01-03 12:45 | disposition home or self-care (01) | DRG 291 ==
LOC: EDUNIT# 06:24 → ER FS 06:34 → ICU 09:25 → 4TH 01-01 13:24
PROVIDERS: ADMIT Internal Medicine; ATTEND Internal Medicine
DX: I11.0 Hypertensive heart disease with heart failure (principal); I50.33 Acute on chronic diastolic (congestive) heart failure; J18.9 Pneumonia, unspecified organism; J96.21 Acute and chronic respiratory failure with hypoxia; I48.21 Permanent atrial fibrillation; I42.9 Cardiomyopathy, unspecified; J43.9 Emphysema, unspecified; I27.20 Pulmonary hypertension, unspecified; Z20.822 Contact with and (suspected) exposure to COVID-19; E11.40 Type 2 diabetes mellitus with diabetic neuropathy, unspecified; I08.1 Rheumatic disorders of both mitral and tricuspid valves; K59.00 Constipation, unspecified; D64.9 Anemia, unspecified; Z99.81 Dependence on supplemental oxygen; Z79.01 Long term (current) use of anticoagulants; Z79.84 Long term (current) use of oral hypoglycemic drugs; Z79.52 Long term (current) use of systemic steroids; Z88.1 Allergy status to other antibiotic agents
CPT/HCPCS: 36415; 71045; 71275; 80053; 81000; 82805; 82947; 83036; 83605; 83735; 83880; 84100; 84484; 85007; 85025; 85027; 85379; 85610; 85730; 86141; 87040; 87081; 87636; 93005; 93041; 94640; 94664; 94760; 94761; Q9967

== ENCOUNTER 2022-01-20 03:37 | Inpatient (IN) | payer MEDICARE ==
[~2022-01-20] VITALS: Ht 180.3 cm; Wt 83.3 kg
[~2022-01-20 03:37] MED LIST changes: +ALPR0.254 PO; +CEFD300C3 PO; +FLUT1AER5 IH
[2022-01-20 03:58] LABS: ABG BASE EXCESS -1.6 MMOL/L (-2.5-2.5); ABG OXYGEN SATURATION 99 % (94-100); ABG PCO2 34 MMHG (35-45); ABG PH 7.43 (7.37-7.43); ABG PO2 233 MMHG (79-93); ABG TCO2 23.1 MMOL/L (21.0-31.0); ALLENS TEST YES-POS; INSPIRED O2 15; PATIENT TEMP 37.4; VENTILATOR NO
--- NOTE | 2022-01-20 04:03 | ED Respiratory ---
General Stated Complaint: RESP. DISTRESS Source: patient (VERY POOR HISTORIAN ), EMS, old records History of Present Illness Date Seen by Provider: Jan 20, 2022 Time Seen by Provider: 03:39 Initial Comments PT ARRIVES VIA [facility] FROM HOME IN [place], BYPASSING [place] [facility]. PT WITH SHORTNESS OF BREATH SINCE 0100 THIS AM EMS REPORT O2 SATS IN 60'S INITIALLY EMS PLACED PT ON CPAP, HAVE GIVEN HIM LASIX 40 MG, 125 MG SOLU-MEDROL AND GIVEN AN ALBUTEROL NEB TREATMENT AND A DUO NEB TREATMENT PRIOR TO ARRIVAL O2 SATS IN 90'S ON ARRIVAL, ON CPAP PT REPORTED TO EMS THAT HE HAS "FELT FULL" AND HIS LEGS HAVE HAD INCREASED SWELLING THE LAST COUPLE OF DAYS. DOES NOT KNOW IF HE USED HIS INHALER OR NEBULIZER BEFORE EMS ARRIVED. PT DENIES CHEST PAIN OR PAIN WITH BREATHING DENIES SWEATS DENIES NAUSEA/VOMITING DOES NOT KNOW IF HE HAS HAD FEVER OR NOT DENIES COUGH PT WITH CHF, COPD, ATRIAL FIBRILLATION, DIABETES PT WAS ADMITTED HERE 12/03/21 AND AGAIN 12/31-01/03/22 FOR THIS SAME PROBLEM And DX WITH COPD WITH HYPOXIA/RESPIRATORY FAILURE, CHF. SENT HOME WITH RX'S FOR CEFDINIR, ZITHROMAX, PREDNISONE, FLUTICASONE/SALMETEROL INHALER PT IS PRESCRIBED XARELTO FOR CHRONIC ATRIAL FIBRILLATION ARRIVES LATER AND REPORTS THAT HE DOES PT STATES HE USED TO SMOKE 1 PPD, BUT QUIT YEARS AGO USED TO DRINK 6 PACK/DAY OF BEER, NOW ONLY DRINKS 1 BEER/DAY PCP: DR. SANDOVAL IN [place], ALSO HAS A BALL MACHINE OPERATOR IN [place], [place] Allergies and Home Medications Allergies Coded Allergies: lisinopril (Verified Allergy, Severe, Anaphylaxis, 10/31/18) allopurinol (Verified Allergy, Unknown, Hives, 10/31/18) amlodipine (Verified Allergy, Unknown, swelling, PT STILL TAKES AT HOME, 12/03/21) hydralazine (Verified Allergy, Unknown, 10/31/18) levofloxacin (Verified Allergy, Unknown, Hallucinations, 10/31/18) Patient Home Medication List Home Medication List Reviewed: Yes ALPRAZolam (ALPRAZolam) 0.25 Mg Tablet, 0.25 MG PO TID PRN for ANXIETY, (Reported) Entered as Reported by: JUAN WHITLEY on 12/31/21 1339 Acetaminophen (Tylenol Extra Strength) 500 Mg Tablet, 1,000 MG PO Q8H PRN for PAIN-MILD (1-4), (Reported) Entered as Reported by: JUAN WHITLEY on 12/03/211119 Last Action: Reviewed Albuterol Sulfate (Ventolin Hfa) 1 Puff Puff, 2 PUFF INH Q4H PRN for SHORTNESS OF BREATH, (Reported) Entered as Reported by: JUAN WHITLEY on 12/31/21 1339 Amlodipine Besylate (Amlodipine Besylate) 5 Mg Tablet, 5 MG PO HS, (Reported) Entered as Reported by: JUAN WHITLEY on 12/03/211119 Last Action: Held Azithromycin (Azithromycin) 250 Mg Tablet, 250 MG PO DAILY Prescribed by: LISSET SOTO on 01/03/22 111 Bumetanide (Bumetanide) 1 Mg Tablet, 2 MG PO DAILY, (Reported) Entered as Reported by: JUAN WHITLEY on 12/03/211119 Last Action: Held Carvedilol (Carvedilol) 25 Mg Tablet, 25 MG PO BID, (Reported) Entered as Reported by: JUAN WHITLEY on 12/03/211119 Last Action: Reviewed Cefdinir (Cefdinir) 300 Mg Capsule, 300 MG PO BID Prescribed by: LISSET SOTO on 01/03/221117 Clonidine HCl (Clonidine HCl) 0.2 Mg Tablet, 0.2 MG PO BID, (Reported) Entered as Reported by: JACQUI CORONADO on 10/31/182017 Last Action: Held Docusate Sodium (Docusate Sodium) 100 Mg Capsule, 100 MG PO DAILY, (Reported) Entered as Reported by: JUAN WHITLEY on 12/03/211119 Last Action: Reviewed Fluticasone/Salmeterol (Fluticasone-Salmeterol 232-14) 232 Mcg-14 Mcg/Actuation Aer.pow.ba, 0 EACH IH RTBID Prescribed by: LISSET SOTO on 01/03/22 111 Gabapentin (Gabapentin) 600 Mg Tablet, 600 MG PO TID PRN for PAIN-BREAKTHROUGH, (Reported) Entered as Reported by: JUAN WHITLEY on 12/03/211119 Last Action: Reviewed Guaifenesin (Mucinex) 600 Mg Tab.er.12h, 600 MG PO Q12H PRN for CONGESTION, (Reported) Entered as Reported by: JUAN WHITLEY on 12/03/211119 Last Action: Reviewed Ipratropium/Albuterol Sulfate (Iprat-Albut 0.5-3(2.5) mg/3 ml) 0.5 Mg-3 Mg (2.5 Mg Base)/3 Ml Ampul.neb, 3 ML NEB Q6H PRN for SHORTNESS OF BREATH, (Reported) Entered as Reported by: JUAN WHITLEY on 12/03/211122 Last Action: Reviewed Isosorbide Mononitrate (Isosorbide Mononitrate ER) 30 Mg Tab.er.24h, 30 MG PO DAILY, (Reported) Entered as Reported by: JUAN WHITLEY on 12/03/211119 Last Action: Held Losartan Potassium (Losartan Potassium) 100 Mg Tablet, 100 MG PO HS, (Reported) Entered as Reported by: JUAN WHITLEY on 12/03/211119 Last Action: Held Metformin HCl (Metformin HCl) 1,000 Mg Tablet, 1,000 MG PO BID WITH MEALS, (Reported) Entered as Reported by: JUAN WHITLEY on 12/03/211119 Potassium Chloride (Potassium Chloride) 20 Meq Tab.er.prt, 20 MEQ PO DAILY, (Reported) Entered as Reported by: JUAN WHITLEY on 12/03/211119 Last Action: Held Prednisone (Prednisone) 10 Mg Tab.ds.pk, 10 MG PO DAILY Prescribed by: LISSET SOTO on 01/03/22 111 Rivaroxaban (Xarelto Tablet) 20 Mg Tablet, 20 MG PO HS, (Reported) Entered as Reported by: JUAN WHITLEY on 12/03/211119 Last Action: Continued Tamsulosin HCl (Flomax) 0.4 Mg Cap, 0.4 MG PO HS, (Reported) Entered as Reported by: JACQUI CORONADO on 10/31/182017 Last Action: Reviewed Tolterodine Tartrate (Tolterodine Tartrate ER) 4 Mg Cap.er.24h, 4 MG PO HS, (Reported) Entered as Reported by: JUAN WHITLEY on 12/03/211119 Last Action: Reviewed Tramadol HCl (Tramadol HCl) 50 Mg Tablet, 100 MG PO Q6H PRN for PAIN-MODERATE (5-7), (Reported) Entered as Reported by: JUAN WHITLEY on 12/03/21 1120 Last Action: Reviewed Review of Systems Review of Systems Constitutional: see HPI EENTM: no symptoms reported Respiratory: see HPI, orthopnea, short of breath Cardiovascular: No chest pain; edema Gastrointestinal: no symptoms reported Musculoskeletal: see HPI Skin: no symptoms reported Psychiatric/Neurological: Anxiety Hematologic/Lymphatic: No Symptoms Reported Immunological/Allergic: no symptoms reported Past Ahxucth-Nxfruy-Wjjsqf Hx Patient Social History Tobacco Use?: Yes Tobacco type used: Cigarettes Smoking Status: Former Smoker Substance use?: No Alcohol Use?: Yes Alcohol type: Beer Alcohol Frequency: Daily Seasonal Allergies Seasonal Allergies: No Past Medical History Surgery/Hospitalization HX: Hypertension, atrial fibrillation, congestive heart failure, COPD that is O2 dependent at home, pneumonia Surgeries: Yes Appendectomy, Cardiac, Tonsillectomy Respiratory: Yes (PULMONARY EDEMA; O2 AT 2L/NC) Pneumonia, COPD Cardiac: Yes Atrial Fibrillation, Cardiomyopathy, Chronic Edema/Swelling, High Cholesterol, Hypertension Neurological: No Genitourinary: Yes Prostate Problems Gastrointestinal: Yes (ESOPHAGEAL STRICTURE WITH DILATION) Musculoskeletal: No Endocrine: Yes Diabetes, Non-Insulin dep HEENT: No (S/P TONSILLECTOMY) Cancer: No Psychosocial: Yes Anxiety Integumentary: No Blood Disorders: No Family Medical History No Pertinent Family Hx SOCIAL HISTORY: -SMOKED 1 PPD, QUIT YEARS AGO -ETOH--USED TO DRINK A 6 PACK/DAY, NOW DRINKS 1-2 BEERS/DAY -DENIES DRUG USE PAST SURGICAL HISTORY: -CARDIAC CATH--DONE AT [facility] 2014--NO INTERVENTION -EGD WITH ESOPHAGEAL DILATION -APPENDECTOMY -TONSILLECTOMY Physical Exam Vital Signs - First Documented 01/20/22 01/20/22 04:04 04:24 Temp 37.4 Pulse 88 Resp 24 B/P (MAP) 102/65 (77) Pulse Ox 99 O2 Delivery NIV Bilevel O2 Flow Rate 100.00 Capillary Refill : Height: 5'11.00" Weight: 217lbs. 4.0oz. 98.606434mo; 26.23 BMI Method:Stated General Appearance: no apparent distress, other (DIRTY, UNKEMPT. PT IS NOT DYSPNEIC ON ARRIVAL WHILE ON CPAP, AND ABLE TO TALK IN FULL SENTENCES. ) HEENT: other (POOR DENTITION) Neck: normal inspection Respiratory: other (VERY FAINT EXPIRATORY WHEEZING BILATERALLY. SLIGHTLY DIMINISHED LUNG SOUNDS IN BASES BILATERALLY) Cardiovascular: JVD, systolic murmur (2/6), irregularly irregular Gastrointestinal: non tender, soft Extremities: pedal edema (2+ EDEMA ON RIGHT, 1+ EDEMA ON LEFT. CHRONIC VENOUS STASIS CHANGES TO BILATERAL LOWER LEGS--RIGHT > LEFT) Neurologic/Psychiatric: no motor/sensory deficits, alert, normal mood/affect, oriented x 3 (BUT POOR MEMORY) Skin: normal color, warm/dry Focused Exam Sepsis Stage: Sepsis Possible Source: Pulmonary Lactate Level 01/20/22 04:29: Lactic Acid Level 2.27*H Time of Focused Exam: 04:30 Respiratory: Normal Breath Sounds, No Accessory Muscle Use, No Respiratory Distress, Other (ON BIPAP) Cardiovascular: Irregularly Irregular Capillary Refill: Less Than 3 Seconds Skin: normal color, warm/dry Lactic Acid Level Laboratory Tests Test 01/20/22 04:29 Lactic Acid Level 2.27 MMOL/L (0.50-2.00) *H Within 3hrs of presentation: Admin ABX, Blood cultures prior to ABX's, Focus e xam, Lactate level Progress/Results/Core Measures Suspected Sepsis SIRS Temperature: Pulse: Respiratory Rate: Laboratory Tests 01/20/22 03:50: White Blood Count 12.5H Blood Pressure / Mean: 01/20/22 04:29: Lactic Acid Level 2.27*H Laboratory Tests 01/20/22 03:50: Creatinine 1.43H, INR Comment 5.2*H, Platelet Count 100L, Total Bilirubin 1.9H Results/Orders Lab Results Laboratory Tests Test 01/20/22 03:45 01/20/22 03:50 01/20/22 04:17 01/20/22 04:29 Range/Units Blood Gas Puncture Site L RAD Blood Gas Patient Temperature 37.4 Arterial Blood pH 7.43 7.37-7.43 Arterial Blood Partial Pressure CO2 34 L 35-45 MMHG Arterial Blood Partial Pressure O2 233 H 79-93 MMHG Arterial Blood HCO3 22 L 23-27 MMOL/L Arterial Blood Total CO2 23.1 21.0-31.0 MMOL/L Arterial Blood Oxygen Saturation 99 94-100 % Arterial Blood Base Excess -1.6 -2.5-2.5 MMOL/L Khalif Test YES-POS Blood Gas Ventilator Setting NO Blood Gas Inspired Oxygen 15 White Blood Count 12.5 H 4.3-11.0 10^3/uL Red Blood Count 3.09 L 4.30-5.52 10^6/uL Hemoglobin 9.8 L 13.3-17.7 g/dL Hematocrit 29 L 40-54 % Mean Corpuscular Volume 94 80-99 fL Mean Corpuscular Hemoglobin 32 25-34 pg Mean Corpuscular Hemoglobin Concent 34 32-36 g/dL Red Cell Distribution Width 17.6 H 10.0-14.5 % Platelet Count 100 L 130-400 10^3/uL Mean Platelet Volume 12.8 H 9.0-12.2 fL Immature Granulocyte % (Auto) 1 % Neutrophils (%) (Auto) 85 H 42-75 % Lymphocytes (%) (Auto) 8 L 12-44 % Monocytes (%) (Auto) 6 0-12 % Eosinophils (%) (Auto) 1 0-10 % Basophils (%) (Auto) 0 0-10 % Neutrophils # (Auto) 10.6 H 1.8-7.8 10^3/uL Lymphocytes # (Auto) 1.0 1.0-4.0 10^3/uL Monocytes # (Auto) 0.7 0.0-1.0 10^3/uL Eosinophils # (Auto) 0.1 0.0-0.3 10^3/uL Basophils # (Auto) 0.0 0.0-0.1 10^3/uL Immature Granulocyte # (Auto) 0.1 0.0-0.1 10^3/uL Neutrophils % (Manual) 90 % Lymphocytes % (Manual) 6 % Monocytes % (Manual) 1 % Eosinophils % (Manual) 2 % Band Neutrophils 1 % Clumped Platelets Percent Immature Platelet Fraction 11.9 H 0.0-7.6 % Blood Morphology Comment NORMAL Erythrocyte Sedimentation Rate 85 H 0-30 MM/HR Prothrombin Time 48.3 *H 12.2-14.7 SEC INR Comment 5.2 *H 0.8-1.4 Activated Partial Thromboplast Time 60 H 24-35 SEC D-Dimer 0.61 H 0.00-0.49 UG/ML Sodium Level 132 L 135-145 MMOL/L Potassium Level 5.1 H 3.6-5.0 MMOL/L Chloride Level 97 L 98-107 MMOL/L Carbon Dioxide Level 19 L 21-32 MMOL/L Anion Gap 16 H 5-14 MMOL/L Blood Urea Nitrogen 28 H 7-18 MG/DL Creatinine 1.43 H 0.60-1.30 MG/DL Estimat Glomerular Filtration Rate 52 BUN/Creatinine Ratio 20 Glucose Level 174 H 70-105 MG/DL Calcium Level 8.6 8.5-10.1 MG/DL Corrected Calcium 8.8 8.5-10.1 MG/DL Magnesium Level 1.8 1.6-2.4 MG/DL Total Bilirubin 1.9 H 0.1-1.0 MG/DL Aspartate Amino Transf (AST/SGOT) 26 5-34 U/L Alanine Aminotransferase (ALT/SGPT) 20 0-55 U/L Alkaline Phosphatase 94 40-136 U/L Total Creatine Kinase 15 L 30-200 U/L Creatine Kinase MB 0.6 <6.6 NG/ML Myoglobin 33.6 10.0-92.0 NG/ML Troponin I < 0.028 <0.028 NG/ML C-Reactive Protein High Sensitivity 15.55 H 0.00-0.50 MG/DL B-Type Natriuretic Peptide 414.2 H <100.0 PG/ML Total Protein 7.2 6.4-8.2 GM/DL Albumin 3.7 3.2-4.5 GM/DL Procalcitonin 2.19 H <0.10 NG/ML Free Thyroxine 0.86 0.70-1.48 NG/DL TSH [place] Testing 9.94 H 0.35-4.94 UIU/ML Serum Alcohol < 10 <10 MG/DL Influenza Type A (RT-PCR) Not Detected Not Detecte Influenza Type B (RT-PCR) Not Detected Not Detecte SARS-CoV-2 RNA (RT-PCR) Not Detected Not Detecte Lactic Acid Level 2.27 *H 0.50-2.00 MMOL/L My Orders Orders - ANJU DAN DO Ed Iv/Invasive Line Start (01/20/22 03:39) Ekg Tracing (01/20/22 03:39) O2 (01/20/22 03:39) Monitor-Rhythm Ecg Trace Only (01/20/22 03:39) Chest 1 View, Ap/Pa Only (01/20/22 03:39) Arterial Blood Gas (01/20/22 03:39) Bnp [place] (01/20/22 03:39) Cbc With Automated Diff (01/20/22 03:39) Comprehensive Metabolic Panel (01/20/22 03:39) Creatine Kinase (01/20/22 03:39) Creatine Kinase Mb (01/20/22 03:39) Hs C Reactive Protein (01/20/22 03:39) Fibrin Degradation Products (01/20/22 03:39) Lactic Acid Analyzer (01/20/22 03:39) Magnesium (01/20/22 03:39) Procalcitonin (Pct) (01/20/22 03:39) Protime With Inr (01/20/22 03:39) Partial Thromboplastin Time (01/20/22 03:39) Blood Culture (01/20/22 03:39) Erythrocyte Sedimentation Rate (01/20/22 03:39) Myoglobin Serum (01/20/22 03:39) Troponin I [place] (01/20/22 03:39) Rt Request For Service (01/20/22 03:39) Covid 19 Inhouse Test (01/20/22 03:39) Influenza A And B By Pcr (01/20/22 03:39) Isolation Central Supply Req (01/20/22 03:39) Alcohol (01/20/22 03:56) Thyroid Analyzer (01/20/22 03:56) Ua Culture If Indicated (01/20/22 03:56) Catheter(Urinary) Insert & Ass 03,15 (01/20/22 03:56) Arterial Blood Draw - Obtain (01/20/22 ) Manual Differential (01/20/22 03:50) Cefepime Injection (Maxipime Injection) (01/20/22 04:45) Furosemide Injection (Lasix Injection) (01/20/22 04:45) Free T4 (Free Thyroxine) (01/20/22 03:50) Medications Given in ED Vital Signs/I&O 01/20/22 01/20/22 04:04 04:24 Temp 37.4 Pulse 88 78 Resp 24 29 B/P (MAP) 102/65 (77) Pulse Ox 99 100 O2 Delivery NIV Bilevel O2 Flow Rate 100.00 Capillary Refill : Progress Note : Progress Note PT CONVERTED FROM EMS CPAP TO BIPAP ON ARRIVAL O2 SATS REMAINED 94-96% THROUGHOUT REMAINDER OF ER STAY PT DID NOT HAVE ANY DYSPNEA AND WAS ABLE TO TALK IN FULL SENTENCES THROUGHOUT ENTIRE ER STAY BP 90'S-LOW 100'S SYSTOLIC AND REMAINED STABLE THROUGHOUT ER STAY, DID PULSE. FLUID BOLUS HELD DUE TO CURRENT FLUID OVERLOAD STATUS NO FEVER NO COUGH NO DETERIORATION IN PT'S CONDITION DURING ER STAY PT HAD NO COMPLAINTS DURING ER STAY COAGULATION STUDIES WITH ELEVATED PT/PTT/INR. PT IS ON XARELTO, NOT COUMADIN OR OTHER ANTICOAGULATION. WILL REPEAT STUDIES THIS AM. PT DOES NOT HAVE EXCESSIVE BRUISING, BLEEDING, PETECHIAE, ETC. ECG Initial ECG Impression Date: Jan 20, 2022 Initial ECG Impression Time: 04:53 Initial ECG Rate: 84 Initial ECG Rhythm: A Fib/Flutter Diagnostic Imaging Comments CXR--DIFFUSE BILATERAL INFILTRATES, CARDIOMEGALY--PENDING RADIOLOGIST REVIEW Reviewed: Reviewed by Me Departure Communication (Admissions) 0507--SPOKE WITH DR. BUTCHER, HOSPITALIST, ACCEPTS PT FOR ADMIT 0517--SPOKE WITH DR. VILLA, BALL MACHINE OPERATOR, FOR CONSULT. Impression Primary Impression: Acute on chronic respiratory failure with hypoxia Additional Impressions: Acute on chronic diastolic CHF (congestive heart failure) Chronic atrial fibrillation SEPSIS Pneumonia Pulmonary edema Electrolyte imbalance Renal insufficiency NIDDM Anemia ABNORMAL PT/PTT/INR Disposition: ADMITTED INPATIENT Condition: Stable Admissions Decision to Admit Reason: Admit from ER (General) Decision to Admit/Date: Jan 20, 2022 Time/Decision to Admit Time: 05:10 Departure-Patient Inst. Referrals: ERICH SANDOVAL MD (PCP/Family) Primary Care Physician ANJU DAN DO Jan 20, 2022 04:03
[2022-01-20 04:14] LABS: BASOPHILS % (AUTO) 0 % (0-10); EOSINOPHILS # (AUTO) 0.1 10^3/uL (0.0-0.3); EOSINOPHILS % (AUTO) 1 % (0-10); HEMOGLOBIN 9.8 g/dL (13.3-17.7)
[2022-01-20 04:15] LABS: HEMATOCRIT 29 % (40-54); LYMPHOCYTES % (AUTO) 8 % (12-44); MEAN CORPUSCULAR HEMOGLOBIN 32 pg (25-34); MEAN CORPUSCULAR HGB CONC 34 g/dL (32-36); MEAN CORPUSCULAR VOLUME 94 fL (80-99); MEAN PLATELET VOLUME 12.8 fL (9.0-12.2); MONOCYTES # (AUTO) 0.7 10^3/uL (0.0-1.0); MONOCYTES % (AUTO) 6 % (0-12); NEUTROPHILS # (AUTO) 10.6 10^3/uL (1.8-7.8); NEUTROPHILS % (AUTO) 85 % (42-75); PLATELET COUNT 100 10^3/uL (130-400); WHITE BLOOD COUNT 12.5 10^3/uL (4.3-11.0)
[2022-01-20 04:20] LABS: ALBUMIN 3.7 GM/DL (3.2-4.5); CHLORIDE 97 MMOL/L (98-107); POTASSIUM 5.1 MMOL/L (3.6-5.0); SODIUM 132 MMOL/L (135-145)
[2022-01-20 04:21] LABS: CALCIUM 8.6 MG/DL (8.5-10.1)
[2022-01-20 04:22] LABS: GLUCOSE 174 MG/DL (70-105); TOTAL PROTEIN 7.2 GM/DL (6.4-8.2)
[2022-01-20 04:23] LABS: CARBON DIOXIDE 19 MMOL/L (21-32)
[2022-01-20 04:24] VITALS: BP 98/56
[2022-01-20 04:24] LABS: BILIRUBIN,TOTAL 1.9 MG/DL (0.1-1.0)
[2022-01-20 04:26] LABS: ALKALINE PHOSPHATASE 94 U/L (40-136); CREATININE SERUM 1.43 MG/DL (0.60-1.30); GFR ESTIMATED 52
[2022-01-20 04:27] LABS: BUN/CREATININE RATIO 20
[2022-01-20 04:29] LABS: ALANINE AMINOTRANSFERASE 20 U/L (0-55); MAGNESIUM 1.8 MG/DL (1.6-2.4)
[2022-01-20 04:30] LABS: CREATINE KINASE 15 U/L (30-200)
[2022-01-20 04:34] LABS: ERYTHROCYTE SEDIMENTATION RATE 85 MM/HR (0-30)
[2022-01-20 04:37] LABS: CREATINE KINASE MB 0.6 NG/ML (<6.6); FIBRIN DEGRADATION PRODUCTS 0.61 UG/ML (0.00-0.49)
[2022-01-20 04:38] LABS: INR 5.2 (0.8-1.4); PROTHROMBIN TIME PATIENT 48.3 SEC (12.2-14.7)
[2022-01-20] MEDS ORDERED: CEFEPIME INJECTION 1,000 MG in NS (IVPB) 50 ML IV ONE (04:45)
[2022-01-20] MEDS ORDERED: FUROSEMIDE 40 MG/4 ML INJ (LASIX) IVP ONE (04:45)
[2022-01-20 04:49] LABS: TSH (THYROID ANALYZER) 9.94 UIU/ML (0.35-4.94)
[2022-01-20 04:55] LABS: BAND NEUTROPHILS 1 %; EOSINOPHILS % (MANUAL) 2 %; LYMPHOCYTES % (MANUAL) 6 %; MONOCYTES % (MANUAL) 1 %; NEUTROPHILS % (MANUAL) 90 %; RBC MORPH NORMAL
[2022-01-20 05:38] LABS: FREE T4 (FREE THYROXINE) 0.86 NG/DL (0.70-1.48)
--- NOTE | 2022-01-20 06:58 | Diagnostic Imaging Report ---
CHEST 1 VIEW, AP/PA ONLY Indication: Dyspnea Comparison: 01/01/2022 Findings: No change in the bilateral pulmonary consolidations that are greatest in the perihilar regions. Potential small bilateral pleural effusions. No pneumothorax. Stable marked enlargement of the cardiac silhouette. Impression: 1. Persistent versus recurrent diffuse pulmonary opacities are most likely due to pulmonary edema. Underlying interstitial lung disease or infection could also be present. Dictated by: Dictated on workstation # [id number]
[2022-01-20 07:10] VITALS: BP 116/77
[2022-01-20 07:53] VITALS: BP 110/68
[2022-01-20] MEDS ORDERED: RT-ALBUTEROL/IPRATROPIUM 3 ML (DUONEB) VIAL INH PRN (08:00)
[2022-01-20 08:22] LABS: INR 5.5 (0.8-1.4); PROTHROMBIN TIME PATIENT 50.6 SEC (12.2-14.7)
[2022-01-20] MEDS ORDERED: FUROSEMIDE 40 MG/4 ML INJ (LASIX) IV NR (09:00)
[2022-01-20 09:12] LABS: ABG BASE EXCESS 0.7 MMOL/L (-2.5-2.5); ABG OXYGEN SATURATION 93 % (94-100); ABG PCO2 39 MMHG (35-45); ABG PH 7.42 (7.37-7.43); ABG PO2 56 MMHG (79-93)
[2022-01-20 09:16] LABS: INSPIRED O2 30%; PATIENT TEMP 36.2; VENTILATOR NO
[2022-01-20] MEDS ORDERED: VITAMIN K 1 MG/ML ORAL SOLN 1 ML SYRINGE PO ONE (09:30)
--- NOTE | 2022-01-20 09:54 | Tele-ICU Progress Note ---
Subjective Date Seen by a Provider: Jan 20, 2022 Time Seen by a Provider: 08:30 Subjective/Events-last exam This virtual visit was conducted using real time audio/video. Thank you for asking us to see this patient for respiratory insufficiency due to AECOPD and CHF. PMH: COPD, CHF, DM, Afib, HTN, Gout. SH: smoking history: former. FH: Non-contributory ROS: l as in HPI. PE: VSS. O2 sat 92% on BiPAP 10/5, 40%. HEENT: No obvious masses, adenopathy or JVD. Chest: coarse on auscultation. Diminished. CV: RRR S1 S2 No murmur or added sounds. Abd: Non-tender. Bowel sounds Y. : Unremarkable. Morfin N. METAL ENGRAVER/psychiatric: Grossly intact. No obvious focal findings. Extremities: 3+ edema. Capillary refill < 3 seconds. Skin: unremarkable. Results: Elevated WCC 12.5, K 5.1, BUN 28, Creat 1.43, BG 174, Lact. 2.27. Decreased Hb 9.8 B.43/34/233 on 15 LPM. CXR: Hyperinlated, congested.. Available chart/ vitals / labs / images reviewed. Video assessment done using teleICU camera, rest of exam as per RN. A/P: Respiratory insufficiency: Continue present management with BiPAP. Duonebs added. Will give 1 dose of Solumedrol 125 mg IVP. Monitor for increasing oxygenation needs and/or need for intubation. Critical Care: critically ill patient. Cont.Lasix, abx, SSI. Discussed with CHEMO Muir. Asked RN to reach out to eICU if any questions or concerns later. Time spent with patient/coordination of care with other health professionals (mins): 35 Sepsis Event Evaluation Height, Weight, BMI Height: 5'11.00" Weight: 217lbs. 4.0oz. 98.867351td; 30.57 BMI Method:Stated Focused Exam Lactate Level 01/20/22 04:29: Lactic Acid Level 2.27*H 01/20/22 06:48: Lactic Acid Level 1.45 Time of Focused Exam: 04:30 Lactic Acid Level Laboratory Tests Test 01/20/22 06:48 Lactic Acid Level 1.45 MMOL/L (0.50-2.00) Exam Exam Patient acknowledged, consented, and participated in this virtual visit which was conducted using real time audio/video Vital Signs Date Time Temp Pulse Resp B/P (MAP) Pulse Ox O2 Delivery O2 Flow Rate FiO2 01/20/22 09:00 74 22 101/65 95 NIV Bilevel 40.00 01/20/22 08:19 36.1 01/20/22 08:00 86 100/74 95 NIV Bilevel 40.00 01/20/22 07:53 36.6 81 97 40 01/20/22 07:15 81 110/68 100 NIV Bilevel 40.00 01/20/22 07:10 101 18 97 40.00 01/20/22 07:00 78 01/20/22 06:55 37.4 80 20 102/67 90 NIV Bilevel 01/20/22 04:24 78 29 100 100.00 01/20/22 04:04 37.4 88 24 102/65 (77) 99 NIV Bilevel I & O 01/20/22 07:00 Intake Total 50 ml Balance 50 ml Height & Weight Height: 5'11.00" Weight: 217lbs. 4.0oz. 98.334965na; 30.57 BMI Method:Stated General Appearance: Mild Distress Respiratory: Normal Breath Sounds, No Accessory Muscle Use, No Respiratory Distress, Other (ON BIPAP) Cardiovascular: Irregularly Irregular Capillary Refill: Less Than 3 Seconds Peripheral Pulses: 2+ Dorsalis Pedis (R), 2+ Left Dors-Pedis (L) (See free text.) Gastrointestinal: non tender, soft Results Lab Laboratory Tests 01/20/22 03:50 Assessment/Plan Assessment/Plan See free text. Critical Care: Critically Ill Patient IMTIAZ VIERA MD Jan 20, 2022 09:54
[2022-01-20] MEDS ORDERED: methylPREDNISolone 125 MG (Solu-MEDROL) VIAL IVP ONE (10:00)
--- NOTE | 2022-01-20 10:17 | Consultation-Cardiology ---
HPI-Cardiology Cardiology Consultation: Date of Consultation 01/20/22 Date of Admission 01/20/22 Attending Physician Laura Hill MD Admitting Physician Admitting Physician: Norma Fraser MD Attending Physician: Laura Hill MD Consulting Physician ALEKSANDER VILLA JR, MD HPI: Time Seen by a Provider: 10:16 Chief Complaint: REASON FOR CONSULTATION: Atrial fibrillation and heart failure. I had the pleasure of seeing Mauro in the intensive care unit at [facility] in [place], [place] today. He normally follows with a soil field technician at [facility] but has not seen his soil field technician since April. I actually met the patient in our hospital a few months ago when he had heart failure. He was in the hospital again in November with heart failure. He has a long history of intermittent pulmonary infections going back to when he was a child. Over the past few months he has had a chronic cough. He has been given prednisone and azithromycin in the past which will help but when he stops these medications, the cough worsens. Last evening his cough seemed to be getting worse and early this morning he was more short of breath. His checked his oxygen saturation and found this to be in the 60s so she called 911 and he was brought to the emergency room for further evaluation. His felt like he has been cold but she has checked his temperature and he has not had a fever. He is now being treated for presumptive diagnosis of pneumonia and also has evidence of heart failure. He denies any chest discomfort. He denies orthopnea but has had some intermittent paroxysmal nocturnal dyspnea. He denies palpitations. He has had some intermittent lightheaded spells but denies any syncope. He also has chronic, intermittent lower extremity edema. Because of the atrial fibrillation and heart failure, a cardiology consultation was requested. He denies any blood in his stool or urine. His stool is intermittently dark but this happens after he takes Pepto-Bismol for stomach upset. His last colonoscopy was around 5 years ago. Certain portions of this document may have been dictated utilizing voice recognition technology. Inherent to this technology, typographical and grammatical errors may exist. As much as I am diligent to identify and correct these mistakes, some errors may remain in the document. Review of Systems-Cardiology Review of Systems Other comments Review of 10 organ systems is as per the history of present illness, otherwise negative. KQB-Aaedct-Nuqwkx Hx Patient Social History Marrital Status: Smoking Status: Former Smoker 2nd Hand Smoke Exposure: No Have you traveled recently?: No Alcohol Use?: Yes Pt feels they are or have been: No Past Medical History PMH As described under Assessment. Family Medical History Family Medical History: No reported family h/o CAD. He reports his mother had HTN. Allergies and Home Medications Allergies Coded Allergies: lisinopril (Verified Allergy, Severe, Anaphylaxis, 10/31/18) allopurinol (Verified Allergy, Unknown, Hives, 10/31/18) amlodipine (Verified Allergy, Unknown, swelling, PT STILL TAKES AT HOME, 12/03/21) hydralazine (Verified Allergy, Unknown, 10/31/18) levofloxacin (Verified Allergy, Unknown, Hallucinations, 10/31/18) Patient Home Medication List Home Medication List Reviewed: Yes ALPRAZolam (ALPRAZolam) 0.25 Mg Tablet, 0.25 MG PO TID PRN for ANXIETY, (Reported) Entered as Reported by: JUAN WHITLEY on 12/31/21 1339 Acetaminophen (Tylenol Extra Strength) 500 Mg Tablet, 1,000 MG PO Q8H PRN for PAIN-MILD (1-4), (Reported) Entered as Reported by: JUAN WHITLEY on 12/03/21 1120 Albuterol Sulfate (Ventolin Hfa) 1 Puff Puff, 2 PUFF INH Q4H PRN for SHORTNESS OF BREATH, (Reported) Entered as Reported by: JUAN WHITLEY on 12/31/21 1339 Amlodipine Besylate (Amlodipine Besylate) 5 Mg Tablet, 5 MG PO HS, (Reported) Entered as Reported by: JUAN WHITLEY on 12/03/21 1120 Azithromycin (Azithromycin) 250 Mg Tablet, 250 MG PO DAILY Prescribed by: LISSET SOTO on 01/03/22 1118 Bumetanide (Bumetanide) 1 Mg Tablet, 2 MG PO DAILY, (Reported) Entered as Reported by: JUAN WHITLEY on 12/03/21 1120 Carvedilol (Carvedilol) 25 Mg Tablet, 25 MG PO BID, (Reported) Entered as Reported by: JUAN WHITLEY on 12/03/21 1120 Cefdinir (Cefdinir) 300 Mg Capsule, 300 MG PO BID Prescribed by: LISSET SOTO on 01/03/22 111 Clonidine HCl (Clonidine HCl) 0.2 Mg Tablet, 0.2 MG PO BID, (Reported) Entered as Reported by: JACQUI CORONADO on 10/31/182017 Docusate Sodium (Docusate Sodium) 100 Mg Capsule, 100 MG PO DAILY, (Reported) Entered as Reported by: JUAN WHITLEY on 12/03/21 112 Fluticasone/Salmeterol (Fluticasone-Salmeterol 232-14) 232 Mcg-14 Mcg/Actuation Aer.pow.ba, 0 EACH IH RTBID Prescribed by: LISSET SOTO on 01/03/22 111 Gabapentin (Gabapentin) 600 Mg Tablet, 600 MG PO TID PRN for PAIN-BREAKTHROUGH, (Reported) Entered as Reported by: JUAN WHITLEY on 12/03/21 112 Guaifenesin (Mucinex) 600 Mg Tab.er.12h, 600 MG PO Q12H PRN for CONGESTION, (Reported) Entered as Reported by: JUAN WHITLEY on 12/03/21 112 Ipratropium/Albuterol Sulfate (Iprat-Albut 0.5-3(2.5) mg/3 ml) 0.5 Mg-3 Mg (2.5 Mg Base)/3 Ml Ampul.neb, 3 ML NEB Q6H PRN for SHORTNESS OF BREATH, (Reported) Entered as Reported by: JUAN WHITLEY on 12/03/21 112 Isosorbide Mononitrate (Isosorbide Mononitrate ER) 30 Mg Tab.er.24h, 30 MG PO D AILY, (Reported) Entered as Reported by: JUAN WHITLEY on 12/03/21 112 Losartan Potassium (Losartan Potassium) 100 Mg Tablet, 100 MG PO HS, (Reported) Entered as Reported by: JUAN WHITLEY on 12/03/21 112 Metformin HCl (Metformin HCl) 1,000 Mg Tablet, 1,000 MG PO BID WITH MEALS, (Reported) Entered as Reported by: JUAN WHITLEY on 12/03/21 112 Potassium Chloride (Potassium Chloride) 20 Meq Tab.er.prt, 20 MEQ PO DAILY, (Reported) Entered as Reported by: JUAN WHITLEY on 12/03/21 1120 Prednisone (Prednisone) 10 Mg Tab.ds.pk, 10 MG PO DAILY Prescribed by: LISSET SOTO on 01/03/22 1118 Rivaroxaban (Xarelto Tablet) 20 Mg Tablet, 20 MG PO HS, (Reported) Entered as Reported by: JUAN WHITLEY on 12/03/21 112 Tamsulosin HCl (Flomax) 0.4 Mg Cap, 0.4 MG PO HS, (Reported) Entered as Reported by: JACQUI CORONADO on 10/31/182017 Tolterodine Tartrate (Tolterodine Tartrate ER) 4 Mg Cap.er.24h, 4 MG PO HS, (Reported) Entered as Reported by: JUAN WHITLEY on 12/03/21 112 Tramadol HCl (Tramadol HCl) 50 Mg Tablet, 100 MG PO Q6H PRN for PAIN-MODERATE (5-7), (Reported) Entered as Reported by: JUAN WHITLEY on 12/03/21 1120 Exam Vital Signs Vital Signs Date Time Temp Pulse Resp B/P (MAP) Pulse Ox O2 Delivery O2 Flow Rate FiO2 01/20/22 10:00 71 13 100/65 95 NIV Bilevel 40.00 01/20/22 08:19 36.1 01/20/22 08:08 40 Physical Exam General: Alert. He is on BiPAP but breathing comfortably and able to answer questions. Well nourished and appears stated age. Eye: Extraocular movements are intact. Conjunctivae are clear. There are no xanthelasma. HENT: Normocephalic. Atraumatic. Carotid pulsations 2/2 without bruits. Neck: Jugular venous pressure does not appear elevated. No thyromegaly appreciated. Respiratory: Lungs have diffuse scattered wheezes and possibly some rhonchi. Respirations are non-labored. Breath sounds are equal. Symmetrical chest wall expansion. Cardiovascular: Normal rate. Irregular rhythm. Distant S1/S2. No murmur. No gallop. Point of maximal impulse is not appear displaced. Good pulses equal in all extremities. Trace bilateral pretibial edema. Gastrointestinal: Soft. Normal bowel sounds. Skin: Skin turgor is normal. There is no pallor. Musculoskeletal: No kyphosis or scoliosis appreciated. Neurologic: Alert and oriented to person, place, time. Cranial nerves 3-12 appear grossly intact. The patient has good motor tone strength in the upper and lower extremities bilaterally. Psychiatric: Cooperative. Appropriate mood & affect. Labs Laboratory Tests Test 01/20/22 03:45 01/20/22 03:50 01/20/22 04:17 01/20/22 04:29 Range/Units Blood Gas Puncture Site L RAD Blood Gas Patient Temperature 37.4 Arterial Blood pH 7.43 7.37-7.43 Arterial Blood Partial Pressure CO2 34 L 35-45 MMHG Arterial Blood Partial Pressure O2 233 H 79-93 MMHG Arterial Blood HCO3 22 L 23-27 MMOL/L Arterial Blood Total CO2 23.1 21.0-31.0 MMOL/L Arterial Blood Oxygen Saturation 99 94-100 % Arterial Blood Base Excess -1.6 -2.5-2.5 MMOL/L Khalif Test YES-POS Blood Gas Ventilator Setting NO Blood Gas Inspired Oxygen 15 White Blood Count 12.5 H 4.3-11.0 10^3/uL Red Blood Count 3.09 L 4.30-5.52 10^6/uL Hemoglobin 9.8 L 13.3-17.7 g/dL Hematocrit 29 L 40-54 % Mean Corpuscular Volume 94 80-99 fL Mean Corpuscular Hemoglobin 32 25-34 pg Mean Corpuscular Hemoglobin Concent 34 32-36 g/dL Red Cell Distribution Width 17.6 H 10.0-14.5 % Platelet Count 100 L 130-400 10^3/uL Mean Platelet Volume 12.8 H 9.0-12.2 fL Immature Granulocyte % (Auto) 1 % Neutrophils (%) (Auto) 85 H 42-75 % Lymphocytes (%) (Auto) 8 L 12-44 % Monocytes (%) (Auto) 6 0-12 % Eosinophils (%) (Auto) 1 0-10 % Basophils (%) (Auto) 0 0-10 % Neutrophils # (Auto) 10.6 H 1.8-7.8 10^3/uL Lymphocytes # (Auto) 1.0 1.0-4.0 10^3/uL Monocytes # (Auto) 0.7 0.0-1.0 10^3/uL Eosinophils # (Auto) 0.1 0.0-0.3 10^3/uL Basophils # (Auto) 0.0 0.0-0.1 10^3/uL Immature Granulocyte # (Auto) 0.1 0.0-0.1 10^3/uL Neutrophils % (Manual) 90 % Lymphocytes % (Manual) 6 % Monocytes % (Manual) 1 % Eosinophils % (Manual) 2 % Band Neutrophils 1 % Clumped Platelets Percent Immature Platelet Fraction 11.9 H 0.0-7.6 % Blood Morphology Comment NORMAL Erythrocyte Sedimentation Rate 85 H 0-30 MM/HR Prothrombin Time 48.3 *H 12.2-14.7 SEC INR Comment 5.2 *H 0.8-1.4 Activated Partial Thromboplast Time 60 H 24-35 SEC D-Dimer 0.61 H 0.00-0.49 UG/ML Sodium Level 132 L 135-145 MMOL/L Potassium Level 5.1 H 3.6-5.0 MMOL/L Chloride Level 97 L 98-107 MMOL/L Carbon Dioxide Level 19 L 21-32 MMOL/L Anion Gap 16 H 5-14 MMOL/L Blood Urea Nitrogen 28 H 7-18 MG/DL Creatinine 1.43 H 0.60-1.30 MG/DL Estimat Glomerular Filtration Rate 52 BUN/Creatinine Ratio 20 Glucose Level 174 H 70-105 MG/DL Calcium Level 8.6 8.5-10.1 MG/DL Corrected Calcium 8.8 8.5-10.1 MG/DL Magnesium Level 1.8 1.6-2.4 MG/DL Total Bilirubin 1.9 H 0.1-1.0 MG/DL Aspartate Amino Transf (AST/SGOT) 26 5-34 U/L Alanine Aminotransferase (ALT/SGPT) 20 0-55 U/L Alkaline Phosphatase 94 40-136 U/L Total Creatine Kinase 15 L 30-200 U/L Creatine Kinase MB 0.6 <6.6 NG/ML Myoglobin 33.6 10.0-92.0 NG/ML Troponin I < 0.028 <0.028 NG/ML C-Reactive Protein High Sensitivity 15.55 H 0.00-0.50 MG/DL B-Type Natriuretic Peptide 414.2 H <100.0 PG/ML Total Protein 7.2 6.4-8.2 GM/DL Albumin 3.7 3.2-4.5 GM/DL Procalcitonin 2.19 H <0.10 NG/ML Free Thyroxine 0.86 0.70-1.48 NG/DL TSH [place] Testing 9.94 H 0.35-4.94 UIU/ML Serum Alcohol < 10 <10 MG/DL Influenza Type A (RT-PCR) Not Detected Not Detecte Influenza Type B (RT-PCR) Not Detected Not Detecte SARS-CoV-2 RNA (RT-PCR) Not Detected Not Detecte Lactic Acid Level 2.27 *H 0.50-2.00 MMOL/L Test 01/20/22 06:48 01/20/22 07:45 01/20/22 09:10 Range/Units Lactic Acid Level 1.45 0.50-2.00 MMOL/L Prothrombin Time 50.6 *H 12.2-14.7 SEC INR Comment 5.5 *H 0.8-1.4 Activated Partial Thromboplast Time 64 H 24-35 SEC Troponin I < 0.028 <0.028 NG/ML Blood Gas Puncture Site LT RAD Blood Gas Patient Temperature 36.2 Arterial Blood pH 7.42 7.37-7.43 Arterial Blood Partial Pressure CO2 39 35-45 MMHG Arterial Blood Partial Pressure O2 56 L 79-93 MMHG Arterial Blood HCO3 25 23-27 MMOL/L Arterial Blood Total CO2 26.0 21.0-31.0 MMOL/L Arterial Blood Oxygen Saturation 93 L 94-100 % Arterial Blood Base Excess 0.7 -2.5-2.5 MMOL/L Khalif Test NA Blood Gas Ventilator Setting NO Blood Gas Inspired Oxygen 30% ECG Impression ECG Comment Electrocardiogram from the emergency room earlier this morning shows atrial fibrillation with a ventricular rate of [address] changes. Diagnosis/Problems Diagnosis/Problems (1) Acute on chronic heart failure with preserved ejection fraction (HFpEF) Status: Acute Assessment & Plan: His symptoms are most likely due to heart failure with possibly some superimposed pulmonary infection. His BNP is mildly elevated. His chest x-ray shows probable pulmonary edema. He is known to have a normal ejection fraction by echocardiogram earlier this year. I will start him on intravenous furosemide. We will need to watch his renal function closely. (2) Permanent atrial fibrillation Status: Chronic Assessment & Plan: Heart rates appear to be reasonably controlled with carvedilol which she was taking at home. He is on rivaroxaban for stroke prophylaxis. He has chronic anemia of undetermined etiology but his hemoglobin level has been reasonably stable over the past few months when he has been here in our hospital. (3) Mitral regurgitation Assessment & Plan: His echocardiogram from November showed mild to moderate mitral regurgitation. I would not expect this to be contributing to his symptoms but this will need to be followed longitudinally by his regular soil field technician at the outside facility. (4) Primary hypertension Status: Chronic Assessment & Plan: I will resume his carvedilol. His blood pressures have been running somewhat soft. I will hold all of his other outpatient antihypertensive medication. We also need pharmacy to reconcile his medications. (5) Acute on chronic respiratory failure with hypoxia Status: Acute Assessment & Plan: Most likely multifactorial secondary to heart failure and superimposed pulmonary infection. (6) Acute kidney injury superimposed on chronic kidney disease Assessment & Plan: His baseline kidney function is around stage II chronic kidney disease. He has had a slight increase in his creatinine level since his previous admission. We will need to monitor this closely. (7) Anemia Status: Chronic Assessment & Plan: This appears to be chronic and may need some evaluation following discharge. (8) Abnormal INR Assessment & Plan: The INR level can be elevated in patients taking rivaroxaban and apixaban. This is unpredictably elevated and does not reverse with vitamin K. If he does not have any evidence of active bleeding, I would not recommend giving him vitamin K. Furthermore, vitamin K will not reverse the effects of DOAC's. ALEKSANDER VILLA JR, MD Jan 20, 2022 10:17
[2022-01-20 10:43] LABS: TRIGLYCERIDES 85 MG/DL (<150); VLDL CHOLESTEROL 17 MG/DL (5-40)
[2022-01-20 10:48] LABS: CHOLESTEROL 158 MG/DL (< 200)
[2022-01-20 10:49] LABS: HDL CHOLESTEROL 34 MG/DL (40-60)
[2022-01-20] MEDS ORDERED: LIDOCAINE UROJET 2% GEL 10 ML PKG ONE (11:10)
[2022-01-20 11:11] LABS: BILIRUBIN,URINE NEGATIVE (NEGATIVE); CLARITY,URINE CLEAR; COLOR,URINE YELLOW; GLUCOSE, URINE (UA) NEGATIVE (NEGATIVE); KETONES,URINE NEGATIVE (NEGATIVE); LEUKOCYTE ESTERASE ,URINE NEGATIVE (NEGATIVE); NITRITE,URINE NEGATIVE (NEGATIVE); PH,URINE 6.5 (5-9); PROTEIN,URINE NEGATIVE (NEGATIVE)
[2022-01-20] MEDS ORDERED: LIDOCAINE UROJET 2% GEL 10 ML PKG TOP ONE (11:15)
[2022-01-20 11:17] LABS: BACTERIA,URINE TRACE /HPF; RBC,URINE RARE /HPF
[2022-01-20 11:18] LABS: SQUAMOUS EPITHELIAL CELL,UR RARE /HPF
[2022-01-20 11:20] VITALS: BP 116/77
[2022-01-20] MEDS: RT-ALBUTEROL/IPRATROPIUM 3 ML (DUONEB) VIAL INH SCH ×4 (11:20→21:43)
[2022-01-20] MEDS: CEFEPIME 1,000 MG/NS 50 ML IVPB IV SCH ×6 (11:45→22:13)
[2022-01-20] MEDS ORDERED: inSUlin ASPART (NovoLOG) 1 UNIT/0.01 ML (CHARGE PER UNIT) SC SCH (12:00)
[2022-01-20] MEDS ORDERED: methylPREDNISolone 125 MG (Solu-MEDROL) VIAL IV SCH (16:00)
[2022-01-20] MEDS: methylPREDNISolone 40 MG/ML (Solu-MEDROL) VIAL IV SCH ×2 (16:30→20:53)
[2022-01-20] MEDS: inSUlin ASPART (NovoLOG) 1 UNIT/0.01 ML (CHARGE PER UNIT) SC SCH ×2 (16:31→20:53)
[2022-01-20] MEDS: TAMSULOSIN 0.4 MG (FLOMAX) CAP PO SCH (17:15)
[2022-01-20 18:35] VITALS: BP 105/69
--- NOTE | 2022-01-20 19:36 | History & Physical-Hospitalist ---
History of Present Illness HPI/Chief Complaint Mauro Park is a 71 year old male with PMH HTN, HFpEF, COPD, chronic respiratory failure on nocturnal oxygen, former smoker, T2DM, AFib on Xarelto, who presented with shortness of breath. He has been hospitalized twice over the past couple months with pneumonia. He denies fevers. He has a cough with sputum production. He denies chest pain. He denies abdominal pain. He denies nausea and vomiting. He has had some leg swelling. Source: patient, family Exam Limitations: no limitations Date Seen 01/20/22 Time Seen by a Provider: 11:30 Attending Physician Laura Hill MD PCP Admitting Physician: Pablo Butcher MD Attending Physician: Laura Hill MD Referring Physician Date of Admission Jan 20, 2022 at 05:15 Home Medications & Allergies Home Medications Reviewed patient Home Medication Reconciliation performed by pharmacy medication reconciliations waste management recycling technician and/or nursing. Patients Allergies have been reviewed. Allergies Allergies Coded Allergies lisinopril (Verified Allergy, Severe, Anaphylaxis, 10/31/18) allopurinol (Verified Allergy, Unknown, Hives, 10/31/18) amlodipine (Verified Allergy, Unknown, swelling, PT STILL TAKES AT HOME, 12/03/21) hydralazine (Verified Allergy, Unknown, 10/31/18) levofloxacin (Verified Allergy, Unknown, Hallucinations, 10/31/18) Past [id number]-Shpmdj-Xjzdjv Hx Patient Social History Marrital Status: Smoking Status: Former Smoker Use of E-Cig and/or Vaping dev: No Substance use?: No Alcohol Use?: Yes Alcohol type: Beer Alcohol Frequency: Daily Pt feels they are or have been: No Immunizations Up To Date First/Initial COVID19 Vaccinat: UNKNOWN Second COVID19 Vaccination Donnie: UNKNOWN Tetanus Booster (TDap): Unknown Seasonal Allergies Seasonal Allergies: No Current Status Advance Directives: Yes Communicates: Verbally Primary Language: Emirati Preferred Spoken Language: Emirati Is interpretation needed?: No Sensory deficits: Vision impairment Implanted or Applied Medical D: None Past Medical History Surgeries: Appendectomy, Tonsillectomy Pneumonia, COPD Atrial Fibrillation, Cardiomyopathy, Hypertension Blood Disorders: No Chronic A-fib Cardiomyopathy COPD, O2 dependent CHF Hypertension 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 hx of esophageal stricture s/p dilation s/p EGD s/p Appendectomy s/p tonsillectomy s/p heart cath Family Medical History No Pertinent Family Hx Review of Systems Constitutional: malaise, weakness EENTM: no symptoms reported Respiratory: cough, short of breath Cardiovascular: no symptoms reported Gastrointestinal: no symptoms reported Genitourinary: no symptoms reported Physical Exam Physical Exam Vital Signs Vital Signs - First Documented 01/20/22 01/20/22 01/20/22 04:04 04:24 07:53 Temp 37.4 Pulse 88 Resp 24 B/P (MAP) 102/65 (77) Pulse Ox 99 O2 Delivery NIV Bilevel O2 Flow Rate 100.00 FiO2 40 Capillary Refill : Less Than 3 Seconds Height, Weight, BMI Height: 5'11.00" Weight: 217lbs. 4.0oz. [id number]; 30.57 BMI Method:Stated General Appearance: No Apparent Distress, WD/WN, Other (wearing BiPAP) Neck: Normal Inspection, Supple Respiratory: Decreased Breath Sounds, Wheezing, Other (wearing BiPAP) Cardiovascular: Regular Rate, Rhythm, No Murmur Gastrointestinal: Normal Bowel Sounds, Non Tender, Soft Extremity: Normal Inspection, Pedal Edema Neurologic/Psychiatric: Alert, Oriented x3, Normal Mood/Affect Skin: Normal Color, Warm/Dry Results Results/Procedures Labs Laboratory Tests 01/20/22 03:50 Patient resulted labs reviewed. Imaging: Reviewed Imaging Report Assessment/Plan Admission Diagnosis Severe sepsis due to pneumonia Admission Status: Inpatient Order (span 2 midnights) Reason for Inpatient Admission: IV antibiotics IV Lasix Assessment and Plan Severe sepsis due to pneumonia Acute kidney injury Lactic acidosis Acute on chronic respiratory failure with hypoxia Acute on chronic heart failure with preserved ejection fraction COPD with acute exacerbation Cefepime Lasix Solumedrol TeleICU following Supplemental oxygen as needed BiPAP as needed AFib Supratherapeutic INR Xarelto Cardiology following, advised against Vitamin K T2DM Sliding scale insulin HTN CAD Obesity Continue home meds as able Holding most anti-hypretensives due to low-normal blood pressures Critical Care Critically Ill Patient Diagnosis/Problems Diagnosis/Problems (1) Severe sepsis Status: Acute (2) Lactic acidosis Status: Acute (3) PNA (pneumonia) Status: Acute (4) (HFpEF) heart failure with preserved ejection fraction Status: Acute Qualifiers: Heart failure chronicity: acute on chronic Qualified Codes: I50.33 - Acute on chronic diastolic (congestive) heart failure (5) COPD with acute exacerbation Status: Acute (6) Acute on chronic respiratory failure with hypoxia Status: Acute (7) Permanent atrial fibrillation Status: Chronic (8) Abnormal INR Status: Acute PABLO BUTCHER MD Jan 20, 2022 19:36
[2022-01-20] MEDS: guaiFENesin (MUCINEX) 600 MG TAB PO SCH (20:52)
[2022-01-20] MEDS: RIVAROXABAN 20 MG TABLET (XARELTO) PO SCH (20:52)
[2022-01-20] MEDS: TOLTERODINE LA 2 MG (DETROL LA) CAP PO SCH (20:52)
[2022-01-20] MEDS: GABAPENTIN 100 MG (NEURONTIN) CAP PO SCH (20:53)
[2022-01-20] MEDS: cloNIDine 0.1 MG (CATAPRES) TAB PO SCH (20:53)
[2022-01-20 21:43] VITALS: BP 111/83
[2022-01-20] MEDS: NS IV 500 ML 500 ML IV PRN (22:13)
[2022-01-21] MEDS: RT-ALBUTEROL/IPRATROPIUM 3 ML (DUONEB) VIAL INH SCH ×6 (02:41→21:11)
[2022-01-21 02:42] VITALS: BP 128/80
[2022-01-21] MEDS: CEFEPIME 1,000 MG/NS 50 ML IVPB IV SCH ×8 (04:44→23:02)
[2022-01-21] MEDS: methylPREDNISolone 40 MG/ML (Solu-MEDROL) VIAL IV SCH (04:44)
[2022-01-21 05:56] LABS: BASOPHILS % (AUTO) 0 % (0-10); EOSINOPHILS % (AUTO) 0 % (0-10); LYMPHOCYTES % (AUTO) 6 % (12-44)
[2022-01-21 05:58] LABS: HEMATOCRIT 29 % (40-54); HEMOGLOBIN 9.4 g/dL (13.3-17.7); LYMPHOCYTES # (AUTO) 0.7 10^3/uL (1.0-4.0); MEAN CORPUSCULAR HEMOGLOBIN 31 pg (25-34); MEAN CORPUSCULAR HGB CONC 33 g/dL (32-36); MEAN CORPUSCULAR VOLUME 93 fL (80-99); MEAN PLATELET VOLUME 10.4 fL (9.0-12.2); MONOCYTES # (AUTO) 0.4 10^3/uL (0.0-1.0); MONOCYTES % (AUTO) 4 % (0-12); NEUTROPHILS # (AUTO) 9.9 10^3/uL (1.8-7.8); NEUTROPHILS % (AUTO) 89 % (42-75); PLATELET COUNT 134 10^3/uL (130-400); WHITE BLOOD COUNT 11.1 10^3/uL (4.3-11.0)
[2022-01-21 06:02] LABS: ALBUMIN 3.5 GM/DL (3.2-4.5); POTASSIUM 4.2 MMOL/L (3.6-5.0)
[2022-01-21 06:03] LABS: CALCIUM 8.7 MG/DL (8.5-10.1)
[2022-01-21 06:05] LABS: TOTAL PROTEIN 7.2 GM/DL (6.4-8.2)
[2022-01-21 06:06] LABS: BILIRUBIN,TOTAL 1.4 MG/DL (0.1-1.0)
[2022-01-21 06:08] LABS: CREATININE SERUM 1.15 MG/DL (0.60-1.30); PHOSPHORUS 3.8 MG/DL (2.3-4.7)
[2022-01-21 06:11] LABS: MAGNESIUM 2.2 MG/DL (1.6-2.4)
[2022-01-21] MEDS: KCL 20 MEQ TAB (K-DUR) PO SCH (06:25)
[2022-01-21] MEDS: POTASSIUM CL 10MEQ/50ML IVPB 50 ML IV SCH (06:25)
[2022-01-21] MEDS: MAGNESIUM 1 GM/100 ML IVPB 100 ML IV SCH (06:25)
[2022-01-21] MEDS: inSUlin ASPART (NovoLOG) 1 UNIT/0.01 ML (CHARGE PER UNIT) SC SCH ×4 (06:30→20:46)
[2022-01-21 07:07] VITALS: BP 106/81
--- NOTE | 2022-01-21 07:37 | Diagnostic Imaging Report ---
EXAMINATION: Chest 1 view HISTORY: Pneumonia COMPARISON: 01/20/2022 FINDINGS: Stable enlargement of the cardiac silhouette. Stable patchy interstitial and airspace opacities throughout both lungs. No pleural effusion or pneumothorax. The osseous structures are intact. IMPRESSION: 1. Stable patchy interstitial and airspace opacities throughout both lungs compared to 01/20/2022. Dictated by: Dictated on workstation # [id number]
--- NOTE | 2022-01-21 08:52 | Tele-ICU Progress Note ---
Subjective Date Seen by a Provider: Jan 21, 2022 Time Seen by a Provider: 08:48 Subjective/Events-last exam Admitted for AECOPD, on albuterol, BiPAP /8 60%, SpO2 low 90's, not in resp distress, neelam not tolerate vapotherm Sepsis Event Evaluation Height, Weight, BMI Height: 5'11.00" Weight: 217lbs. 4.0oz. [id number]; 30.33 BMI Method:Stated Focused Exam Lactate Level 01/20/22 04:29: Lactic Acid Level 2.27*H 01/20/22 06:48: Lactic Acid Level 1.45 Time of Focused Exam: 04:30 Exam Exam Patient acknowledged, consented, and participated in this virtual visit which was conducted using real time audio/video Vital Signs Date Time Temp Pulse Resp B/P (MAP) Pulse Ox O2 Delivery O2 Flow Rate FiO2 01/21/22 08:00 82 19 119/78 93 NIV Bilevel 65.00 01/21/22 07:41 NIV Bilevel 65.00 01/21/22 07:20 81 01/21/22 07:07 79 22 96 60.00 01/21/22 07:00 76 19 122/81 92 NIV Bilevel 60.00 01/21/22 06:00 79 12 117/91 92 NIV Bilevel 60.00 01/21/22 05:00 75 16 125/79 93 NIV Bilevel 60.00 01/21/22 04:00 73 9 117/82 96 NIV Bilevel 60.00 01/21/22 04:00 NIV Bilevel 60 01/21/22 03:32 36.4 NIV Bilevel 60.00 01/21/22 03:00 72 10 115/82 95 NIV Bilevel 60.00 01/21/22 02:42 70 19 93 60.00 01/21/22 02:00 67 9 127/83 98 NIV Bilevel 60.00 01/21/22 01:00 62 01/21/22 01:00 74 10 122/96 95 NIV Bilevel 60.00 01/21/22 00:00 64 11 117/80 97 NIV Bilevel 60.00 01/20/22 23:59 NIV Bilevel 40 01/20/22 23:00 65 17 124/66 99 NIV Bilevel 60.00 01/20/22 22:42 36.4 NIV Bilevel 60.00 01/20/22 22:00 74 12 120/77 94 NIV Bilevel 60.00 01/20/22 21:43 67 16 93 60.00 01/20/22 21:39 NIV Bilevel 60.00 01/20/22 21:05 High Flow N/C 12.00 01/20/22 21:00 71 20 115/76 85 NIV Bilevel 45.00 01/20/22 20:00 71 19 114/77 91 NIV Bilevel 45.00 01/20/22 20:00 NIV Bilevel 40 01/20/22 19:00 36.3 NIV Bilevel 40.00 01/20/22 19:00 65 11 99/75 93 NIV Bilevel 45.00 01/20/22 19:00 65 01/20/22 18:35 62 17 92 50.00 01/20/22 18:00 65 13 104/79 92 NIV Bilevel 45.00 01/20/22 17:23 92 NIV Bilevel 45.00 01/20/22 17:00 64 18 107/71 93 Vapotherm 30.00 75.00 01/20/22 16:30 36.1 01/20/22 16:14 Vapotherm 75 01/20/22 16:00 64 11 109/69 96 Vapotherm 30.00 75.00 01/20/22 15:06 96 Vapotherm 30.00 75 01/20/22 15:00 64 11 101/64 96 Vapotherm 30.00 75.00 01/20/22 14:20 Vapotherm 30.00 75.00 01/20/22 14:00 66 19 98/54 94 Vapotherm 30.00 70.00 01/20/22 13:25 Vapotherm 30.00 70.00 01/20/22 13:00 74 10 100/61 93 NIV Bilevel 40.00 01/20/22 12:42 71 01/20/22 12:28 NIV Bilevel 40 01/20/22 12:20 36.3 01/20/22 12:00 73 20 99/63 90 NIV Bilevel 40.00 01/20/22 11:20 100 18 95 45.00 01/20/22 11:00 90 11 98/59 92 NIV Bilevel 40.00 01/20/22 10:00 71 13 100/65 95 NIV Bilevel 40.00 01/20/22 09:00 74 22 101/65 95 NIV Bilevel 40.00 I & O 01/21/22 07:00 Intake Total 1030 ml Output Total 1845 ml Balance -815 ml Height & Weight Height: 5'11.00" Weight: 217lbs. 4.0oz. 98.236571vz; 30.33 BMI Method:Stated General Appearance: No Apparent Distress, WD/WN, Other (wearing BiPAP) Neck: Normal Inspection, Supple Respiratory: Normal Breath Sounds, No Accessory Muscle Use, No Respiratory Distress, Decreased Breath Sounds, Rhonci, Other (ON BIPAP) Cardiovascular: Irregularly Irregular Capillary Refill: Less Than 3 Seconds Peripheral Pulses: 2+ Dorsalis Pedis (R), 2+ Left Dors-Pedis (L) (See free te xt.) Gastrointestinal: normal bowel sounds, non tender, soft Extremity: Normal Inspection, Pedal Edema (+2 edema) Neurologic/Psychiatric: Alert, Oriented x3, Normal Mood/Affect Skin: Normal Color, Warm/Dry Results Lab Laboratory Tests 01/20/22 03:50 01/21/22 05:17 Assessment/Plan Assessment/Plan COPD, continue bronchodilators, IV Cefepime CHF-continue Lasix DM, On sliding scale Afib, On Xarelto HTN, Gout. Critical Care: Critically Ill Patient Time spent with patient (mins): 30 JUDIT SERRAOT MD Jan 21, 2022 08:52
[2022-01-21] MEDS: guaiFENesin (MUCINEX) 600 MG TAB PO SCH ×2 (09:12→20:45)
[2022-01-21] MEDS: GABAPENTIN 100 MG (NEURONTIN) CAP PO SCH ×2 (09:12→20:46)
[2022-01-21] MEDS: cloNIDine 0.1 MG (CATAPRES) TAB PO SCH ×2 (09:13→20:45)
[2022-01-21] MEDS: FUROSEMIDE 40 MG/4 ML INJ (LASIX) IVP SCH (09:17)
--- NOTE | 2022-01-21 09:22 | Progress Note - Hospitalist ---
Subjective HPI/CC On Admission Date Seen by Provider: Jan 21, 2022 Mauro Park is a 71 year old male with PMH HTN, HFpEF, COPD, chronic respiratory failure on nocturnal oxygen, former smoker, T2DM, AFib on Xarelto, who presented with shortness of breath. He has been hospitalized twice over the past couple months with pneumonia. He denies fevers. He has a cough with sputum production. He denies chest pain. He denies abdominal pain. He denies nausea and vomiting. He has had some leg swelling. Subjective/Events-last exam Pt reports doing ok but still thinks his breathing is labored. No other complaints. Despite this he would like to take his BiPAP off so he can eat. Focused Exam Lactate Level 01/20/22 04:29: Lactic Acid Level 2.27*H 01/20/22 06:48: Lactic Acid Level 1.45 Time of Focused Exam: 04:30 Objective Exam Vital Signs Vital Signs Date Time Temp Pulse Resp B/P (MAP) Pulse Ox O2 Delivery O2 Flow Rate FiO2 01/21/22 08:00 82 19 119/78 93 NIV Bilevel 65.00 01/21/22 04:00 60 01/21/22 03:32 36.4 Capillary Refill : Less Than 3 Seconds General Appearance: No Apparent Distress, Chronically ill Respiratory: No Accessory Muscle Use, Decreased Breath Sounds; No Wheezing; Other (on BiPAP) Cardiovascular: Regular Rate, Rhythm, No Murmur Gastrointestinal: Normal Bowel Sounds, Non Tender, Soft Neurologic/Psychiatric: Alert, Oriented x3 Results/Procedures Lab Laboratory Tests 01/21/22 05:17 Patient resulted labs reviewed. Imaging: Reviewed Imaging Report Assessment/Plan Assessment and Plan Assess & Plan/Chief Complaint Severe sepsis due to pneumonia Acute kidney injury Lactic acidosis Acute on chronic respiratory failure with hypoxia Acute on chronic heart failure with preserved ejection fraction COPD with acute exacerbation Cefepime Lasix- only negative 500mL yesterday, monitor UOP again today Solumedrol TeleICU/Pulm following BiPAP as needed, trialling vapotherm during the day AFib Supratherapeutic INR Xarelto Cardiology following, advised against Vitamin K Repeat INR today T2DM Sliding scale insulin HTN CAD Obesity Continue home meds as able Holding most anti-hypretensives due to low-normal blood pressures Critical Care Critically Ill Patient RUIZ SIMMONS MD Jan 21, 2022 09:22
--- NOTE | 2022-01-21 09:46 | Cardiology Progress Note ---
Progress Note-Cardiology Events since last exam Date Seen by Provider: Jan 21, 2022 Time Seen by Provider: 09:44 Events since last exam I am following him due to heart failure and atrial fibrillation. He follows with a satellite tv installer in [place]. He remains in the intensive care unit intermittently on BiPAP. He was able to come off BiPAP this morning to eat some breakfast. He feels like his breathing is improving but this morning when I spoke to him he was having some pressure in his chest. He denies palpitations or syncope. His peripheral edema is improved. Certain portions of this document may have been dictated utilizing voice recognition technology. Inherent to this technology, typographical and grammatical errors may exist. As much as I am diligent to identify and correct these mistakes, some errors may remain in the document. Vitals Last set of Vitals Signs Vital Signs 01/21/22 01/21/22 01/21/22 15:55 16:00 16:33 Temp 36.2 Pulse 85 Resp 30 B/P (MAP) 133/82 Pulse Ox 98 O2 Delivery NIV Bilevel O2 Flow Rate 60.00 FiO2 60 Labs Labs Laboratory Tests 01/21/22 05:17 Exam Vital Signs Vital Signs Date Time Temp Pulse Resp B/P (MAP) Pulse Ox O2 Delivery O2 Flow Rate FiO2 01/21/22 16:33 36.2 01/21/22 16:00 85 30 133/82 98 NIV Bilevel 60.00 01/21/22 15:55 60 Physical Exam General: Alert. No acute distress. Eye: No xanthelasma. HENT: Normocephalic. Neck: Jugular venous pressure does not appear elevated. Respiratory: Lungs have some scattered upper airway sounds due to the BiPAP. Respirations are non-labored. Breath sounds are equal. Symmetrical chest wall expansion. Cardiovascular: Normal rate. Irregular rhythm. Distant S1/S2. No murmur. No gallop. Trace bilateral pretibial edema. Gastrointestinal: Soft. Normal bowel sounds. Skin: Warm. Dry. Neurologic: Alert and oriented to person, place, time. Cranial nerves 3-11 grossly intact. Psychiatric: Cooperative. Appropriate mood & affect. Labs Laboratory Tests Test 01/20/22 20:00 01/21/22 05:17 01/21/22 10:10 01/21/22 10:54 Range/Units Glucometer 246 H 292 H 70-110 MG/DL White Blood Count 11.1 H 4.3-11.0 10^3/uL Red Blood Count 3.07 L 4.30-5.52 10^6/uL Hemoglobin 9.4 L 13.3-17.7 g/dL Hematocrit 29 L 40-54 % Mean Corpuscular Volume 93 80-99 fL Mean Corpuscular Hemoglobin 31 25-34 pg Mean Corpuscular Hemoglobin Concent 33 32-36 g/dL Red Cell Distribution Width 16.9 H 10.0-14.5 % Platelet Count 134 130-400 10^3/uL Mean Platelet Volume 10.4 9.0-12.2 fL Immature Granulocyte % (Auto) 1 % Neutrophils (%) (Auto) 89 H 42-75 % Lymphocytes (%) (Auto) 6 L 12-44 % Monocytes (%) (Auto) 4 0-12 % Eosinophils (%) (Auto) 0 0-10 % Basophils (%) (Auto) 0 0-10 % Neutrophils # (Auto) 9.9 H 1.8-7.8 10^3/uL Lymphocytes # (Auto) 0.7 L 1.0-4.0 10^3/uL Monocytes # (Auto) 0.4 0.0-1.0 10^3/uL Eosinophils # (Auto) 0.0 0.0-0.3 10^3/uL Basophils # (Auto) 0.0 0.0-0.1 10^3/uL Immature Granulocyte # (Auto) 0.1 0.0-0.1 10^3/uL Percent Immature Platelet Fraction 3.8 0.0-7.6 % Sodium Level 132 L 135-145 MMOL/L Potassium Level 4.2 3.6-5.0 MMOL/L Chloride Level 97 L 98-107 MMOL/L Carbon Dioxide Level 20 L 21-32 MMOL/L Anion Gap 15 H 5-14 MMOL/L Blood Urea Nitrogen 35 H 7-18 MG/DL Creatinine 1.15 0.60-1.30 MG/DL Estimat Glomerular Filtration Rate 68 BUN/Creatinine Ratio 30 Glucose Level 223 H 70-105 MG/DL Calcium Level 8.7 8.5-10.1 MG/DL Corrected Calcium 9.1 8.5-10.1 MG/DL Phosphorus Level 3.8 2.3-4.7 MG/DL Magnesium Level 2.2 1.6-2.4 MG/DL Total Bilirubin 1.4 H 0.1-1.0 MG/DL Aspartate Amino Transf (AST/SGOT) 20 5-34 U/L Alanine Aminotransferase (ALT/SGPT) 17 0-55 U/L Alkaline Phosphatase 83 40-136 U/L Total Protein 7.2 6.4-8.2 GM/DL Albumin 3.5 3.2-4.5 GM/DL Prothrombin Time 49.0 *H 12.2-14.7 SEC INR Comment 5.3 *H 0.8-1.4 Test 01/21/22 16:25 Range/Units Glucometer 354 H 70-110 MG/DL Radiology Electrocardiogram from this morning shows sinus rhythm with nonspecific inferior T wave changes. Diagnosis/Problems Diagnosis/Problems (1) Chest pain Assessment & Plan: I am not entirely sure what to make of his chest discomfort. He has nonspecific T wave changes on the electrocardiogram from this morning. His troponin levels at the time of admission were undetectable he does not know of any history of coronary artery disease. He was given some Mylanta which seemed to help. I also started him on pantoprazole. If he continues to have chest discomfort, we may need to consider an ischemic evaluation. (2) Acute on chronic heart failure with preserved ejection fraction (HFpEF) Status: Acute Assessment & Plan: His symptoms are most likely due to heart failure with possibly some superimposed pulmonary infection. His BNP is mildly elevated. His chest x-rays have shown probable pulmonary edema. He is known to have a normal ejection fraction by echocardiogram earlier this year. I started him on intravenous furosemide and symptomatically he seems a little improved. We will need to watch his renal function closely. (3) Permanent atrial fibrillation Status: Chronic Assessment & Plan: Heart rates appear to be reasonably controlled with carvedilol which she was taking at home although it now appears he may not be getting this medication in the hospital. He is on rivaroxaban for stroke prophylaxis. He has chronic anemia of undetermined etiology but his hemoglobin level has been reasonably stable over the past few months when he has been here in our hospital. We will continue to monitor his heart rate and blood pressure and resume carvedilol if able (4) Mitral regurgitation Assessment & Plan: His echocardiogram from November showed mild to moderate mitral regurgitation. I would not expect this to be contributing to his symptoms but this will need to be followed longitudinally by his regular satellite tv installer at the outside facility. (5) Primary hypertension Status: Chronic Assessment & Plan: He is currently only receiving clonidine. I may make some adjustments to his medications due to the atrial fibrillation. (6) Acute on chronic respiratory failure with hypoxia Status: Acute Assessment & Plan: Most likely multifactorial secondary to heart failure and superimposed pulmonary infection. (7) Acute kidney injury superimposed on chronic kidney disease Assessment & Plan: His baseline kidney function is around stage II chronic kidney disease. He has had a slight increase in his creatinine level since his previous admission. We will need to monitor this closely. (8) Anemia Status: Chronic Assessment & Plan: This appears to be chronic and may need some evaluation following discharge. (9) Abnormal INR Status: Acute Assessment & Plan: The INR level can be elevated in patients taking rivaroxaban and apixaban. This is unpredictably elevated and does not reverse with vitamin K. If he does not have any evidence of active bleeding, I would not recommend giving him vitamin K. Furthermore, vitamin K will not reverse the effects of DOAC's. ALEKSANDER VILLA JR, MD Jan 21, 2022 09:46
[2022-01-21] MEDS ORDERED: ANTACID SUSP 30 ML UDC (MYLANTA) PO ONE (10:15)
[2022-01-21] MEDS ORDERED: PANTOPRAZOLE 40 MG (PROTONIX) TAB PO ONE (10:15)
[2022-01-21] MEDS ORDERED: PRED5TAB PO (10:45)
[2022-01-21 11:02] LABS: INR 5.3 (0.8-1.4)
[2022-01-21 15:09] VITALS: BP 127/93
[2022-01-21] MEDS: TAMSULOSIN 0.4 MG (FLOMAX) CAP PO SCH (17:09)
[2022-01-21 18:30] VITALS: BP 113/72
[2022-01-21] MEDS: RIVAROXABAN 20 MG TABLET (XARELTO) PO SCH (20:45)
[2022-01-21] MEDS: ALPRAZolam 0.25 MG (XANAX) TAB PO PRN (20:46)
[2022-01-21] MEDS: TOLTERODINE LA 2 MG (DETROL LA) CAP PO SCH (20:46)
[2022-01-21 21:11] VITALS: BP 121/71
[2022-01-22 01:59] VITALS: BP 133/90
[2022-01-22] MEDS: RT-ALBUTEROL/IPRATROPIUM 3 ML (DUONEB) VIAL INH SCH ×6 (01:59→21:44)
[2022-01-22] MEDS ORDERED: SIMETHICONE 80 MG (MYLICON) CHEW PO ONE (04:15)
[2022-01-22] MEDS: NS IV 500 ML 500 ML IV PRN (04:19)
[2022-01-22] MEDS: CEFEPIME 1,000 MG/NS 50 ML IVPB IV SCH ×8 (04:19→22:16)
[2022-01-22 05:05] LABS: BASOPHILS % (AUTO) 0 % (0-10); EOSINOPHILS % (AUTO) 0 % (0-10); HEMATOCRIT 29 % (40-54); HEMOGLOBIN 9.7 g/dL (13.3-17.7); LYMPHOCYTES # (AUTO) 0.4 10^3/uL (1.0-4.0); LYMPHOCYTES % (AUTO) 3 % (12-44); MEAN CORPUSCULAR HEMOGLOBIN 31 pg (25-34); MEAN CORPUSCULAR HGB CONC 33 g/dL (32-36); MEAN CORPUSCULAR VOLUME 92 fL (80-99); MEAN PLATELET VOLUME 10.2 fL (9.0-12.2); MONOCYTES # (AUTO) 0.5 10^3/uL (0.0-1.0); MONOCYTES % (AUTO) 4 % (0-12); NEUTROPHILS # (AUTO) 12.3 10^3/uL (1.8-7.8); NEUTROPHILS % (AUTO) 92 % (42-75); PLATELET COUNT 141 10^3/uL (130-400); WHITE BLOOD COUNT 13.3 10^3/uL (4.3-11.0)
[2022-01-22 05:10] LABS: PROTHROMBIN TIME PATIENT 39.5 SEC (12.2-14.7)
[2022-01-22 05:13] LABS: ALBUMIN 3.4 GM/DL (3.2-4.5); POTASSIUM 4.1 MMOL/L (3.6-5.0)
[2022-01-22 05:14] LABS: CALCIUM 8.8 MG/DL (8.5-10.1)
[2022-01-22 05:17] LABS: BILIRUBIN,TOTAL 1.3 MG/DL (0.1-1.0)
[2022-01-22 05:19] LABS: CREATININE SERUM 0.96 MG/DL (0.60-1.30)
[2022-01-22] MEDS: KCL 20 MEQ TAB (K-DUR) PO SCH (05:20)
[2022-01-22] MEDS: inSUlin ASPART (NovoLOG) 1 UNIT/0.01 ML (CHARGE PER UNIT) SC SCH ×4 (05:20→20:56)
[2022-01-22] MEDS: POTASSIUM CL 10MEQ/50ML IVPB 50 ML IV SCH (05:20)
[2022-01-22 05:21] LABS: MAGNESIUM 2.3 MG/DL (1.6-2.4)
[2022-01-22] MEDS: MAGNESIUM 1 GM/100 ML IVPB 100 ML IV SCH (05:27)
[2022-01-22] MEDS ORDERED: MILK OF MAGNESIA 400 MG/5 ML 30 ML UDC PO ONE (06:30)
--- NOTE | 2022-01-22 07:55 | Diagnostic Imaging Report ---
INDICATION: Pain FINDINGS: The bowel gas pattern unremarkable. There is no abnormal fecal loading. There is atherosclerotic vascular calcifications. There is cardiomegaly and nonspecific basilar pulmonary opacities, edema versus pneumonia. IMPRESSION: Unremarkable abdominal pelvic radiographs. Cardiomegaly and basilar interstitial disease. Dictated by: Dictated on workstation # [id number]
[2022-01-22 07:56] VITALS: BP 131/95
[2022-01-22] MEDS: guaiFENesin (MUCINEX) 600 MG TAB PO SCH ×2 (08:28→20:43)
[2022-01-22] MEDS: cloNIDine 0.1 MG (CATAPRES) TAB PO SCH ×2 (08:28→20:43)
[2022-01-22] MEDS: FUROSEMIDE 40 MG/4 ML INJ (LASIX) IVP SCH ×2 (08:28→16:51)
[2022-01-22] MEDS: GABAPENTIN 100 MG (NEURONTIN) CAP PO SCH ×2 (08:28→20:43)
--- NOTE | 2022-01-22 08:53 | Progress Note - Hospitalist ---
Subjective HPI/CC On Admission Date Seen by Provider: Jan 22, 2022 Mauro Park is a 71 year old male with PMH HTN, HFpEF, COPD, chronic respiratory failure on nocturnal oxygen, former smoker, T2DM, AFib on Xarelto, who presented with shortness of breath. He has been hospitalized twice over the past couple months with pneumonia. He denies fevers. He has a cough with sputum production. He denies chest pain. He denies abdominal pain. He denies nausea and vomiting. He has had some leg swelling. Subjective/Events-last exam Pt reports having a rough night. He is up getting to commode and dyspneic with this. We discussed plans if his breathing worsens and if he would want to be intubated or made comfort care. He states he "really doesn't care." Discussed the importance of this decision with him and advised him to think about it and talk with family and let us know. Focused Exam Lactate Level 01/20/22 04:29: Lactic Acid Level 2.27*H 01/20/22 06:48: Lactic Acid Level 1.45 Time of Focused Exam: 04:30 Objective Exam Vital Signs Vital Signs Date Time Temp Pulse Resp B/P (MAP) Pulse Ox O2 Delivery O2 Flow Rate FiO2 01/22/22 08:20 NIV Bilevel 100 01/22/22 08:00 125 23 134/82 91 60.00 01/22/22 04:08 36.7 Capillary Refill : Less Than 3 Seconds General Appearance: No Apparent Distress, Chronically ill Respiratory: Wheezing, Other (tachypneic with exertion) Cardiovascular: Regular Rate, Rhythm, No Murmur Neurologic/Psychiatric: Alert, Oriented x3 Results/Procedures Lab Laboratory Tests 01/22/22 04:54 Patient resulted labs reviewed. Imaging: Reviewed Imaging Report Assessment/Plan Assessment and Plan Assess & Plan/Chief Complaint Severe sepsis due to pneumonia Acute kidney injury Lactic acidosis Acute on chronic respiratory failure with hypoxia Acute on chronic heart failure with preserved ejection fraction COPD with acute exacerbation Cefepime Lasix- negative 1L since admission Solumedrol TeleICU/Pulm following BiPAP as needed, trialling vapotherm during the day AFib Supratherapeutic INR Xarelto Cardiology following, advised against Vitamin K INR trended down T2DM Sliding scale insulin Added Levemir as BS was very high yesterday, likely due to steroids HTN CAD Obesity Continue home meds as able Holding most anti-hypretensives due to low-normal blood pressures Goals of care Discussed treatment options if he worsened, he is uncertain of his wishes as stated above Palliative care consult Critical Care Critically Ill Patient RUIZ SIMMONS MD Jan 22, 2022 08:53
--- NOTE | 2022-01-22 08:55 | Diagnostic Imaging Report ---
INDICATION: Pneumonia, respiratory distress. COMPARISON: 01/21/2022 TECHNIQUE: Single radiograph of the chest dated 01/22/2022. FINDINGS: Enlargement of the cardiac silhouette is again noted. Pulmonary vasculature is obscured. Extensive mixed interstitial and airspace opacities are again noted throughout the bilateral lungs, worsened since the prior examination. No pneumothorax. Chronic left clavicular fracture. No new acute osseous abnormality. IMPRESSION: Worsening extensive bilateral pulmonary opacities. Persistent enlargement of the cardiac silhouette with obscuration of the pulmonary vasculature. Dictated by: Dictated on workstation # [id number]
[2022-01-22] MEDS ORDERED: PANTOPRAZOLE 40 MG (PROTONIX) TAB PO SCH (09:00)
--- NOTE | 2022-01-22 09:20 | Tele-ICU Progress Note ---
Subjective Date Seen by a Provider: Jan 22, 2022 Time Seen by a Provider: 07:45 Subjective/Events-last exam This virtual visit was conducted using real time audio/video. Thank you for asking us to see this patient for respiratory insufficiency due to AECOPD and CHF. Overnight needed 100% O2. Was nauseated, KUB unremarkable. PE: VSS. O2 sat 92% on BiPAP 15/8, 80%. HEENT: No obvious masses, adenopathy or JVD. Chest: coarse on auscultation. Diminished. CV: Irreg. S1 S2 No murmur or added sounds. Abd: Non-tender. Bowel sounds Y. : Unremarkable. Morfin Y. MUSIC COMPOSITION TEACHER/psychiatric: Grossly intact. No obvious focal findings. Extremities: 3+ edema. Capillary refill < 3 seconds. Skin: unremarkable. Results: Elevated WCC 13.3, BUN 235, BG 141, Lact. 2.27. Decreased Hb 9.8 B.42/39/56 on 30%. CXR: Hyperinflated, congested. Available chart/ vitals / labs / images reviewed. Video assessment done using teleICU camera, rest of exam as per RN. A/P: Respiratory insufficiency: Continue present management with BiPAP. Duonebs added. Monitor for increasing oxygenation needs and/or need for intubation. Critical Care: critically ill patient. Cont.Lasix, abx, SSI, clon., Xarelto, Levemir. Discussed with RN Linda. Asked RN to reach out to eICU if any questions or concerns later. Time spent with patient/coordination of care with other health professionals (mins): 30 Sepsis Event Evaluation Height, Weight, BMI Height: 5'11.00" Weight: 217lbs. 4.0oz. [id number]; 30.51 BMI Method:Stated Focused Exam Lactate Level 01/20/22 04:29: Lactic Acid Level 2.27*H 01/20/22 06:48: Lactic Acid Level 1.45 Time of Focused Exam: 04:30 Exam Exam Patient acknowledged, consented, and participated in this virtual visit which was conducted using real time audio/video Vital Signs Date Time Temp Pulse Resp B/P (MAP) Pulse Ox O2 Delivery O2 Flow Rate FiO2 01/22/22 09:13 NIV Bilevel 100.00 01/22/22 09:00 108 33 130/109 100 NIV Bilevel 60.00 01/22/22 08:20 NIV Bilevel 100 01/22/22 08:00 125 23 134/82 91 NIV Bilevel 60.00 01/22/22 07:56 120 39 93 60.00 01/22/22 07:33 101 01/22/22 07:00 102 24 131/95 91 NIV Bilevel 60.00 01/22/22 06:00 93 23 133/82 90 NIV Bilevel 60.00 01/22/22 05:00 89 15 123/87 94 NIV Bilevel 60.00 01/22/22 04:08 36.7 NIV Bilevel 60.00 01/22/22 04:06 NIV Bilevel 60 01/22/22 04:05 88 25 117/89 90 NIV Bilevel 60.00 01/22/22 03:00 87 21 109/76 97 NIV Bilevel 60.00 01/22/22 02:11 NIV Bilevel 60.00 01/22/22 02:00 81 17 128/82 90 NIV Bilevel 50.00 01/22/22 01:59 89 20 88 45.00 01/22/22 01:00 97 01/22/22 01:00 97 133/90 94 NIV Bilevel 50.00 01/22/22 00:26 NIV Bilevel 50 01/22/22 00:00 87 22 117/75 94 NIV Bilevel 50.00 01/21/22 23:02 36.4 NIV Bilevel 50.00 01/21/22 23:00 83 11 129/81 93 NIV Bilevel 50.00 01/21/22 22:00 78 25 109/69 94 NIV Bilevel 50.00 01/21/22 21:30 79 20 96 NIV Bilevel 50.00 01/21/22 21:11 84 34 98 50.00 01/21/22 21:00 82 39 121/71 98 NIV Bilevel 60.00 01/21/22 20:04 NIV Bilevel 60 01/21/22 20:00 80 127/78 98 NIV Bilevel 60.00 01/21/22 19:58 84 30 134/80 96 NIV Bilevel 60.00 01/21/22 19:00 81 31 115/96 100 NIV Bilevel 60.00 01/21/22 19:00 81 01/21/22 19:00 NIV Bilevel 60.00 01/21/22 18:30 78 23 100 60.00 01/21/22 18:00 80 39 13/72 93 NIV Bilevel 60.00 01/21/22 17:00 82 22 115/79 100 NIV Bilevel 60.00 01/21/22 16:33 36.2 01/21/22 16:00 85 30 133/82 98 NIV Bilevel 60.00 01/21/22 15:55 NIV Bilevel 60 01/21/22 15:15 NIV Bilevel 60.00 01/21/22 15:09 87 34 94 60.00 01/21/22 15:00 82 25 127/93 94 NIV Bilevel 65.00 01/21/22 14:00 74 16 108/74 99 NIV Bilevel 65.00 01/21/22 13:26 75 01/21/22 13:00 80 19 116/86 97 NIV Bilevel 65.00 01/21/22 12:00 85 31 109/74 92 NIV Bilevel 65.00 01/21/22 12:00 36.2 01/21/22 12:00 NIV Bilevel 60 01/21/22 11:19 92 Vapotherm 40.00 100 01/21/22 11:08 27 92 NIV Bilevel 65.00 01/21/22 11:00 86 20 122/84 85 NIV Bilevel 65.00 01/21/22 10:00 85 22 123/82 98 NIV Bilevel 65.00 I & O 01/22/22 06:59 Intake Total 1660 ml Output Total 1675 ml Balance -15 ml Height & Weight Height: 5'11.00" Weight: 217lbs. 4.0oz. [id number]; 30.51 BMI Method:Stated General Appearance: No Apparent Distress, Chronically ill Neck: Normal Inspection, Supple Respiratory: Wheezing, Other (tachypneic with exertion) Cardiovascular: Regular Rate, Rhythm, No Murmur Capillary Refill: Less Than 3 Seconds Peripheral Pulses: 2+ Dorsalis Pedis (R), 2+ Left Dors-Pedis (L) (See free text.) Gastrointestinal: normal bowel sounds, non tender, soft Extremity: Normal Inspection, Pedal Edema (+2 edema) Neurologic/Psychiatric: Alert, Oriented x3 Skin: Normal Color, Warm/Dry Results Lab Laboratory Tests 01/21/22 05:17 01/22/22 04:54 Assessment/Plan Assessment/Plan See free text. Critical Care: Critically Ill Patient IMTIAZ VIERA MD Jan 22, 2022 09:20
[2022-01-22] MEDS ORDERED: ONDANSETRON 4 MG/2 ML (SDV) Z0FRAN IVP PRN (09:30)
[2022-01-22] MEDS: DexMEDEtomidine 250 ML DRIP 250 ML IV SCH ×2 (09:49→19:58)
[2022-01-22 11:14] VITALS: BP 136/100
[2022-01-22 15:13] VITALS: BP 122/81
--- NOTE | 2022-01-22 16:26 | Cardiology Progress Note ---
Progress Note-Cardiology Events since last exam Date Seen by Provider: Jan 22, 2022 Time Seen by Provider: 16:21 Events since last exam WasI am following him due to atrial fibrillation and heart failure. He normally follows with a diesel bus mechanic in [place]. He remains in the intensive care unit. Weaned from BiPAP over to Vapotherm oxygen. He is currently on Precedex. He is oriented to person only. His is at the bedside. He states he feels horrible but does not have any specific complaints. He does not report chest discomfort, dyspnea at rest, palpitations, syncope, or ankle edema. Certain portions of this document may have been dictated utilizing voice recognition technology. Inherent to this technology, typographical and grammatical errors may exist. As much as I am diligent to identify and correct these mistakes, some errors may remain in the document. Vitals Last set of Vitals Signs Vital Signs 01/22/22 01/22/22 01/22/22 01/22/22 12:00 15:45 16:00 16:18 Temp 36.1 Pulse 77 Resp 20 B/P (MAP) 126/87 Pulse Ox 95 O2 Delivery Vapotherm O2 Flow Rate 40.00 100.00 FiO2 60 Labs Labs Laboratory Tests 01/22/22 04:54 Exam Vital Signs Vital Signs Date Time Temp Pulse Resp B/P (MAP) Pulse Ox O2 Delivery O2 Flow Rate FiO2 01/22/22 16:18 Vapotherm 40.00 100.00 01/22/22 16:00 77 20 126/87 95 01/22/22 15:45 36.1 01/22/22 12:00 60 Physical Exam General: Alert. No acute distress. He is on oxygen by Vapotherm nasal cannula. Eye: No xanthelasma. HENT: Normocephalic. Neck: Jugular venous pressure does not appear elevated. Respiratory: Lungs have diffusely decreased breath sounds bilaterally. Respirations are non-labored. Breath sounds are equal. Symmetrical chest wall expansion. Cardiovascular: Normal rate. Irregular rhythm. Distant S1/S2. No murmur. No gallop. No edema. Gastrointestinal: Soft. Normal bowel sounds. Skin: Warm. Dry. Neurologic: Awake but oriented to person only. Cranial nerves 3-11 grossly intact. Psychiatric: Cooperative. Confused. Labs Laboratory Tests Test 01/21/22 16:25 01/21/22 20:11 01/22/22 04:54 Range/Units Glucometer 354 H 248 H 70-110 MG/DL White Blood Count 13.3 H 4.3-11.0 10^3/uL Red Blood Count 3.18 L 4.30-5.52 10^6/uL Hemoglobin 9.7 L 13.3-17.7 g/dL Hematocrit 29 L 40-54 % Mean Corpuscular Volume 92 80-99 fL Mean Corpuscular Hemoglobin 31 25-34 pg Mean Corpuscular Hemoglobin Concent 33 32-36 g/dL Red Cell Distribution Width 16.6 H 10.0-14.5 % Platelet Count 141 130-400 10^3/uL Mean Platelet Volume 10.2 9.0-12.2 fL Immature Granulocyte % (Auto) 1 % Neutrophils (%) (Auto) 92 H 42-75 % Lymphocytes (%) (Auto) 3 L 12-44 % Monocytes (%) (Auto) 4 0-12 % Eosinophils (%) (Auto) 0 0-10 % Basophils (%) (Auto) 0 0-10 % Neutrophils # (Auto) 12.3 H 1.8-7.8 10^3/uL Lymphocytes # (Auto) 0.4 L 1.0-4.0 10^3/uL Monocytes # (Auto) 0.5 0.0-1.0 10^3/uL Eosinophils # (Auto) 0.0 0.0-0.3 10^3/uL Basophils # (Auto) 0.0 0.0-0.1 10^3/uL Immature Granulocyte # (Auto) 0.1 0.0-0.1 10^3/uL Prothrombin Time 39.5 H 12.2-14.7 SEC INR Comment 4.0 H 0.8-1.4 Sodium Level 132 L 135-145 MMOL/L Potassium Level 4.1 3.6-5.0 MMOL/L Chloride Level 100 98-107 MMOL/L Carbon Dioxide Level 22 21-32 MMOL/L Anion Gap 10 5-14 MMOL/L Blood Urea Nitrogen 35 H 7-18 MG/DL Creatinine 0.96 0.60-1.30 MG/DL Estimat Glomerular Filtration Rate 85 BUN/Creatinine Ratio 36 Glucose Level 141 H 70-105 MG/DL Calcium Level 8.8 8.5-10.1 MG/DL Corrected Calcium 9.3 8.5-10.1 MG/DL Phosphorus Level 2.0 L 2.3-4.7 MG/DL Magnesium Level 2.3 1.6-2.4 MG/DL Total Bilirubin 1.3 H 0.1-1.0 MG/DL Aspartate Amino Transf (AST/SGOT) 36 H 5-34 U/L Alanine Aminotransferase (ALT/SGPT) 30 0-55 U/L Alkaline Phosphatase 90 40-136 U/L Total Protein 7.0 6.4-8.2 GM/DL Albumin 3.4 3.2-4.5 GM/DL Diagnosis/Problems Diagnosis/Problems (1) Chest pain Assessment & Plan: He was complaining of some chest discomfort on 01/21 but has not reported this to me today. I started him on pantoprazole. If he continues to have chest discomfort, we may need to consider an ischemic evaluation. However, the patient's family is starting to think of other options for future care and goals. (2) Acute on chronic heart failure with preserved ejection fraction (HFpEF) Status: Acute Assessment & Plan: His symptoms are most likely due to heart failure with possibly some superimposed pulmonary infection. His BNP is mildly elevated. His chest x-ray from today is worse. He is known to have a normal ejection fraction by echocardiogram earlier this year. I will change the furosemide to twice daily dosing. (3) Permanent atrial fibrillation Status: Chronic Assessment & Plan: Heart rates appear to be reasonably controlled on no beta- kwame which he was taking at home. (4) Primary hypertension Status: Chronic Assessment & Plan: He is currently on no antihypertensive medication and been normotensive. (5) Mitral regurgitation Assessment & Plan: His echocardiogram from November showed mild to moderate mitral regurgitation. I would not expect this to be contributing to his symptoms but this will need to be followed longitudinally by his regular diesel bus mechanic at the outside facility. (6) Acute on chronic respiratory failure with hypoxia Status: Acute Assessment & Plan: Most likely multifactorial secondary to heart failure and superimposed pulmonary infection. (7) Acute kidney injury superimposed on chronic kidney disease Assessment & Plan: His baseline kidney function is around stage II chronic kidney disease. He has had a slight increase in his creatinine level since his previous admission. We will need to monitor this closely. (8) Anemia Status: Chronic Assessment & Plan: This appears to be chronic and may need some evaluation following discharge. (9) Abnormal INR Status: Acute Assessment & Plan: The INR level can be elevated in patients taking rivaroxaban and apixaban. This is unpredictably elevated and does not reverse with vitamin K. If he does not have any evidence of active bleeding, I would not recommend giving him vitamin K. Furthermore, vitamin K will not reverse the effects of DOAC's. ALEKSANDER VILLA JR, MD Jan 22, 2022 16:26
[2022-01-22] MEDS: ALPRAZolam 0.25 MG (XANAX) TAB PO PRN (16:54)
[2022-01-22] MEDS: TAMSULOSIN 0.4 MG (FLOMAX) CAP PO SCH (18:04)
[2022-01-22 18:38] VITALS: BP 131/95
[2022-01-22] MEDS: RIVAROXABAN 20 MG TABLET (XARELTO) PO SCH (20:43)
[2022-01-22] MEDS: TOLTERODINE LA 2 MG (DETROL LA) CAP PO SCH (20:43)
[2022-01-22] MEDS ORDERED: OLANZapine 5 MG ODT (ZyPREXA ZYDIS) PO ONE (21:30)
[2022-01-22 21:44] VITALS: BP 131/95
[2022-01-22] MEDS: MELATONIN 3 MG TABLET PO SCH (21:47)
[2022-01-23 02:12] VITALS: BP 142/89
[2022-01-23] MEDS: DexMEDEtomidine 250 ML DRIP 250 ML IV SCH ×4 (02:12→22:25)
[2022-01-23] MEDS: RT-ALBUTEROL/IPRATROPIUM 3 ML (DUONEB) VIAL INH SCH ×6 (02:12→22:07)
[2022-01-23] MEDS: CEFEPIME 1,000 MG/NS 50 ML IVPB IV SCH ×8 (05:36→23:45)
[2022-01-23 05:58] LABS: BASOPHILS % (AUTO) 0 % (0-10); HEMOGLOBIN 9.9 g/dL (13.3-17.7); MONOCYTES # (AUTO) 0.2 10^3/uL (0.0-1.0); MONOCYTES % (AUTO) 2 % (0-12)
[2022-01-23 06:00] LABS: EOSINOPHILS # (AUTO) 0.1 10^3/uL (0.0-0.3); EOSINOPHILS % (AUTO) 1 % (0-10); HEMATOCRIT 31 % (40-54); LYMPHOCYTES # (AUTO) 0.4 10^3/uL (1.0-4.0); LYMPHOCYTES % (AUTO) 5 % (12-44); MEAN CORPUSCULAR HEMOGLOBIN 30 pg (25-34); MEAN CORPUSCULAR HGB CONC 32 g/dL (32-36); MEAN CORPUSCULAR VOLUME 95 fL (80-99); MEAN PLATELET VOLUME 10.3 fL (9.0-12.2); NEUTROPHILS # (AUTO) 7.3 10^3/uL (1.8-7.8); NEUTROPHILS % (AUTO) 91 % (42-75); PLATELET COUNT 141 10^3/uL (130-400)
[2022-01-23 06:07] LABS: ALBUMIN 3.4 GM/DL (3.2-4.5)
[2022-01-23 06:08] LABS: POTASSIUM 3.8 MMOL/L (3.6-5.0)
[2022-01-23 06:09] LABS: CALCIUM 8.6 MG/DL (8.5-10.1)
[2022-01-23 06:10] LABS: TOTAL PROTEIN 6.9 GM/DL (6.4-8.2)
[2022-01-23 06:12] LABS: BILIRUBIN,TOTAL 1.5 MG/DL (0.1-1.0)
[2022-01-23 06:13] LABS: PHOSPHORUS 2.3 MG/DL (2.3-4.7)
[2022-01-23 06:14] LABS: CREATININE SERUM 0.91 MG/DL (0.60-1.30)
[2022-01-23] MEDS: KCL 20 MEQ TAB (K-DUR) PO SCH (06:14)
[2022-01-23] MEDS: inSUlin ASPART (NovoLOG) 1 UNIT/0.01 ML (CHARGE PER UNIT) SC SCH ×4 (06:14→20:29)
[2022-01-23] MEDS: POTASSIUM CL 10MEQ/50ML IVPB 50 ML IV SCH (06:14)
[2022-01-23 06:16] LABS: MAGNESIUM 2.5 MG/DL (1.6-2.4)
[2022-01-23] MEDS: MAGNESIUM 1 GM/100 ML IVPB 100 ML IV SCH (06:23)
[2022-01-23 07:02] VITALS: BP 133/85
--- NOTE | 2022-01-23 07:42 | Diagnostic Imaging Report ---
Indication: Lower respiratory infection Portable chest 4:51 AM There are diffuse alveolar infiltrates in the lungs. There are no effusions or pneumothoraces. Heart appears enlarged. IMPRESSION: Severe diffuse alveolar infiltrates in the lungs. No appreciable change compared to the previous day. Dictated by: Dictated on workstation # [id number]
--- NOTE | 2022-01-23 08:24 | Progress Note - Hospitalist ---
Subjective HPI/CC On Admission Date Seen by Provider: Jan 23, 2022 Mauro Park is a 71 year old male with PMH HTN, HFpEF, COPD, chronic respiratory failure on nocturnal oxygen, former smoker, T2DM, AFib on Xarelto, who presented with shortness of breath. He has been hospitalized twice over the past couple months with pneumonia. He denies fevers. He has a cough with sputum production. He denies chest pain. He denies abdominal pain. He denies nausea and vomiting. He has had some leg swelling. Subjective/Events-last exam Pt sleeping soundly. Reviewed notes form last night regarding agitation. RN reports he desats with agitation as he tries to remove BiPAP. Responded well to Zyprexa by [facility]. Currently on precedex. Focused Exam Time of Focused Exam: 04:30 Objective Exam Vital Signs Vital Signs Date Time Temp Pulse Resp B/P (MAP) Pulse Ox O2 Delivery O2 Flow Rate FiO2 01/23/22 08:00 35.9 01/23/22 08:00 81 20 127/79 92 NIV Bilevel 85.00 01/23/22 04:33 85 Capillary Refill : Less Than 3 Seconds General Appearance: Chronically ill, Other (sleeping soundly on BiPAP, opens eyes briefly when spoken to) Respiratory: Decreased Breath Sounds, Wheezing (expiratory), Other (on BiPAP) Cardiovascular: Regular Rate, Rhythm, No Murmur Gastrointestinal: Normal Bowel Sounds, Soft Neurologic/Psychiatric: Alert Results/Procedures Lab Laboratory Tests 01/23/22 05:40 Patient resulted labs reviewed. Imaging: Reviewed Imaging Report Assessment/Plan Assessment and Plan Assess & Plan/Chief Complaint Severe sepsis due to pneumonia Acute kidney injury Lactic acidosis Acute on chronic respiratory failure with hypoxia Acute on chronic heart failure with preserved ejection fraction COPD with acute exacerbation Continue Cefepime Lasix- negative 1L just yesterday, -2L since admission Solumedrol, did not receive it yesterday will resume it given wheezing TeleICU/Pulm following BiPAP dependent AFib Supratherapeutic INR Xarelto Cardiology following, advised against Vitamin K INR trended down T2DM Sliding scale insulin Continue Levemir as BS well controlled now HTN CAD Obesity Bp well controlled, trend Goals of care Discussed with patient and extensively yesterday all of his treatment options He is agreeable to short term ventilation only and does not want retirement or trach or CPR should his heart stop Critical Care Critically Ill Patient RUIZ SIMMONS MD Jan 23, 2022 08:24
[2022-01-23] MEDS ORDERED: methylPREDNISolone 40 MG/ML (Solu-MEDROL) VIAL IV ONE (08:30)
--- NOTE | 2022-01-23 08:45 | Tele-ICU Progress Note ---
Subjective Date Seen by a Provider: Jan 23, 2022 Time Seen by a Provider: 08:39 Subjective/Events-last exam COPD-remains on AVAPS, FiO2 85%, CXR shows diffuse pulmonary edema, same as yesterday, Work of breathing is better on IV Precedex @ 1.5 Spo2 staying in low 90's ABG 7.44/39/64 albuterol, Medrol, also on IV Lasix has pAF on xarelto has DM2 on sliding scale Also INR/PT is not on coumadin, would give Vit K Sepsis Event Evaluation Height, Weight, BMI Height: 5'11.00" Weight: 217lbs. 4.0oz. 98.799859st; 29.96 BMI Method:Stated Focused Exam Time of Focused Exam: 04:30 Exam Exam Patient acknowledged, consented, and participated in this virtual visit which was conducted using real time audio/video Vital Signs Date Time Temp Pulse Resp B/P (MAP) Pulse Ox O2 Delivery O2 Flow Rate FiO2 01/23/22 08:00 35.9 01/23/22 08:00 81 20 127/79 92 NIV Bilevel 85.00 01/23/22 07:53 86 01/23/22 07:50 NIV Bilevel 85 01/23/22 07:02 78 20 93 60.00 01/23/22 07:00 88 20 128/84 92 NIV Bilevel 85.00 01/23/22 06:00 82 28 127/93 96 NIV Bilevel 85.00 01/23/22 05:00 79 22 131/90 96 NIV Bilevel 85.00 01/23/22 04:33 NIV Bilevel 85 01/23/22 04:00 36.3 01/23/22 04:00 85 21 134/87 96 NIV Bilevel 85.00 01/23/22 03:12 36.5 NIV Bilevel 85.00 01/23/22 03:00 88 20 130/92 98 NIV Bilevel 90.00 01/23/22 02:12 81 20 98 90.00 01/23/22 02:00 88 20 142/89 98 NIV Bilevel 90.00 01/23/22 01:00 76 01/23/22 01:00 89 20 137/95 89 NIV Bilevel 90.00 01/23/22 00:00 NIV Bilevel 90 01/23/22 00:00 86 19 129/95 91 NIV Bilevel 90.00 01/22/22 23:50 36.8 01/22/22 23:00 84 19 143/88 99 NIV Bilevel 90.00 01/22/22 22:58 36.4 NIV Bilevel 90.00 01/22/22 22:00 89 21 140/90 99 NIV Bilevel 90.00 01/22/22 21:44 84 29 96 90.00 01/22/22 21:00 80 29 125/95 95 NIV Bilevel 90.00 01/22/22 20:00 84 19 125/91 93 NIV Bilevel 90.00 01/22/22 19:52 35.9 01/22/22 19:46 NIV Bilevel 90.00 01/22/22 19:43 NIV Bilevel 90 01/22/22 19:00 85 01/22/22 19:00 85 19 115/90 93 NIV Bilevel 100.00 01/22/22 18:38 88 19 92 90.00 01/22/22 18:00 81 30 124/81 95 NIV Bilevel 100.00 01/22/22 17:37 100.00 01/22/22 17:36 NIV Bilevel 100.00 01/22/22 17:00 80 15 130/90 89 Vapotherm 40.00 100.00 01/22/22 16:18 Vapotherm 40.00 100.00 01/22/22 16:00 NIV Bilevel 60 01/22/22 16:00 77 20 126/87 95 NIV Bilevel 60.00 01/22/22 15:45 36.1 01/22/22 15:13 82 20 92 65.00 01/22/22 15:00 78 35 122/85 93 NIV Bilevel 60.00 01/22/22 14:00 79 122/79 01/22/22 14:00 78 30 120/76 96 NIV Bilevel 60.00 01/22/22 13:48 NIV Bilevel 60.00 01/22/22 13:00 90 21 124/85 100 Vapotherm 40.00 100.00 01/22/22 12:50 90 01/22/22 12:47 36.3 01/22/22 12:44 Vapotherm 40.00 100.00 01/22/22 12:00 NIV Bilevel 60 01/22/22 12:00 89 20 112/87 92 NIV Bilevel 60.00 01/22/22 11:14 89 34 94 60.00 01/22/22 11:00 86 22 129/85 94 NIV Bilevel 60.00 01/22/22 10:21 94 124/80 01/22/22 10:00 101 18 116/86 99 NIV Bilevel 60.00 01/22/22 09:53 99 NIV Bilevel 60.00 01/22/22 09:49 99 130/109 01/22/22 09:30 NIV Bilevel 80.00 01/22/22 09:13 NIV Bilevel 100.00 01/22/22 09:00 108 33 130/109 100 NIV Bilevel 60.00 I & O 01/23/22 07:00 Intake Total 1670 ml Output Total 3325 ml Balance -1655 ml Height & Weight Height: 5'11.00" Weight: 217lbs. 4.0oz. 98.848107rc; 29.96 BMI Method:Stated General Appearance: Chronically ill, Moderate Distress, Other (sleeping soundly on BiPAP, opens eyes briefly when spoken to) Neck: Normal Inspection, Supple Respiratory: Decreased Breath Sounds, Rhonci, Wheezing (expiratory), Other (on BiPAP) Cardiovascular: Regular Rate, Rhythm, No Murmur, Irregularly Irregular, Other (not much secretions, ) Capillary Refill: Less Than 3 Seconds Peripheral Pulses: 2+ Dorsalis Pedis (R), 2+ Left Dors-Pedis (L) (See free text.) Gastrointestinal: normal bowel sounds, non tender, soft Extremity: Normal Inspection, Pedal Edema (+2 edema) Neurologic/Psychiatric: Alert, Other (On IV Precedex, ) Skin: Normal Color, Warm/Dry Results Lab Laboratory Tests 01/22/22 04:54 01/23/22 05:40 Assessment/Plan Assessment/Plan Pulm edema, continue BiPAP, lasix may need intubation, if SpO2 goes into 80's or WOB increases would intubate Partial code, family ok with intubation but not CPR INR too high, would give Vit K, only ohn Xarelto Critical Care: Critically Ill Patient Time spent with patient (mins): 35 JUDIT SERRATO MD Jan 23, 2022 08:45
[2022-01-23] MEDS: FUROSEMIDE 40 MG/4 ML INJ (LASIX) IVP SCH ×3 (08:55→20:27)
[2022-01-23] MEDS: PANTOPRAZOLE 40 MG (PROTONIX) VIAL IV SCH (09:07)
[2022-01-23] MEDS ORDERED: PHYTONADIONE (ADULT) INJECTION 10 MG in NS (IVPB) 50 ML IV ONE (09:30)
[2022-01-23] MEDS: GABAPENTIN 100 MG (NEURONTIN) CAP PO SCH ×2 (09:45→20:27)
[2022-01-23] MEDS: cloNIDine 0.1 MG (CATAPRES) TAB PO SCH ×2 (09:45→20:27)
[2022-01-23] MEDS: guaiFENesin (MUCINEX) 600 MG TAB PO SCH ×2 (09:45→20:27)
[2022-01-23] MEDS: methylPREDNISolone 40 MG/ML (Solu-MEDROL) VIAL IV SCH ×3 (11:44→23:45)
--- NOTE | 2022-01-23 12:44 | Cardiology Progress Note ---
Progress Note-Cardiology Events since last exam Date Seen by Provider: Jan 23, 2022 Time Seen by Provider: 12:39 Events since last exam I am following him due to heart failure. He remains on Precedex. When I saw him today he was trying to pull his BiPAP off. The nurses have him in [facility]. He was completely disoriented and not answering any of my questions or following any of my commands. The nurse told me that when they decrease Precedex, he gets agitated and then he gets more hypoxic. The family has requested that he be intubated if needed. Certain portions of this document may have been dictated utilizing voice recognition technology. Inherent to this technology, typographical and grammatical errors may exist. As much as I am diligent to identify and correct these mistakes, some errors may remain in the document. Vitals Last set of Vitals Signs Vital Signs 01/23/22 01/23/22 01/23/22 01/23/22 16:00 18:00 18:12 18:19 Temp 36.1 Pulse 79 Resp 21 B/P (MAP) 125/80 Pulse Ox 100 O2 Delivery Mechanical Ventilator O2 Flow Rate 75.00 FiO2 75 Labs Labs Laboratory Tests 01/23/22 05:40 Exam Vital Signs Vital Signs Date Time Temp Pulse Resp B/P (MAP) Pulse Ox O2 Delivery O2 Flow Rate FiO2 01/23/22 18:19 79 21 100 75 01/23/22 18:12 Mechanical Ventilator 75.00 01/23/22 18:00 125/80 01/23/22 16:00 36.1 Physical Exam General: He is awake and on BiPAP but disoriented and not answering any questions or following any commands. Eye: No xanthelasma. HENT: Normocephalic. Neck: Jugular venous pressure does not appear elevated. Respiratory: Lungs have coarse upper airway sounds due to the BiPAP. Breath sounds are equal. Symmetrical chest wall expansion. Cardiovascular: Normal rate. Irregular rhythm. Distant S1/S2. No murmur. No gallop. No edema. Gastrointestinal: Soft. Normal bowel sounds. Skin: Warm. Dry. Neurologic: Confused and disoriented. Cranial nerves 3-11 grossly intact. Psychiatric: Confused and not following commands. Labs Laboratory Tests Test 01/22/22 20:40 01/22/22 21:44 01/23/22 05:40 01/23/22 11:11 Range/Units Glucometer 174 H 104 70-110 MG/DL Bedside Blood Gas pH (LAB) 7.444 H 7.310-7.410 Bedside Blood Gas pCO2 (LAB) 39.4 L 41.0-51.0 mmHg Bedside Blood Gas pO2 (LAB) 64 L 80-105 mmHg Bedside Blood Gas HCO3 (LAB) 27.0 23.0-28.0 mmol/L POC Blood Gas Total CO2 Calc 28 24-29 mmol/L Bedside Bl Gas O2 Saturation (Calc) 93 L 95-98 % Bedside Arterial Blood Base Excess 3 -2-3 mmol/L White Blood Count 8.0 4.3-11.0 10^3/uL Red Blood Count 3.27 L 4.30-5.52 10^6/uL Hemoglobin 9.9 L 13.3-17.7 g/dL Hematocrit 31 L 40-54 % Mean Corpuscular Volume 95 80-99 fL Mean Corpuscular Hemoglobin 30 25-34 pg Mean Corpuscular Hemoglobin Concent 32 32-36 g/dL Red Cell Distribution Width 16.9 H 10.0-14.5 % Platelet Count 141 130-400 10^3/uL Mean Platelet Volume 10.3 9.0-12.2 fL Immature Granulocyte % (Auto) 1 % Neutrophils (%) (Auto) 91 H 42-75 % Lymphocytes (%) (Auto) 5 L 12-44 % Monocytes (%) (Auto) 2 0-12 % Eosinophils (%) (Auto) 1 0-10 % Basophils (%) (Auto) 0 0-10 % Neutrophils # (Auto) 7.3 1.8-7.8 10^3/uL Lymphocytes # (Auto) 0.4 L 1.0-4.0 10^3/uL Monocytes # (Auto) 0.2 0.0-1.0 10^3/uL Eosinophils # (Auto) 0.1 0.0-0.3 10^3/uL Basophils # (Auto) 0.0 0.0-0.1 10^3/uL Immature Granulocyte # (Auto) 0.1 0.0-0.1 10^3/uL Percent Immature Platelet Fraction 2.9 0.0-7.6 % Sodium Level 135 135-145 MMOL/L Potassium Level 3.8 3.6-5.0 MMOL/L Chloride Level 102 98-107 MMOL/L Carbon Dioxide Level 23 21-32 MMOL/L Anion Gap 10 5-14 MMOL/L Blood Urea Nitrogen 31 H 7-18 MG/DL Creatinine 0.91 0.60-1.30 MG/DL Estimat Glomerular Filtration Rate 90 BUN/Creatinine Ratio 34 Glucose Level 124 H 70-105 MG/DL Calcium Level 8.6 8.5-10.1 MG/DL Corrected Calcium 9.1 8.5-10.1 MG/DL Phosphorus Level 2.3 2.3-4.7 MG/DL Magnesium Level 2.5 H 1.6-2.4 MG/DL Total Bilirubin 1.5 H 0.1-1.0 MG/DL Aspartate Amino Transf (AST/SGOT) 24 5-34 U/L Alanine Aminotransferase (ALT/SGPT) 23 0-55 U/L Alkaline Phosphatase 94 40-136 U/L Total Protein 6.9 6.4-8.2 GM/DL Albumin 3.4 3.2-4.5 GM/DL Test 01/23/22 15:55 Range/Units Glucometer 160 H 70-110 MG/DL Diagnosis/Problems Diagnosis/Problems (1) Chest pain Assessment & Plan: He was complaining of some chest discomfort on 01/21. Now he is nearly obtunded, presumably from the Precedex. I started him on pantoprazole. If he continues to have chest discomfort, we may need to consider an ischemic evaluation. However, the patient's family is starting to think of other options for future care and goals. (2) Acute on chronic heart failure with preserved ejection fraction (HFpEF) Status: Acute Assessment & Plan: His symptoms are most likely due to heart failure with possibly some superimposed pulmonary infection. His BNP is mildly elevated. He is known to have a normal ejection fraction by echocardiogram earlier this year. I changed the furosemide to twice daily dosing on 01/22. We will need to watch his renal function closely with this adjustment. (3) Permanent atrial fibrillation Status: Chronic Assessment & Plan: Heart rates appear to be reasonably controlled on no beta- kwame which he was taking at home. He has been on rivaroxaban for stroke prophylaxis. His INR is elevated and another provider ordered a dose of IV vitamin K. His hemoglobin level has been stable and he has not had any signs of active bleeding. Rivaroxaban and other DOACs can increase the INR but unpredictably and the INR is not an indication of the anticoagulative effect of these agents. Furthermore, vitamin K will not reverse these agents. As I recommended at the time of his admission, I would not recommend administering vitamin K. (4) Primary hypertension Status: Chronic Assessment & Plan: He is currently on no antihypertensive medication and has been normotensive. (5) Mitral regurgitation Assessment & Plan: His echocardiogram from November showed mild to moderate mitral regurgitation. I would not expect this to be contributing to his symptoms but this will need to be followed longitudinally by his regular survey analyst at the outside facility. (6) Acute on chronic respiratory failure with hypoxia Status: Acute Assessment & Plan: Most likely multifactorial secondary to heart failure and superimposed pulmonary infection. If he does not make some improvement soon, we may need to consider palliative care or even comfort care. (7) Acute kidney injury superimposed on chronic kidney disease Assessment & Plan: His baseline kidney function is around stage II chronic kidney disease. He has had a slight increase in his creatinine level since his previous admission. We will need to monitor this closely. (8) Anemia Status: Chronic Assessment & Plan: This appears to be chronic and may need some evaluation following discharge. (9) Abnormal INR Status: Acute Assessment & Plan: The INR level can be elevated in patients taking rivaroxaban and apixaban. This is unpredictably elevated and does not reverse with vitamin K. If he does not have any evidence of active bleeding, I would not recommend giving him vitamin K. Furthermore, vitamin K will not reverse the effects of DOAC's. ALEKSANDER VILLA JR, MD Jan 23, 2022 12:44
--- NOTE | 2022-01-23 14:21 | Tele-ICU Progress Note ---
Subjective Date Seen by a Provider: Jan 23, 2022 Time Seen by a Provider: 14:19 Subjective/Events-last exam called for increasing agitation, increasing hypoxia, given marked degree of alveolar infiltrates on CXR and lack of improvement over last 48 hours, would intubate Sepsis Event Evaluation Height, Weight, BMI Height: 5'11.00" Weight: 217lbs. 4.0oz. 98.872989ht; 29.96 BMI Method:Stated Focused Exam Time of Focused Exam: 04:30 Exam Exam Patient acknowledged, consented, and participated in this virtual visit which was conducted using real time audio/video Vital Signs Date Time Temp Pulse Resp B/P (MAP) Pulse Ox O2 Delivery O2 Flow Rate FiO2 01/23/22 13:25 85 01/23/22 13:00 89 30 128/92 96 NIV Bilevel 75.00 01/23/22 12:00 87 18 132/91 97 NIV Bilevel 75.00 01/23/22 11:00 92 20 120/78 94 NIV Bilevel 75.00 01/23/22 10:45 83 20 93 75.00 01/23/22 10:27 20 95 NIV Bilevel 75.00 01/23/22 10:00 84 23 132/95 100 NIV Bilevel 100.00 01/23/22 09:40 100 NIV Bilevel 100.00 01/23/22 09:19 80 124/88 01/23/22 09:00 86 24 124/77 91 NIV Bilevel 85.00 01/23/22 08:00 35.9 01/23/22 08:00 81 20 127/79 92 NIV Bilevel 85.00 01/23/22 07:53 86 01/23/22 07:50 NIV Bilevel 85 01/23/22 07:02 78 20 93 60.00 01/23/22 07:00 88 20 128/84 92 NIV Bilevel 85.00 01/23/22 06:00 82 28 127/93 96 NIV Bilevel 85.00 01/23/22 05:00 79 22 131/90 96 NIV Bilevel 85.00 01/23/22 04:33 NIV Bilevel 85 01/23/22 04:00 36.3 01/23/22 04:00 85 21 134/87 96 NIV Bilevel 85.00 01/23/22 03:12 36.5 NIV Bilevel 85.00 01/23/22 03:00 88 20 130/92 98 NIV Bilevel 90.00 01/23/22 02:12 81 20 98 90.00 01/23/22 02:00 88 20 142/89 98 NIV Bilevel 90.00 01/23/22 01:00 76 01/23/22 01:00 89 20 137/95 89 NIV Bilevel 90.00 01/23/22 00:00 NIV Bilevel 90 01/23/22 00:00 86 19 129/95 91 NIV Bilevel 90.00 01/22/22 23:50 36.8 01/22/22 23:00 84 19 143/88 99 NIV Bilevel 90.00 01/22/22 22:58 36.4 NIV Bilevel 90.00 01/22/22 22:00 89 21 140/90 99 NIV Bilevel 90.00 01/22/22 21:44 84 29 96 90.00 01/22/22 21:00 80 29 125/95 95 NIV Bilevel 90.00 01/22/22 20:00 84 19 125/91 93 NIV Bilevel 90.00 01/22/22 19:52 35.9 01/22/22 19:46 NIV Bilevel 90.00 01/22/22 19:43 NIV Bilevel 90 01/22/22 19:00 85 01/22/22 19:00 85 19 115/90 93 NIV Bilevel 100.00 01/22/22 18:38 88 19 92 90.00 01/22/22 18:00 81 30 124/81 95 NIV Bilevel 100.00 01/22/22 17:37 100.00 01/22/22 17:36 NIV Bilevel 100.00 01/22/22 17:00 80 15 130/90 89 Vapotherm 40.00 100.00 01/22/22 16:18 Vapotherm 40.00 100.00 01/22/22 16:00 NIV Bilevel 60 01/22/22 16:00 77 20 126/87 95 NIV Bilevel 60.00 01/22/22 15:45 36.1 01/22/22 15:13 82 20 92 65.00 01/22/22 15:00 78 35 122/85 93 NIV Bilevel 60.00 I & O 01/23/22 07:00 Intake Total 1670 ml Output Total 3325 ml Balance -1655 ml Height & Weight Height: 5'11.00" Weight: 217lbs. 4.0oz. 98.502754kz; 29.96 BMI Method:Stated General Appearance: Chronically ill, Moderate Distress, Other (sleeping soundly on BiPAP, opens eyes briefly when spoken to) Neck: Normal Inspection, Supple Respiratory: Decreased Breath Sounds, Rhonci, Wheezing (expiratory), Other (on BiPAP) Cardiovascular: Regular Rate, Rhythm, No Murmur, Irregularly Irregular, Other (not much secretions, ) Capillary Refill: Less Than 3 Seconds Peripheral Pulses: 2+ Dorsalis Pedis (R), 2+ Left Dors-Pedis (L) (See free text.) Gastrointestinal: normal bowel sounds, non tender, soft Extremity: Normal Inspection, Pedal Edema (+2 edema) Neurologic/Psychiatric: Alert, Other (On IV Precedex, ) Skin: Normal Color, Warm/Dry Results Lab Laboratory Tests 01/22/22 04:54 01/23/22 05:40 Assessment/Plan Assessment/Plan will place on AC 16, Vt 500, FiO2 100% PEEP 8, use propofol for sedation Critical Care: Ventilator Management Time spent with patient (mins): 30 JUDIT SERRATO MD Jan 23, 2022 14:21
[2022-01-23 14:34] VITALS: BP 95/65
--- NOTE | 2022-01-23 14:44 | Physical Therapy Progress Note ---
Therapy Progress Note Orders received for PT evaluation. Patient is currently intubated. Will hold for now and start when appropriate and patient can participate. SURY GRAVES PT Jan 23, 2022 14:43
--- NOTE | 2022-01-23 14:45 | Occ Therapy Progress Note ---
Therapy Progress Note OT orders received and chart reviewed. Patient is currently intubated. Will hold for now and initiate therapy when patient is medically stable. Lelo Singh OT Jan 23, 2022 14:45
--- NOTE | 2022-01-23 14:48 | Anesthesia-Procedure Note ---
Procedures/Interventions Procedure Start/Stop/Diagnosis Date of Procedure: Jan 23, 2022 Start Time: 14:30 Referring Physician: Jeb Preprocedural Diagnosis: Respiratory Failure Brief History Called for emergent endotracheal intubation. Pt on BiPAP but requiring intubation. Stop Time: 14:37 Postprocedural Diagnosis: Same Intubation Reason Intubation/Diagnosis: Resp Failure RSI: Yes 100% pre-Ox, [id number]: Yes (via BiPAP) Intubation Method: orotracheal Videoscope used: Yes (Mack) Grade View: 1 Medications: Propofol (100 mg IV), Succinylcholine (100 mg IV), Versed (5 mg IV) Mask Ventilation: negative (continued BiPAP until apneic) Breath Sounds after Intubation: bilateral-equal ETT Securred @ (cm): 21 Intubated with ease: Yes Intubation Complications: no complications Care turned over to: EMMANUEL Orellana DO Jan 23, 2022 14:47
[2022-01-23] MEDS: PROPOFOL DRIP (ICU) 100 ML IV SCH ×3 (14:50→22:25)
--- NOTE | 2022-01-23 14:54 | Diagnostic Imaging Report ---
INDICATION: Intubation. Frontal chest obtained at 2:36 p.m. and compared to 4:51 a.m. the same day. FINDINGS: ET tube tip overlies mid trachea. NG tube tip overlies gastric fundus. There is cardiomegaly with extensive bilateral infiltrates; the infiltrates are about the same as the prior study. There is no pneumothorax or gross pleural fluid. IMPRESSION: Cardiomegaly with extensive bilateral infiltrates. ET tube and NG tube are as above. Dictated by: Dictated on workstation # [id number]
--- NOTE | 2022-01-23 15:25 | Tele-ICU Progress Note ---
Subjective Date Seen by a Provider: Jan 23, 2022 Time Seen by a Provider: 15:23 Subjective/Events-last exam called for hypotension 75/35, would not give more IVF as CXR already shows extensive pulm edema, has 18G peripheral IV, will start IV levophed at [address] central line if need to go higher Sepsis Event Evaluation Height, Weight, BMI Height: 5'11.00" Weight: 217lbs. 4.0oz. 98.546911gh; 29.96 BMI Method:Stated Focused Exam Time of Focused Exam: 04:30 Exam Exam Patient acknowledged, consented, and participated in this virtual visit which was conducted using real time audio/video Vital Signs Date Time Temp Pulse Resp B/P (MAP) Pulse Ox O2 Delivery O2 Flow Rate FiO2 01/23/22 15:00 89 16 95/65 96 Mechanical Ventilator 75.00 01/23/22 14:50 Mechanical Ventilator 75.00 01/23/22 14:50 86 101/70 01/23/22 14:34 73 16 93 75 01/23/22 14:34 Mechanical Ventilator 100.00 01/23/22 14:00 86 15 100/66 92 NIV Bilevel 75.00 01/23/22 13:25 85 01/23/22 13:00 89 30 128/92 96 NIV Bilevel 75.00 01/23/22 12:00 87 18 132/91 97 NIV Bilevel 75.00 01/23/22 12:00 35.9 01/23/22 11:00 92 20 120/78 94 NIV Bilevel 75.00 01/23/22 10:45 83 20 93 75.00 01/23/22 10:27 20 95 NIV Bilevel 75.00 01/23/22 10:00 84 23 132/95 100 NIV Bilevel 100.00 01/23/22 09:40 100 NIV Bilevel 100.00 01/23/22 09:19 80 124/88 01/23/22 09:00 86 24 124/77 91 NIV Bilevel 85.00 01/23/22 08:00 35.9 01/23/22 08:00 81 20 127/79 92 NIV Bilevel 85.00 01/23/22 07:53 86 01/23/22 07:50 NIV Bilevel 85 01/23/22 07:02 78 20 93 60.00 01/23/22 07:00 88 20 128/84 92 NIV Bilevel 85.00 01/23/22 06:00 82 28 127/93 96 NIV Bilevel 85.00 01/23/22 05:00 79 22 131/90 96 NIV Bilevel 85.00 01/23/22 04:33 NIV Bilevel 85 01/23/22 04:00 36.3 01/23/22 04:00 85 21 134/87 96 NIV Bilevel 85.00 01/23/22 03:12 36.5 NIV Bilevel 85.00 01/23/22 03:00 88 20 130/92 98 NIV Bilevel 90.00 01/23/22 02:12 81 20 98 90.00 01/23/22 02:00 88 20 142/89 98 NIV Bilevel 90.00 01/23/22 01:00 76 01/23/22 01:00 89 20 137/95 89 NIV Bilevel 90.00 01/23/22 00:00 NIV Bilevel 90 01/23/22 00:00 86 19 129/95 91 NIV Bilevel 90.00 01/22/22 23:50 36.8 01/22/22 23:00 84 19 143/88 99 NIV Bilevel 90.00 01/22/22 22:58 36.4 NIV Bilevel 90.00 01/22/22 22:00 89 21 140/90 99 NIV Bilevel 90.00 01/22/22 21:44 84 29 96 90.00 01/22/22 21:00 80 29 125/95 95 NIV Bilevel 90.00 01/22/22 20:00 84 19 125/91 93 NIV Bilevel 90.00 01/22/22 19:52 35.9 01/22/22 19:46 NIV Bilevel 90.00 01/22/22 19:43 NIV Bilevel 90 01/22/22 19:00 85 01/22/22 19:00 85 19 115/90 93 NIV Bilevel 100.00 01/22/22 18:38 88 19 92 90.00 01/22/22 18:00 81 30 124/81 95 NIV Bilevel 100.00 01/22/22 17:37 100.00 01/22/22 17:36 NIV Bilevel 100.00 01/22/22 17:00 80 15 130/90 89 Vapotherm 40.00 100.00 01/22/22 16:18 Vapotherm 40.00 100.00 01/22/22 16:00 NIV Bilevel 60 01/22/22 16:00 77 20 126/87 95 NIV Bilevel 60.00 01/22/22 15:45 36.1 I & O 01/23/22 07:00 Intake Total 1670 ml Output Total 3325 ml Balance -1655 ml Height & Weight Height: 5'11.00" Weight: 217lbs. 4.0oz. 98.386536ax; 29.96 BMI Method:Stated General Appearance: Chronically ill, Moderate Distress, Other (sleeping soundly on BiPAP, opens eyes briefly when spoken to) Neck: Normal Inspection, Supple Respiratory: Decreased Breath Sounds, Rhonci, Wheezing (expiratory), Other (on BiPAP) Cardiovascular: Regular Rate, Rhythm, No Murmur, Irregularly Irregular, Other (not much secretions, ) Capillary Refill: Less Than 3 Seconds Peripheral Pulses: 2+ Dorsalis Pedis (R), 2+ Left Dors-Pedis (L) (See free text.) Gastrointestinal: normal bowel sounds, non tender, soft Extremity: Normal Inspection, Pedal Edema (+2 edema) Neurologic/Psychiatric: Alert, Other (On IV Precedex, ) Skin: Normal Color, Warm/Dry Results Lab Laboratory Tests 01/22/22 04:54 01/23/22 05:40 Assessment/Plan Assessment/Plan hypotension post intubation, will start on IV levophed at 5, place central line Critical Care: Ventilator Management JUDIT SERRATO MD Jan 23, 2022 15:25
[2022-01-23] MEDS ORDERED: NOREPINEPHRINE 8 MG/250 ML 250 ML IV SCH (15:30)
[2022-01-23] MEDS ORDERED: NOREPINEPHRINE 8 MG/250 ML 250 ML IV ONE (15:34)
[2022-01-23] MEDS: NOREPINEPHRINE 8 MG/250 ML 250 ML IV SCH (15:49)
--- NOTE | 2022-01-23 16:56 | Diagnostic Imaging Report ---
EXAMINATION: Chest 1 view HISTORY: PICC line placement. COMPARISON: 01/23/2022. FINDINGS: Stable enlargement of the cardiac silhouette. Endotracheal tube and enteric catheter are unchanged. There has been interval placement of a right-sided PICC line with the tip projecting over the atriocaval junction. Diffuse interstitial opacities throughout both lungs. No pleural effusion or pneumothorax. Degenerative changes of the thoracic spine. Osseous structures are otherwise intact. IMPRESSION: 1. Right-sided PICC line placement with the tip projecting over the atriocaval junction. No pneumothorax. 2. Stable cardiomegaly and diffuse interstitial opacities. Dictated by: Dictated on workstation # [id number]
[2022-01-23] MEDS ORDERED: MIDAZOLAM 5 MG/5 ML (VERSED) VIAL IJ ONE (18:10)
[2022-01-23] MEDS ORDERED: SUCCINYLCHOLINE INJ 100 MG/5 ML SYR/VIAL INJ ONE (18:10)
[2022-01-23] MEDS ORDERED: proPOfol 200 MG/20 ML (DIPRIVAN) VIAL IV ONE (18:10)
[2022-01-23 18:19] VITALS: BP 121/74
[2022-01-23] MEDS: MELATONIN 3 MG TABLET PO SCH (20:16)
[2022-01-23] MEDS: RIVAROXABAN 20 MG TABLET (XARELTO) PO SCH (20:27)
[2022-01-23 22:08] VITALS: BP 150/93
[2022-01-24] MEDS: RT-ALBUTEROL/IPRATROPIUM 3 ML (DUONEB) VIAL INH SCH ×6 (02:05→21:47)
[2022-01-24 02:06] VITALS: BP 139/93
[2022-01-24] MEDS: NOREPINEPHRINE 8 MG/250 ML 250 ML IV SCH ×2 (02:27→18:23)
[2022-01-24] MEDS: PROPOFOL DRIP (ICU) 100 ML IV SCH ×6 (02:49→23:47)
[2022-01-24 04:13] LABS: BASOPHILS % (AUTO) 0 % (0-10); EOSINOPHILS % (AUTO) 0 % (0-10); HEMATOCRIT 32 % (40-54); HEMOGLOBIN 10.4 g/dL (13.3-17.7); LYMPHOCYTES # (AUTO) 0.3 10^3/uL (1.0-4.0); LYMPHOCYTES % (AUTO) 4 % (12-44); MEAN CORPUSCULAR HEMOGLOBIN 31 pg (25-34); MEAN CORPUSCULAR HGB CONC 32 g/dL (32-36); MEAN CORPUSCULAR VOLUME 95 fL (80-99); MEAN PLATELET VOLUME 10.2 fL (9.0-12.2); MONOCYTES # (AUTO) 0.1 10^3/uL (0.0-1.0); MONOCYTES % (AUTO) 1 % (0-12); NEUTROPHILS # (AUTO) 8.3 10^3/uL (1.8-7.8); NEUTROPHILS % (AUTO) 94 % (42-75); PLATELET COUNT 168 10^3/uL (130-400); WHITE BLOOD COUNT 8.8 10^3/uL (4.3-11.0)
[2022-01-24] MEDS: CEFEPIME 1,000 MG/NS 50 ML IVPB IV SCH ×8 (04:20→23:45)
[2022-01-24 04:39] LABS: ALBUMIN 3.3 GM/DL (3.2-4.5); BILIRUBIN,TOTAL 1.6 MG/DL (0.1-1.0); CALCIUM 8.5 MG/DL (8.5-10.1); CREATININE SERUM 1.35 MG/DL (0.60-1.30); MAGNESIUM 2.8 MG/DL (1.6-2.4); PHOSPHORUS 4.8 MG/DL (2.3-4.7); POTASSIUM 4.4 MMOL/L (3.6-5.0)
[2022-01-24] MEDS: MAGNESIUM 1 GM/100 ML IVPB 100 ML IV SCH (04:52)
[2022-01-24] MEDS: POTASSIUM CL 10MEQ/50ML IVPB 50 ML IV SCH (04:52)
[2022-01-24] MEDS: KCL 20 MEQ TAB (K-DUR) PO SCH (04:52)
[2022-01-24] MEDS: DexMEDEtomidine 250 ML DRIP 250 ML IV SCH ×3 (05:17→18:17)
[2022-01-24] MEDS: methylPREDNISolone 40 MG/ML (Solu-MEDROL) VIAL IV SCH ×4 (05:18→23:44)
[2022-01-24] MEDS: inSUlin ASPART (NovoLOG) 1 UNIT/0.01 ML (CHARGE PER UNIT) SC SCH ×4 (05:19→23:44)
--- NOTE | 2022-01-24 06:42 | Occ Therapy Progress Note ---
Therapy Progress Note Pt is currently intubated. OT will continue to monitor pt and will initiate treatment when pt is medically stable and able to actively participate in skilled therapy. BENNIE JORDAN Jan 24, 2022 06:42
[2022-01-24 07:03] VITALS: BP 141/86
--- NOTE | 2022-01-24 07:38 | Physical Therapy Progress Note ---
Therapy Progress Note Patient is currently intubated. Will hold for now and start when appropriate and patient can participate. TRISTA GENTILE PT Jan 24, 2022 07:38
--- NOTE | 2022-01-24 07:42 | Diagnostic Imaging Report ---
INDICATION: Intubated, dyspnea, respiratory failure COMPARISON: 01/23/2022 TECHNIQUE: Single radiograph of the chest dated 01/24/2022. FINDINGS: Endotracheal tube, enteric catheter, and right-sided PICC line have not significantly changed. The cardiac silhouette is enlarged, though stable. Pulmonary vasculature is obscured. Extensive bilateral pulmonary infiltrates are again identified, relatively stable from the prior examination. No pneumothorax. Chronic left clavicular fracture deformity. No new acute osseous abnormality. IMPRESSION: Similar-appearing examination with extensive bilateral pulmonary infiltrates, persistent cardiomegaly, and unchanged lines and tubes. Dictated by: Dictated on workstation # [id number]
[2022-01-24] MEDS: guaiFENesin (MUCINEX) 600 MG TAB PO SCH ×2 (08:10→20:44)
[2022-01-24] MEDS: GABAPENTIN 100 MG (NEURONTIN) CAP PO SCH ×2 (08:10→20:43)
[2022-01-24] MEDS: FUROSEMIDE 40 MG/4 ML INJ (LASIX) IVP SCH ×2 (08:10→20:42)
[2022-01-24] MEDS: cloNIDine 0.1 MG (CATAPRES) TAB PO SCH ×2 (08:10→20:43)
[2022-01-24] MEDS: PANTOPRAZOLE 40 MG (PROTONIX) VIAL IV SCH (08:10)
--- NOTE | 2022-01-24 09:21 | Progress Note - Hospitalist ---
Subjective HPI/CC On Admission Date Seen by Provider: Jan 24, 2022 Mauro Park is a 71 year old male with PMH HTN, HFpEF, COPD, chronic respiratory failure on nocturnal oxygen, former smoker, T2DM, AFib on Xarelto, who presented with shortness of breath. He has been hospitalized twice over the past couple months with pneumonia. He denies fevers. He has a cough with sputum production. He denies chest pain. He denies abdominal pain. He denies nausea and vomiting. He has had some leg swelling. Subjective/Events-last exam Pt is intubated and sedated. No family at bedside. RN reports doing well on vent today. Weaning oxygen. I called and spoke with his PCP as well and updated on condition. Focused Exam Time of Focused Exam: 04:30 Objective Exam Vital Signs Vital Signs Date Time Temp Pulse Resp B/P (MAP) Pulse Ox O2 Delivery O2 Flow Rate FiO2 01/24/22 08:15 100 Mechanical Ventilator 50 01/24/22 07:44 36.0 01/24/22 07:03 87 18 01/24/22 06:30 145/99 01/24/22 06:00 60.00 Capillary Refill : Less Than 3 Seconds General Appearance: Chronically ill, Other (sedated on ventilator) Respiratory: Decreased Breath Sounds; No Wheezing; Other (on vent) Cardiovascular: Regular Rate, Rhythm, No Murmur Gastrointestinal: Normal Bowel Sounds, Non Tender, Soft Genital/Rectal: Other (judd) Neurologic/Psychiatric: Other (sedated, appears comfortable) Results/Procedures Lab Laboratory Tests 01/24/22 03:58 Patient resulted labs reviewed. Imaging: Reviewed Imaging Report Assessment/Plan Assessment and Plan Assess & Plan/Chief Complaint Severe sepsis due to pneumonia Acute kidney injury Lactic acidosis Acute on chronic respiratory failure with hypoxia- intubated 01/23 Acute on chronic heart failure with preserved ejection fraction COPD with acute exacerbation Continue Cefepime Lasix- negative 1.5L just yesterday, -3.5L since admission Solumedrol to continue TeleICU/Pulm following Continue on mechnical ventilation, eICu managing vent settings Discussed with Dr Hill who reports patient has been chronically ill for a while with respiratory disease Will get TF recs from dietary AFib Supratherapeutic INR Xarelto Cardiology following, advised against Vitamin K T2DM Sliding scale insulin Continue Levemir, may need to increase if BS continues to trend up with steroids HTN CAD Obesity Bp well controlled- was transiently on pressors post intubation Goals of care Discussed with patient and extensively yesterday all of his treatment options He is agreeable to short term ventilation only and does not want shelter or trach or CPR should his heart stop Updated Dr Hill as well Critical Care Ventilator Management RUIZ SIMMONS MD Jan 24, 2022 09:21
[2022-01-24 10:46] VITALS: BP 173/105
[2022-01-24] MEDS ORDERED: morphine INJ 10 MG/ML 1ML (SYR OR VIAL) IVP NR (10:48)
--- NOTE | 2022-01-24 11:13 | Cardiology Progress Note ---
Progress Note-Cardiology Events since last exam Date Seen by Provider: Jan 24, 2022 Time Seen by Provider: 11:10 Events since last exam I am following him due to atrial fibrillation and heart failure. On 01/23 he was intubated. He is now intubated and sedated with Precedex and propofol. Following the intubation, he developed shock. This has now resolved. He was on norepinephrine infusion which has now been discontinued. Now he is actually hypertensive. I am not able to obtain any history from the patient due to his sedation. I did speak with his nurse. Certain portions of this document may have been dictated utilizing voice recognition technology. Inherent to this technology, typographical and grammatical errors may exist. As much as I am diligent to identify and correct these mistakes, some errors may remain in the document. Vitals Last set of Vitals Signs Vital Signs 01/24/22 01/24/22 01/24/22 15:42 16:00 17:00 Temp 36.4 Pulse 82 Resp 16 B/P (MAP) 194/125 Pulse Ox 99 O2 Delivery Mechanical Ventilator O2 Flow Rate 60.00 FiO2 40 Labs Labs Laboratory Tests 01/24/22 03:58 Exam Vital Signs Vital Signs Date Time Temp Pulse Resp B/P (MAP) Pulse Ox O2 Delivery O2 Flow Rate FiO2 01/24/22 17:00 82 16 194/125 99 Mechanical Ventilator 60.00 01/24/22 16:00 36.4 01/24/22 15:42 40 Physical Exam General: Intubated and sedated. Well nourished and appears stated age. Eye: Conjunctivae are clear. There are no xanthelasma. HENT: Normocephalic. Atraumatic. Carotid pulsations 2/2 without bruits. Neck: Jugular venous pressure does not appear elevated. No thyromegaly appreciated. Respiratory: Symmetrical expansion bilaterally. Coarse breath sounds due to the ventilator. Cardiovascular: Normal rate. Irregular rhythm. Distant S1/S2. No murmur. No gallop. Point of maximal impulse is not appear displaced. Good pulses equal in all extremities. No edema. Gastrointestinal: Soft. Normal bowel sounds. Skin: Skin turgor is normal. There is no pallor. Musculoskeletal: No obvious deformities. Neurologic: Intubated and sedated. Psychiatric: Not obtainable due to clinical status. Labs Laboratory Tests Test 01/23/22 20:26 01/24/22 03:58 01/24/22 05:13 01/24/22 11:57 Range/Units Glucometer 194 H 234 H 257 H 70-110 MG/DL White Blood Count 8.8 4.3-11.0 10^3/uL Red Blood Count 3.41 L 4.30-5.52 10^6/uL Hemoglobin 10.4 L 13.3-17.7 g/dL Hematocrit 32 L 40-54 % Mean Corpuscular Volume 95 80-99 fL Mean Corpuscular Hemoglobin 31 25-34 pg Mean Corpuscular Hemoglobin Concent 32 32-36 g/dL Red Cell Distribution Width 16.7 H 10.0-14.5 % Platelet Count 168 130-400 10^3/uL Mean Platelet Volume 10.2 9.0-12.2 fL Immature Granulocyte % (Auto) 1 % Neutrophils (%) (Auto) 94 H 42-75 % Lymphocytes (%) (Auto) 4 L 12-44 % Monocytes (%) (Auto) 1 0-12 % Eosinophils (%) (Auto) 0 0-10 % Basophils (%) (Auto) 0 0-10 % Neutrophils # (Auto) 8.3 H 1.8-7.8 10^3/uL Lymphocytes # (Auto) 0.3 L 1.0-4.0 10^3/uL Monocytes # (Auto) 0.1 0.0-1.0 10^3/uL Eosinophils # (Auto) 0.0 0.0-0.3 10^3/uL Basophils # (Auto) 0.0 0.0-0.1 10^3/uL Immature Granulocyte # (Auto) 0.1 0.0-0.1 10^3/uL Bedside Blood Gas pH (LAB) 7.357 7.310-7.410 Bedside Blood Gas pCO2 (LAB) 46.5 41.0-51.0 mmHg Bedside Blood Gas pO2 (LAB) 146 H 80-105 mmHg Bedside Blood Gas HCO3 (LAB) 26.1 23.0-28.0 mmol/L POC Blood Gas Total CO2 Calc 27 24-29 mmol/L Bedside Bl Gas O2 Saturation (Calc) 99 H 95-98 % Bedside Arterial Blood Base Excess 1 -2-3 mmol/L Sodium Level 141 135-145 MMOL/L Potassium Level 4.4 3.6-5.0 MMOL/L Chloride Level 102 98-107 MMOL/L Carbon Dioxide Level 19 L 21-32 MMOL/L Anion Gap 20 H 5-14 MMOL/L Blood Urea Nitrogen 42 H 7-18 MG/DL Creatinine 1.35 H 0.60-1.30 MG/DL Estimat Glomerular Filtration Rate 56 BUN/Creatinine Ratio 31 Glucose Level 249 H 70-105 MG/DL Calcium Level 8.5 8.5-10.1 MG/DL Corrected Calcium 9.1 8.5-10.1 MG/DL Phosphorus Level 4.8 H 2.3-4.7 MG/DL Magnesium Level 2.8 H 1.6-2.4 MG/DL Total Bilirubin 1.6 H 0.1-1.0 MG/DL Aspartate Amino Transf (AST/SGOT) 28 5-34 U/L Alanine Aminotransferase (ALT/SGPT) 33 0-55 U/L Alkaline Phosphatase 110 40-136 U/L Total Protein 7.0 6.4-8.2 GM/DL Albumin 3.3 3.2-4.5 GM/DL Test 01/24/22 12:45 Range/Units Prothrombin Time 20.8 H 12.2-14.7 SEC INR Comment 1.7 H 0.8-1.4 Diagnosis/Problems Diagnosis/Problems (1) Acute on chronic heart failure with preserved ejection fraction (HFpEF) Status: Acute Assessment & Plan: His symptoms are most likely due to heart failure with possibly some superimposed pulmonary infection. His BNP is mildly elevated. He is known to have a normal ejection fraction by echocardiogram earlier this year. I changed the furosemide to twice daily dosing on 01/22. We will need to watch his renal function closely with this adjustment. He is now intubated. Prognosis is poor. (2) Primary hypertension Status: Chronic Assessment & Plan: He is now becoming hypertensive again. He has been getting oral clonidine. I will restart carvedilol but at a lower dose than he was taking at home. I would suggest using caution when increasing his antihypertensive medication since he had developed shock on 01/23 that required norepinephrine infusion. (3) Permanent atrial fibrillation Status: Chronic Assessment & Plan: Heart rates appear to be reasonably controlled on no beta- kwame which he was taking at home. He has been on rivaroxaban for stroke prophylaxis. Given his elevated blood pressure, I have restarted beta kwame. (4) Mitral regurgitation Assessment & Plan: His echocardiogram from November showed mild to moderate mitral regurgitation. I would not expect this to be contributing to his symptoms but this will need to be followed longitudinally by his regular access manager at the outside facility. (5) Acute on chronic respiratory failure with hypoxia Status: Acute Assessment & Plan: Most likely multifactorial secondary to heart failure and superimposed pulmonary infection. If he does not make some improvement soon, we may need to consider palliative care or even comfort care. Now that he has required intubation, prognosis is poor given his underlying chronic pulmonary disease. (6) Acute kidney injury superimposed on chronic kidney disease Assessment & Plan: His baseline kidney function is around stage II chronic kidney disease. He has had a slight increase in his creatinine level since his previous admission. We will need to monitor this closely. (7) Anemia Status: Chronic Assessment & Plan: This appears to be chronic and may need some evaluation following discharge. (8) Abnormal INR Status: Acute Assessment & Plan: The INR level can be elevated in patients taking rivaroxaban and apixaban. This is unpredictably elevated and does not reverse with vitamin K. If he does not have any evidence of active bleeding, I would not recommend giving him vitamin K. Furthermore, vitamin K will not reverse the effects of DOAC's. His INR did improve after receiving one dose of IV vitamin K. I would suggest avoiding further doses of vitamin K unless he has signs of active bleeding. ALEKSANDER VILLA JR, MD Jan 24, 2022 11:13
[2022-01-24] MEDS ORDERED: meTOprolol 5 MG/5 ML (LOPRESSOR) VIAL ONE ×2 (12:09→15:07)
[2022-01-24] MEDS ORDERED: meTOprolol 5 MG/5 ML (LOPRESSOR) VIAL IV ONE (12:15)
--- NOTE | 2022-01-24 12:35 | Tele-ICU Progress Note ---
Subjective Date Seen by a Provider: Jan 24, 2022 Time Seen by a Provider: 12:35 Subjective/Events-last exam (Tele-ICU Physician , Progress Note ) Available chart/ vitals / labs / Images reviewed Video assessment done using teleICU camera, rest of exam as per RN Discussed with RN Events overnight : Afebrile hemodynamically stable Respiratory - 50% I/O =_ Drips: Pressors- LEVO 0.1 VENT SETTINGS and ABG reviewed Sedation: RASS -2 propofol 40 , precedex 1.5 Not candidate for SBTContraindications : Cardiovascular Stability /Sedation Score / FI02/PEEP / ABG / CXR Consultants: Hospital course: 01-20: +Severe Sepsis COVID PCR Neg 71 y/o M - Hypoxic - Pneumonia - COPD Exacerbation - BiPAP. Recent hosp d/c 01/03/22 for same. 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 Discussed with RN to reach out if any questions or concerns A total of 35 minutes of critical care time was devoted to this patient today, required to treat and/or prevent further deterioration of critical care condition ( as above ) . Sepsis Event Evaluation Height, Weight, BMI Height: 5'11.00" Weight: 217lbs. 4.0oz. 98.296240kp; 29.28 BMI Method:Stated Focused Exam Time of Focused Exam: 04:30 Exam Exam Patient acknowledged, consented, and participated in this virtual visit which was conducted using real time audio/video Vital Signs Date Time Temp Pulse Resp B/P (MAP) Pulse Ox O2 Delivery O2 Flow Rate FiO2 01/24/22 12:10 90 183/116 01/24/22 12:09 36.0 01/24/22 12:00 94 14 183/116 100 Mechanical Ventilator 60.00 01/24/22 11:00 90 14 184/130 100 Mechanical Ventilator 60.00 01/24/22 10:48 90 173/105 01/24/22 10:46 89 17 100 40 01/24/22 10:42 90 186/106 01/24/22 10:00 88 14 173/105 100 Mechanical Ventilator 60.00 01/24/22 09:20 91 173/108 01/24/22 09:00 84 17 173/108 100 Mechanical Ventilator 60.00 01/24/22 08:15 100 Mechanical Ventilator 50 01/24/22 08:06 50 01/24/22 08:00 96 17 179/95 100 Mechanical Ventilator 60.00 01/24/22 07:44 36.0 01/24/22 07:03 87 18 100 60 01/24/22 07:00 89 13 143/86 100 Mechanical Ventilator 60.00 01/24/22 07:00 91 01/24/22 06:30 91 145/99 01/24/22 06:30 91 145/99 01/24/22 06:00 90 17 145/99 100 Mechanical Ventilator 60.00 01/24/22 05:17 100 139/90 01/24/22 05:00 86 16 139/90 100 Mechanical Ventilator 60.00 01/24/22 05:00 100 26 99 01/24/22 04:00 100 Mechanical Ventilator 60 01/24/22 04:00 36.3 01/24/22 04:00 93 14 147/93 100 Mechanical Ventilator 60.00 01/24/22 03:00 90 14 149/99 100 Mechanical Ventilator 60.00 01/24/22 02:50 60 01/24/22 02:49 98 143/93 01/24/22 02:25 90 145/100 01/24/22 02:25 90 145/100 01/24/22 02:06 92 16 96 60 01/24/22 02:00 95 15 145/100 95 Mechanical Ventilator 60.00 01/24/22 01:00 90 01/24/22 01:00 87 15 148/92 97 Mechanical Ventilator 60.00 01/24/22 00:00 93 16 135/86 97 Mechanical Ventilator 60.00 01/24/22 00:00 37.1 01/23/22 23:45 98 Mechanical Ventilator 60 01/23/22 23:20 60 01/23/22 23:00 97 19 142/97 100 Mechanical Ventilator 60.00 01/23/22 22:25 90 146/100 01/23/22 22:25 90 146/100 01/23/22 22:08 95 18 98 60 01/23/22 22:00 85 20 149/95 98 Mechanical Ventilator 60.00 01/23/22 21:44 98 139/92 01/23/22 21:00 92 19 138/92 100 Mechanical Ventilator 60.00 01/23/22 20:39 Mechanical Ventilator 60.00 01/23/22 20:12 85 131/92 01/23/22 20:00 85 20 140/91 99 Mechanical Ventilator 65.00 01/23/22 19:24 Mechanical Ventilator 65.00 01/23/22 19:15 75 01/23/22 19:15 100 Mechanical Ventilator 75 01/23/22 19:10 83 136/90 01/23/22 19:00 36.4 85 132/88 Mechanical Ventilator 75.00 01/23/22 19:00 90 01/23/22 18:19 79 21 100 75 01/23/22 18:12 Mechanical Ventilator 75.00 01/23/22 18:00 83 21 125/80 100 Mechanical Ventilator 85.00 01/23/22 17:52 79 115/73 01/23/22 17:00 80 18 140/96 93 Mechanical Ventilator 85.00 01/23/22 16:56 Mechanical Ventilator 85.00 01/23/22 16:12 85 92/73 01/23/22 16:00 87 15 132/89 91 Mechanical Ventilator 75.00 01/23/22 16:00 36.1 01/23/22 16:00 Mechanical Ventilator 80 01/23/22 15:49 84 79/58 01/23/22 15:00 89 16 95/65 96 Mechanical Ventilator 75.00 01/23/22 14:50 Mechanical Ventilator 75.00 01/23/22 14:50 86 101/70 01/23/22 14:34 73 16 93 75 01/23/22 14:34 Mechanical Ventilator 100.00 01/23/22 14:00 86 15 100/66 92 NIV Bilevel 75.00 01/23/22 13:30 80 124/86 01/23/22 13:25 85 01/23/22 13:00 89 30 128/92 96 NIV Bilevel 75.00 I & O 01/24/22 07:00 Intake Total 1831 ml Output Total 2875 ml Balance -1044 ml Height & Weight Height: 5'11.00" Weight: 217lbs. 4.0oz. 98.327900ap; 29.28 BMI Method:Stated General Appearance: Chronically ill, Other (sedated on ventilator) Neck: Normal Inspection, Supple Respiratory: Decreased Breath Sounds; No Wheezing; Other (on vent) Cardiovascular: Regular Rate, Rhythm, No Murmur Capillary Refill: Less Than 3 Seconds Peripheral Pulses: 2+ Dorsalis Pedis (R), 2+ Left Dors-Pedis (L) (See free text.) Gastrointestinal: normal bowel sounds, non tender, soft Extremity: Normal Inspection, Pedal Edema (+2 edema) Neurologic/Psychiatric: Other (sedated, appears comfortable) Skin: Normal Color, Warm/Dry Results Lab Laboratory Tests 01/23/22 05:40 01/24/22 03:58 Assessment/Plan Assessment/Plan 1 SADIE WISDOM MD Jan 24, 2022 12:35
[2022-01-24 13:17] LABS: INR 1.7 (0.8-1.4); PROTHROMBIN TIME PATIENT 20.8 SEC (12.2-14.7)
[2022-01-24] MEDS: fentaNYL INJ 100 MCG/2 ML AMP IVP PRN (13:50)
[2022-01-24 14:29] VITALS: BP 183/107
[2022-01-24] MEDS ORDERED: meTOprolol 5 MG/5 ML (LOPRESSOR) VIAL IV NR (15:15)
[2022-01-24] MEDS: NITRO DRIP 25000 MCG/D5W 250 ML IV SCH (18:12)
[2022-01-24 18:35] VITALS: BP 192/118
[2022-01-24] MEDS: RIVAROXABAN 20 MG TABLET (XARELTO) PO SCH (20:42)
[2022-01-24] MEDS: MELATONIN 3 MG TABLET PO SCH (20:43)
[2022-01-24 21:47] VITALS: BP 132/90
[2022-01-24] MEDS: guaiFENesin SYRUP 100 MG/5 ML 10 ML (ROBITUSSIN SF) NG SCH (23:44)
[2022-01-25] VITALS (7 sets, daily range): BP systolic 135–162; BP diastolic 73–92
[2022-01-25] MEDS: DexMEDEtomidine 250 ML DRIP 250 ML IV SCH ×4 (01:10→22:53)
[2022-01-25] MEDS: RT-ALBUTEROL/IPRATROPIUM 3 ML (DUONEB) VIAL INH SCH ×6 (03:19→21:52)
[2022-01-25 03:35] LABS: BASOPHILS % (AUTO) 0 % (0-10); EOSINOPHILS % (AUTO) 0 % (0-10); HEMATOCRIT 29 % (40-54); HEMOGLOBIN 9.3 g/dL (13.3-17.7); LYMPHOCYTES # (AUTO) 0.4 10^3/uL (1.0-4.0); LYMPHOCYTES % (AUTO) 4 % (12-44); MEAN CORPUSCULAR HEMOGLOBIN 30 pg (25-34); MEAN CORPUSCULAR HGB CONC 32 g/dL (32-36); MEAN CORPUSCULAR VOLUME 94 fL (80-99); MEAN PLATELET VOLUME 9.9 fL (9.0-12.2); MONOCYTES # (AUTO) 0.5 10^3/uL (0.0-1.0); MONOCYTES % (AUTO) 5 % (0-12); NEUTROPHILS % (AUTO) 91 % (42-75); PLATELET COUNT 226 10^3/uL (130-400)
[2022-01-25 03:59] LABS: ALBUMIN 2.9 GM/DL (3.2-4.5); BILIRUBIN,TOTAL 1.2 MG/DL (0.1-1.0); CALCIUM 7.8 MG/DL (8.5-10.1); CREATININE SERUM 1.25 MG/DL (0.60-1.30); MAGNESIUM 2.3 MG/DL (1.6-2.4); PHOSPHORUS 2.6 MG/DL (2.3-4.7); POTASSIUM 3.1 MMOL/L (3.6-5.0); TOTAL PROTEIN 5.9 GM/DL (6.4-8.2)
[2022-01-25] MEDS: POTASSIUM CL 10MEQ/50ML IVPB 50 ML IV SCH ×5 (05:01→09:22)
[2022-01-25] MEDS: methylPREDNISolone 40 MG/ML (Solu-MEDROL) VIAL IV SCH ×3 (05:39→17:33)
[2022-01-25] MEDS: guaiFENesin SYRUP 100 MG/5 ML 10 ML (ROBITUSSIN SF) NG SCH ×4 (05:39→22:52)
[2022-01-25] MEDS: inSUlin ASPART (NovoLOG) 1 UNIT/0.01 ML (CHARGE PER UNIT) SC SCH ×4 (05:42→22:54)
[2022-01-25] MEDS: MAGNESIUM 1 GM/100 ML IVPB 100 ML IV SCH (05:43)
[2022-01-25] MEDS: KCL 20 MEQ TAB (K-DUR) PO SCH (05:43)
--- NOTE | 2022-01-25 06:44 | Occ Therapy Progress Note ---
Therapy Progress Note Pt currently intubated. OT to monitor pt's status and will initiate treatment when pt is medically stable and able to tolerate skilled therapy. BENNIE JORDAN Jan 25, 2022 06:43
--- NOTE | 2022-01-25 07:17 | Physical Therapy Progress Note ---
Therapy Progress Note Patient is currently intubated. Will hold for now and start when appropriate and patient can participate. TRISTA GENTIEL PT Jan 25, 2022 07:17
[2022-01-25] MEDS: fentaNYL INJ 100 MCG/2 ML AMP IVP PRN ×3 (07:44→13:06)
--- NOTE | 2022-01-25 08:05 | Progress Note - Hospitalist ---
Subjective HPI/CC On Admission Date Seen by Provider: Jan 25, 2022 Mauro Park is a 71 year old male with PMH HTN, HFpEF, COPD, chronic respiratory failure on nocturnal oxygen, former smoker, T2DM, AFib on Xarelto, who presented with shortness of breath. He has been hospitalized twice over the past couple months with pneumonia. He denies fevers. He has a cough with sputum production. He denies chest pain. He denies abdominal pain. He denies nausea and vomiting. He has had some leg swelling. Subjective/Events-last exam Pt remains intubated and sedated. RN reports he did well overnight and they weaned PEEP and FiO2 but he did not tolerate SBT this am. No family at bedside. Focused Exam Time of Focused Exam: 04:30 Objective Exam Vital Signs Vital Signs Date Time Temp Pulse Resp B/P (MAP) Pulse Ox O2 Delivery O2 Flow Rate FiO2 01/25/22 06:36 88 26 92 30 01/25/22 06:00 153/81 Mechanical Ventilator 30.00 01/25/22 03:43 37.6 Capillary Refill : Less Than 3 Seconds General Appearance: Chronically ill, Other (intubated and sedated) Respiratory: Lungs Clear, Other (on vent) Cardiovascular: Regular Rate, Rhythm, No Murmur Gastrointestinal: Normal Bowel Sounds, Soft Neurologic/Psychiatric: Other Results/Procedures Lab Laboratory Tests 01/25/22 03:21 Patient resulted labs reviewed. Imaging: Reviewed Imaging Report Assessment/Plan Assessment and Plan Assess & Plan/Chief Complaint Severe sepsis due to pneumonia Acute kidney injury Lactic acidosis Acute on chronic respiratory failure with hypoxia- intubated 01/23 Acute on chronic heart failure with preserved ejection fraction COPD with acute exacerbation Continue Cefepime Lasix- negative 4L since admission Solumedrol to continue TeleICU/Pulm following Continue on mechnical ventilation, eICu managing vent settings Setting weaning today Discussed with Dr Hill and updated again today, I also called and updated wifee Continue TF AFib Supratherapeutic INR Xarelto Cardiology following, advised against Vitamin K T2DM Sliding scale insulin Continue Levemir, increase to 20 units as consistently above 200 FSBS HTN CAD Obesity Bp well controlled- was transiently on pressors post intubation Goals of care Discussed with patient and extensively prior to intubation all of his treatment options He is agreeable to short term ventilation only and does not want termite exterminator or trach or CPR should his heart stop Critical Care Ventilator Management RUIZ SIMMONS MD Jan 25, 2022 08:05
--- NOTE | 2022-01-25 08:19 | Diagnostic Imaging Report ---
EXAMINATION: Chest 1 view HISTORY: Intubated COMPARISON: 01/24/2022 FINDINGS: Endotracheal tube tip terminates 6 cm above the rik. Gastric tube terminates in the stomach. There is moderate to severe edema versus multifocal pneumonia. No pleural effusion or pneumothorax. Heart is enlarged. IMPRESSION: 1. Stable moderate to severe pulmonary edema versus multifocal pneumonia. Dictated by: Dictated on workstation # [id number]
[2022-01-25] MEDS: PANTOPRAZOLE 40 MG (PROTONIX) VIAL IV SCH (09:11)
[2022-01-25] MEDS: FUROSEMIDE 40 MG/4 ML INJ (LASIX) IVP SCH ×2 (09:11→17:33)
[2022-01-25] MEDS: GABAPENTIN 100 MG (NEURONTIN) CAP PO SCH ×2 (09:11→20:38)
[2022-01-25] MEDS: cloNIDine 0.1 MG (CATAPRES) TAB PO SCH ×2 (09:11→20:37)
[2022-01-25] MEDS: CEFEPIME INJECTION 1,000 MG in NS (IVPB) 50 ML IV SCH ×3 (09:11→20:37)
--- NOTE | 2022-01-25 09:11 | Cardiology Progress Note ---
Progress Note-Cardiology Events since last exam Date Seen by Provider: Jan 25, 2022 Time Seen by Provider: 09:08 Events since last exam I am following him due to permanent atrial fibrillation and heart failure. 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 He remains intubated and sedated in the intensive care unit. Overnight, he was started on intravenous nitroglycerin due to persistently elevated blood pressures. I had also given him intravenous metoprolol. When the nurse tries to wean his sedation, he becomes agitated and more hypertensive. I could not obtain any history from the patient due to his s edation. He was moving all 4 extremities and opening his eyes when the nurse was doing oral care and suctioning. Certain portions of this document may have been dictated utilizing voice recognition technology. Inherent to this technology, typographical and grammatical errors may exist. As much as I am diligent to identify and correct these mistakes, some errors may remain in the document. Vitals Last set of Vitals Signs Vital Signs 01/25/22 01/25/22 12:00 14:00 Pulse 76 Resp 18 B/P (MAP) 156/92 Pulse Ox 92 O2 Delivery Mechanical Ventilator O2 Flow Rate 35.00 FiO2 40 Labs Labs Laboratory Tests 01/25/22 03:21 Exam Vital Signs Vital Signs Date Time Temp Pulse Resp B/P (MAP) Pulse Ox O2 Delivery O2 Flow Rate FiO2 01/25/22 14:00 76 18 156/92 92 Mechanical Ventilator 35.00 01/25/22 13:29 37.6 01/25/22 12:00 40 Physical Exam General: Intubated and sedated. Well nourished and appears stated age. Eye: Conjunctivae are clear. There are no xanthelasma. HENT: Normocephalic. Atraumatic. Carotid pulsations 2/2 without bruits. Neck: Jugular venous pressure does not appear elevated. No thyromegaly appreciated. Respiratory: Symmetrical expansion bilaterally. Coarse breath sounds due to the ventilator. Cardiovascular: Normal rate. Irregularly rhythm. Distant S1/S2. No murmur. No gallop. Point of maximal impulse is not appear displaced. Good pulses equal in all extremities. Trace bilateral pretibial edema. Gastrointestinal: Soft. Normal bowel sounds. Skin: Skin turgor is normal. There is no pallor. Musculoskeletal: No obvious deformities. Neurologic: Intubated and sedated. Psychiatric: Not obtainable due to clinical status. Labs Laboratory Tests Test 01/24/22 18:22 01/24/22 23:39 01/25/22 03:21 01/25/22 05:38 Range/Units Glucometer 246 H 243 H 285 H 70-110 MG/DL White Blood Count 11.0 4.3-11.0 10^3/uL Red Blood Count 3.06 L 4.30-5.52 10^6/uL Hemoglobin 9.3 L 13.3-17.7 g/dL Hematocrit 29 L 40-54 % Mean Corpuscular Volume 94 80-99 fL Mean Corpuscular Hemoglobin 30 25-34 pg Mean Corpuscular Hemoglobin Concent 32 32-36 g/dL Red Cell Distribution Width 16.5 H 10.0-14.5 % Platelet Count 226 130-400 10^3/uL Mean Platelet Volume 9.9 9.0-12.2 fL Immature Granulocyte % (Auto) 1 % Neutrophils (%) (Auto) 91 H 42-75 % Lymphocytes (%) (Auto) 4 L 12-44 % Monocytes (%) (Auto) 5 0-12 % Eosinophils (%) (Auto) 0 0-10 % Basophils (%) (Auto) 0 0-10 % Neutrophils # (Auto) 10.0 H 1.8-7.8 10^3/uL Lymphocytes # (Auto) 0.4 L 1.0-4.0 10^3/uL Monocytes # (Auto) 0.5 0.0-1.0 10^3/uL Eosinophils # (Auto) 0.0 0.0-0.3 10^3/uL Basophils # (Auto) 0.0 0.0-0.1 10^3/uL Immature Granulocyte # (Auto) 0.1 0.0-0.1 10^3/uL Sodium Level 141 135-145 MMOL/L Potassium Level 3.1 L 3.6-5.0 MMOL/L Chloride Level 103 98-107 MMOL/L Carbon Dioxide Level 23 21-32 MMOL/L Anion Gap 15 H 5-14 MMOL/L Blood Urea Nitrogen 40 H 7-18 MG/DL Creatinine 1.25 0.60-1.30 MG/DL Estimat Glomerular Filtration Rate 62 BUN/Creatinine Ratio 32 Glucose Level 284 H 70-105 MG/DL Calcium Level 7.8 L 8.5-10.1 MG/DL Corrected Calcium 8.7 8.5-10.1 MG/DL Phosphorus Level 2.6 2.3-4.7 MG/DL Magnesium Level 2.3 1.6-2.4 MG/DL Total Bilirubin 1.2 H 0.1-1.0 MG/DL Aspartate Amino Transf (AST/SGOT) 13 5-34 U/L Alanine Aminotransferase (ALT/SGPT) 26 0-55 U/L Alkaline Phosphatase 82 40-136 U/L Total Protein 5.9 L 6.4-8.2 GM/DL Albumin 2.9 L 3.2-4.5 GM/DL Triglycerides Level 294 H <150 MG/DL Test 01/25/22 13:00 Range/Units Glucometer 323 H 70-110 MG/DL Diagnosis/Problems Diagnosis/Problems (1) Acute on chronic heart failure with preserved ejection fraction (HFpEF) Status: Acute Assessment & Plan: His symptoms are most likely due to heart failure with possibly some superimposed pulmonary infection. His BNP is mildly elevated. He is known to have a normal ejection fraction by echocardiogram earlier this year. His chest x-ray from today shows persistent pulmonary edema. I will increase the dose of furosemide to 80 mg twice daily. We will need to watch his renal function closely. (2) Primary hypertension Status: Chronic Assessment & Plan: He has been on clonidine and I restarted carvedilol on 01/25. I will restart a lower dose of losartan than what he was taking at home. I have asked the nurse to try and wean off the nitroglycerin infusion. We will ne ed to be cautious with the antihypertensive medication given that he was in shock on 01/23 and required norepinephrine infusion. (3) Permanent atrial fibrillation Status: Chronic Assessment & Plan: Heart rates appear to be reasonably controlled on no beta- kwame which he was taking at home. He has been on rivaroxaban for stroke prop hylaxis. Given his elevated blood pressure, I have restarted beta kwame. (4) Mitral regurgitation Assessment & Plan: His echocardiogram from November showed mild to moderate mitral regurgitation. I would not expect this to be contributing to his symptoms but this will need to be followed longitudinally by his regular animal shelter supervisor at the outside facility. (5) Acute on chronic respiratory failure with hypoxia Status: Acute Assessment & Plan: Most likely multifactorial secondary to heart failure and superimposed pulmonary infection. If he does not make some improvement soon, we may need to consider palliative care or even comfort care. Now that he has required intubation, prognosis is poor given his underlying chronic pulmonary disease. (6) Acute kidney injury superimposed on chronic kidney disease Assessment & Plan: His baseline kidney function is around stage II chronic kidney disease. He has had a slight increase in his creatinine level since his previous admission. We will need to monitor this closely. (7) Anemia Status: Chronic Assessment & Plan: This appears to be chronic and may need some evaluation following discharge. (8) Abnormal INR Status: Acute Assessment & Plan: The INR level can be elevated in patients taking rivaroxaban and apixaban. This is unpredictably elevated and does not reverse with vitamin K. If he does not have any evidence of active bleeding, I would not recommend g iving him vitamin K. Furthermore, vitamin K will not reverse the effects of DOAC's. His INR did improve after receiving one dose of IV vitamin K. I would suggest avoiding further doses of vitamin K unless he has signs of active bleeding. ALEKSANDER VILLA JR, MD Jan 25, 2022 09:11
[2022-01-25] MEDS: PROPOFOL DRIP (ICU) 100 ML IV SCH ×5 (09:12→22:53)
[2022-01-25] MEDS ORDERED: FUROSEMIDE 40 MG/4 ML INJ (LASIX) IVP ONE (09:15)
[2022-01-25] MEDS: NOREPINEPHRINE 8 MG/250 ML 250 ML IV SCH ×2 (09:19→22:27)
--- NOTE | 2022-01-25 09:54 | Tele-ICU Progress Note ---
Subjective Date Seen by a Provider: Jan 25, 2022 Time Seen by a Provider: 09:53 Subjective/Events-last exam (Tele-ICU Physician , Progress Note ) Available chart/ vitals / labs / Images reviewed Video assessment done using teleICU camera, rest of exam as per RN Discussed with RN Events overnight : Afebrile hemodynamically stable Respiratory - 50% I/O =_ Drips: NTG Pressors- LEVO OFF VENT SETTINGS and ABG reviewed Sedation: RASS -2 propofol 40 , precedex 1.5 candidate for SBTContraindications : Cardiovascular Stability /Sedation Score / FI02/PEEP / ABG / CXR Consultants: Hospital course: -07: +Severe Sepsis COVID PCR Neg 71 y/o M - Hypoxic - Pneumonia - COPD Exacerbation - BiPAP. Recent hosp d/c 01/03/22 for same. ( 01/23) - pt intubated 01/24--AC 16 550 40 % +8 01/25= SBT on propofol 5 presedex 1.5, was oK , but very agitated , OFF LEVO , NTG ftt for HTN A/P Acute resp failure- PNA< AECOPD, CHF - intubated 01/23 -AC 16 550 30 % +6 - cont steroids - decreade dose , cont abx and diuresis - SBT on propofol 5 presedex 1.5, was oK , but very agitated= will add po ativan ant try latter again Sepsis , shock - OFF LEVO , resolved - Cx negative , on Cefepime HFpEF ( NL EF this year ) , mod MR -as per cards , diuresis as p[er cards PNA ( NEG flu , covid ) - cont ABX , cx negative Acute renal insuficiency - monitor on diuretics A fib, permanent - was on Xarelto [employer] - - on XARELTO ,now INR 4, follow AECOPD - steroids IV- decrease steroid HTN - on NTG gtt - meds adjustment as per cards Anemia - stable Hyperglycemia - ISS and lonfg acting Lines : R PICC , (Central Line Necessity Reviewed) Morfin:+ OG: Nutrition: TF 01/24 pulmicare at goal Analgesia: Anxiety/ delirium VTE Prophylaxis: xarelto Stress Ulcer Prophylaxis: PPi Plans in collaboration with bedside consultants and IM MDs. Discussed with RN to reach out if any questions or concerns A total of 35 minutes of critical care time was devoted to this patient today, required to treat and/or prevent further deterioration of critical care condition ( as above ) . Sepsis Event Evaluation Height, Weight, BMI Height: 5'11.00" Weight: 217lbs. 4.0oz. 98.108269cs; 27.99 BMI Method:Stated Focused Exam Time of Focused Exam: 04:30 Exam Exam Patient acknowledged, consented, and participated in this virtual visit which was conducted using real time audio/video Vital Signs Date Time Temp Pulse Resp B/P (MAP) Pulse Ox O2 Delivery O2 Flow Rate FiO2 01/25/22 09:12 71 131/73 01/25/22 09:10 79 131/73 01/25/22 09:00 71 15 131/73 99 Mechanical Ventilator 40.00 01/25/22 08:24 87 Mechanical Ventilator 40.00 01/25/22 08:00 86 17 124/70 90 Mechanical Ventilator 30.00 01/25/22 07:00 93 22 126/70 93 Mechanical Ventilator 30.00 01/25/22 07:00 86 01/25/22 06:36 88 26 92 30 01/25/22 06:00 87 23 153/81 95 Mechanical Ventilator 30.00 01/25/22 05:00 86 23 142/85 100 Mechanical Ventilator 30.00 01/25/22 04:00 88 22 146/82 97 Mechanical Ventilator 30.00 01/25/22 03:45 Mechanical Ventilator 01/25/22 03:45 30 01/25/22 03:43 37.6 Mechanical Ventilator 30.00 01/25/22 03:19 84 20 98 35 01/25/22 03:00 87 23 148/92 100 Mechanical Ventilator 35.00 01/25/22 02:00 95 22 149/93 97 Mechanical Ventilator 35.00 01/25/22 01:00 97 20 133/79 94 Mechanical Ventilator 35.00 01/25/22 01:00 97 01/25/22 00:27 Mechanical Ventilator 35.00 01/25/22 00:00 94 17 147/87 95 Mechanical Ventilator 40.00 01/24/22 23:37 37.3 Mechanical Ventilator 40.00 01/24/22 23:17 Mechanical Ventilator 01/24/22 23:04 40 01/24/22 23:00 89 16 131/76 96 Mechanical Ventilator 40.00 01/24/22 22:00 85 18 148/91 95 Mechanical Ventilator 40.00 01/24/22 21:47 93 18 95 40 01/24/22 21:13 Mechanical Ventilator 40.00 01/24/22 21:00 82 20 133/86 92 Mechanical Ventilator 35.00 01/24/22 20:00 35 01/24/22 20:00 36.3 01/24/22 20:00 Mechanical Ventilator 01/24/22 20:00 93 13 142/92 94 Mechanical Ventilator 35.00 01/24/22 19:00 86 01/24/22 19:00 Mechanical Ventilator 35.00 01/24/22 19:00 86 15 160/96 93 Mechanical Ventilator 35.00 01/24/22 18:35 85 17 94 35 01/24/22 18:17 84 188/120 01/24/22 18:16 85 188/120 01/24/22 18:12 88 189/117 01/24/22 18:00 86 16 189/117 99 Mechanical Ventilator 60.00 01/24/22 17:00 82 16 194/125 99 Mechanical Ventilator 60.00 01/24/22 16:10 73 186/122 01/24/22 16:00 85 15 186/122 99 Mechanical Ventilator 60.00 01/24/22 16:00 36.4 01/24/22 15:42 94 Mechanical Ventilator 40 01/24/22 15:07 40 01/24/22 15:05 90 180/117 01/24/22 15:00 81 18 178/117 97 Mechanical Ventilator 60.00 01/24/22 14:29 79 17 97 40 01/24/22 14:25 79 183/107 01/24/22 14:00 84 16 183/107 98 Mechanical Ventilator 60.00 01/24/22 13:00 94 01/24/22 13:00 86 16 178/103 99 Mechanical Ventilator 60.00 01/24/22 12:10 90 183/116 01/24/22 12:09 36.0 01/24/22 12:00 94 Mechanical Ventilator 40 01/24/22 12:00 94 14 183/116 100 Mechanical Ventilator 60.00 01/24/22 11:20 40 01/24/22 11:00 90 14 184/130 100 Mechanical Ventilator 60.00 01/24/22 10:48 90 173/105 01/24/22 10:46 89 17 100 40 01/24/22 10:42 90 186/106 01/24/22 10:00 88 14 173/105 100 Mechanical Ventilator 60.00 I & O 01/25/22 07:00 Intake Total 2850 ml Output Total 3445 ml Balance -595 ml Height & Weight Height: 5'11.00" Weight: 217lbs. 4.0oz. 98.983007ux; 27.99 BMI Method:Stated General Appearance: Chronically ill, Other (intubated and sedated) Neck: Normal Inspection, Supple Respiratory: Lungs Clear, Other (on vent) Cardiovascular: Regular Rate, Rhythm, No Murmur Capillary Refill: Less Than 3 Seconds Peripheral Pulses: 2+ Dorsalis Pedis (R), 2+ Left Dors-Pedis (L) (See free text.) Gastrointestinal: normal bowel sounds, non tender, soft Extremity: Normal Inspection, Pedal Edema (+2 edema) Neurologic/Psychiatric: Other Skin: Normal Color, Warm/Dry Results Lab Laboratory Tests 01/24/22 03:58 01/25/22 03:21 Assessment/Plan Assessment/Plan 1 SADIE WISDOM MD Jan 25, 2022 09:54
[2022-01-25] MEDS ORDERED: LORazepam 1 MG (ATIVAN) TAB PO SCH (10:00)
[2022-01-25] MEDS: LOSARTAN 25 MG (COZAAR) TAB PO SCH (10:02)
[2022-01-25] MEDS: LORazepam 1 MG (ATIVAN) TAB PO SCH ×3 (13:06→22:54)
[2022-01-25] MEDS: NITRO DRIP 25000 MCG/D5W 250 ML IV SCH (17:43)
[2022-01-25] MEDS: RIVAROXABAN 20 MG TABLET (XARELTO) PO SCH (20:37)
[2022-01-25] MEDS: MELATONIN 3 MG TABLET PO SCH (20:37)
[2022-01-26] MEDS: methylPREDNISolone 40 MG/ML (Solu-MEDROL) VIAL IV SCH ×3 (02:15→20:26)
[2022-01-26] MEDS: CEFEPIME INJECTION 1,000 MG in NS (IVPB) 50 ML IV SCH ×4 (02:15→20:26)
[2022-01-26 02:28] LABS: BASOPHILS % (AUTO) 0 % (0-10); EOSINOPHILS % (AUTO) 0 % (0-10); HEMATOCRIT 29 % (40-54); HEMOGLOBIN 9.2 g/dL (13.3-17.7); LYMPHOCYTES # (AUTO) 0.4 10^3/uL (1.0-4.0); LYMPHOCYTES % (AUTO) 5 % (12-44); MEAN CORPUSCULAR HEMOGLOBIN 30 pg (25-34); MEAN CORPUSCULAR HGB CONC 32 g/dL (32-36); MEAN CORPUSCULAR VOLUME 95 fL (80-99); MONOCYTES # (AUTO) 0.6 10^3/uL (0.0-1.0); MONOCYTES % (AUTO) 7 % (0-12); NEUTROPHILS % (AUTO) 80 % (42-75); PLATELET COUNT 234 10^3/uL (130-400); WHITE BLOOD COUNT 8.8 10^3/uL (4.3-11.0)
[2022-01-26 02:47] LABS: ANISOCYTOSIS SLIGHT; BAND NEUTROPHILS 6 %; BILIRUBIN,TOTAL 0.9 MG/DL (0.1-1.0); CALCIUM 7.4 MG/DL (8.5-10.1); CREATININE SERUM 1.2 MG/DL (0.60-1.30); LYMPHOCYTES % (MANUAL) 4 %; MAGNESIUM 2.4 MG/DL (1.6-2.4); METAMYELOCYTES % 1 %; MONOCYTES % (MANUAL) 6 %; NEUTROPHILS % (MANUAL) 83 %; PHOSPHORUS 2.5 MG/DL (2.3-4.7); POTASSIUM 3.4 MMOL/L (3.6-5.0); TOTAL PROTEIN 6.1 GM/DL (6.4-8.2)
[2022-01-26] MEDS: RT-ALBUTEROL/IPRATROPIUM 3 ML (DUONEB) VIAL INH SCH ×6 (02:53→22:58)
[2022-01-26 02:54] VITALS: BP 160/89
[2022-01-26] MEDS: MAGNESIUM 1 GM/100 ML IVPB 100 ML IV SCH (03:04)
[2022-01-26] MEDS: KCL 20 MEQ TAB (K-DUR) PO SCH (03:04)
[2022-01-26] MEDS: NITRO DRIP 25000 MCG/D5W 250 ML IV SCH ×2 (03:04→21:57)
[2022-01-26] MEDS: PROPOFOL DRIP (ICU) 100 ML IV SCH ×7 (03:48→23:55)
[2022-01-26] MEDS ORDERED: KCL 20 MEQ TAB (K-DUR) PO ONE (05:00)
[2022-01-26] MEDS: guaiFENesin SYRUP 100 MG/5 ML 10 ML (ROBITUSSIN SF) NG SCH ×4 (05:00→23:52)
[2022-01-26] MEDS: DexMEDEtomidine 250 ML DRIP 250 ML IV SCH ×4 (05:01→20:27)
[2022-01-26] MEDS: inSUlin ASPART (NovoLOG) 1 UNIT/0.01 ML (CHARGE PER UNIT) SC SCH ×3 (05:01→23:51)
[2022-01-26] MEDS: LORazepam 1 MG (ATIVAN) TAB PO SCH ×4 (05:01→23:52)
[2022-01-26] MEDS: FUROSEMIDE 40 MG/4 ML INJ (LASIX) IVP SCH ×2 (06:09→17:50)
[2022-01-26 07:05] VITALS: BP 144/83
--- NOTE | 2022-01-26 07:37 | Diagnostic Imaging Report ---
EXAMINATION: Chest 1 view HISTORY: Intubated COMPARISON: 01/25/2022 FINDINGS: Endotracheal tube is high approximately 9 cm above the rik. Gastric tube tip is in the stomach. There are severe bilateral interstitial opacities. No pleural effusion or pneumothorax. Heart is enlarged. Right upper extremity peripherally inserted central venous catheter tip terminates in the superior vena cava. IMPRESSION: 1. Severe interstitial opacities likely representing edema. 2. Endotracheal tube is high approximately 9 cm in the rik. Dictated by: Dictated on workstation # [id number]
[2022-01-26] MEDS: PANTOPRAZOLE 40 MG (PROTONIX) VIAL IV SCH (08:20)
[2022-01-26] MEDS: cloNIDine 0.1 MG (CATAPRES) TAB PO SCH ×2 (08:21→20:27)
[2022-01-26] MEDS: GABAPENTIN 100 MG (NEURONTIN) CAP PO SCH ×2 (08:21→20:27)
[2022-01-26] MEDS: LOSARTAN 25 MG (COZAAR) TAB PO SCH (08:21)
[2022-01-26] MEDS: fentaNYL INJ 100 MCG/2 ML AMP IVP PRN ×4 (08:22→23:52)
--- NOTE | 2022-01-26 08:57 | Progress Note - Hospitalist ---
Subjective HPI/CC On Admission Date Seen by Provider: Jan 26, 2022 Mauro Park is a 71 year old male with PMH HTN, HFpEF, COPD, chronic respiratory failure on nocturnal oxygen, former smoker, T2DM, AFib on Xarelto, who presented with shortness of breath. He has been hospitalized twice over the past couple months with pneumonia. He denies fevers. He has a cough with sputum production. He denies chest pain. He denies abdominal pain. He denies nausea and vomiting. He has had some leg swelling. Subjective/Events-last exam Pt remains intubated and sedated. NO concerns per RN> Had sedation weaning and followed commands for her earlier today. Plan to advance ETT. No family at bedside. Focused Exam Time of Focused Exam: 04:30 Objective Exam Vital Signs Vital Signs Date Time Temp Pulse Resp B/P (MAP) Pulse Ox O2 Delivery O2 Flow Rate FiO2 01/26/22 08:00 36.6 01/26/22 08:00 82 27 151/83 98 Mechanical Ventilator 35.00 01/26/22 07:30 35 Capillary Refill : Less Than 3 Seconds General Appearance: No Apparent Distress, Chronically ill Respiratory: Rhonci; No Wheezing; Other (on vent) Cardiovascular: Regular Rate, Rhythm, No Murmur Extremity: Normal Capillary Refill, No Pedal Edema Neurologic/Psychiatric: Other Results/Procedures Lab Laboratory Tests 01/26/22 02:22 Patient resulted labs reviewed. Imaging: Reviewed Imaging Report Assessment/Plan Assessment and Plan Assess & Plan/Chief Complaint Severe sepsis due to pneumonia Acute kidney injury Lactic acidosis Acute on chronic respiratory failure with hypoxia- intubated 01/23 Acute on chronic heart failure with preserved ejection fraction COPD with acute exacerbation Continue Cefepime repeating sputum culture with temperature creeping up Lasix, was net positive yesterday, trend Solumedrol to continue TeleICU/Pulm following Continue on mechnical ventilation, eICu managing vent settings Continue TF AFib Supratherapeutic INR Xarelto Cardiology following, advised against Vitamin K T2DM Sliding scale insulin, increase to C Continue Levemir, increase dose again with AM and PM dose since increasing with tube feeds HTN CAD Obesity Bp stable Goals of care Discussed with patient and extensively prior to intubation all of his treatment options He is agreeable to short term ventilation only and does not want clinical assoc or trach or CPR should his heart stop Should he be liberated from vent would benefit from hospice upon discharge Critical Care Ventilator Management RUIZ SIMMONS MD Jan 26, 2022 08:57
[2022-01-26] MEDS ORDERED: FUROSEMIDE 40 MG/4 ML INJ (LASIX) IVP SCH (09:00)
--- NOTE | 2022-01-26 09:09 | Tele-ICU Progress Note ---
Subjective Date Seen by a Provider: Jan 26, 2022 Time Seen by a Provider: 08:50 Subjective/Events-last exam (Tele-ICU Physician , consultation) Available chart/ vitals / labs / Images reviewed H&P is from ER notes Patient's information available about PMH, allergy reviewed in EMR. ROS as per chart and RN report Video assessment done using teleICU camera, rest of exam as per RN Discussed with RN. Sepsis Event Evaluation Height, Weight, BMI Height: 5'11.00" Weight: 217lbs. 4.0oz. 98.459485ie; 28.11 BMI Method:Stated Focused Exam Time of Focused Exam: 04:30 Exam Exam Patient acknowledged, consented, and participated in this virtual visit which was conducted using real time audio/video Vital Signs Date Time Temp Pulse Resp B/P (MAP) Pulse Ox O2 Delivery O2 Flow Rate FiO2 01/26/22 09:04 84 141/84 01/26/22 08:50 84 141/84 01/26/22 08:00 36.6 01/26/22 08:00 82 27 151/83 98 Mechanical Ventilator 35.00 01/26/22 07:54 87 144/79 01/26/22 07:30 98 Mechanical Ventilator 35 01/26/22 07:28 35 01/26/22 07:05 93 19 97 35 01/26/22 07:00 86 01/26/22 07:00 86 18 144/83 98 Mechanical Ventilator 35.00 01/26/22 06:00 92 23 153/77 97 Mechanical Ventilator 35.00 01/26/22 05:00 78 15 153/84 98 Mechanical Ventilator 35.00 01/26/22 04:12 Mechanical Ventilator 01/26/22 04:00 82 16 152/84 96 Mechanical Ventilator 35.00 01/26/22 03:59 37.1 01/26/22 03:08 35 01/26/22 03:04 167/101 01/26/22 03:00 79 15 159/91 99 Mechanical Ventilator 35.00 01/26/22 02:54 81 18 99 35 01/26/22 02:00 88 17 155/88 96 Mechanical Ventilator 35.00 01/26/22 01:00 82 01/26/22 01:00 88 18 156/84 97 Mechanical Ventilator 35.00 01/26/22 00:35 165/89 01/26/22 00:10 Mechanical Ventilator 01/26/22 00:00 85 19 168/100 98 Mechanical Ventilator 35.00 01/25/22 23:43 Mechanical Ventilator 35.00 01/25/22 23:33 37.1 01/25/22 23:00 82 22 160/91 94 Mechanical Ventilator 30.00 01/25/22 22:53 81 167/100 01/25/22 22:53 89 167/100 01/25/22 22:37 35 01/25/22 22:00 91 17 177/100 97 Mechanical Ventilator 30.00 01/25/22 21:53 94 18 93 30 01/25/22 21:00 104 16 151/86 95 Mechanical Ventilator 35.00 01/25/22 20:34 91 161/88 01/25/22 20:27 37.7 01/25/22 20:00 Mechanical Ventilator 01/25/22 20:00 89 25 161/86 94 Mechanical Ventilator 35.00 01/25/22 19:00 91 31 167/96 93 Mechanical Ventilator 35.00 01/25/22 19:00 35 01/25/22 19:00 91 01/25/22 18:57 91 22 95 35 01/25/22 18:00 82 33 165/92 93 Mechanical Ventilator 35.00 01/25/22 17:35 74 155/93 01/25/22 17:00 90 14 148/78 93 Mechanical Ventilator 35.00 01/25/22 16:19 92 145/89 01/25/22 16:18 88 145/89 01/25/22 16:00 88 23 166/84 95 Mechanical Ventilator 35.00 01/25/22 16:00 37.6 01/25/22 16:00 94 Mechanical Ventilator 35 01/25/22 15:23 30 01/25/22 15:00 81 16 150/84 90 Mechanical Ventilator 35.00 01/25/22 14:50 96 17 92 35 01/25/22 14:00 76 18 156/92 92 Mechanical Ventilator 35.00 01/25/22 13:33 Mechanical Ventilator 35.00 01/25/22 13:29 37.6 01/25/22 13:29 84 140/79 01/25/22 13:29 84 140/79 01/25/22 13:07 84 140/79 01/25/22 13:00 88 16 140/79 90 Mechanical Ventilator 40.00 01/25/22 12:25 81 01/25/22 12:00 75 15 146/76 95 Mechanical Ventilator 40.00 01/25/22 12:00 Mechanical Ventilator 40 01/25/22 11:27 30 01/25/22 11:00 76 15 144/77 95 Mechanical Ventilator 40.00 01/25/22 10:49 37.6 70 96 01/25/22 10:38 70 16 96 35 01/25/22 10:00 80 16 132/86 99 Mechanical Ventilator 40.00 01/25/22 09:12 71 131/73 01/25/22 09:10 79 131/73 I & O 01/26/22 07:00 Intake Total 4370 ml Output Total 3250 ml Balance 1120 ml Height & Weight Height: 5'11.00" Weight: 217lbs. 4.0oz. 98.612399te; 28.11 BMI Method:Stated General Appearance: No Apparent Distress, Chronically ill Neck: Normal Inspection, Supple Respiratory: Rhonci; No Wheezing; Other (on vent) Cardiovascular: Regular Rate, Rhythm, No Murmur Capillary Refill: Less Than 3 Seconds Peripheral Pulses: 2+ Dorsalis Pedis (R), 2+ Left Dors-Pedis (L) (See free text.) Gastrointestinal: normal bowel sounds, non tender, soft Extremity: Normal Capillary Refill, No Pedal Edema Neurologic/Psychiatric: Other Skin: Normal Color, Warm/Dry Results Lab Laboratory Tests 01/25/22 03:21 01/26/22 02:22 Assessment/Plan Assessment/Plan 1. Acute respiratory failure most likely due to combination of acute on chronic diastolic congestive heart failure as well as a pneumonia. However today's x- ray mostly suggestive of her pulmonary edema. Intubated on 810 AC 16, 550, 35%, +6. Not Ready for SBT Will decrease steroids to 40 mg twice a day Antibiotics will continue cefepime for now Diuresis per cardiology. 2. Septic shock clinically improving, he is off Levophed. He is on cefepime. repeat sputum c/s 3. HFp EF. Moderate MR Treatment per cards. 4. Acute kidney injury. Continue monitor BUN/creatinine while he is on diuretics. 5. 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 He is on Xarelto [employer]. Continue Xarelto 6. Acute exacerbation of COPD improving Will decrease IV Solu-Medrol to 40 mg IV every 12 hours. 7. Pneumonia. So far cultures are negative, COVID and flu swab are negative. on cefpime 8. Nutrition patient on tube feedings since , Pulmocare at goal 9. VTE prophylaxis. Patient on Xarelto 10. Stress ulcer prophylaxis. On PPI Plans in collaboration with bedside consultants and IM MDs. Discussed with RN to reach out if any questions or concerns Critical Care: Ventilator Management Time spent with patient (mins): 35 ROBERTO NAGY MD Jan 26, 2022 09:09
[2022-01-26] MEDS: POTASSIUM CL 10MEQ/50ML IVPB 50 ML IV SCH ×3 (10:06→12:00)
[2022-01-26 10:32] VITALS: BP 157/84
[2022-01-26] MEDS ORDERED: inSUlin ASPART (NovoLOG) 1 UNIT/0.01 ML (CHARGE PER UNIT) SC SCH (11:00)
--- NOTE | 2022-01-26 11:18 | Cardiology Progress Note ---
Subjective Date Seen by Provider: Jan 26, 2022 Time Seen by Provider: 11:15 Subjective/Events-last exam Patient is sedated and intubated Unable to provide history, history was obtained by reviewing his record and visiting with his nurse Review of Systems General: Other (Unable to provide review of system) Focused Exam Time of Focused Exam: 04:30 Objective-Cardiology Exam Last Set of Vital Signs Vital Signs 01/26/22 01/26/22 01/26/22 08:00 10:00 10:32 Temp 36.6 Pulse 87 Resp 16 Pulse Ox 99 O2 Delivery Mechanical Ventilator O2 Flow Rate 35.00 FiO2 35 I&O Intake and Output 01/26/22 00:00 Intake Total 4200 ml Output Total 3570 ml Balance 630 ml IV Total 1920 ml Tube Feeding 1200 ml Other 1080 ml Output Urine Total 3570 ml Stool Total 0 ml General: Other (Sedated and intubated) HEENT: Atraumatic Neck: Supple, No JVD Lungs: Other (Bilateral rhonchi) Heart: Normal S1, Normal S2, Other (Systolic murmur at the left sternal border, atrial fibrillation) Abdomen: Normal Bowel Sounds Extremities: No Clubbing Skin: No Rashes Neuro: Other (Sedated and intubated) Psych/Mental Status: Other (Sedated and intubated) Results Lab Laboratory Tests 01/26/22 02:22 A/P-Cardiology Admission Diagnosis Acute respiratory failure Sepsis Pneumonia Congestive heart failure Atrial fibrillation. Assessment/Plan Acute respiratory failure, ventilator dependent Sedated and intubated, managed by medical team Severe sepsis with pneumonia, receiving antibiotics, managed by medical team Congestive heart failure, acute on chronic left ventricular diastolic dysfunction, normal systolic function Responding to diuretics. Permanent atrial fibrillation, rate is controlled. Has been on oral anticoagulation as an outpatient Moderate mitral regurgitation per echo. Continue to monitor Hypertension, monitor blood pressure Acute on chronic renal insufficiency. Chronic kidney disease stage II-III. Monitor renal function. MU VALENTINO MD Jan 26, 2022 11:18
[2022-01-26] MEDS: NOREPINEPHRINE 8 MG/250 ML 250 ML IV SCH (13:14)
[2022-01-26] MEDS: LACRI-LUBE OPTHALMIC OINT 3.5 GM TUBE OU PRN ×2 (17:51→20:26)
[2022-01-26 18:57] VITALS: BP 158/90
[2022-01-26] MEDS: MELATONIN 3 MG TABLET PO SCH (20:27)
[2022-01-26] MEDS: RIVAROXABAN 20 MG TABLET (XARELTO) PO SCH (20:27)
[2022-01-26 22:59] VITALS: BP 119/81
[2022-01-27] MEDS: NOREPINEPHRINE 8 MG/250 ML 250 ML IV SCH ×2 (00:07→15:17)
[2022-01-27] MEDS: CEFEPIME INJECTION 1,000 MG in NS (IVPB) 50 ML IV SCH ×4 (03:05→20:31)
[2022-01-27] MEDS: fentaNYL INJ 100 MCG/2 ML AMP IVP PRN ×4 (03:06→11:37)
[2022-01-27 03:11] VITALS: BP 132/76
[2022-01-27] MEDS: RT-ALBUTEROL/IPRATROPIUM 3 ML (DUONEB) VIAL INH SCH ×6 (03:11→22:39)
[2022-01-27 04:00] LABS: BASOPHILS % (AUTO) 0 % (0-10); EOSINOPHILS % (AUTO) 0 % (0-10); HEMATOCRIT 30 % (40-54); HEMOGLOBIN 9.5 g/dL (13.3-17.7); LYMPHOCYTES # (AUTO) 0.6 10^3/uL (1.0-4.0); LYMPHOCYTES % (AUTO) 6 % (12-44); MEAN CORPUSCULAR HEMOGLOBIN 30 pg (25-34); MEAN CORPUSCULAR HGB CONC 32 g/dL (32-36); MEAN CORPUSCULAR VOLUME 96 fL (80-99); MONOCYTES # (AUTO) 0.9 10^3/uL (0.0-1.0); MONOCYTES % (AUTO) 8 % (0-12); NEUTROPHILS % (AUTO) 72 % (42-75); PLATELET COUNT 268 10^3/uL (130-400); WHITE BLOOD COUNT 11.1 10^3/uL (4.3-11.0)
[2022-01-27 04:27] LABS: ALBUMIN 3.1 GM/DL (3.2-4.5); BILIRUBIN,TOTAL 0.8 MG/DL (0.1-1.0); CALCIUM 6.8 MG/DL (8.5-10.1); CREATININE SERUM 1.09 MG/DL (0.60-1.30); MAGNESIUM 2.6 MG/DL (1.6-2.4); PHOSPHORUS 2.2 MG/DL (2.3-4.7); TOTAL PROTEIN 6.5 GM/DL (6.4-8.2)
[2022-01-27] MEDS: PROPOFOL DRIP (ICU) 100 ML IV SCH ×6 (04:40→23:16)
[2022-01-27] MEDS: guaiFENesin SYRUP 100 MG/5 ML 10 ML (ROBITUSSIN SF) NG SCH ×4 (05:33→23:16)
[2022-01-27] MEDS: LORazepam 1 MG (ATIVAN) TAB PO SCH ×4 (05:34→23:16)
[2022-01-27] MEDS: MAGNESIUM 1 GM/100 ML IVPB 100 ML IV SCH (05:34)
[2022-01-27] MEDS: POTASSIUM CL 10MEQ/50ML IVPB 50 ML IV SCH (05:34)
[2022-01-27] MEDS: KCL 20 MEQ TAB (K-DUR) PO SCH (05:34)
[2022-01-27] MEDS: inSUlin ASPART (NovoLOG) 1 UNIT/0.01 ML (CHARGE PER UNIT) SC SCH ×4 (05:38→23:17)
[2022-01-27 06:57] VITALS: BP 137/84
[2022-01-27] MEDS: DexMEDEtomidine 250 ML DRIP 250 ML IV SCH ×2 (07:08→23:16)
[2022-01-27] MEDS: FUROSEMIDE 40 MG/4 ML INJ (LASIX) IVP SCH ×2 (07:31→18:09)
--- NOTE | 2022-01-27 07:36 | Diagnostic Imaging Report ---
EXAMINATION: Chest 1 view HISTORY: Intubated COMPARISON: 01/26/2022 FINDINGS: Endotracheal tube tip terminates 5 cm above the rik. Gastric tube is in the body of the stomach. There is stable severe interstitial opacities. Right internal jugular central venous catheter tip terminates in the superior vena cava. Heart is mildly enlarged. Small right pleural effusion is present. No pneumothorax. IMPRESSION: 1. Stable severe interstitial opacities favored to represent edema. Dictated by: Dictated on workstation # [id number]
--- NOTE | 2022-01-27 08:02 | Tele-ICU Progress Note ---
Subjective Date Seen by a Provider: Jan 27, 2022 Time Seen by a Provider: 08:01 Subjective/Events-last exam (Tele-ICU Physician , Progress note) Available chart/ vitals / labs / Images reviewed H&P is from ER notes Patient's information available about PMH, allergy reviewed in EMR. ROS as per chart and RN report Video assessment done using teleICU camera, rest of exam as per RN Discussed with RN. Patient today remained on mechanical ventilation. He is either sleeping completely or agitated. Chest x-ray showing some improvement. Today we will try SBT and see whether he can tolerate. His sputum culture grew Pseudomonas aeruginosa. He is currently on cefepime 1 g every 6 hours. Will await sensitivity report. Sepsis Event Evaluation Height, Weight, BMI Height: 5'11.00" Weight: 217lbs. 4.0oz. 98.962579cv; 27.68 BMI Method:Stated Focused Exam Time of Focused Exam: 04:30 Exam Exam Patient acknowledged, consented, and participated in this virtual visit which was conducted using real time audio/video Vital Signs Date Time Temp Pulse Resp B/P (MAP) Pulse Ox O2 Delivery O2 Flow Rate FiO2 01/27/22 07:55 Mechanical Ventilator 01/27/22 07:52 35 01/27/22 07:48 37.2 01/27/22 07:00 102 01/27/22 07:00 93 20 137/80 94 Mechanical Ventilator 35.00 01/27/22 06:57 93 20 94 35 01/27/22 06:00 95 19 138/83 93 Mechanical Ventilator 35.00 01/27/22 05:00 88 27 136/77 93 Mechanical Ventilator 35.00 01/27/22 04:13 Mechanical Ventilator 01/27/22 04:13 Mechanical Ventilator 35.00 01/27/22 04:11 37.2 01/27/22 04:00 84 21 143/78 94 Mechanical Ventilator 40.00 01/27/22 03:50 40 01/27/22 03:11 84 18 94 40 01/27/22 03:00 Mechanical Ventilator 40.00 01/27/22 02:00 89 136/85 95 Mechanical Ventilator 40.00 01/27/22 01:00 89 01/27/22 01:00 93 147/84 96 Mechanical Ventilator 40.00 01/27/22 00:10 37.7 01/27/22 00:09 Mechanical Ventilator 01/27/22 00:00 40 01/27/22 00:00 81 22 163/88 96 Mechanical Ventilator 40.00 01/26/22 23:00 78 24 156/81 94 Mechanical Ventilator 40.00 01/26/22 22:59 81 21 94 40 01/26/22 22:00 85 16 159/94 95 Mechanical Ventilator 40.00 01/26/22 21:57 159/94 01/26/22 21:00 86 20 147/84 94 Mechanical Ventilator 40.00 01/26/22 20:00 93 20 159/94 95 Mechanical Ventilator 40.00 01/26/22 20:00 Mechanical Ventilator 01/26/22 19:42 40 01/26/22 19:22 37.4 01/26/22 19:00 87 01/26/22 19:00 92 20 151/88 96 Mechanical Ventilator 40.00 01/26/22 18:57 89 21 96 40 01/26/22 18:56 92 150/94 01/26/22 18:00 92 19 150/94 92 Mechanical Ventilator 40.00 01/26/22 17:51 86 151/89 01/26/22 17:00 86 21 151/89 95 Mechanical Ventilator 40.00 01/26/22 16:58 89 152/85 01/26/22 16:15 94 Mechanical Ventilator 40 01/26/22 16:00 89 19 152/85 95 Mechanical Ventilator 40.00 01/26/22 16:00 40 01/26/22 15:35 37.2 01/26/22 15:00 90 13 135/82 93 Mechanical Ventilator 40.00 01/26/22 14:38 82 143/85 01/26/22 14:29 82 20 97 40 01/26/22 14:00 86 19 143/85 94 Mechanical Ventilator 40.00 01/26/22 13:14 77 137/87 01/26/22 13:00 77 16 137/87 93 Mechanical Ventilator 40.00 01/26/22 12:41 87 01/26/22 12:35 86 134/88 01/26/22 12:05 88 Mechanical Ventilator 40.00 01/26/22 12:00 72 16 142/78 97 Mechanical Ventilator 35.00 01/26/22 12:00 40 01/26/22 12:00 94 Mechanical Ventilator 40 01/26/22 12:00 37.1 01/26/22 11:00 80 15 152/91 99 Mechanical Ventilator 35.00 01/26/22 10:32 87 16 99 35 01/26/22 10:29 81 151/79 01/26/22 10:29 81 151/79 01/26/22 10:00 81 15 151/79 99 Mechanical Ventilator 35.00 01/26/22 09:04 84 141/84 01/26/22 09:00 82 15 151/80 95 Mechanical Ventilator 35.00 01/26/22 08:50 84 141/84 I & O 01/27/22 07:00 Intake Total 3910 ml Output Total 5090 ml Balance -1180 ml Height & Weight Height: 5'11.00" Weight: 217lbs. 4.0oz. 98.877756lt; 27.68 BMI Method:Stated General Appearance: No Apparent Distress, Chronically ill Neck: Normal Inspection, Supple Respiratory: Rhonci; No Wheezing; Other (on vent) Cardiovascular: Regular Rate, Rhythm, No Murmur Capillary Refill: Less Than 3 Seconds Peripheral Pulses: 2+ Dorsalis Pedis (R), 2+ Left Dors-Pedis (L) (See free text.) Gastrointestinal: normal bowel sounds, non tender, soft Extremity: Normal Capillary Refill, No Pedal Edema Neurologic/Psychiatric: Other Skin: Normal Color, Warm/Dry Results Lab Laboratory Tests 01/26/22 02:22 01/27/22 03:45 Assessment/Plan Assessment/Plan 1. Acute respiratory failure most likely due to combination of acute on chronic diastolic congestive heart failure as well as a pneumonia. However today's x- ray mostly suggestive of mil chf. Intubated on 01/23 AC 16, 550, 35%, +6. will try SBT today. Will decrease steroids to 40 mg twice a day Antibiotics will continue cefepime for now for PSA pneumonia. await sensitivity results Diuresis per cardiology. 2. Septic shock clinically improving, he is off Levophed. He is on cefepime. 3. HFp EF. Moderate MR Treatment per cards. 4. Acute kidney injury. improving Continue monitor BUN/creatinine while he is on diuretics. 5. 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 Acute exacerbation of COPD improving Will continue IV Solu-Medrol 40 mg IV every 12 hours. 7. Pneumonia. Sputum c/e grew PSA, COVID and flu swab are negative. on cefpime 8. Nutrition patient on tube feedings since 811, Pulmocare at goal 9. VTE prophylaxis. Patient on Xarelto 10. Stress ulcer prophylaxis. On PPI Plans in collaboration with bedside consultants and IM MDs. Discussed with RN to reach out if any questions or concerns Critical Care: Ventilator Management Time spent with patient (mins): 35 ROBERTO NAGY MD Jan 27, 2022 08:02
[2022-01-27] MEDS: methylPREDNISolone 40 MG/ML (Solu-MEDROL) VIAL IV SCH ×2 (09:05→20:32)
[2022-01-27] MEDS: PANTOPRAZOLE 40 MG (PROTONIX) VIAL IV SCH (09:05)
[2022-01-27] MEDS: GABAPENTIN 100 MG (NEURONTIN) CAP PO SCH ×2 (09:05→20:32)
[2022-01-27] MEDS: cloNIDine 0.1 MG (CATAPRES) TAB PO SCH ×2 (09:05→20:32)
[2022-01-27] MEDS: LOSARTAN 25 MG (COZAAR) TAB PO SCH (09:05)
--- NOTE | 2022-01-27 09:49 | Cardiology Progress Note ---
Subjective Date Seen by Provider: Jan 27, 2022 Time Seen by Provider: 09:47 Subjective/Events-last exam Patient was seen at bedside. Sedated and intubated Review of Systems General: Other (Unable to provide review of system) Focused Exam Time of Focused Exam: 04:30 Objective-Cardiology Exam Last Set of Vital Signs Vital Signs 01/27/22 01/27/22 01/27/22 01/27/22 07:48 07:52 09:00 09:04 Temp 37.2 Pulse 93 Resp 18 B/P (MAP) 139/79 Pulse Ox 92 O2 Delivery Mechanical Ventilator O2 Flow Rate 35.00 FiO2 35 I&O Intake and Output 01/27/22 00:00 Intake Total 4250 ml Output Total 4700 ml Balance -450 ml IV Total 1900 ml Tube Feeding 1320 ml Other 1030 ml Output Urine Total 4700 ml General: Other (Sedated and intubated) HEENT: Atraumatic Neck: Supple, No JVD Lungs: Other (Bilateral rhonchi) Heart: Normal S1, Normal S2, Other (Systolic murmur at the left sternal border, atrial fibrillation) Abdomen: Normal Bowel Sounds Extremities: No Clubbing Skin: No Rashes Neuro: Other (Sedated and intubated) Psych/Mental Status: Other (Sedated and intubated) Results Lab Laboratory Tests 01/27/22 03:45 A/P-Cardiology Admission Diagnosis Acute respiratory failure Sepsis Pneumonia Congestive heart failure Atrial fibrillation. Assessment/Plan Acute respiratory failure, ventilator dependent Sedated and intubated, managed by medical team Severe sepsis with pneumonia, receiving antibiotics, Chest x-ray today showed bilateral infiltrate, no significant improvement Managed by medical team Congestive heart failure, acute on chronic left ventricular diastolic dysfuncti on, normal systolic function Responding to diuretics. Permanent atrial fibrillation, rate is controlled. Has been on oral anticoagulation as an outpatient Moderate mitral regurgitation per echo. Continue to monitor Hypertension, monitor blood pressure Acute on chronic renal insufficiency. Chronic kidney disease stage II-III. Monitor renal function. MU VALENTINO MD Jan 27, 2022 09:48
--- NOTE | 2022-01-27 10:32 | Progress Note - Hospitalist ---
Subjective HPI/CC On Admission Date Seen by Provider: Jan 27, 2022 Mauro Park is a 71 year old male with PMH HTN, HFpEF, COPD, chronic respiratory failure on nocturnal oxygen, former smoker, T2DM, AFib on Xarelto, who presented with shortness of breath. He has been hospitalized twice over the past couple months with pneumonia. He denies fevers. He has a cough with sputum production. He denies chest pain. He denies abdominal pain. He denies nausea and vomiting. He has had some leg swelling. Subjective/Events-last exam Pt remains intubated and sedated. No specific concerns per RN. Stable vent settings. Focused Exam Time of Focused Exam: 04:30 Objective Exam Vital Signs Vital Signs Date Time Temp Pulse Resp B/P (MAP) Pulse Ox O2 Delivery O2 Flow Rate FiO2 01/27/22 10:00 89 19 146/86 93 Mechanical Ventilator 35.00 01/27/22 07:52 35 01/27/22 07:48 37.2 Capillary Refill : Less Than 3 Seconds General Appearance: Chronically ill, Other (sedated on vent) Respiratory: Crackles; No Wheezing; Other (on vent) Cardiovascular: Regular Rate, Rhythm, No Murmur Gastrointestinal: Normal Bowel Sounds, Non Tender, Soft Extremity: No Calf Tenderness, No Pedal Edema Neurologic/Psychiatric: Other (sedated and appears comfortable, responds to physical stimuli) Results/Procedures Lab Laboratory Tests 01/27/22 03:45 Patient resulted labs reviewed. Imaging: Reviewed Imaging Report Assessment/Plan Assessment and Plan Assess & Plan/Chief Complaint Severe sepsis due to pneumonia from psuedomonas Acute kidney injury Lactic acidosis Acute on chronic respiratory failure with hypoxia- intubated 01/23 Acute on chronic heart failure with preserved ejection fraction COPD with acute exacerbation Continue Cefepime Sputumculture fromyesterday reveals pseudomonas- should be cover with Cefepime Lasix -450mL yesterday Solumedrol TeleICU/Pulm following Continue on mechnical ventilation, eICU managing vent settings Continue TF Propofol up slightly, trend AFib Supratherapeutic INR- improved Xarelto Cardiology following T2DM Sliding scale insulin, increase to C Continue Levemir, increase to 20 units BID HTN CAD Obesity Bp stable Goals of care Discussed with patient and extensively prior to intubation all of his treatment options He is agreeable to short term ventilation only and does not want continuous churn buttermaker or trach or CPR should his heart stop Should he be liberated from vent would benefit from hospice upon discharge Critical Care Ventilator Management RUIZ SIMMONS MD Jan 27, 2022 10:32
[2022-01-27 10:33] VITALS: BP 148/81
[2022-01-27] MEDS: meTOprolol 5 MG/5 ML (LOPRESSOR) VIAL IV SCH ×3 (12:34→23:17)
[2022-01-27 14:17] VITALS: BP 112/64
[2022-01-27 18:17] VITALS: BP 145/84
[2022-01-27] MEDS: MELATONIN 3 MG TABLET PO SCH (20:32)
[2022-01-27] MEDS: RIVAROXABAN 20 MG TABLET (XARELTO) PO SCH (20:32)
[2022-01-27 22:40] VITALS: BP 142/79
[2022-01-28] VITALS (7 sets, daily range): BP systolic 117–151; BP diastolic 75–109
[2022-01-28] MEDS: fentaNYL INJ 100 MCG/2 ML AMP IVP PRN ×3 (01:55→16:25)
[2022-01-28] MEDS: CEFEPIME INJECTION 1,000 MG in NS (IVPB) 50 ML IV SCH ×4 (01:55→20:53)
[2022-01-28] MEDS: PROPOFOL DRIP (ICU) 100 ML IV SCH ×4 (02:30→12:18)
[2022-01-28] MEDS: RT-ALBUTEROL/IPRATROPIUM 3 ML (DUONEB) VIAL INH SCH ×6 (03:09→22:22)
[2022-01-28] MEDS: NOREPINEPHRINE 8 MG/250 ML 250 ML IV SCH ×2 (04:59→18:48)
[2022-01-28 05:02] LABS: BASOPHILS # (AUTO) 0.1 10^3/uL (0.0-0.1); BASOPHILS % (AUTO) 0 % (0-10); EOSINOPHILS % (AUTO) 0 % (0-10); HEMATOCRIT 34 % (40-54); HEMOGLOBIN 10.8 g/dL (13.3-17.7); LYMPHOCYTES # (AUTO) 0.7 10^3/uL (1.0-4.0); LYMPHOCYTES % (AUTO) 5 % (12-44); MEAN CORPUSCULAR HEMOGLOBIN 31 pg (25-34); MEAN CORPUSCULAR HGB CONC 32 g/dL (32-36); MEAN CORPUSCULAR VOLUME 97 fL (80-99); MEAN PLATELET VOLUME 9.8 fL (9.0-12.2); MONOCYTES # (AUTO) 0.7 10^3/uL (0.0-1.0); MONOCYTES % (AUTO) 5 % (0-12); NEUTROPHILS # (AUTO) 10.7 10^3/uL (1.8-7.8); NEUTROPHILS % (AUTO) 81 % (42-75); PLATELET COUNT 256 10^3/uL (130-400); WHITE BLOOD COUNT 13.3 10^3/uL (4.3-11.0)
[2022-01-28 05:26] LABS: ALBUMIN 3.2 GM/DL (3.2-4.5); BILIRUBIN,TOTAL 0.9 MG/DL (0.1-1.0); CREATININE SERUM 0.89 MG/DL (0.60-1.30); MAGNESIUM 2.4 MG/DL (1.6-2.4); PHOSPHORUS 2.8 MG/DL (2.3-4.7); POTASSIUM 3.9 MMOL/L (3.6-5.0); TOTAL PROTEIN 6.5 GM/DL (6.4-8.2)
[2022-01-28] MEDS: guaiFENesin SYRUP 100 MG/5 ML 10 ML (ROBITUSSIN SF) NG SCH ×2 (05:47→11:44)
[2022-01-28] MEDS: MAGNESIUM 1 GM/100 ML IVPB 100 ML IV SCH (05:47)
[2022-01-28] MEDS: LORazepam 1 MG (ATIVAN) TAB PO SCH ×2 (05:47→11:44)
[2022-01-28] MEDS: meTOprolol 5 MG/5 ML (LOPRESSOR) VIAL IV SCH ×3 (05:47→18:42)
[2022-01-28] MEDS: inSUlin ASPART (NovoLOG) 1 UNIT/0.01 ML (CHARGE PER UNIT) SC SCH ×3 (05:49→18:42)
[2022-01-28] MEDS: KCL 20 MEQ TAB (K-DUR) PO SCH (05:49)
[2022-01-28] MEDS: POTASSIUM CL 10MEQ/50ML IVPB 50 ML IV SCH (05:49)
[2022-01-28] MEDS: FUROSEMIDE 40 MG/4 ML INJ (LASIX) IVP SCH ×2 (05:58→17:22)
--- NOTE | 2022-01-28 06:48 | Occ Therapy Progress Note ---
Therapy Progress Note Pt currently intubated. OT will continue to monitor then initiate treatment when pt is medically stable and able to actively participate in skilled therapy BENNIE JORDAN Jan 28, 2022 06:48
--- NOTE | 2022-01-28 07:25 | Physical Therapy Progress Note ---
Therapy Progress Note Patient remains sedated and intubate. PT will continue to monitor patient status. TRISTA GENTILE PT Jan 28, 2022 07:25
--- NOTE | 2022-01-28 07:47 | Diagnostic Imaging Report ---
INDICATION: Intubation, mechanical ventilation. TECHNIQUE: Single view chest 5:10 AM. CORRELATION STUDY: 01/27/2022 FINDINGS: Endotracheal tube projects over the trachea tip below the clavicles above the rik. A gastric tube passes below the left hemidiaphragm. Right-sided central line is present, tip crosses midline, tip likely directed at the innominate vein on the left. Heart size, mediastinum and vasculature overall appear more prominent from prior suggest increasing in severity of edema. Scattered particularly interstitial opacities however appear improved. Old healed left clavicle fracture. IMPRESSION: 1. Pulmonary vascular congestion overall appears increased with worsening edema. However, severity of interstitial prominence overall appears improved. 2. There appears to be a change in the position of the right-sided central line tip, now across the midline likely into the left innominate vein. Called to Melissa at 7:45 a.m. by cvb. Dictated by: Dictated on workstation # [id number]
--- NOTE | 2022-01-28 07:53 | Tele-ICU Progress Note ---
Subjective Date Seen by a Provider: Jan 28, 2022 Time Seen by a Provider: 07:51 Subjective/Events-last exam (Tele-ICU Physician , Progress note) Available chart/ vitals / labs / Images reviewed H&P is from ER notes Patient's information available about PMH, allergy reviewed in EMR. ROS as per chart and RN report Video assessment done using teleICU camera, rest of exam as per RN Discussed with RN. Patient today remained on mechanical ventilation. He is either sleeping completely or agitated. Chest x-ray showing no significant improvement. Today we will try on ngt Zaroxolyn and after diuresis will try on SBT . His sputum culture grew Pseudomonas aeruginosa. He is currently on cefepime 1 g every 6 hours. PSA is sensitive to cefepime Sepsis Event Evaluation Height, Weight, BMI Height: 5'11.00" Weight: 217lbs. 4.0oz. 98.416184hz; 27.03 BMI Method:Stated Focused Exam Time of Focused Exam: 04:30 Exam Exam Patient acknowledged, consented, and participated in this virtual visit which was conducted using real time audio/video Vital Signs Date Time Temp Pulse Resp B/P (MAP) Pulse Ox O2 Delivery O2 Flow Rate FiO2 01/28/22 07:42 89 18 96 40 01/28/22 06:00 91 17 146/86 95 Mechanical Ventilator 40.00 01/28/22 05:02 37.4 01/28/22 05:00 88 18 139/82 95 Mechanical Ventilator 40.00 01/28/22 04:30 Mechanical Ventilator 01/28/22 04:00 81 15 134/82 96 Mechanical Ventilator 40.00 01/28/22 03:07 40 01/28/22 03:02 80 16 96 40 01/28/22 03:00 84 15 137/78 95 Mechanical Ventilator 40.00 01/28/22 02:00 86 15 134/79 93 Mechanical Ventilator 40.00 01/28/22 01:00 90 01/28/22 01:00 85 17 156/98 95 Mechanical Ventilator 40.00 01/28/22 00:34 Mechanical Ventilator 01/28/22 00:00 84 16 141/74 95 Mechanical Ventilator 40.00 01/27/22 23:05 37.1 01/27/22 23:04 40 01/27/22 23:00 82 19 145/81 95 Mechanical Ventilator 40.00 01/27/22 22:40 81 18 96 40 01/27/22 22:00 83 19 149/82 96 Mechanical Ventilator 40.00 01/27/22 21:00 90 18 140/82 94 Mechanical Ventilator 40.00 01/27/22 20:53 Mechanical Ventilator 01/27/22 20:00 85 15 138/82 95 Mechanical Ventilator 40.00 01/27/22 19:28 37.5 01/27/22 19:27 40 01/27/22 19:00 93 01/27/22 19:00 93 23 136/80 95 Mechanical Ventilator 40.00 01/27/22 18:22 Mechanical Ventilator 40.00 01/27/22 18:17 88 19 93 40 01/27/22 18:10 91 155/86 01/27/22 18:00 92 20 155/86 92 Mechanical Ventilator 35.00 01/27/22 17:09 91 155/86 01/27/22 17:00 82 17 153/92 92 Mechanical Ventilator 35.00 01/27/22 16:30 93 Mechanical Ventilator 35 01/27/22 16:00 88 15 131/70 95 Mechanical Ventilator 35.00 01/27/22 16:00 37.4 01/27/22 15:17 35 01/27/22 15:00 82 15 116/68 93 Mechanical Ventilator 35.00 01/27/22 14:17 94 16 93 35 01/27/22 14:00 90 20 149/85 95 Mechanical Ventilator 35.00 01/27/22 13:55 91 162/86 01/27/22 13:09 91 162/86 01/27/22 13:00 84 16 163/99 94 Mechanical Ventilator 35.00 01/27/22 12:59 95 01/27/22 12:00 97 16 150/92 92 Mechanical Ventilator 35.00 01/27/22 12:00 37.7 01/27/22 11:45 93 Mechanical Ventilator 35 01/27/22 11:45 35 01/27/22 11:34 121 33 93 01/27/22 11:10 92 28 91 40 01/27/22 11:03 90 148/81 01/27/22 11:00 108 150/92 94 Mechanical Ventilator 35.00 01/27/22 10:33 90 20 93 35 01/27/22 10:00 89 19 146/86 93 Mechanical Ventilator 35.00 01/27/22 09:04 93 139/79 01/27/22 09:00 98 18 138/87 92 Mechanical Ventilator 35.00 01/27/22 08:40 93 139/79 01/27/22 08:00 95 133/77 90 Mechanical Ventilator 35.00 01/27/22 07:55 Mechanical Ventilator 01/27/22 07:52 35 I & O 01/28/22 07:00 Intake Total 3630 ml Output Total 5165 ml Balance -1535 ml Height & Weight Height: 5'11.00" Weight: 217lbs. 4.0oz. 98.297754pe; 27.03 BMI Method:Stated General Appearance: Chronically ill, Other (sedated on vent) Neck: Normal Inspection, Supple Respiratory: Crackles; No Wheezing; Other (on vent) Cardiovascular: Regular Rate, Rhythm, No Murmur Capillary Refill: Less Than 3 Seconds Peripheral Pulses: 2+ Dorsalis Pedis (R), 2+ Left Dors-Pedis (L) (See free text.) Gastrointestinal: normal bowel sounds, non tender, soft Extremity: No Calf Tenderness, No Pedal Edema Neurologic/Psychiatric: Other (sedated and appears comfortable, responds to physical stimuli) Skin: Normal Color, Warm/Dry Results Lab Laboratory Tests 01/27/22 03:45 01/28/22 04:50 Assessment/Plan Assessment/Plan 1. Acute respiratory failure most likely due to combination of acute on chronic diastolic congestive heart failure as well as a pneumonia. However today's x- ray mostly suggestive of mil chf. Intubated on 01/23 AC 16, 550, 35%, +6. He did not tolerate SBT on 01/27/22 will give oral zaroxolyn and after diuresis will try again on SBT today Will continue solu-medrol 40 mg twice a day Antibiotics will continue cefepime for PSA pneumonia as it is sensitive. Diuresis per cardiology. 2. Septic shock clinically improving, he is off Levophed. He is on cefepime. 3. HFp EF. Moderate MR Treatment per cards. continue aggressive diuresis 4. Acute kidney injury. improving Continue monitor BUN/creatinine while he is on diuretics. 5. 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 Acute exacerbation of COPD improving Will continue IV Solu-Medrol 40 mg IV every 12 hours. 7. Pneumonia. Sputum c/e grew PSA, COVID and flu swab are negative. on cefpime 8. Nutrition patient on tube feedings since 01/24, Pulmocare at goal 9. VTE prophylaxis. Patient on Xarelto 10. Stress ulcer prophylaxis. On PPI Plans in collaboration with bedside consultants and IM MDs. Discussed with RN to reach out if any questions or concerns Critical Care: Ventilator Management ROBERTO NAGY MD Jan 28, 2022 07:53
[2022-01-28] MEDS ORDERED: METOLAZONE 5 MG (ZAROXOLYN) TAB NG ONE (08:00)
--- NOTE | 2022-01-28 08:24 | Cardiology Progress Note ---
Progress Note-Cardiology Events since last exam Date Seen by Provider: Jan 28, 2022 Time Seen by Provider: 08:20 Events since last exam I am following him due to heart failure with preserved ejection fraction and permanent atrial fibrillation. He remains in the intensive care unit intubated and sedated. He was intubated on 01/23. When the nurses do weaning trials, he gets tachycardia, hypertensive and hypoxic. The nurses will try another weaning trial today. I am not able to obtain any history from the patient due to his clinical status. I did speak with his nurse. Certain portions of this document may have been dictated utilizing voice recognition technology. Inherent to this technology, typographical and grammatical errors may exist. As much as I am diligent to identify and correct these mistakes, some errors may remain in the document. Vitals Last set of Vitals Signs Vital Signs 01/28/22 01/28/22 01/28/22 01/28/22 01/28/22 01/28/22 09:32 11:00 11:13 11:30 12:11 12:18 Temp 36.5 Pulse 84 Resp 16 B/P (MAP) 133/81 Pulse Ox 97 O2 Delivery Mechanical Ventilator O2 Flow Rate 40.00 FiO2 40 Labs Labs Laboratory Tests 01/28/22 04:50 Exam Vital Signs Vital Signs Date Time Temp Pulse Resp B/P (MAP) Pulse Ox O2 Delivery O2 Flow Rate FiO2 01/28/22 12:18 84 133/81 01/28/22 12:11 Mechanical Ventilator 01/28/22 11:30 40 01/28/22 11:13 16 97 01/28/22 11:00 40.00 01/28/22 09:32 36.5 Physical Exam General: Intubated and sedated. Well nourished and appears stated age. Eye: Conjunctivae are clear. There are no xanthelasma. HENT: Normocephalic. Atraumatic. Carotid pulsations 2/2 without bruits. Neck: Jugular venous pressure does not appear elevated. No thyromegaly appreciated. Respiratory: Symmetrical expansion bilaterally. Coarse breath sounds due to the ventilator. Cardiovascular: Normal rate. Regular rhythm. Distant S1/S2. No murmur. No gallop. Point of maximal impulse is not appear displaced. Good pulses equal in all extremities. No edema. Gastrointestinal: Soft. Normal bowel sounds. Skin: Skin turgor is normal. There is no pallor. Musculoskeletal: No obvious deformities. Neurologic: Intubated and sedated. Psychiatric: Not obtainable due to clinical status. Labs Laboratory Tests Test 01/27/22 17:49 01/27/22 22:58 01/28/22 04:50 01/28/22 05:03 Range/Units Glucometer 202 H 236 H 70-110 MG/DL White Blood Count 13.3 H 4.3-11.0 10^3/uL Red Blood Count 3.53 L 4.30-5.52 10^6/uL Hemoglobin 10.8 L 13.3-17.7 g/dL Hematocrit 34 L 40-54 % Mean Corpuscular Volume 97 80-99 fL Mean Corpuscular Hemoglobin 31 25-34 pg Mean Corpuscular Hemoglobin Concent 32 32-36 g/dL Red Cell Distribution Width 16.7 H 10.0-14.5 % Platelet Count 256 130-400 10^3/uL Mean Platelet Volume 9.8 9.0-12.2 fL Immature Granulocyte % (Auto) 9 % Neutrophils (%) (Auto) 81 H 42-75 % Lymphocytes (%) (Auto) 5 L 12-44 % Monocytes (%) (Auto) 5 0-12 % Eosinophils (%) (Auto) 0 0-10 % Basophils (%) (Auto) 0 0-10 % Neutrophils # (Auto) 10.7 H 1.8-7.8 10^3/uL Lymphocytes # (Auto) 0.7 L 1.0-4.0 10^3/uL Monocytes # (Auto) 0.7 0.0-1.0 10^3/uL Eosinophils # (Auto) 0.0 0.0-0.3 10^3/uL Basophils # (Auto) 0.1 0.0-0.1 10^3/uL Immature Granulocyte # (Auto) 1.2 H 0.0-0.1 10^3/uL Sodium Level 145 135-145 MMOL/L Potassium Level 3.9 3.6-5.0 MMOL/L Chloride Level 101 98-107 MMOL/L Carbon Dioxide Level 28 21-32 MMOL/L Anion Gap 16 H 5-14 MMOL/L Blood Urea Nitrogen 46 H 7-18 MG/DL Creatinine 0.89 0.60-1.30 MG/DL Estimat Glomerular Filtration Rate 92 BUN/Creatinine Ratio 52 Glucose Level 272 H 70-105 MG/DL Calcium Level 7.0 L 8.5-10.1 MG/DL Corrected Calcium 7.6 L 8.5-10.1 MG/DL Phosphorus Level 2.8 2.3-4.7 MG/DL Magnesium Level 2.4 1.6-2.4 MG/DL Total Bilirubin 0.9 0.1-1.0 MG/DL Aspartate Amino Transf (AST/SGOT) 16 5-34 U/L Alanine Aminotransferase (ALT/SGPT) 28 0-55 U/L Alkaline Phosphatase 68 40-136 U/L Total Protein 6.5 6.4-8.2 GM/DL Albumin 3.2 3.2-4.5 GM/DL Triglycerides Level 330 H <150 MG/DL Bedside Blood Gas pH (LAB) 7.463 H 7.310-7.410 Bedside Blood Gas pCO2 (LAB) 49.0 41.0-51.0 mmHg Bedside Blood Gas pO2 (LAB) 82 80-105 mmHg Bedside Blood Gas HCO3 (LAB) 35.1 H 23.0-28.0 mmol/L POC Blood Gas Total CO2 Calc 37 H 24-29 mmol/L Bedside Bl Gas O2 Saturation (Calc) 96 95-98 % Bedside Arterial Blood Base Excess 11 H -2-3 mmol/L Test 01/28/22 11:40 Range/Units Glucometer 207 H 70-110 MG/DL Diagnosis/Problems Diagnosis/Problems (1) Acute on chronic heart failure with preserved ejection fraction (HFpEF) Status: Acute Assessment & Plan: His symptoms are most likely due to heart failure with possibly some superimposed pulmonary infection. He is known to have a normal ejection fraction by echocardiogram earlier this year. I did increase his furosemide on 01/25 but despite this, his chest x-rays have not seen any significant improvement. Prognosis is poor. (2) Primary hypertension Status: Chronic Assessment & Plan: He has been on clonidine and I restarted carvedilol on 01/25 and losartan. He was started on intravenous nitroglycerin again over the weekend but this has been tapered to off. We will need to be cautious with the antihypertensive medication given that he was in shock on 01/23 and required norepinephrine infusion. (3) Permanent atrial fibrillation Status: Chronic Assessment & Plan: Heart rates appear to be reasonably controlled on beta- kwame which he was taking at home. He has been on rivaroxaban for stroke prophylaxis. (4) Mitral regurgitation Assessment & Plan: His echocardiogram from November showed mild to moderate mitral regurgitation. I would not expect this to be contributing to his symptoms but this will need to be followed longitudinally by his regular social services counselor at the outside facility. (5) Acute on chronic respiratory failure with hypoxia Status: Acute Assessment & Plan: Most likely multifactorial secondary to heart failure and superimposed pulmonary infection. If he does not make some improvement soon, we may need to consider palliative care or even comfort care. Now that he has required intubation, prognosis is poor given his underlying chronic pulmonary disease. (6) Acute kidney injury superimposed on chronic kidney disease Assessment & Plan: His baseline kidney function is around stage II chronic kidney disease. He has had a slight increase in his creatinine level since his previous admission but then this improved. We will need to monitor this closely. (7) Anemia Status: Chronic Assessment & Plan: This appears to be chronic and may need some evaluation following discharge. ALEKSANDER VILLA JR, MD Jan 28, 2022 08:23
[2022-01-28] MEDS: GABAPENTIN 100 MG (NEURONTIN) CAP PO SCH (08:37)
[2022-01-28] MEDS: LOSARTAN 25 MG (COZAAR) TAB PO SCH (08:37)
[2022-01-28] MEDS: cloNIDine 0.1 MG (CATAPRES) TAB PO SCH (08:38)
[2022-01-28] MEDS: methylPREDNISolone 40 MG/ML (Solu-MEDROL) VIAL IV SCH ×2 (08:38→20:53)
[2022-01-28] MEDS: PANTOPRAZOLE 40 MG (PROTONIX) VIAL IV SCH (08:38)
[2022-01-28] MEDS: DexMEDEtomidine 250 ML DRIP 250 ML IV SCH (15:23)
--- NOTE | 2022-01-28 17:44 | Progress Note - Hospitalist ---
Subjective HPI/CC On Admission Date Seen by Provider: Jan 28, 2022 Time Seen by Provider: 09:15 Mauro Park is a 71 year old male with PMH HTN, HFpEF, COPD, chronic respiratory failure on nocturnal oxygen, former smoker, T2DM, AFib on Xarelto, who presented with shortness of breath. He has been hospitalized twice over the past couple months with pneumonia. He denies fevers. He has a cough with sputum production. He denies chest pain. He denies abdominal pain. He denies nausea and vomiting. He has had some leg swelling. Subjective/Events-last exam He remains intubated and sedated. His is updated on his condition and prognosis. Focused Exam Time of Focused Exam: 04:30 Objective Exam Vital Signs Vital Signs Date Time Temp Pulse Resp B/P (MAP) Pulse Ox O2 Delivery O2 Flow Rate FiO2 01/28/22 17:00 122 26 155/109 96 Mechanical Ventilator 40.00 01/28/22 15:50 37.1 01/28/22 15:45 40 Capillary Refill : Less Than 3 Seconds General Appearance: No Apparent Distress, WD/WN, Other (intubated and sedated) Respiratory: Lungs Clear, No Respiratory Distress, Other (intubated and mechanically ventilated) Cardiovascular: Regular Rate, Rhythm, No Murmur Gastrointestinal: Normal Bowel Sounds, Soft Extremity: Normal Inspection, Pedal Edema Neurologic/Psychiatric: Other (sedated) Skin: Normal Color, Warm/Dry Results/Procedures Lab Laboratory Tests 01/28/22 04:50 Patient resulted labs reviewed. Imaging: Reviewed Imaging Report Assessment/Plan Assessment and Plan Assess & Plan/Chief Complaint Severe sepsis due to pneumonia Acute on chronic respiratory failure with hypoxia Acute on chronic heart failure with preserved ejection fraction COPD with acute exacerbation Continue Cefepime Continue Lasix Metolazone added Continue Solumedrol TeleICU following Remains on ventilator Spontaneous breathing trial today AFib Xarelto T2DM Sliding scale insulin HTN CAD Obesity Goals of care Ok with short term ventilator Does not want trach, no CPR Palliative care consult for hospice if able to be extubated Acute kidney injury, resolved Lactic acidosis, resolved Supratherapeutic INR, resolved Critical Care Ventilator Management Diagnosis/Problems Diagnosis/Problems (1) Severe sepsis Status: Resolved Resolution Date/Time: 01/28/22 @ 17:48 (2) Lactic acidosis Status: Resolved Resolution Date/Time: 01/28/22 @ 17:48 (3) PNA (pneumonia) Status: Acute (4) (HFpEF) heart failure with preserved ejection fraction Status: Acute Qualifiers: Heart failure chronicity: acute on chronic Qualified Codes: I50.33 - Acute on chronic diastolic (congestive) heart failure (5) COPD with acute exacerbation Status: Acute (6) Acute on chronic respiratory failure with hypoxia Status: Acute (7) Permanent atrial fibrillation Status: Chronic (8) Abnormal INR Status: Resolved Resolution Date/Time: 01/28/22 @ 17:48 (9) Endotracheally intubated Status: Acute (10) Goals of care, counseling/discussion Status: Acute (11) Poor prognosis Status: Acute PABLO BUTCHER MD Jan 28, 2022 17:44
[2022-01-28] MEDS ORDERED: hydrALAZINE (APESOLINE) 20 MG/ML VIAL IV PRN (17:45)
[2022-01-28] MEDS: NITRO DRIP 25000 MCG/D5W 250 ML IV SCH (18:14)
[2022-01-28] MEDS: MELATONIN 3 MG TABLET PO SCH (20:53)
[2022-01-29] MEDS: fentaNYL INJ 100 MCG/2 ML AMP IVP PRN ×2 (00:15→06:08)
[2022-01-29] MEDS: DexMEDEtomidine 250 ML DRIP 250 ML IV SCH ×2 (00:15→05:55)
[2022-01-29] MEDS: inSUlin ASPART (NovoLOG) 1 UNIT/0.01 ML (CHARGE PER UNIT) SC SCH ×5 (00:16→21:38)
[2022-01-29] MEDS: meTOprolol 5 MG/5 ML (LOPRESSOR) VIAL IV SCH ×5 (00:17→23:28)
[2022-01-29 03:17] VITALS: BP 151/81
[2022-01-29] MEDS: RT-ALBUTEROL/IPRATROPIUM 3 ML (DUONEB) VIAL INH SCH ×6 (03:17→22:18)
[2022-01-29] MEDS: CEFEPIME INJECTION 1,000 MG in NS (IVPB) 50 ML IV SCH ×4 (04:15→21:24)
[2022-01-29 05:30] LABS: BASOPHILS # (AUTO) 0.1 10^3/uL (0.0-0.1); BASOPHILS % (AUTO) 0 % (0-10); EOSINOPHILS % (AUTO) 0 % (0-10); HEMATOCRIT 40 % (40-54); HEMOGLOBIN 12.9 g/dL (13.3-17.7); LYMPHOCYTES # (AUTO) 0.8 10^3/uL (1.0-4.0); LYMPHOCYTES % (AUTO) 4 % (12-44); MEAN CORPUSCULAR HEMOGLOBIN 30 pg (25-34); MEAN CORPUSCULAR HGB CONC 32 g/dL (32-36); MEAN CORPUSCULAR VOLUME 93 fL (80-99); MEAN PLATELET VOLUME 10.2 fL (9.0-12.2); MONOCYTES # (AUTO) 0.5 10^3/uL (0.0-1.0); MONOCYTES % (AUTO) 3 % (0-12); NEUTROPHILS # (AUTO) 17.7 10^3/uL (1.8-7.8); NEUTROPHILS % (AUTO) 89 % (42-75); PLATELET COUNT 292 10^3/uL (130-400)
[2022-01-29 05:37] LABS: ALBUMIN 3.6 GM/DL (3.2-4.5); POTASSIUM 3.1 MMOL/L (3.6-5.0)
[2022-01-29 05:38] LABS: CALCIUM 8.3 MG/DL (8.5-10.1)
[2022-01-29 05:39] LABS: TOTAL PROTEIN 7.4 GM/DL (6.4-8.2)
[2022-01-29 05:41] LABS: BILIRUBIN,TOTAL 1.5 MG/DL (0.1-1.0)
[2022-01-29 05:43] LABS: CREATININE SERUM 0.86 MG/DL (0.60-1.30)
[2022-01-29 05:45] LABS: MAGNESIUM 2.6 MG/DL (1.6-2.4)
[2022-01-29] MEDS: FUROSEMIDE 40 MG/4 ML INJ (LASIX) IVP SCH ×2 (06:08→17:34)
[2022-01-29] MEDS: MAGNESIUM 1 GM/100 ML IVPB 100 ML IV SCH (06:18)
[2022-01-29] MEDS: KCL 20 MEQ TAB (K-DUR) PO SCH (06:19)
[2022-01-29] MEDS: POTASSIUM CL 10MEQ/50ML IVPB 50 ML IV SCH ×5 (06:28→08:08)
--- NOTE | 2022-01-29 08:06 | Cardiology Progress Note ---
Progress Note-Cardiology Events since last exam Date Seen by Provider: Jan 29, 2022 Time Seen by Provider: 08:05 Events since last exam I am following him due to heart failure, permanent atrial fibrillation and h ypertension. He was extubated on 01/28. He was sitting up in bed and awake but confused. He denied chest discomfort, dyspnea at rest, palpitations, syncope, or ankle edema. Certain portions of this document may have been dictated utilizing voice recognition technology. Inherent to this technology, typographical and grammatical errors may exist. As much as I am diligent to identify and correct these mistakes, some errors may remain in the document. Vitals Last set of Vitals Signs Vital Signs 01/28/22 01/29/22 01/29/22 01/29/22 15:45 06:00 07:55 08:08 Temp 36.0 Pulse 79 Resp 17 B/P (MAP) 110/83 Pulse Ox 96 O2 Delivery High Flow N/C O2 Flow Rate 10.00 FiO2 40 Labs Labs Laboratory Tests 01/29/22 05:00 Exam Vital Signs Vital Signs Date Time Temp Pulse Resp B/P (MAP) Pulse Ox O2 Delivery O2 Flow Rate FiO2 01/29/22 08:08 79 110/83 01/29/22 07:55 36.0 01/29/22 06:00 17 96 High Flow N/C 10.00 01/28/22 15:45 40 Physical Exam General: Somewhat drowsy but conversive. No acute distress. Wearing oxygen by nasal cannula. Eye: No xanthelasma. HENT: Normocephalic. Neck: Jugular venous pressure does not appear elevated. Respiratory: Lungs are clear to auscultation. Respirations are non-labored. Breath sounds are equal. Symmetrical chest wall expansion. Cardiovascular: Normal rate. Regular rhythm. Distant S1/S2. No murmur. No gallop. No edema. Gastrointestinal: Soft. Normal bowel sounds. Skin: Warm. Dry. Neurologic: Alert and oriented to person only. Cranial nerves 3-11 grossly intact. Psychiatric: Cooperative but confused. Labs Laboratory Tests Test 01/28/22 11:40 01/28/22 18:10 01/29/22 00:13 01/29/22 04:27 Range/Units Glucometer 207 H 202 H 113 H 70-110 MG/DL Bedside Blood Gas pH (LAB) 7.643 *H 7.310-7.410 Bedside Blood Gas pCO2 (LAB) 39.8 L 41.0-51.0 mmHg Bedside Blood Gas pO2 (LAB) 147 H 80-105 mmHg Bedside Blood Gas HCO3 (LAB) 43.2 *H 23.0-28.0 mmol/L POC Blood Gas Total CO2 Calc 44 *H 24-29 mmol/L Bedside Bl Gas O2 Saturation (Calc) 100 H 95-98 % Bedside Arterial Blood Base Excess 22 H -2-3 mmol/L Test 01/29/22 05:00 Range/Units White Blood Count 20.0 H 4.3-11.0 10^3/uL Red Blood Count 4.28 L 4.30-5.52 10^6/uL Hemoglobin 12.9 L 13.3-17.7 g/dL Hematocrit 40 40-54 % Mean Corpuscular Volume 93 80-99 fL Mean Corpuscular Hemoglobin 30 25-34 pg Mean Corpuscular Hemoglobin Concent 32 32-36 g/dL Red Cell Distribution Width 15.9 H 10.0-14.5 % Platelet Count 292 130-400 10^3/uL Mean Platelet Volume 10.2 9.0-12.2 fL Immature Granulocyte % (Auto) 5 % Neutrophils (%) (Auto) 89 H 42-75 % Lymphocytes (%) (Auto) 4 L 12-44 % Monocytes (%) (Auto) 3 0-12 % Eosinophils (%) (Auto) 0 0-10 % Basophils (%) (Auto) 0 0-10 % Neutrophils # (Auto) 17.7 H 1.8-7.8 10^3/uL Lymphocytes # (Auto) 0.8 L 1.0-4.0 10^3/uL Monocytes # (Auto) 0.5 0.0-1.0 10^3/uL Eosinophils # (Auto) 0.0 0.0-0.3 10^3/uL Basophils # (Auto) 0.1 0.0-0.1 10^3/uL Immature Granulocyte # (Auto) 0.9 H 0.0-0.1 10^3/uL Sodium Level 144 135-145 MMOL/L Potassium Level 3.1 L 3.6-5.0 MMOL/L Chloride Level 97 L 98-107 MMOL/L Carbon Dioxide Level 30 21-32 MMOL/L Anion Gap 17 H 5-14 MMOL/L Blood Urea Nitrogen 48 H 7-18 MG/DL Creatinine 0.86 0.60-1.30 MG/DL Estimat Glomerular Filtration Rate 93 BUN/Creatinine Ratio 56 Glucose Level 151 H 70-105 MG/DL Calcium Level 8.3 L 8.5-10.1 MG/DL Corrected Calcium 8.6 8.5-10.1 MG/DL Phosphorus Level 3.0 2.3-4.7 MG/DL Magnesium Level 2.6 H 1.6-2.4 MG/DL Total Bilirubin 1.5 H 0.1-1.0 MG/DL Aspartate Amino Transf (AST/SGOT) 20 5-34 U/L Alanine Aminotransferase (ALT/SGPT) 29 0-55 U/L Alkaline Phosphatase 80 40-136 U/L Total Protein 7.4 6.4-8.2 GM/DL Albumin 3.6 3.2-4.5 GM/DL Diagnosis/Problems Diagnosis/Problems (1) Acute on chronic heart failure with preserved ejection fraction (HFpEF) Status: Acute Assessment & Plan: His symptoms are most likely due to heart failure with possibly some superimposed pulmonary infection. He is known to have a normal ejection fraction by echocardiogram earlier this year. I did increase his furosemide on 01/25 but despite this, his chest x-rays have not seen any signifi cant improvement. We will continue with IV furosemide 80 mg twice daily and watch his renal function closely. (2) Primary hypertension Status: Chronic Assessment & Plan: He has been on clonidine and I restarted carvedilol on 01/25 and losartan. He was started on intravenous nitroglycerin again over the weekend but this has been tapered to off. He was also started on intravenous metoprolol. We will need to be cautious with the antihypertensive medication given that he was in shock on 01/23 and required norepinephrine infusion. I will attempt to transition off the IV metoprolol over the next 24 hours assuming that is respiratory status continues to improve. (3) Permanent atrial fibrillation Status: Chronic Assessment & Plan: Heart rates appear to be reasonably controlled on beta- kwame which he was taking at home. He has been on rivaroxaban for stroke pr ophylaxis. (4) Mitral regurgitation Assessment & Plan: His echocardiogram from November showed mild to moderate mitral regurgitation. I would not expect this to be contributing to his symptoms but this will need to be followed longitudinally by his regular cottage attendant at the outside facility. (5) Acute on chronic respiratory failure with hypoxia Status: Acute Assessment & Plan: Most likely multifactorial secondary to heart failure and superimposed pulmonary infection. If he does not make some improvement soon, we may need to consider palliative care or even comfort care. Now that he has required intubation, prognosis is poor given his underlying chronic pulmonary disease. (6) Acute kidney injury superimposed on chronic kidney disease Assessment & Plan: His baseline kidney function is around stage II chronic kidney disease. He has had a slight increase in his creatinine level since his previous admission but then this improved. We will need to monitor this closely. (7) Anemia Status: Chronic Assessment & Plan: This appears to be chronic and may need some evaluation following discharge. ALEKSANDER VILLA JR, MD Jan 29, 2022 08:06
[2022-01-29] MEDS: methylPREDNISolone 40 MG/ML (Solu-MEDROL) VIAL IV SCH ×2 (08:08→21:24)
[2022-01-29] MEDS: PANTOPRAZOLE 40 MG (PROTONIX) VIAL IV SCH (08:08)
[2022-01-29] MEDS: NOREPINEPHRINE 8 MG/250 ML 250 ML IV SCH ×2 (08:08→22:12)
[2022-01-29] MEDS ORDERED: NS (IVPB) 50 ML ONE (08:20)
--- NOTE | 2022-01-29 09:03 | Diagnostic Imaging Report ---
EXAMINATION: Chest 1 view HISTORY: Intubation COMPARISON: 01/28/2022 FINDINGS: Stable enlargement of the cardiac silhouette. Interval removal of the endotracheal tube, right-sided PICC line and enteric catheter. Persistent diffuse interstitial opacities throughout both lungs. No pleural effusion or pneumothorax. Degenerative changes of the thoracic spine. Osseous structures are otherwise intact. Chronic healed left clavicle fracture. IMPRESSION: 1. Interval removal of the endotracheal tube, enteric catheter, and right-sided PICC line. 2. Persistent diffuse interstitial opacities throughout both lungs. Dictated by: Dictated on workstation # [id number]
--- NOTE | 2022-01-29 09:32 | Physical Therapy Evaluation ---
PT Evaluation-General Medical Diagnosis Admission Date Jan 20, 2022 at 05:15 Medical Diagnosis: respiratory failure Onset Date: Jan 20, 2022 Therapy Diagnosis Therapy Diagnosis: severe weakness/debility Height/Weight Height (Feet): 5 Height (Inches): 11.00 Weight (Pounds): 217 Weight (Ounces): 4.0 Precautions Precautions/Isolations: Aspiration, Fall Prevention, Standard Precautions, Pressure Ulcer Weight Bear Status Right Lower Extremity: Right Weight Bearing/Tolerated Left Lower Extremity: Left Weight Bearing/Tolerated Referral Physician: Bria Reason for Referral: Evaluation/Treatment Medical History Pertinent Medical History: Atrial Fib, COPD, Heart Failure Current History EMS from home secondary to respiratory failure/multiple hospital status recently due to same Reviewed History: Yes Social History Home: Single Level Current Living Status: Spouse Prior Prior Level of Function SCALE: Activities may be completed with or without assistive devices. 8-Genprczbed-kqhwhbt completes the activity by him/herself with no assistance from a helper. 5-Set-up or Clean-up Assistance-helper sets up or cleans up; patient completes activity. [place] assists only prior to or following the activity. 4-Supervision or Touching Assistance-helper provides verbal cues and/or touching/steadying and/or contact guard assistance as patient completes activity. Assistance may be provided throughout the activity or intermittently. 3-Partial/Moderate Assistance-helper does LESS THAN HALF the effort. [place] lifts, holds or supports trunk or limbs, but provides less than half the effort. 2-Substantial/Maximal Assistance-helper does MORE THAN HALF the effort. [place] lifts or holds trunk or limbs and provides more than half the effort. 8-Jkwzmtpky-xockdf does ALL the effort. Patient does none of the effort to complete the activity. Or, the assistance of 2 or more helpers is required for the patient to complete the activity. If activity was not attempted, code reason: 7-Patient Refused. 9-Not Applicable-not attempted and the patient did not perform the activity before the current illness, exacerbation or injury. 10-Not Attempted due to Environmental Limitations-(lack of equipment, weather restraints, etc.). 88-Not Attempted due to Medical Conditions or Safety Concerns. Bed Mobility: 6 Transfers (B,C,W/C): 6 Gait: 6 Indoor Mobility (Ambulation): Independent Prior Devices Use: Walker PT Evaluation-Current Subjective Upon entering, patient states, "I'm dying." RN notified of patient's comment. Objective Patient Orientation: Person Attachments: Oxygen, [place] Catheter, IV ROM/Strength ROM Lower Extremities bilateral LE WFL Strength Lower Extremities 1/5 grossly bilateral LE Integumentary/Posture Integumentary refer to nursing notes Bowel Incontinence: Yes Bladder Incontinence: Morfin Cath Neuromuscular (Tone, Coordination, Reflexes) severely diminished coordination with all Sensory Vision: Functional Hearing: Functional Transfers Roll Left to Right (QC): 1 (x 2) Sit to Lying (QC): 88 Lying to Sitting/Side of Bed(Q: 88 Sit to Stand (QC): 88 Chair/Tdb-av-Mwmhg Xfer(QC): 88 Assessment/Needs 71 y.o. male, will be seen by skilled PT to address functional strength and ultimately, functional mobility. Patient extubated yesterday after intubated x > 1 week. Patient displays severe weakness. Rehab Potential: Guarded PT Short Term Goals Short Term Goals Time Frame: Feb 09, 2022 Roll Left & Right: 2 Sit to lyin Lying to sitting on side of be: 2 PT Fdc Goals Fdc Goals PT Fdc Goals Time Frame: Feb 23, 2022 Roll Left & Right (QC): 3 Sit to Lying (QC): 3 Lying-Sitting on Side/Bed(QC): 3 Sit to Stand (QC): 3 Chair/Opf-cj-Tcsdi Xfer(QC): 3 Toilet Transfer (QC): 3 Walk 10 feet (QC): 3 PT Plan Problem List Problem List: Activity Tolerance, Functional Strength, Safety, Balance, Transfer, Bed Mobility Treatment/Plan Treatment Plan: Continue Plan of Care Treatment Plan: Bed Mobility, Education, Functional Activity Jovany, Functional Strength, Gait, Safety, Therapeutic Exercise, Transfers Treatment Duration: Feb 23, 2022 Frequency: 5 times per week Estimated Hrs Per Day: .25 hour per day Discharge Recommendations Therapy Discharge Recommendati: Other, See Comments (senior living) Time/GCodes Time In: 744 Time Out: 756 Total Billed Treatment Time: 12 Total Billed Treatment 1 visit EVModC 12 min TRISTA GENTILE PT Jan 29, 2022 09:32
--- NOTE | 2022-01-29 10:11 | Tele-ICU Progress Note ---
Subjective Date Seen by a Provider: Jan 29, 2022 Time Seen by a Provider: 10:11 Subjective/Events-last exam (Tele-ICU Physician , Progress Note ) Available chart/ vitals / labs / Images reviewed Video assessment done using teleICU camera, rest of exam as per RN Discussed with RN Events overnight : Afebrile hemodynamically stable Respiratory - 50% I/O = neg Drips: Pressors- LEVO OFF Consultants: Hospital course: 01-20: +Severe Sepsis COVID PCR Neg 71 y/o M - Hypoxic - Pneumonia - COPD Exacerbation - BiPAP. Recent hosp d/c 01/03/22 for same. ( 01/23) - pt intubated 01/24--AC 16 550 40 % +8 01/25= SBT on propofol 5 presedex 1.5, was oK , but very agitated , OFF LEVO , NTG ftt for HTN 01-28: Extubated at 1630. A/P Acute resp failure- PNA< AECOPD, CHF - intubated 01/23-: Extubated 01-28 - on Precedex , imtermittent BIPAP - on 10 L now - cont steroids - decrease dose? 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 HTN - off NTG gtt - meds adjustment as per cards Anemia - stable Hyperglycemia - ISS and lonfg acting Lines : R PICC - removed 01/28 , (Central Line Necessity Reviewed) Morfin:+ OG: Nutrition: TF 01/24 pulmicare at goal Analgesia: Anxiety/ delirium VTE Prophylaxis: xarelto Stress Ulcer Prophylaxis: PPi Plans in collaboration with bedside consultants and IM MDs. Discussed with RN to reach out if any questions or concerns A total of 32 minutes of critical care time was devoted to this patient today, required to treat and/or prevent further deterioration of critical care c ondition ( as above ) . Sepsis Event Evaluation Height, Weight, BMI Height: 5'11.00" Weight: 217lbs. 4.0oz. 98.859746ck; 27.03 BMI Method:Stated Focused Exam Time of Focused Exam: 04:30 Exam Exam Patient acknowledged, consented, and participated in this virtual visit which was conducted using real time audio/video Vital Signs Date Time Temp Pulse Resp B/P (MAP) Pulse Ox O2 Delivery O2 Flow Rate FiO2 01/29/22 10:04 85 32 130/66 High Flow N/C 10.00 01/29/22 09:00 87 34 140/87 93 High Flow N/C 10.00 01/29/22 08:08 79 110/83 01/29/22 08:00 79 21 127/88 93 High Flow N/C 10.00 01/29/22 07:55 36.0 01/29/22 07:22 86 01/29/22 07:00 77 21 144/87 93 High Flow N/C 10.00 01/29/22 06:00 79 17 177/105 96 High Flow N/C 10.00 01/29/22 05:48 High Flow N/C 10.00 01/29/22 05:00 78 18 151/99 95 NIV Bilevel 45.00 01/29/22 04:06 NIV Bilevel 01/29/22 04:00 85 19 158/99 96 NIV Bilevel 45.00 01/29/22 04:00 36.0 01/29/22 03:17 81 35 94 45.00 01/29/22 03:00 92 30 147/97 94 NIV Bilevel 45.00 01/29/22 02:00 80 23 152/97 94 NIV Bilevel 45.00 01/29/22 01:00 75 01/29/22 01:00 75 26 162/110 96 NIV Bilevel 45.00 01/29/22 00:19 NIV Bilevel 45.00 01/29/22 00:00 36.1 01/29/22 00:00 79 24 162/96 96 NIV Bilevel 50.00 01/28/22 23:26 NIV Bilevel 01/28/22 23:00 81 25 154/90 95 NIV Bilevel 50.00 01/28/22 22:22 78 17 96 50.00 01/28/22 22:00 90 16 151/81 97 NIV Bilevel 60.00 01/28/22 21:00 82 22 145/83 97 NIV Bilevel 60.00 01/28/22 20:00 87 29 129/79 97 NIV Bilevel 60.00 01/28/22 19:59 NIV Bilevel 01/28/22 19:23 36.5 01/28/22 19:00 95 01/28/22 19:00 95 23 149/93 97 NIV Bilevel 60.00 01/28/22 18:34 90 32 95 85.00 01/28/22 18:00 104 26 152/101 97 NIV Bilevel 100.00 01/28/22 17:00 122 26 155/109 96 NIV Bilevel 100.00 01/28/22 16:54 112 27 96 100.00 01/28/22 16:00 101 21 161/91 93 Mechanical Ventilator 40.00 01/28/22 16:00 Mechanical Ventilator 01/28/22 15:50 37.1 01/28/22 15:45 101 30 95 40 01/28/22 15:23 94 128/85 01/28/22 15:22 93 128/85 01/28/22 15:20 40 01/28/22 15:00 89 21 141/82 92 Mechanical Ventilator 40.00 01/28/22 14:00 92 20 137/76 95 Mechanical Ventilator 40.00 01/28/22 13:50 97 16 98 40 01/28/22 13:08 86 01/28/22 13:00 85 15 120/79 95 Mechanical Ventilator 40.00 01/28/22 12:18 84 133/81 01/28/22 12:11 Mechanical Ventilator 01/28/22 12:00 37.0 01/28/22 12:00 81 16 120/82 95 Mechanical Ventilator 40.00 01/28/22 11:30 40 01/28/22 11:13 84 16 97 40 01/28/22 11:00 78 16 133/81 95 Mechanical Ventilator 40.00 01/28/22 10:39 93 127/90 I & O 01/29/22 07:00 Intake Total 1660 ml Output Total 5875 ml Balance -4215 ml Height & Weight Height: 5'11.00" Weight: 217lbs. 4.0oz. 98.989672vl; 27.03 BMI Method:Stated General Appearance: No Apparent Distress, WD/WN, Other (intubated and sedated) Neck: Normal Inspection, Supple Respiratory: Lungs Clear, No Respiratory Distress, Other (intubated and mechanically ventilated) Cardiovascular: Regular Rate, Rhythm, No Murmur Capillary Refill: Less Than 3 Seconds Peripheral Pulses: 2+ Dorsalis Pedis (R), 2+ Left Dors-Pedis (L) (See free text.) Gastrointestinal: normal bowel sounds, non tender, soft Extremity: Normal Inspection, Pedal Edema Neurologic/Psychiatric: Other (sedated) Skin: Normal Color, Warm/Dry Results Lab Laboratory Tests 01/28/22 04:50 01/29/22 05:00 Assessment/Plan Assessment/Plan 1 SADIE WISDOM MD Jan 29, 2022 10:11
--- NOTE | 2022-01-29 11:23 | Occupational Therapy Eval ---
OT Evaluation-General/PLF Medical Diagnosis Admission Date Jan 20, 2022 at 05:15 Medical Diagnosis: respiratory failure Onset Date: Jan 20, 2022 Therapy Diagnosis Therapy Diagnosis: decreased ADL status and weakness Height/Weight Height (Feet): 5 Height (Inches): 11.00 Weight (Pounds): 217 Weight (Ounces): 4.0 Precautions Precautions/Isolations: Aspiration, Fall Prevention, Standard Precautions, Pressure Ulcer Referral Physician: Bria Referral Reason: Evaluation/Treatment Medical History Pertinent Medical History: Atrial Fib, COPD, Heart Failure Additional Medical History HTN, HFpEF, COPD, chronic respiratory failure, former smoker, T2DM, Afib on Xa relto, CHF, and neuropathy. Current History Presented to ED with SOB. Pt has been hospitalized twice over past 2mo w/ PNA and leg swelling. Social History Home: Single Level Current Living Status: Spouse Steps Into Home: 2 ADL-Prior Level of Function SCALE: Activities may be completed with or without assistive devices. 1-Eesduznxne-vvaogzl completes the activity by him/herself with no assistance from a helper. 5-Set-up or Clean-up Assistance-helper sets up or cleans up; patient completes activity. [place] assists only prior to or following the activity. 4-Supervision or Touching Assistance-helper provides verbal cues and/or touching/steadying and/or contact guard assistance as patient completes activity. Assistance may be provided throughout the activity or intermittently. 3-Partial/Moderate Assistance-helper does LESS THAN HALF the effort. [place] lifts, holds or supports trunk or limbs, but provides less than half the effort. 2-Substantial/Maximal Assistance-helper does MORE THAN HALF the effort. [place] lifts or holds trunk or limbs and provides more than half the effort. 6-Jvfxekine-wzxetv does ALL the effort. Patient does none of the effort to complete the activity. Or, the assistance of 2 or more helpers is required for the patient to complete the activity. If activity was not attempted, code reason: 7-Patient Refused. 9-Not Applicable-not attempted and the patient did not perform the activity before the current illness, exacerbation or injury. 10-Not Attempted due to Environmental Limitations-(lack of equipment, weather restraints, etc.). 88-Not Attempted due to Medical Conditions or Safety Concerns. ADL PLOF Comments Pt's reports that pt was IND with ADLs at [facility] and used a SPC for functional mobility. Self Care: Independent Functional Cognition: Independent DME/Equipment: Bath Chair, Shower (walk-in), Tall Toilet OT Current Status Subjective Pt laying in bed with present upon OT arrival, agreeable to eval/tx. Mental Status/Objective Patient Orientation: Person, Confused Attachments: Morfin Catheter, IV, Oxygen, Telemetry Current Upper Extremity ROM severely diminished shoulder flexion bilaterally, elbow flexion WFL for flexion/extension but limited due to decreased coordination and difficulty with following instructions. Finger flexion/extension WFL bilaterally. Upper Extremity Coordination decreased bilaterally due to limited strength/ROM and difficulty following directions. Upper Extremity Strength 2+/5 bilaterally for elbow flexion/extension. 1/5 bilaterally shoulder flexion. ADL-Treatment Eating (QC): 2 (Per clinical judgment, pt would require assistance with cutting food, and bringing food to mouth.) Lower Body Dressing (QC): 1 (Per clincial judgment.) On/Off Footwear (QC): 1 (Per clincial judgment.) Toileting Hygiene (QC): 1 (Per clincial judgment.) Other Treatments Pt in bed, pt and provide information about PLOF and home set up. Pt participated in UE screen, requiring redirection to task throughout session. Pt attempted to wash his face, but unable to bring wash cloth to his face, total assist with washing face and combing hair. Pt and instructed to complete AROM exercises throughout the day in order to increase strength and activity tolerance, they verbalize understanding. Post tx, pt in bed, call light in reach and all needs met. Education OT Patient Education: Correct positioning, Energy conservation, Exercise program, Modified ADL techniques, Progress toward Goal/Update tx plan, Purpose of tx/functional activities, Rehab process Teaching Recipient: Patient, Significant Other Teaching Methods: Discussion Response to Teaching: Verbalize Understanding OT Retirement Goals Nursery Attendant Goals Time Frame: Feb 22, 2022 Oral Hygiene (QC): 3 Toileting Hygiene (QC): 3 Upper Body Dressing (QC): 3 Lower Body Dressing (QC): 3 On/Off Footwear (QC): 3 Additional Goals: 1-Demonstrate ADL Tasks, 2-Verbalize Understanding, 3-ImproveStrength/Jovany 1=Demonstrate adherence to instructed precautions during ADL tasks. 2=Patient will verbalize/demonstrate understanding of assistive devices/modifications for ADL. 3=Patient will improve strength/tolerance for activity to enable patient to perform ADL's. OT Education/Plan Problem List/Assessment Assessment: Decreased Activ Tolerance, Decreased Safety Aware, Decreased UE Strength, Dependent Transfers, Impaired Bed Mobility, Impaired Cognition, Impaired Coordination, Impaired Funct Balance, Impaired I ADL's, Impaired Self- Care Skills, Restricted Funct UE ROM Discharge Recommendations Plan/Recommendations: Continue POC Treatment Plan/Plan of Care Patient would benefit from OT for education, treatment and training to promote independence in ADL's, mobility, safety and/or upper extremity function for ADL's. Plan of Care: ADL Retraining, Cognitive Retraining, Functional Mobility, UE Funct Exercise/Act Treatment Duration: Feb 22, 2022 Frequency: 3 times per week (3-5x/wk) Estimated Hrs Per Day: .25 hour per day Rehab Potential: Guarded Time/GCodes Start Time: 10:48 Stop Time: 11:04 Total Time Billed (hr/min): 16 Billed Treatment Time 1, ANMOL MONTEMAYOR OT Jan 29, 2022 11:23
--- NOTE | 2022-01-29 14:02 | ST Dysphagia Evaluation ---
Speech Evaluation-General Medical Diagnosis Respiratory Failure Onset Date: Jan 20, 2022 Therapy Diagnosis Therapy Diagnosis: Oropharyngeal Dysphagia Precautions Precautions: Fall, Pressure Ulcer, Aspiration Precautions/Isolations: Aspiration, Fall Prevention, Standard Precautions, Pressure Ulcer Referral Referring Physician: Dr. Fraser Reason for Referral: Evaluation/Treatment Medical History Pertinent Medical History: Atrial Fib, COPD, Heart Failure Current History The patient is a 71 year-old male with a past medical history significant for CHF, COPD, atrial fibrillation, and diabetes, who presented to [facility] with reduced O2 saturations and increased lower extremity edema. The patient was found to be in respiratory distress therefore was intubated from 01/23/2022 to 01/28/2022. Reviewed History: Yes Social History Current Living Status: Spouse Speech PLF/Current-Dysphagia Prior Level of Function The patient is currently confused and unable to respond or answer questions related to his prior level of function. Subjective The patient was lying in bed, awake and alert upon entrance to his room. The patient was positioned upright in bed for safe swallowing. The patient is currently receiving 10l supplemental oxygen via high flow nasal cannula. The patient's SpO2% is 96% prior to P.O. bolus trials. The patient was eager and agreeable for bolus trials. Cognitive Status Patient Orientation: Confused Oral Motor Skills Dentition: Natural (Poor, sparse dentition.) Ability to Follow Directions: Fair Oral Expression Ability: Moderate Impairment Voice Voice Phonatory-Based Quality: Breathy, Harsh Voice Pitch: Normal Voice Loudness: Moderately Soft/Quiet Face Facial Symmetry: Symmetrical Oral-Facial Assessment Oral-Facial Dentition: Normal Labial Seal Description: Normal Smile: Normal Puff Cheeks: Normal Lingual Protrusion: Normal Lingual ROM: Normal Lingual Strength: Normal Volitional Dry Swallow: Yes Voluntary Cough: Yes Can Clear Throat Volitionally: Yes Productive Cough: Yes Productive Throat Clear: Yes Dysphagia Evaluation Consistencies Presented: Regular, Thin Liquid, [place] Thick Liquid, Pureed The patient displayed prolonged mastication with the dry, solid consistency. The patient required a nectar-thick liquid wash to clear the dry solid consistency from the oral cavity. Laryngeal elevation was present to palpation. The patient did not display overt s/s of suspected aspiration with thin liquid via ice chip or teaspoon, nectar-thick liquid via straw, puree, or solid. The patient demonstrated an immediate, rigorous cough with straw drinks of thin liquid and an overtly wet vocal quality. Dietary Recommendations: Mechanical Soft Liquid Recommendations: [place] Consistancy Recommendations: - Dysphagia two consistency diet with mildly thick (nectar-thick) liquids, as tolerated. - Fully upright and alert for P.O. intake. - 1:1 feeding assistance and supervision throughout P.O. intake. - Small, single bites and sips. - Monitor for s/s of suspected aspiration with P.O. intake. If demonstrated, contact speech pathology. The results and recommendations were provided to the patient and the RN immediately upon completion, as well as, written on the in room white board. Dysphagia Evaluation Summary The patient demonstrated oropharyngeal dysphagia characterized by prolonged mastication of dry solid consistencies and poor airway protection in the presence of bolus material. Speech Short Term Goals Short Term Goals Short Term Goals 1. The patient and staff will follow swallowing recommendations and strategies with 90% accuracy and mild clinician verbal cueing. Time Frame-STG: Five Days. Speech Mcc Goals Mcc Goals 1. The patient will tolerate the least restrictive diet consistency without s/s of suspected aspiration. Time Frame: One Week. Speech-Plan Treatment Plan Speech Therapy Treatment Plan: Continue Plan of Care Frequency: 2 times per week Estimated Hrs Per Day: .25 hour per day Rehab Potential: Guarded Safety Risks/Education Teaching Recipient: Patient Teaching Methods: Discussion Response to Teaching: Unable to Comprehend Education Topics Provided: Results, Recommendations, Plan of Care, Swallowing Strategies Time Speech Therapy Time In: 08:30 Speech Therapy Time Out: 08:50 Total Billed Time: 20 Billed Treatment Time 1, GIULIANA FRASER ELIZABETH ST Jan 29, 2022 14:02
--- NOTE | 2022-01-29 16:44 | Progress Note - Hospitalist ---
Subjective HPI/CC On Admission Date Seen by Provider: Jan 29, 2022 Time Seen by Provider: 09:35 Mauro Park is a 71 year old male with PMH HTN, HFpEF, COPD, chronic respiratory failure on nocturnal oxygen, former smoker, T2DM, AFib on Xarelto, who presented with shortness of breath. He has been hospitalized twice over the past couple months with pneumonia. He denies fevers. He has a cough with sputum production. He denies chest pain. He denies abdominal pain. He denies nausea and vomiting. He has had some leg swelling. Subjective/Events-last exam He is extubated. He is oriented to self and place. He has no complaints. His is updated. Focused Exam Time of Focused Exam: 04:30 Objective Exam Vital Signs Vital Signs Date Time Temp Pulse Resp B/P (MAP) Pulse Ox O2 Delivery O2 Flow Rate FiO2 01/29/22 16:07 79 35 136/80 90 High Flow N/C 7.00 01/29/22 07:55 36.0 01/28/22 15:45 40 Capillary Refill : Less Than 3 Seconds General Appearance: No Apparent Distress, Chronically ill Respiratory: No Respiratory Distress, Decreased Breath Sounds Cardiovascular: Regular Rate, Rhythm, No Murmur Gastrointestinal: Normal Bowel Sounds, Soft Extremity: Normal Inspection, No Pedal Edema Neurologic/Psychiatric: Alert, Disoriented, Motor Weakness Results/Procedures Lab Laboratory Tests 01/29/22 05:00 Patient resulted labs reviewed. Imaging: Reviewed Imaging Report Assessment/Plan Assessment and Plan Assess & Plan/Chief Complaint Severe sepsis due to pneumonia Acute on chronic respiratory failure with hypoxia Acute on chronic heart failure with preserved ejection fraction COPD with acute exacerbation Continue antibiotics Continue diuretics Continue steroids TeleICU following Extubated 01/28 AFib Xarelto T2DM Sliding scale insulin HTN CAD Obesity Goals of care Ok with short term ventilator Does not want trach, no CPR Palliative care consult for hospice Referral sent to [facility] Acute kidney injury, resolved Lactic acidosis, resolved Supratherapeutic INR, resolved Critical Care Critically Ill Patient Diagnosis/Problems Diagnosis/Problems (1) Severe sepsis Status: Resolved Resolution Date/Time: 01/28/22 @ 17:48 (2) Lactic acidosis Status: Resolved Resolution Date/Time: 01/28/22 @ 17:48 (3) PNA (pneumonia) Status: Acute (4) (HFpEF) heart failure with preserved ejection fraction Status: Acute Qualifiers: Heart failure chronicity: acute on chronic Qualified Codes: I50.33 - Acute on chronic diastolic (congestive) heart failure (5) COPD with acute exacerbation Status: Acute (6) Acute on chronic respiratory failure with hypoxia Status: Acute (7) Permanent atrial fibrillation Status: Chronic (8) Abnormal INR Status: Resolved Resolution Date/Time: 01/28/22 @ 17:48 (9) Endotracheally intubated Status: Acute (10) Goals of care, counseling/discussion Status: Acute (11) Poor prognosis Status: Acute PABLO BUTCHER MD Jan 29, 2022 16:44
[2022-01-29] MEDS: RIVAROXABAN 20 MG TABLET (XARELTO) PO SCH (17:34)
[2022-01-29] MEDS: NITRO DRIP 25000 MCG/D5W 250 ML IV SCH (19:44)
[2022-01-29] MEDS ORDERED: RIVAROXABAN 20 MG TABLET (XARELTO) PO SCH (21:00)
[2022-01-29] MEDS: MELATONIN 3 MG TABLET PO SCH (21:24)
[2022-01-29] MEDS ORDERED: amLODIPine 5 MG (NORVASC) TAB ONE (21:44)
[2022-01-29] MEDS: amLODIPine 5 MG (NORVASC) TAB PO SCH (21:48)
[2022-01-30] MEDS: fentaNYL INJ 100 MCG/2 ML AMP IVP PRN (01:04)
[2022-01-30] MEDS ORDERED: NS (IVPB) 50 ML ONE (02:37)
[2022-01-30] MEDS ORDERED: CEFEPIME 1 GM/10 ML (MAXIPIME) VIAL ONE (02:37)
[2022-01-30] MEDS: CEFEPIME INJECTION 1,000 MG in NS (IVPB) 50 ML IV SCH ×4 (02:40→20:24)
[2022-01-30] MEDS: RT-ALBUTEROL/IPRATROPIUM 3 ML (DUONEB) VIAL INH SCH ×6 (02:55→22:06)
[2022-01-30 05:43] LABS: BASOPHILS # (AUTO) 0.1 10^3/uL (0.0-0.1); BASOPHILS % (AUTO) 1 % (0-10); EOSINOPHILS % (AUTO) 0 % (0-10); HEMATOCRIT 43 % (40-54); HEMOGLOBIN 14.2 g/dL (13.3-17.7); LYMPHOCYTES # (AUTO) 0.9 10^3/uL (1.0-4.0); LYMPHOCYTES % (AUTO) 3 % (12-44); MEAN CORPUSCULAR HEMOGLOBIN 30 pg (25-34); MEAN CORPUSCULAR HGB CONC 33 g/dL (32-36); MEAN CORPUSCULAR VOLUME 91 fL (80-99); MEAN PLATELET VOLUME 10.5 fL (9.0-12.2); MONOCYTES # (AUTO) 0.7 10^3/uL (0.0-1.0); MONOCYTES % (AUTO) 2 % (0-12); NEUTROPHILS # (AUTO) 28.1 10^3/uL (1.8-7.8); NEUTROPHILS % (AUTO) 91 % (42-75); PLATELET COUNT 463 10^3/uL (130-400)
[2022-01-30 05:46] LABS: WHITE BLOOD COUNT 30.9 10^3/uL (4.3-11.0)
[2022-01-30 06:02] LABS: ALBUMIN 3.9 GM/DL (3.2-4.5); POTASSIUM 2.8 MMOL/L (3.6-5.0)
[2022-01-30 06:03] LABS: CALCIUM 9.7 MG/DL (8.5-10.1)
[2022-01-30 06:06] LABS: BILIRUBIN,TOTAL 1.7 MG/DL (0.1-1.0)
[2022-01-30 06:07] LABS: NEUTROPHILS % (MANUAL) 90 %
[2022-01-30 06:08] LABS: CREATININE SERUM 0.81 MG/DL (0.60-1.30); LYMPHOCYTES % (MANUAL) 6 %; MONOCYTES % (MANUAL) 3 %; MYELOCYTES % 1 %; PHOSPHORUS 3.8 MG/DL (2.3-4.7); RBC MORPH NORMAL
[2022-01-30 06:11] LABS: MAGNESIUM 2.5 MG/DL (1.6-2.4)
[2022-01-30] MEDS ORDERED: KCL 20 MEQ TAB (K-DUR) PO ONE ×3 (06:15→10:15)
[2022-01-30] MEDS: FUROSEMIDE 40 MG/4 ML INJ (LASIX) IVP SCH ×2 (06:23→18:03)
[2022-01-30] MEDS: meTOprolol 5 MG/5 ML (LOPRESSOR) VIAL IV SCH (06:23)
[2022-01-30] MEDS: KCL 20 MEQ TAB (K-DUR) PO SCH ×2 (06:24→06:42)
[2022-01-30] MEDS: POTASSIUM CL 10MEQ/50ML IVPB 50 ML IV SCH (06:39)
[2022-01-30] MEDS: MAGNESIUM 1 GM/100 ML IVPB 100 ML IV SCH (06:39)
[2022-01-30] MEDS: inSUlin ASPART (NovoLOG) 1 UNIT/0.01 ML (CHARGE PER UNIT) SC SCH ×4 (06:39→18:43)
--- NOTE | 2022-01-30 08:36 | Cardiology Progress Note ---
Progress Note-Cardiology Events since last exam Date Seen by Provider: Jan 30, 2022 Time Seen by Provider: 08:35 Events since last exam I am following him due to heart failure, permanent atrial fibrillation and h ypertension. He is more awake and alert today but still only oriented to person. He denies chest discomfort, dyspnea at rest, palpitations, syncope, or ankle edema. Certain portions of this document may have been dictated utilizing voice recognition technology. Inherent to this technology, typographical and grammatical errors may exist. As much as I am diligent to identify and correct these mistakes, some errors may remain in the document. Vitals Last set of Vitals Signs Vital Signs 01/28/22 01/30/22 01/30/22 15:45 12:00 12:29 Temp 35.9 Pulse 118 Resp 31 B/P (MAP) 121/104 Pulse Ox 88 O2 Delivery High Flow N/C O2 Flow Rate 10.00 FiO2 40 Labs Labs Laboratory Tests 01/30/22 04:54 Exam Vital Signs Vital Signs Date Time Temp Pulse Resp B/P (MAP) Pulse Ox O2 Delivery O2 Flow Rate FiO2 01/30/22 12:29 35.9 01/30/22 12:00 118 31 121/104 88 High Flow N/C 10.00 01/28/22 15:45 40 Physical Exam General: Alert. No acute distress. He is wearing oxygen by nasal cannula. Eye: No xanthelasma. HENT: Normocephalic. Neck: Jugular venous pressure does not appear elevated. Respiratory: Lungs have scattered wheezes and some upper airway sounds bilaterally. Respirations are non-labored. Breath sounds are equal. Symmetrical chest wall expansion. Cardiovascular: Normal rate. Irregular rhythm. Distant S1/S2. No murmur. No gallop. No edema. Gastrointestinal: Soft. Normal bowel sounds. Skin: Warm. Dry. Neurologic: Alert and oriented to person only. Cranial nerves 3-11 grossly intact. Psychiatric: Cooperative. Appropriate mood & affect but somewhat confused. Labs Laboratory Tests Test 01/29/22 17:33 01/29/22 18:30 01/29/22 18:50 01/29/22 21:11 Range/Units Glucometer 214 H 126 H 70-110 MG/DL Bedside Blood Gas pH (LAB) 7.551 H 7.551 H 7.310-7.410 Bedside Blood Gas pCO2 (LAB) 40.8 L 40.8 L 41.0-51.0 mmHg Bedside Blood Gas pO2 (LAB) 64 L 68 L 80-105 mmHg Bedside Blood Gas HCO3 (LAB) 35.8 H 35.8 H 23.0-28.0 mmol/L POC Blood Gas Total CO2 Calc 37 H 37 H 24-29 mmol/L Bedside Bl Gas O2 Saturation (Calc) 95 95 95-98 % Bedside Arterial Blood Base Excess 13 H 13 H -2-3 mmol/L Test 01/30/22 04:54 01/30/22 12:43 Range/Units White Blood Count 30.9 *H 4.3-11.0 10^3/uL Red Blood Count 4.71 4.30-5.52 10^6/uL Hemoglobin 14.2 13.3-17.7 g/dL Hematocrit 43 40-54 % Mean Corpuscular Volume 91 80-99 fL Mean Corpuscular Hemoglobin 30 25-34 pg Mean Corpuscular Hemoglobin Concent 33 32-36 g/dL Red Cell Distribution Width 15.4 H 10.0-14.5 % Platelet Count 463 H 130-400 10^3/uL Mean Platelet Volume 10.5 9.0-12.2 fL Immature Granulocyte % (Auto) 3 % Neutrophils (%) (Auto) 91 H 42-75 % Lymphocytes (%) (Auto) 3 L 12-44 % Monocytes (%) (Auto) 2 0-12 % Eosinophils (%) (Auto) 0 0-10 % Basophils (%) (Auto) 1 0-10 % Neutrophils # (Auto) 28.1 H 1.8-7.8 10^3/uL Lymphocytes # (Auto) 0.9 L 1.0-4.0 10^3/uL Monocytes # (Auto) 0.7 0.0-1.0 10^3/uL Eosinophils # (Auto) 0.0 0.0-0.3 10^3/uL Basophils # (Auto) 0.1 0.0-0.1 10^3/uL Immature Granulocyte # (Auto) 1.0 H 0.0-0.1 10^3/uL Neutrophils % (Manual) 90 % Lymphocytes % (Manual) 6 % Monocytes % (Manual) 3 % Myelocytes % 1 % Blood Morphology Comment NORMAL Sodium Level 139 135-145 MMOL/L Potassium Level 2.8 L 3.6-5.0 MMOL/L Chloride Level 92 L 98-107 MMOL/L Carbon Dioxide Level 30 21-32 MMOL/L Anion Gap 17 H 5-14 MMOL/L Blood Urea Nitrogen 52 H 7-18 MG/DL Creatinine 0.81 0.60-1.30 MG/DL Estimat Glomerular Filtration Rate 94 BUN/Creatinine Ratio 64 Glucose Level 64 L 70-105 MG/DL Calcium Level 9.7 8.5-10.1 MG/DL Corrected Calcium 9.8 8.5-10.1 MG/DL Phosphorus Level 3.8 2.3-4.7 MG/DL Magnesium Level 2.5 H 1.6-2.4 MG/DL Total Bilirubin 1.7 H 0.1-1.0 MG/DL Aspartate Amino Transf (AST/SGOT) 45 H 5-34 U/L Alanine Aminotransferase (ALT/SGPT) 54 0-55 U/L Alkaline Phosphatase 96 40-136 U/L Total Protein 8.0 6.4-8.2 GM/DL Albumin 3.9 3.2-4.5 GM/DL Glucometer 204 H 70-110 MG/DL Diagnosis/Problems Diagnosis/Problems (1) Acute on chronic heart failure with preserved ejection fraction (HFpEF) Status: Acute Assessment & Plan: His symptoms are most likely due to heart failure with possibly some superimposed pulmonary infection. He is known to have a normal ejection fraction by echocardiogram earlier this year. I did increase his furosemide on 01/25 but despite this, his chest x-rays have not seen any significant improvement. We will continue with IV furosemide 80 mg twice daily and watch his renal function closely. (2) Primary hypertension Status: Chronic Assessment & Plan: He has been on clonidine and I restarted carvedilol on 01/25 and losartan. The dose of carvedilol was increased this morning on 01/30. He was started on intravenous nitroglycerin again over the weekend but this has been tapered to off. He was also started on intravenous metoprolol. We will need to be cautious with the antihypertensive medication given that he was in shock on 01/23 and required norepinephrine infusion. I will increase his dose of losartan. I will attempt to stop all the intravenous antihypertensive medication. (3) Permanent atrial fibrillation Status: Chronic Assessment & Plan: Heart rates appear to be reasonably controlled on beta- kwame which he was taking at home. He has been on rivaroxaban for stroke prophylaxis. (4) Acute on chronic respiratory failure with hypoxia Status: Acute Assessment & Plan: Most likely multifactorial secondary to heart failure and superimposed pulmonary infection. If he does not make some improvement soon, we may need to consider palliative care or even comfort care. (5) Mitral regurgitation Assessment & Plan: His echocardiogram from November showed mild to moderate mitral regurgitation. I would not expect this to be contributing to his symptoms but this will need to be followed longitudinally by his regular millinery designer at the outside facility. (6) Acute kidney injury superimposed on chronic kidney disease Assessment & Plan: His baseline kidney function is around stage II chronic kidney disease. He has had a slight increase in his creatinine level since his previous admission but then this improved. We will need to monitor this closely. (7) Anemia Status: Chronic Assessment & Plan: This appears to be chronic and may need some evaluation following discharge. ALEKSANDER VILLA JR, MD Jan 30, 2022 08:36
--- NOTE | 2022-01-30 09:24 | Diagnostic Imaging Report ---
INDICATION: Leukocytosis. TIME OF EXAM: 8:46 AM. COMPARISON: Correlation is made with prior chest from one day earlier. FINDINGS: The heart remains enlarged. Interstitial opacities throughout both lungs persist. There is no effusion or pneumothorax. IMPRESSION: Continued cardiomegaly and bilateral interstitial infiltrates. Dictated by: Dictated on workstation # [id number]
[2022-01-30] MEDS: methylPREDNISolone 40 MG/ML (Solu-MEDROL) VIAL IV SCH ×2 (09:26→20:24)
[2022-01-30] MEDS: PANTOPRAZOLE 40 MG (PROTONIX) VIAL IV SCH (09:27)
--- NOTE | 2022-01-30 09:38 | Physical Therapy Daily Note ---
PT Daily Note-Current Subjective Patient in bed pre tx, agrees to PT, has no complaints of pain. Appearance Patient in bed post tx with nurse call, phone, tray, bed alarm on. Mental Status Patient Orientation: Person, Confused Attachments: Oxygen, Morfin Catheter, IV Transfers SCALE: Activities may be completed with or without assistive devices. 1-Bnmladgeos-rykxrqq completes the activity by him/herself with no assistance from a helper. 5-Set-up or Clean-up Assistance-helper sets up or cleans up; patient completes activity. [place] assists only prior to or following the activity. 4-Supervision or Touching Assistance-helper provides verbal cues and/or touching/steadying and/or contact guard assistance as patient completes activity. Assistance may be provided throughout the activity or intermittently. 3-Partial/Moderate Assistance-helper does LESS THAN HALF the effort. [place] lifts, holds or supports trunk or limbs, but provides less than half the effort. 2-Substantial/Maximal Assistance-helper does MORE THAN HALF the effort. [place] lifts or holds trunk or limbs and provides more than half the effort. 9-Xqdwwwfnw-lthcjn does ALL the effort. Patient does none of the effort to complete the activity. Or, the assistance of 2 or more helpers is required for the patient to complete the activity. If activity was not attempted, code reason: 7-Patient Refused. 9-Not Applicable-not attempted and the patient did not perform the activity before the current illness, exacerbation or injury. 10-Not Attempted due to Environmental Limitations-(lack of equipment, weather restraints, etc.). 88-Not Attempted due to Medical Conditions or Safety Concerns. Roll Left & Right (QC): 3 Sit to Lying (QC): 2 Lying to Sitting/Side of Bed(Q: 2 Supine <-> sit max assist. Patient was able to sit to the side of the bed and perform a LE exercise, sat for about 2-3 minutes before needing to lay back down due to increased HR and decreased O2. HR increased to about 140bpm and O2 dropped to 82%. Patient cued to purse lip breathe after laying back down and O2 came back up to about 87%, nurse notified. Weight Bearing Right Lower Extremity: Right Weight Bearing/Tolerated Left Lower Extremity: Left Weight Bearing/Tolerated Exercises Seated Therapy Exercises: Long arc quads Seated Reps: 20 Treatments sitting, LE ROM Assessment Current Status: Poor Progress patient has difficulty tolerating minimal activity PT Short Term Goals Short Term Goals Time Frame: Feb 09, 2022 Roll Left & Right: 2 Sit to lyin Lying to sitting on side of be: 2 PT Detention Goals Gis Engineer Goals PT Gis Engineer Goals Time Frame: Feb 23, 2022 Roll Left & Right (QC): 3 Sit to Lying (QC): 3 Lying-Sitting on Side/Bed(QC): 3 Sit to Stand (QC): 3 Chair/Qmq-rr-Ajlrb Xfer(QC): 3 Toilet Transfer (QC): 3 Walk 10 feet (QC): 3 PT Plan Problem List Problem List: Activity Tolerance, Functional Strength, Safety, Balance, Gait, Transfer, Bed Mobility, ROM Treatment/Plan Treatment Plan: Continue Plan of Care Treatment Plan: Bed Mobility, Education, Functional Activity Jovany, Functional Strength, Gait, Safety, Therapeutic Exercise, Transfers Treatment Duration: Feb 23, 2022 Frequency: 5 times per week Estimated Hrs Per Day: .25 hour per day Safety Risks/Education Patient Education: Correct Positioning, Safety Issues Teaching Recipient: Patient Teaching Methods: Demonstration, Discussion Response to Teaching: Reinforcement Needed Time/GCodes Time In: 0904 Time Out: 913 Total Billed Treatment Time: 10 Total Billed Treatment 1 visit FA SURY MONTEMAYOR PT Jan 30, 2022 09:38
--- NOTE | 2022-01-30 09:46 | Occupational Ther Daily Note ---
OT Current Status-Daily Note Subjective Pt laying in bed upon OT arrival, agreeable to tx. Pt appears confused today, requiring frequent redirection during tx. Mental Status/Objective Patient Orientation: Person, Confused Attachments: Morfin Catheter, IV, Oxygen, Telemetry ADL-Treatment Therapy Code Descriptions/Definitions Functional Martin Measure: 0=Not Assessed/NA 4=Minimal Assistance 1=Total Assistance 5=Supervision or Setup 2=Maximal Assistance 6=Modified Martin 3=Moderate Assistance 7=Complete IndependenceSCALE: Activities may be completed with or without assistive devices. 7-Pyoirjbegc-owovbpk completes the activity by him/herself with no assistance from a helper. 5-Set-up or Clean-up Assistance-helper sets up or cleans up; patient completes activity. Normanna assists only prior to or following the activity. 4-Supervision or Touching Assistance-helper provides verbal cues and/or touching/steadying and/or contact guard assistance as patient completes activity. Assistance may be provided throughout the activity or intermittently. 3-Partial/Moderate Assistance-helper does LESS THAN HALF the effort. Normanna lifts, holds or supports trunk or limbs, but provides less than half the effort. 2-Substantial/Maximal Assistance-helper does MORE THAN HALF the effort. Normanna lifts or holds trunk or limbs and provides more than half the effort. 9-Xpwcafazj-dfssvv does ALL the effort. Patient does none of the effort to complete the activity. Or, the assistance of 2 or more helpers is required for the patient to complete the activity. If activity was not attempted, code reason: 7-Patient Refused. 9-Not Applicable-not attempted and the patient did not perform the activity be fore the current illness, exacerbation or injury. 10-Not Attempted due to Environmental Limitations-(lack of equipment, weather restraints, etc.). 88-Not Attempted due to Medical Conditions or Safety Concerns. Other Treatment Pt transferred supine<>EOB with Max A, requiring Max A to maintain seated balance ~2-3min. Pt returned to supine with assistx2 d/t increased HR (140bpm) and decreased SPO2 levels (82%). OT provided v/c's for PLB upon return to supine, SPO2 levels increased to 87%. Post tx, pt in bed with call light in reach and all needs met. Nurse notified of pt's vitals. Education OT Patient Education: Correct positioning, Energy conservation, Exercise program, Progress toward Goal/Update tx plan, Purpose of tx/functional activities, Rehab process, Safety issues, Transfer techniques Teaching Recipient: Patient Teaching Methods: Discussion Response to Teaching: Verbalize Understanding OT Fci Goals Dolly Operator Goals Time Frame: Feb 22, 2022 Oral Hygiene (QC): 3 Toileting Hygiene (QC): 3 Upper Body Dressing (QC): 3 Lower Body Dressing (QC): 3 On/Off Footwear (QC): 3 Additional Goals: 1-Demonstrate ADL Tasks, 2-Verbalize Understanding, 3- ImproveStrength/Jovany 1=Demonstrate adherence to instructed precautions during ADL tasks. 2=Patient will verbalize/demonstrate understanding of assistive devices/modifications for ADL. 3=Patient will improve strength/tolerance for activity to enable patient to perform ADL's. OT Education/Plan Problem List/Assessment Assessment: Decreased Activ Tolerance, Decreased Safety Aware, Decreased UE Strength, Dependent Transfers, Impaired Bed Mobility, Impaired Cognition, Impaired Coordination, Impaired Funct Balance, Impaired I ADL's, Impaired Self- Care Skills, Restricted Funct UE ROM Discharge Recommendations Plan/Recommendations: Continue POC Treatment Plan/Plan of Care Patient would benefit from OT for education, treatment and training to promote independence in ADL's, mobility, safety and/or upper extremity function for ADL's. Plan of Care: ADL Retraining, Cognitive Retraining, Functional Mobility, UE Funct Exercise/Act Treatment Duration: Feb 22, 2022 Frequency: 3 times per week (3-5x/wk) Estimated Hrs Per Day: .25 hour per day Rehab Potential: Guarded Time/GCodes Start Time: 09:06 Stop Time: 09:16 Total Time Billed (hr/min): 10 Billed Treatment Time 1, ANMOL MCCORMICK OT Jan 30, 2022 09:46
[2022-01-30] MEDS: LOSARTAN 100 MG (COZAAR) TABLET PO SCH (09:53)
[2022-01-30] MEDS: cloNIDine 0.1 MG (CATAPRES) TAB PO SCH ×2 (09:53→20:26)
[2022-01-30] MEDS: NOREPINEPHRINE 8 MG/250 ML 250 ML IV SCH (11:00)
--- NOTE | 2022-01-30 12:30 | Tele-ICU Progress Note ---
Subjective Date Seen by a Provider: Jan 30, 2022 Time Seen by a Provider: 12:29 Subjective/Events-last exam Tele-ICU Physician , Progress Note ) Available chart/ vitals / labs / Images reviewed Video assessment done using teleICU camera, rest of exam as per RN Discussed with RN Events overnight : Afebrile hemodynamically stable Respiratory - 50% I/O = neg Drips: Pressors- LEVO OFF Consultants: Hospital course: 01-20: +Severe Sepsis COVID PCR Neg 71 y/o M - Hypoxic - Pneumonia - COPD Exacerbation - BiPAP. Recent hosp d/c 01/03/22 for same. ( 01/23) - pt intubated 01/24--AC 16 550 40 % +8 01/25= SBT on propofol 5 presedex 1.5, was oK , but very agitated , OFF LEVO , NTG ftt for HTN 01-28: Extubated at 1630. A/P Acute resp failure- PNA< AECOPD, CHF - intubated 01/23-: Extubated 01-28 - OFF Precedex , imtermittent BIPAP - NOT LAST 24 H - on 10 L now - cont steroids - decrease dose? 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 HTN - off NTG gtt - meds adjustment as per cards Anemia - stable Hyperglycemia - ISS and lonfg acting Lines : R PICC - removed 01/28 , (Central Line Necessity Reviewed) Morfin:+ OG: Nutrition: TF 01/24 pulmicare at goal Analgesia: Anxiety/ delirium VTE Prophylaxis: xarelto Stress Ulcer Prophylaxis: PPi Plans in collaboration with bedside consultants and IM MDs. Discussed with RN to reach out if any questions or concerns A total of 32 minutes of critical care time was devoted to this patient today, required to treat and/or prevent further deterioration of critical care condition ( as above ) . Sepsis Event Evaluation Height, Weight, BMI Height: 5'11.00" Weight: 217lbs. 4.0oz. 98.665694ex; 26.73 BMI Method:Stated Focused Exam Time of Focused Exam: 04:30 Exam Exam Patient acknowledged, consented, and participated in this virtual visit which was conducted using real time audio/video Vital Signs Date Time Temp Pulse Resp B/P (MAP) Pulse Ox O2 Delivery O2 Flow Rate FiO2 01/30/22 12:00 118 31 121/104 88 High Flow N/C 10.00 01/30/22 11:10 High Flow N/C 10.00 01/30/22 11:00 110 21 132/78 90 High Flow N/C 10.00 01/30/22 10:50 92 High Flow N/C 10.00 01/30/22 10:00 109 25 129/85 91 High Flow N/C 10.00 01/30/22 09:00 118 21 144/79 88 High Flow N/C 10.00 01/30/22 08:00 High Flow N/C 10.00 01/30/22 08:00 128 33 142/89 90 High Flow N/C 10.00 01/30/22 07:00 109 29 157/139 89 High Flow N/C 10.00 01/30/22 06:33 93 High Flow N/C 10.00 01/30/22 06:06 110 18 164/124 High Flow N/C 10.00 01/30/22 06:00 128 32 167/127 90 High Flow N/C 10.00 01/30/22 05:00 113 24 151/105 High Flow N/C 10.00 01/30/22 04:00 103 16 146/101 94 High Flow N/C 10.00 01/30/22 04:00 Nasal Cannula 10.00 01/30/22 03:13 102 28 138/113 97 High Flow N/C 10.00 01/30/22 03:00 111 25 142/126 93 High Flow N/C 10.00 01/30/22 02:56 93 High Flow N/C 10.00 01/30/22 02:29 105 33 139/107 95 High Flow N/C 10.00 01/30/22 02:00 99 15 164/111 95 High Flow N/C 10.00 01/30/22 01:09 96 19 169/106 96 High Flow N/C 10.00 01/30/22 01:00 105 01/30/22 01:00 105 15 168/108 95 High Flow N/C 10.00 01/30/22 00:00 92 153/94 92 High Flow N/C 10.00 01/29/22 23:59 Nasal Cannula 10.00 01/29/22 23:24 109 160/90 High Flow N/C 10.00 01/29/22 23:00 113 28 141/119 88 High Flow N/C 10.00 01/29/22 22:18 98 High Flow N/C 10.00 01/29/22 22:00 99 19 142/82 89 High Flow N/C 10.00 01/29/22 21:06 108 27 89 High Flow N/C 10.00 01/29/22 21:00 106 24 130/92 84 High Flow N/C 7.00 01/29/22 20:00 104 27 130/92 91 High Flow N/C 7.00 01/29/22 20:00 Nasal Cannula 7.00 01/29/22 19:15 105 29 144/99 High Flow N/C 7.00 01/29/22 19:00 36.9 01/29/22 19:00 112 26 155/107 87 High Flow N/C 7.00 01/29/22 19:00 112 01/29/22 18:30 91 High Flow N/C 7.00 01/29/22 18:18 84 16 129/106 94 High Flow N/C 7.00 01/29/22 17:07 89 25 112/84 87 High Flow N/C 7.00 01/29/22 16:41 Nasal Cannula 8.00 01/29/22 16:07 79 35 136/80 90 High Flow N/C 7.00 01/29/22 15:30 36.0 01/29/22 15:22 High Flow N/C 7.00 01/29/22 15:15 92 20 135/85 94 High Flow N/C 10.00 01/29/22 14:35 93 High Flow N/C 7.00 01/29/22 14:06 82 30 87 High Flow N/C 10.00 01/29/22 13:00 81 21 130/85 92 High Flow N/C 10.00 01/29/22 12:49 85 I & O 01/30/22 07:00 Intake Total 1150 ml Output Total 3700 ml Balance -2550 ml Height & Weight Height: 5'11.00" Weight: 217lbs. 4.0oz. [id number]; 26.73 BMI Method:Stated General Appearance: No Apparent Distress, Chronically ill Neck: Normal Inspection, Supple Respiratory: No Respiratory Distress, Decreased Breath Sounds Cardiovascular: Regular Rate, Rhythm, No Murmur Capillary Refill: Less Than 3 Seconds Peripheral Pulses: 2+ Dorsalis Pedis (R), 2+ Left Dors-Pedis (L) (See free text.) Gastrointestinal: normal bowel sounds, non tender, soft Extremity: Normal Inspection, No Pedal Edema Neurologic/Psychiatric: Alert, Disoriented, Motor Weakness Skin: Normal Color, Warm/Dry Results Lab Laboratory Tests 01/29/22 05:00 01/30/22 04:54 Assessment/Plan Assessment/Plan 1 SADIE WISDOM MD Jan 30, 2022 12:30
[2022-01-30] MEDS ORDERED: polyethylene glycoL POWDER 17 GM (MIRALAX) PACK PO ONE (17:00)
[2022-01-30] MEDS: RIVAROXABAN 20 MG TABLET (XARELTO) PO SCH (18:03)
--- NOTE | 2022-01-30 19:36 | Progress Note - Hospitalist ---
Subjective HPI/CC On Admission Date Seen by Provider: Jan 30, 2022 Time Seen by Provider: 10:05 Mauro Park is a 71 year old male with PMH HTN, HFpEF, COPD, chronic respiratory failure on nocturnal oxygen, former smoker, T2DM, AFib on Xarelto, who presented with shortness of breath. He has been hospitalized twice over the past couple months with pneumonia. He denies fevers. He has a cough with sputum production. He denies chest pain. He denies abdominal pain. He denies nausea and vomiting. He has had some leg swelling. Subjective/Events-last exam He is having trouble sleeping. He wants to go home. He denies shortness of breath. He denies pain. Focused Exam Time of Focused Exam: 04:30 Objective Exam Vital Signs Vital Signs Date Time Temp Pulse Resp B/P (MAP) Pulse Ox O2 Delivery O2 Flow Rate FiO2 01/30/22 18:44 95 High Flow N/C 10.00 01/30/22 18:00 111 22 103/83 01/30/22 16:00 35.7 01/28/22 15:45 40 Capillary Refill : Less Than 3 Seconds General Appearance: No Apparent Distress, Chronically ill Respiratory: No Respiratory Distress, Decreased Breath Sounds Cardiovascular: No Murmur, Tachycardia Gastrointestinal: Normal Bowel Sounds, Non Tender, Soft Extremity: Normal Inspection, No Pedal Edema Neurologic/Psychiatric: Alert, Disoriented Skin: Normal Color, Warm/Dry Results/Procedures Lab Laboratory Tests 01/30/22 04:54 01/30/22 15:08 Patient resulted labs reviewed. Imaging: Reviewed Imaging Report Assessment/Plan Assessment and Plan Assess & Plan/Chief Complaint Goals of care discussion Poor prognosis End stage COPD meeting with [facility] today Planning for discharge home on hospice tomorrow or Friday Severe sepsis due to pneumonia Acute on chronic respiratory failure with hypoxia Acute on chronic heart failure with preserved ejection fraction COPD with acute exacerbation WBC trending up Continue Cefepime Continue diuretics Continue steroids TeleICU following Extubated 01/28 AFib Xarelto T2DM Sliding scale insulin HTN CAD Obesity Acute kidney injury, resolved Lactic acidosis, resolved Supratherapeutic INR, resolved Critical Care Critically Ill Patient Diagnosis/Problems Diagnosis/Problems (1) Severe sepsis Status: Resolved Resolution Date/Time: 01/28/22 @ 17:48 (2) Lactic acidosis Status: Resolved Resolution Date/Time: 01/28/22 @ 17:48 (3) PNA (pneumonia) Status: Acute (4) (HFpEF) heart failure with preserved ejection fraction Status: Acute Qualifiers: Heart failure chronicity: acute on chronic Qualified Codes: I50.33 - Acute on chronic diastolic (congestive) heart failure (5) COPD with acute exacerbation Status: Acute (6) Acute on chronic respiratory failure with hypoxia Status: Acute (7) Permanent atrial fibrillation Status: Chronic (8) Abnormal INR Status: Resolved Resolution Date/Time: 01/28/22 @ 17:48 (9) Endotracheally intubated Status: Resolved Resolution Date/Time: 01/30/22 @ 19:36 (10) Goals of care, counseling/discussion Status: Acute (11) Poor prognosis Status: Acute (12) End stage COPD Status: Acute PABLO BUTCHER MD Jan 30, 2022 19:36
[2022-01-30] MEDS: amLODIPine 5 MG (NORVASC) TAB PO SCH (20:26)
[2022-01-30] MEDS: MELATONIN 3 MG TABLET PO SCH (20:26)
[2022-01-30] MEDS ORDERED: LORazepam 1 MG (ATIVAN) TAB PO PRN (21:00)
--- NOTE | 2022-01-30 22:57 | Progress Note ---
Standard Progress Note Progress Notes/Assess & Plan Date Seen by a Provider: Jan 30, 2022 Time Seen by a Provider: 22:56 Progress/Assessment & Plan called for qlu 149 and 85, due to get 20 U of janeen Gutierrez give 10 Units SQ JUDIT SERRATO MD Jan 30, 2022 22:57
[2022-01-31] MEDS: NOREPINEPHRINE 8 MG/250 ML 250 ML IV SCH ×2 (01:36→15:18)
[2022-01-31] MEDS: RT-ALBUTEROL/IPRATROPIUM 3 ML (DUONEB) VIAL INH SCH ×6 (02:33→22:25)
[2022-01-31] MEDS: CEFEPIME INJECTION 1,000 MG in NS (IVPB) 50 ML IV SCH ×4 (02:48→20:29)
[2022-01-31 05:25] LABS: ALBUMIN 3.8 GM/DL (3.2-4.5); POTASSIUM 4.6 MMOL/L (3.6-5.0)
[2022-01-31 05:27] LABS: CALCIUM 10.1 MG/DL (8.5-10.1)
[2022-01-31 05:28] LABS: TOTAL PROTEIN 7.8 GM/DL (6.4-8.2)
[2022-01-31 05:30] LABS: BILIRUBIN,TOTAL 1.8 MG/DL (0.1-1.0)
[2022-01-31 05:31] LABS: PHOSPHORUS 4.9 MG/DL (2.3-4.7)
[2022-01-31 05:32] LABS: CREATININE SERUM 1.18 MG/DL (0.60-1.30)
[2022-01-31 05:34] LABS: MAGNESIUM 2.6 MG/DL (1.6-2.4)
[2022-01-31] MEDS: FUROSEMIDE 40 MG/4 ML INJ (LASIX) IVP SCH (05:58)
[2022-01-31] MEDS: MAGNESIUM 1 GM/100 ML IVPB 100 ML IV SCH (06:00)
[2022-01-31] MEDS: inSUlin ASPART (NovoLOG) 1 UNIT/0.01 ML (CHARGE PER UNIT) SC SCH ×4 (06:00→20:38)
[2022-01-31] MEDS: POTASSIUM CL 10MEQ/50ML IVPB 50 ML IV SCH (06:00)
[2022-01-31] MEDS: KCL 20 MEQ TAB (K-DUR) PO SCH (06:00)
[2022-01-31 07:04] LABS: BASOPHILS # (AUTO) 0.1 10^3/uL (0.0-0.1); BASOPHILS % (AUTO) 0 % (0-10); EOSINOPHILS # (AUTO) 0.1 10^3/uL (0.0-0.3); EOSINOPHILS % (AUTO) 0 % (0-10); HEMATOCRIT 45 % (40-54); HEMOGLOBIN 14.7 g/dL (13.3-17.7); LYMPHOCYTES # (AUTO) 0.8 10^3/uL (1.0-4.0); LYMPHOCYTES % (AUTO) 3 % (12-44); MEAN CORPUSCULAR HEMOGLOBIN 31 pg (25-34); MEAN CORPUSCULAR HGB CONC 33 g/dL (32-36); MEAN CORPUSCULAR VOLUME 92 fL (80-99); MONOCYTES # (AUTO) 0.9 10^3/uL (0.0-1.0); MONOCYTES % (AUTO) 3 % (0-12); NEUTROPHILS # (AUTO) 25.2 10^3/uL (1.8-7.8); NEUTROPHILS % (AUTO) 91 % (42-75); PLATELET COUNT 439 10^3/uL (130-400); WHITE BLOOD COUNT 27.6 10^3/uL (4.3-11.0)
[2022-01-31] MEDS: PANTOPRAZOLE 40 MG (PROTONIX) VIAL IV SCH (09:08)
[2022-01-31] MEDS: cloNIDine 0.1 MG (CATAPRES) TAB PO SCH ×2 (09:09→21:00)
[2022-01-31] MEDS: LOSARTAN 100 MG (COZAAR) TABLET PO SCH (09:09)
[2022-01-31] MEDS: predniSONE 20 MG TAB PO SCH (10:08)
--- NOTE | 2022-01-31 10:57 | Cardiology Progress Note ---
Progress Note-Cardiology Events since last exam Date Seen by Provider: Jan 31, 2022 Time Seen by Provider: 10:53 Events since last exam I am following him due to heart failure with preserved ejection fraction, hy pertension and permanent atrial fibrillation. He remains in the intensive care unit. He continues to be confused. He denies chest pain, dyspnea at rest, palpitations, syncope, or ankle edema. Certain portions of this document may have been dictated utilizing voice recognition technology. Inherent to this technology, typographical and grammatical errors may exist. As much as I am diligent to identify and correct these mistakes, some errors may remain in the document. Vitals Last set of Vitals Signs Vital Signs 01/28/22 01/31/22 01/31/22 01/31/22 15:45 07:00 09:00 09:22 Temp 36.1 Pulse 110 Resp 26 B/P (MAP) 128/82 Pulse Ox 95 O2 Delivery High Flow N/C O2 Flow Rate 10.00 FiO2 40 Labs Labs Laboratory Tests 01/30/22 15:08 01/31/22 04:50 Exam Vital Signs Vital Signs Date Time Temp Pulse Resp B/P (MAP) Pulse Ox O2 Delivery O2 Flow Rate FiO2 01/31/22 09:22 95 High Flow N/C 10.00 01/31/22 09:00 110 26 128/82 01/31/22 07:00 36.1 01/28/22 15:45 40 Physical Exam General: Alert. No acute distress. He is wearing oxygen by nasal cannula. He is confused. Eye: No xanthelasma. HENT: Normocephalic. Neck: Jugular venous pressure does not appear elevated. Respiratory: Lungs are clear to auscultation. Respirations are non-labored. Breath sounds are equal. Symmetrical chest wall expansion. Cardiovascular: Normal rate. Irregular rhythm. No murmur. No gallop. No edema. Gastrointestinal: Soft. Normal bowel sounds. Skin: Warm. Dry. Neurologic: Alert and oriented to person only. Cranial nerves 3-11 grossly intact. Psychiatric: Cooperative. Confused. He was talking about bringing cows to the market today. Labs Laboratory Tests Test 01/30/22 12:43 01/30/22 15:08 01/30/22 17:24 01/30/22 20:22 Range/Units Glucometer 204 H 217 H 85 70-110 MG/DL Potassium Level 3.8 3.6-5.0 MMOL/L Test 01/30/22 22:52 01/31/22 04:50 01/31/22 09:10 01/31/22 10:45 Range/Units Glucometer 149 H 122 H 142 H 70-110 MG/DL White Blood Count 27.6 H 4.3-11.0 10^3/uL Red Blood Count 4.82 4.30-5.52 10^6/uL Hemoglobin 14.7 13.3-17.7 g/dL Hematocrit 45 40-54 % Mean Corpuscular Volume 92 80-99 fL Mean Corpuscular Hemoglobin 31 25-34 pg Mean Corpuscular Hemoglobin Concent 33 32-36 g/dL Red Cell Distribution Width 15.9 H 10.0-14.5 % Platelet Count 439 H 130-400 10^3/uL Mean Platelet Volume 11.0 9.0-12.2 fL Immature Granulocyte % (Auto) 2 % Neutrophils (%) (Auto) 91 H 42-75 % Lymphocytes (%) (Auto) 3 L 12-44 % Monocytes (%) (Auto) 3 0-12 % Eosinophils (%) (Auto) 0 0-10 % Basophils (%) (Auto) 0 0-10 % Neutrophils # (Auto) 25.2 H 1.8-7.8 10^3/uL Lymphocytes # (Auto) 0.8 L 1.0-4.0 10^3/uL Monocytes # (Auto) 0.9 0.0-1.0 10^3/uL Eosinophils # (Auto) 0.1 0.0-0.3 10^3/uL Basophils # (Auto) 0.1 0.0-0.1 10^3/uL Immature Granulocyte # (Auto) 0.6 H 0.0-0.1 10^3/uL Sodium Level 139 135-145 MMOL/L Potassium Level 4.6 3.6-5.0 MMOL/L Chloride Level 96 L 98-107 MMOL/L Carbon Dioxide Level 28 21-32 MMOL/L Anion Gap 15 H 5-14 MMOL/L Blood Urea Nitrogen 67 H 7-18 MG/DL Creatinine 1.18 0.60-1.30 MG/DL Estimat Glomerular Filtration Rate 66 BUN/Creatinine Ratio 57 Glucose Level 172 H 70-105 MG/DL Calcium Level 10.1 8.5-10.1 MG/DL Corrected Calcium 10.3 H 8.5-10.1 MG/DL Phosphorus Level 4.9 H 2.3-4.7 MG/DL Magnesium Level 2.6 H 1.6-2.4 MG/DL Total Bilirubin 1.8 H 0.1-1.0 MG/DL Aspartate Amino Transf (AST/SGOT) 28 5-34 U/L Alanine Aminotransferase (ALT/SGPT) 53 0-55 U/L Alkaline Phosphatase 88 40-136 U/L Total Protein 7.8 6.4-8.2 GM/DL Albumin 3.8 3.2-4.5 GM/DL Diagnosis/Problems Diagnosis/Problems (1) Acute on chronic heart failure with preserved ejection fraction (HFpEF) Status: Acute Assessment & Plan: His symptoms are most likely due to heart failure with possibly some superimposed pulmonary infection. He is known to have a normal ejection fraction by echocardiogram earlier this year. I did increase his furosemide on 01/25 but despite this, his chest x-rays have not seen any significant improvement. His BUN and creatinine are now starting to rise. I will change the furosemide to 40 mg IV once daily as of today, 01/31. (2) Primary hypertension Status: Chronic Assessment & Plan: His blood pressure now seems to be controlled on the combination of amlodipine, carvedilol, losartan and clonidine all of which he appears to have been taking at home. (3) Permanent atrial fibrillation Status: Chronic Assessment & Plan: Heart rates appear to be reasonably controlled on beta- kwame which he was taking at home. He has been on rivaroxaban for stroke prophylaxis. (4) Encephalopathy acute Assessment & Plan: He has had persistence of confusion although he has been in the intensive care unit for a number of days and was also on a ventilator and received sedation. Unclear whether he is just taking time for the sedation to clear. However, he also told me he has a headache today. He may need a head CT if he does not clear. (5) Acute on chronic respiratory failure with hypoxia Status: Acute Assessment & Plan: Most likely multifactorial secondary to heart failure and superimposed pulmonary infection. If he does not make some improvement soon, we may need to consider palliative care or even comfort care. (6) Mitral regurgitation Assessment & Plan: His echocardiogram from November showed mild to moderate mitral regurgitation. 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 (7) Acute kidney injury superimposed on chronic kidney disease Assessment & Plan: His baseline kidney function is around stage II chronic kidney disease. He has had a slight increase in his creatinine level since his previous admission but then this improved. We will need to monitor this closely. (8) Anemia Status: Chronic Assessment & Plan: This appears to be chronic and may need some evaluation following discharge. ALEKSANDER VILLA JR, MD Jan 31, 2022 10:57
--- NOTE | 2022-01-31 12:12 | Tele-ICU Progress Note ---
Subjective Date Seen by a Provider: Jan 31, 2022 Time Seen by a Provider: 12:11 Subjective/Events-last exam Tele-ICU Physician , Progress Note ) Available chart/ vitals / labs / Images reviewed Video assessment done using teleICU camera, rest of exam as per RN Discussed with RN Events overnight : Afebrile hemodynamically stable Respiratory - 50% I/O = neg Drips: Pressors- LEVO OFF Consultants: Hospital course: 01-20: +Severe Sepsis COVID PCR Neg 71 y/o M - Hypoxic - Pneumonia - COPD Exacerbation - BiPAP. Recent hosp d/c 01/03/22 for same. ( 01/23) - pt intubated 01/24--AC 16 550 40 % +8 01/25= SBT on propofol 5 presedex 1.5, was oK , but very agitated , OFF LEVO , NTG ftt for HTN 01-28: Extubated at 1630. A/P Acute resp failure- PNA< AECOPD, CHF - intubated 01/23-: Extubated 01-28 - OFF Precedex , imtermittent BIPAP - NOT LAST 24 H - on 10 L now - cont steroids - decrease dose? , cont abx and diuresis - PER RN , FAMILY CONSIDERING HOSPICE EVAL - JIL FOLLOW MEANWHILE - PATIENT DOES NOT RETAINING CO2 - WILL ALLOW SLEEPING AID TONIGHT Sepsis - OFF LEVO , resolved - Cx negative , ON Cefepime HFpEF ( NL EF this year ) , mod MR -as per cards , diuresis as p[er cards - lasix 40 bid PNA ( NEG flu , covid ) - cont ABX , WBC is very elevated Acute renal insuficiency - monitor on diuretics A fib, permanent - sinus now - was on Xarelto [employer] - off XARELTO - passed swallow - as per cards AECOPD - steroids PO Anemia - stable Hyperglycemia - ISS and lonfg acting Lines : R PICC - removed 01/28 , (Central Line Necessity Reviewed) Morfin:+ TRY TO REMOVE TODAY OG: Nutrition: po Analgesia: Anxiety/ delirium VTE Prophylaxis: xarelto Stress Ulcer Prophylaxis: PPi Plans in collaboration with bedside consultants and IM MDs. Discussed with RN to reach out if any questions or concerns A total of 32 minutes of critical care time was devoted to this patient today, required to treat and/or prevent further deterioration of critical care conditi on ( as above ) . Sepsis Event Evaluation Height, Weight, BMI Height: 5'11.00" Weight: 217lbs. 4.0oz. 98.816544rb; 25.19 BMI Method:Stated Focused Exam Time of Focused Exam: 04:30 Exam Exam Patient acknowledged, consented, and participated in this virtual visit which was conducted using real time audio/video Vital Signs Date Time Temp Pulse Resp B/P (MAP) Pulse Ox O2 Delivery O2 Flow Rate FiO2 01/31/22 12:03 High Flow N/C 7.00 01/31/22 11:53 35.8 01/31/22 11:00 107 20 97/70 High Flow N/C 10.00 01/31/22 10:00 114 26 123/97 90 High Flow N/C 10.00 01/31/22 09:22 95 High Flow N/C 10.00 01/31/22 09:00 110 26 128/82 90 High Flow N/C 10.00 01/31/22 08:00 High Flow N/C 10.00 01/31/22 08:00 111 19 126/87 98 High Flow N/C 10.00 01/31/22 07:17 95 High Flow N/C 10.00 01/31/22 07:00 105 35 126/95 98 High Flow N/C 10.00 01/31/22 07:00 109 01/31/22 07:00 36.1 01/31/22 06:00 112 31 102/79 96 High Flow N/C 10.00 01/31/22 05:35 123 19 130/86 91 High Flow N/C 10.00 01/31/22 04:00 107 30 108/81 90 High Flow N/C 10.00 01/31/22 04:00 High Flow N/C 10.00 01/31/22 03:44 35.7 01/31/22 03:00 93 30 101/94 92 High Flow N/C 10.00 01/31/22 02:33 95 High Flow N/C 10.00 01/31/22 02:00 87 26 95/75 92 High Flow N/C 10.00 01/31/22 01:00 95 01/31/22 01:00 95 30 100/71 91 High Flow N/C 10.00 01/31/22 00:00 93 25 96/64 93 High Flow N/C 10.00 01/31/22 00:00 35.5 01/30/22 23:59 High Flow N/C 10.00 01/30/22 23:27 89 15 94/60 97 High Flow N/C 10.00 01/30/22 22:06 96 High Flow N/C 10.00 01/30/22 22:00 86 15 101/67 94 High Flow N/C 10.00 01/30/22 21:00 94 32 100/79 94 High Flow N/C 10.00 01/30/22 20:00 High Flow N/C 10.00 01/30/22 20:00 98 15 114/91 94 High Flow N/C 10.00 01/30/22 19:00 107 01/30/22 19:00 107 19 135/91 93 High Flow N/C 10.00 01/30/22 19:00 36.6 01/30/22 18:44 95 High Flow N/C 10.00 01/30/22 18:00 111 22 103/83 90 High Flow N/C 10.00 01/30/22 17:00 124 23 141/103 90 High Flow N/C 10.00 01/30/22 16:00 High Flow N/C 10.00 01/30/22 16:00 115 29 140/86 90 High Flow N/C 10.00 01/30/22 16:00 35.7 01/30/22 15:00 112 17 129/101 90 High Flow N/C 10.00 01/30/22 14:48 90 High Flow N/C 10.00 01/30/22 14:00 118 17 124/88 90 High Flow N/C 10.00 01/30/22 13:04 112 01/30/22 13:00 114 17 148/102 90 High Flow N/C 10.00 01/30/22 12:29 35.9 I & O 01/31/22 07:00 Intake Total 1020 ml Output Total 1700 ml Balance -680 ml Height & Weight Height: 5'11.00" Weight: 217lbs. 4.0oz. 98.918288cm; 25.19 BMI Method:Stated General Appearance: No Apparent Distress, Chronically ill Neck: Normal Inspection, Supple Respiratory: No Respiratory Distress, Decreased Breath Sounds Cardiovascular: No Murmur, Tachycardia Capillary Refill: Less Than 3 Seconds Peripheral Pulses: 2+ Dorsalis Pedis (R), 2+ Left Dors-Pedis (L) (See free text.) Gastrointestinal: normal bowel sounds, non tender, soft Extremity: Normal Inspection, No Pedal Edema Neurologic/Psychiatric: Alert, Disoriented Skin: Normal Color, Warm/Dry Results Lab Laboratory Tests 01/30/22 04:54 01/30/22 15:08 01/31/22 04:50 Assessment/Plan Assessment/Plan 1 SADIE WISDOM MD Jan 31, 2022 12:12
--- NOTE | 2022-01-31 13:29 | Occupational Ther Daily Note ---
OT Current Status-Daily Note Subjective Pt laying in bed with present upon OT arrival, agreeable to tx. Mental Status/Objective Patient Orientation: Person, Confused Attachments: Morfin Catheter, IV, Oxygen, Telemetry ADL-Treatment Therapy Code Descriptions/Definitions Functional [place] Measure: 0=Not Assessed/NA 4=Minimal Assistance 1=Total Assistance 5=Supervision or Setup 2=Maximal Assistance 6=Modified [place] 3=Moderate Assistance 7=Complete IndependenceSCALE: Activities may be completed with or without assistive devices. 5-Kukxtiaoyk-ymzopfh completes the activity by him/herself with no assistance from a helper. 5-Set-up or Clean-up Assistance-helper sets up or cleans up; patient completes activity. [place] assists only prior to or following the activity. 4-Supervision or Touching Assistance-helper provides verbal cues and/or touching/steadying and/or contact guard assistance as patient completes activity. Assistance may be provided throughout the activity or intermittently. 3-Partial/Moderate Assistance-helper does LESS THAN HALF the effort. [place] lifts, holds or supports trunk or limbs, but provides less than half the effort. 2-Substantial/Maximal Assistance-helper does MORE THAN HALF the effort. [place] lifts or holds trunk or limbs and provides more than half the effort. 8-Qczczptef-vugcih does ALL the effort. Patient does none of the effort to complete the activity. Or, the assistance of 2 or more helpers is required for the patient to complete the activity. If activity was not attempted, code reason: 7-Patient Refused. 9-Not Applicable-not attempted and the patient did not perform the activity before the current illness, exacerbation or injury. 10-Not Attempted due to Environmental Limitations-(lack of equipment, weather restraints, etc.). 88-Not Attempted due to Medical Conditions or Safety Concerns. Oral Hygiene (QC): 4 (SBA for v/c's for sequencing) Toileting Hygiene (QC): 1 (total assist for hygiene bed level) Other Treatment Pt remained in bed throughout duration of tx. He required total assist for toileting hygiene after using the bed lainez. He was agreeable to grooming tasks, washing his face and brushing his hair while laying in bed. Pt required v/c's for sequencing during tasks. Pt was pleasant but confused as he stated that he went to visit his brother at his house yesterday and was asking where clinicians hid his 4-shipman. Post tx, pt positioned to comfort, bed alarm set, call light in reach, and all needs met. Education OT Patient Education: Correct positioning, Energy conservation, Modified ADL techniques, Progress toward Goal/Update tx plan, Purpose of tx/functional activities, Rehab process, Safety issues Teaching Recipient: Patient Teaching Methods: Discussion Response to Teaching: Verbalize Understanding, Reinforcement Needed OT [facility] Goals [facility] Goals Time Frame: Feb 22, 2022 Oral Hygiene (QC): 3 Toileting Hygiene (QC): 3 Upper Body Dressing (QC): 3 Lower Body Dressing (QC): 3 On/Off Footwear (QC): 3 Additional Goals: 1-Demonstrate ADL Tasks, 2-Verbalize Understanding, 3- ImproveStrength/Jovany 1=Demonstrate adherence to instructed precautions during ADL tasks. 2=Patient will verbalize/demonstrate understanding of assistive devices/modifications for ADL. 3=Patient will improve strength/tolerance for activity to enable patient to perform ADL's. OT Education/Plan Problem List/Assessment Assessment: Decreased Activ Tolerance, Decreased Safety Aware, Decreased UE Strength, Dependent Transfers, Impaired Bed Mobility, Impaired Cognition, Impaired Coordination, Impaired Funct Balance, Impaired I ADL's, Impaired Self- Care Skills Discharge Recommendations Plan/Recommendations: Continue POC Treatment Plan/Plan of Care Patient would benefit from OT for education, treatment and training to promote independence in ADL's, mobility, safety and/or upper extremity function for ADL's. Plan of Care: ADL Retraining, Cognitive Retraining, Functional Mobility, UE Funct Exercise/Act Treatment Duration: Feb 22, 2022 Frequency: 3 times per week (3-5x/wk) Estimated Hrs Per Day: .25 hour per day Rehab Potential: Guarded Time/GCodes Start Time: 13:00 Stop Time: 13:10 Total Time Billed (hr/min): 10 Billed Treatment Time 1, ADL ANMOL HARRISON OT Jan 31, 2022 13:29
[2022-01-31] MEDS ORDERED: MILK OF MAGNESIA 400 MG/5 ML 30 ML UDC PO PRN (14:15)
--- NOTE | 2022-01-31 16:19 | Progress Note - Hospitalist ---
Subjective HPI/CC On Admission Date Seen by Provider: Jan 31, 2022 Time Seen by Provider: 09:35 Mauro Park is a 71 year old male with PMH HTN, HFpEF, COPD, chronic respiratory failure on nocturnal oxygen, former smoker, T2DM, AFib on Xarelto, who presented with shortness of breath. He has been hospitalized twice over the past couple months with pneumonia. He denies fevers. He has a cough with sputum production. He denies chest pain. He denies abdominal pain. He denies nausea and vomiting. He has had some leg swelling. Subjective/Events-last exam He is confused. He denies shortness of breath. He denies pain. He is laying sideways in bed. Focused Exam Time of Focused Exam: 04:30 Objective Exam Vital Signs Vital Signs Date Time Temp Pulse Resp B/P (MAP) Pulse Ox O2 Delivery O2 Flow Rate FiO2 01/31/22 15:18 96 86/68 01/31/22 14:00 100 High Flow N/C 7.00 01/31/22 11:53 35.8 01/31/22 11:00 20 01/28/22 15:45 40 Capillary Refill : Less Than 3 Seconds General Appearance: No Apparent Distress, Chronically ill Respiratory: No Respiratory Distress, Decreased Breath Sounds Cardiovascular: Irregularly Irregular, Tachycardia Gastrointestinal: Normal Bowel Sounds, Soft Extremity: Normal Inspection, No Pedal Edema Neurologic/Psychiatric: Alert, Disoriented Results/Procedures Lab Laboratory Tests 01/31/22 04:50 Patient resulted labs reviewed. Imaging: Reviewed Imaging Report Assessment/Plan Assessment and Plan Assess & Plan/Chief Complaint Goals of care discussion Poor prognosis End stage COPD [facility] setting up equipment in home today Planning for discharge home on hospice tomorrow Severe sepsis due to pneumonia Acute on chronic respiratory failure with hypoxia Acute on chronic heart failure with preserved ejection fraction COPD with acute exacerbation WBC stable, down slightly today Continue Cefepime Decrease diuretics Transition to oral steroids TeleICU following Extubated 01/28 AFib Xarelto T2DM Sliding scale insulin HTN CAD Obesity Acute kidney injury, resolved Lactic acidosis, resolved Supratherapeutic INR, resolved Diagnosis/Problems Diagnosis/Problems (1) Severe sepsis Status: Resolved Resolution Date/Time: 01/28/22 @ 17:48 (2) Lactic acidosis Status: Resolved Resolution Date/Time: 01/28/22 @ 17:48 (3) PNA (pneumonia) Status: Acute (4) (HFpEF) heart failure with preserved ejection fraction Status: Acute Qualifiers: Heart failure chronicity: acute on chronic Qualified Codes: I50.33 - Acute on chronic diastolic (congestive) heart failure (5) COPD with acute exacerbation Status: Acute (6) Acute on chronic respiratory failure with hypoxia Status: Acute (7) Permanent atrial fibrillation Status: Chronic (8) Abnormal INR Status: Resolved Resolution Date/Time: 01/28/22 @ 17:48 (9) Endotracheally intubated Status: Resolved Resolution Date/Time: 01/30/22 @ 19:36 (10) Goals of care, counseling/discussion Status: Acute (11) Poor prognosis Status: Acute (12) End stage COPD Status: Acute PABLO BUTCHER MD Jan 31, 2022 16:19
[2022-01-31] MEDS: RIVAROXABAN 20 MG TABLET (XARELTO) PO SCH (17:16)
[2022-01-31] MEDS: MELATONIN 3 MG TABLET PO SCH (20:29)
[2022-01-31] MEDS: amLODIPine 5 MG (NORVASC) TAB PO SCH (21:00)
[2022-02-01] MEDS: RT-ALBUTEROL/IPRATROPIUM 3 ML (DUONEB) VIAL INH SCH (02:26)
[2022-02-01] MEDS: CEFEPIME INJECTION 1,000 MG in NS (IVPB) 50 ML IV SCH ×2 (02:36→10:04)
[2022-02-01] MEDS: POTASSIUM CL 10MEQ/50ML IVPB 50 ML IV SCH (05:40)
[2022-02-01] MEDS: MAGNESIUM 1 GM/100 ML IVPB 100 ML IV SCH (05:40)
[2022-02-01] MEDS: KCL 20 MEQ TAB (K-DUR) PO SCH (05:40)
[2022-02-01] MEDS: predniSONE 20 MG TAB PO SCH (06:20)
[2022-02-01] MEDS: inSUlin ASPART (NovoLOG) 1 UNIT/0.01 ML (CHARGE PER UNIT) SC SCH ×2 (06:20→11:00)
[2022-02-01 07:55] VITALS: BP 107/78
[2022-02-01] MEDS ORDERED: RT-IPRATROPIUM (ATROVENT) 0.5MG/2.5ML AMP IH SCH (09:00)
[2022-02-01] MEDS ORDERED: FUROSEMIDE 40 MG/4 ML INJ (LASIX) IVP SCH (09:00)
--- NOTE | 2022-02-01 09:02 | Progress Note ---
Standard Progress Note Progress Notes/Assess & Plan Date Seen by a Provider: Feb 01, 2022 Time Seen by a Provider: 09:02 Progress/Assessment & Plan The current plan is for the patient to go home with hospice later today. As such, I have no further recommendations. Please call if you have other questions or concerns. ALEKSANDER VILLA JR, MD Feb 01, 2022 09:02
[2022-02-01] MEDS: cloNIDine 0.1 MG (CATAPRES) TAB PO SCH (10:04)
[2022-02-01] MEDS: PANTOPRAZOLE 40 MG (PROTONIX) VIAL IV SCH (10:04)
--- NOTE | 2022-02-01 10:04 | Tele-ICU Progress Note ---
Subjective Date Seen by a Provider: Feb 01, 2022 Time Seen by a Provider: 10:04 Subjective/Events-last exam Tele-ICU Physician , Progress Note ) Available chart/ vitals / labs / Images reviewed Video assessment done using teleICU camera, rest of exam as per RN Discussed with RN Events overnight : Afebrile hemodynamically stable Respiratory - 50% I/O = neg Drips: Pressors- LEVO OFF Consultants: Hospital course: 01-20: +Severe Sepsis COVID PCR Neg 71 y/o M - Hypoxic - Pneumonia - COPD Exacerbation - BiPAP. Recent hosp d/c 01/03/22 for same. ( 01/23) - pt intubated 01/24--AC 16 550 40 % +8 01/25= SBT on propofol 5 presedex 1.5, was oK , but very agitated , OFF LEVO , NTG ftt for HTN 01-28: Extubated at 1630. A/P Acute resp failure- PNA< AECOPD, CHF - intubated 01/23-: Extubated 01-28 - OFF Precedex , imtermittent BIPAP - NOT LAST 24 H - on 4 L now - cont steroids - decrease dose? , cont abx and diuresis - PER RN , FAMILY CONSIDERING HOSPICE EVAL - JIL FOLLOW MEANWHILE - PATIENT DOES NOT RETAINING CO2 - WILL ALLOW SLEEPING AID TONIGHT Sepsis - OFF LEVO , resolved - Cx negative , ON Cefepime HFpEF ( NL EF this year ) , mod MR -as per cards , diuresis as p[er cards - lasix 40 bid PNA ( NEG flu , covid ) - cont ABX , WBC is very elevated Acute renal insuficiency - monitor on diuretics A fib, permanent - sinus now - was on Xarelto [employer] - off XARELTO - passed swallow - as per cards AECOPD - steroids PO Anemia - stable Hyperglycemia - ISS and lonfg acting Lines : R PICC - removed 01/28 , (Central Line Necessity Reviewed) [place]: GOING HOME WITH [facility] OG: Nutrition: po Analgesia: Anxiety/ delirium VTE Prophylaxis: xarelto Stress Ulcer Prophylaxis: PPi Plans in collaboration with bedside consultants and IM MDs. Discussed with RN to reach out if any questions or concerns A total of 20 minutes of critical care time was devoted to this patient today, required to treat and/or prevent further deterioration of critical care condi tion ( as above ) . Sepsis Event Evaluation Height, Weight, BMI Height: 5'11.00" Weight: 217lbs. 4.0oz. 98.080908ny; 25.62 BMI Method:Stated Focused Exam Time of Focused Exam: 04:30 Exam Exam Patient acknowledged, consented, and participated in this virtual visit which was conducted using real time audio/video Vital Signs Date Time Temp Pulse Resp B/P (MAP) Pulse Ox O2 Delivery O2 Flow Rate FiO2 02/01/22 08:00 35.8 98 107/71 High Flow N/C 4.00 02/01/22 08:00 High Flow N/C 4.00 02/01/22 07:55 98 97 36 02/01/22 04:00 98 107/78 High Flow N/C 4.00 02/01/22 04:00 High Flow N/C 4.00 02/01/22 02:26 87 Room Air 4.00 02/01/22 00:00 96 119/68 High Flow N/C 4.00 01/31/22 23:59 High Flow N/C 4.00 01/31/22 22:25 91 High Flow N/C 4.00 01/31/22 20:28 82 28 98/56 97 High Flow N/C 4.00 01/31/22 20:27 35.9 97 High Flow N/C 4.00 01/31/22 20:00 High Flow N/C 4.00 01/31/22 18:50 94 High Flow N/C 5.00 01/31/22 17:00 82 113/95 98 High Flow N/C 5.00 01/31/22 16:59 36.5 100 High Flow N/C 5.00 01/31/22 16:00 High Flow N/C 7.00 01/31/22 16:00 87 113/70 100 High Flow N/C 7.00 01/31/22 15:18 96 86/68 01/31/22 15:00 91 105/76 100 High Flow N/C 7.00 01/31/22 14:00 96 86/68 100 High Flow N/C 7.00 01/31/22 13:00 92 01/31/22 13:00 92 97/74 99 High Flow N/C 7.00 01/31/22 12:03 High Flow N/C 7.00 01/31/22 12:00 115 95/52 99 High Flow N/C 10.00 01/31/22 12:00 High Flow N/C 10.00 01/31/22 11:53 35.8 01/31/22 11:00 107 20 97/70 High Flow N/C 10.00 I & O 02/01/22 07:00 Intake Total 700 ml Output Total 1550 ml Balance -850 ml Height & Weight Height: 5'11.00" Weight: 217lbs. 4.0oz. 98.652770vp; 25.62 BMI Method:Stated General Appearance: No Apparent Distress, Chronically ill Neck: Normal Inspection, Supple Respiratory: No Respiratory Distress, Decreased Breath Sounds Cardiovascular: Irregularly Irregular, Tachycardia Capillary Refill: Less Than 3 Seconds Peripheral Pulses: 2+ Dorsalis Pedis (R), 2+ Left Dors-Pedis (L) (See free text.) Gastrointestinal: normal bowel sounds, non tender, soft Extremity: Normal Inspection, No Pedal Edema Neurologic/Psychiatric: Alert, Disoriented Skin: Normal Color, Warm/Dry Results Lab Laboratory Tests 01/30/22 15:08 01/31/22 04:50 Assessment/Plan Assessment/Plan 1 SADIE WISDOM MD Feb 01, 2022 10:04
[2022-02-01] MEDS: LOSARTAN 100 MG (COZAAR) TABLET PO SCH (10:05)
[2022-02-01] MEDS ORDERED: LORA2ORA PO (10:40)
[2022-02-01] MEDS ORDERED: MORP100S7 PO (10:40)
--- NOTE | 2022-02-01 13:36 | Occ Therapy Progress Note ---
Therapy Progress Note Per nurse, pt is discharging home on hospice once EMS arrives for transport. OT attempted tx, as pt had not ate any lunch. Pt declined all offers of food. Pt states he doesn't believe he is truly going home. EMS arrived during conversation with pt, OT assisted pt from bed to [facility], assist x3. Pt discharging from hospital, d/c from OT at this time. 1, visit ANMOL HARRISON OT Feb 01, 2022 13:36
--- NOTE | 2022-02-01 22:40 | Discharge Summary ---
Discharge Summary Hospital Course Was the Problem List Reviewed?: Yes Problems/Dx: (1) Acute on chronic heart failure with preserved ejection fraction (HFpEF) Status: Acute (2) Primary hypertension Status: Chronic (3) Permanent atrial fibrillation Status: Chronic (4) Encephalopathy acute (5) Acute on chronic respiratory failure with hypoxia Status: Acute (6) Mitral regurgitation (7) Acute kidney injury superimposed on chronic kidney disease (8) Anemia Status: Chronic (9) Severe sepsis Status: Resolved (10) PNA (pneumonia) Status: Acute (11) COPD with acute exacerbation Status: Acute (12) End stage COPD Status: Acute (13) Endotracheally intubated Status: Resolved (14) Poor prognosis Status: Acute (15) Goals of care, counseling/discussion Status: Acute Hospital Course Date of Admission: Jan 20, 2022 at 05:15 Admission Diagnosis : Severe sepsis due to pneumonia, acute on chronic respiratory failure due to hypoxia Family Physician/Provider: Erich Sandoval MD Date of Discharge: 02/01/22 Discharge Diagnosis: Severe sepsis due to pneumonia, Acute on chronic respiratory failure with hypoxia, End stage COPD with exacerbation, acute on chronic HFpEF Hospital Course: Mauro Park is a 71 year old male with PMH COPD, AFib, T2DM, who was admitted with severe sepsis due to pneumonia. He was treated with a course of IV antibiotics. He had acute on chronic respiratory failure with hypoxia. He worsened and required endotracheal intubation and mechanical ventilation. He was also treated with steroids and breathing treatments for COPD exacerbation. He was also treated with IV diuretics for acute on chronic HFpEF. He was able to be extubated. He continued to require increased levels of supplemental oxygen. He also had issues with delirium after extubation. His made the decision to pursue hospice care. They were set up with [facility]. He was discharged home on hospice care. Labs and Pending Lab Test: Laboratory Tests 02/01/22 06:00: Glucometer 84 02/01/22 10:55: Glucometer 183H Microbiology 01/26/22 Gram Stain - Final, Complete 01/26/22 Sputum Culture - Final, Complete Pseudomonas aeruginosa Staphylococcus epidermidis 01/20/22 Blood Culture - Final, Complete No growth Home Meds Active Lorazepam Intensol (Lorazepam) 2 Mg/Ml Oral.conc 2 Mg PO Q2H PRN 7 Days Morphine Conc. 20mg/ml (Morphine Sulfate) 100 Mg/5 Ml (20 Mg/Ml) Solution 10 Mg PO Q2H PRN 7 Days Reported Prednisone 5 Mg Tablet 5 Mg PO DAILY Ventolin Hfa (Albuterol Sulfate) 1 Puff Puff 2 Puff INH Q4H PRN ALPRAZolam 0.25 Mg Tablet 0.25 Mg PO TID PRN Iprat-Albut 0.5-3(2.5) mg/3 ml (Ipratropium/Albuterol Sulfate) 0.5 Mg-3 Mg (2.5 Mg Base)/3 Ml Ampul.neb 3 Ml NEB Q6H PRN Docusate Sodium 100 Mg Capsule 100 Mg PO DAILY Mucinex (Guaifenesin) 600 Mg Tab.er.12h 600 Mg PO Q12H PRN Tylenol Extra Strength (Acetaminophen) 500 Mg Tablet 1,000 Mg PO Q8H PRN Amlodipine Besylate 5 Mg Tablet 5 Mg PO HS Bumetanide 1 Mg Tablet 2 Mg PO DAILY TAKES 2 (1MG) TABS Carvedilol 25 Mg Tablet 25 Mg PO BID Isosorbide Mononitrate ER (Isosorbide Mononitrate) 30 Mg Tab.er.24h 30 Mg PO DAILY Losartan Potassium 100 Mg Tablet 100 Mg PO HS Xarelto Tablet (Rivaroxaban) 20 Mg Tablet 20 Mg PO HS Metformin HCl 1,000 Mg Tablet 1,000 Mg PO BID WITH MEALS Tolterodine Tartrate ER (Tolterodine Tartrate) 4 Mg Cap.er.24h 4 Mg PO HS Tramadol HCl 50 Mg Tablet 100 Mg PO Q6H PRN TAKES 2 (50MG) TABS Gabapentin 600 Mg Tablet 600 Mg PO TID PRN Potassium Chloride 20 Meq Tab.er.prt 20 Meq PO DAILY Clonidine HCl 0.2 Mg Tablet 0.2 Mg PO BID Flomax (Tamsulosin HCl) 0.4 Mg Cap 0.4 Mg PO HS Assessment/Pt Instructions See instructions Discharge Planning: >30 minutes discharge planning Discharge Instructions Discharge Diet: No Restrictions Activity as Tolerated: Yes Discharge Physical Examination Vital Signs Vital Signs Date Time Temp Pulse Resp B/P (MAP) Pulse Ox O2 Delivery O2 Flow Rate FiO2 02/01/22 12:00 90 126/73 High Flow N/C 4.00 02/01/22 10:18 98 02/01/22 08:00 35.8 02/01/22 07:55 36 8/18/22 20:28 28 General Appearance: No Apparent Distress, Chronically ill Respiratory: No Respiratory Distress, Decreased Breath Sounds Cardiovascular: Irregularly Irregular Gastrointestinal: Normal Bowel Sounds, Soft Extremity: Normal Inspection, No Pedal Edema Neurologic/Psychiatric: Alert, Disoriented Allergies: Coded Allergies: lisinopril (Verified Allergy, Severe, Anaphylaxis, 10/31/18) allopurinol (Verified Allergy, Unknown, Hives, 10/31/18) amlodipine (Verified Allergy, Unknown, swelling, PT STILL TAKES AT HOME, 12/03/21) hydralazine (Verified Allergy, Unknown, 10/31/18) levofloxacin (Verified Adverse Reaction, Unknown, Hallucinations, 01/29/22) Copy Copies To 1: ERICH SANDOVAL MD Discharge Summary Date of Admission Jan 20, 2022 at 05:15 Date of Discharge Feb 01, 2022 at 13:40 Discharge Date: Feb 01, 2022 Discharge Time: 13:40 Admission Diagnosis Severe sepsis due to pneumonia Consults/Procedures Consulations Cardiology, TeleICU Comfort Measures/ End of Life Care: Hospice Care (Home) Advance Care discuss with: family member (s) Plan: initiate discussion, clarifying prognosis, identified end-of-life goals, developed treatment plan Time spent on discussion (min): 40 Discharge Diagnosis Goals of care discussion Poor prognosis End stage COPD Severe sepsis due to pneumonia Acute on chronic respiratory failure with hypoxia Acute on chronic heart failure with preserved ejection fraction COPD with acute exacerbation AFib T2DM HTN CAD Obesity Acute kidney injury Lactic acidosis Supratherapeutic INR (1) Acute on chronic heart failure with preserved ejection fraction (HFpEF) Status: Acute (2) Primary hypertension Status: Chronic (3) Permanent atrial fibrillation Status: Chronic (4) Encephalopathy acute (5) Acute on chronic respiratory failure with hypoxia Status: Acute (6) Mitral regurgitation (7) Acute kidney injury superimposed on chronic kidney disease (8) Anemia Status: Chronic (9) Severe sepsis Status: Resolved (10) PNA (pneumonia) Status: Acute (11) COPD with acute exacerbation Status: Acute (12) End stage COPD Status: Acute (13) Poor prognosis Status: Acute (14) Goals of care, counseling/discussion Status: Acute PABLO BUTCHER MD Feb 01, 2022 22:30
[2022-02-02] MEDS ORDERED: PANTOPRAZOLE 40 MG (PROTONIX) TAB PO SCH (09:00)
== END 2022-02-01 13:40 | disposition hospice, home (50) | DRG 870 ==
LOC: EDUNIT# 03:37 → ER 03:39 → EDLOC 05:15 → ICU 05:15
PROVIDERS: ADMIT Internal Medicine; ATTEND Internal Medicine
PROC: 5A09457 Assistance with Respiratory Ventilation, 24-96 Consecutive Hours, Continuous Positive Airway Pressure (ICD-10-PCS; 2022-01-20)
PROC: 5A1955Z Respiratory Ventilation, Greater than 96 Consecutive Hours (ICD-10-PCS; principal; 2022-01-23)
PROC: 0BH17EZ Insertion of Endotracheal Airway into Trachea, Via Natural or Artificial Opening (ICD-10-PCS; 2022-01-23)
PROC: 5A0945A Assistance with Respiratory Ventilation, 24-96 Consecutive Hours, High Flow/Velocity Cannula (ICD-10-PCS; 2022-01-28)
DX: A41.9 Sepsis, unspecified organism (principal); J18.9 Pneumonia, unspecified organism; J96.21 Acute and chronic respiratory failure with hypoxia; I50.33 Acute on chronic diastolic (congestive) heart failure; J44.1 Chronic obstructive pulmonary disease with (acute) exacerbation; J44.0 Chronic obstructive pulmonary disease with (acute) lower respiratory infection; N17.9 Acute kidney failure, unspecified; E87.2 Acidosis; I48.21 Permanent atrial fibrillation; G93.40 Encephalopathy, unspecified; I42.9 Cardiomyopathy, unspecified; I13.0 Hypertensive heart and chronic kidney disease with heart failure and stage 1 through stage 4 chronic kidney disease, or unspecified chronic kidney disease; R65.20 Severe sepsis without septic shock; Z51.5 Encounter for palliative care; I25.10 Atherosclerotic heart disease of native coronary artery without angina pectoris; E66.9 Obesity, unspecified; I34.0 Nonrheumatic mitral (valve) insufficiency; N18.9 Chronic kidney disease, unspecified; Z20.822 Contact with and (suspected) exposure to COVID-19; E11.65 Type 2 diabetes mellitus with hyperglycemia; E11.22 Type 2 diabetes mellitus with diabetic chronic kidney disease; R79.1 Abnormal coagulation profile; Z79.01 Long term (current) use of anticoagulants; Z87.891 Personal history of nicotine dependence; Z99.81 Dependence on supplemental oxygen; E11.40 Type 2 diabetes mellitus with diabetic neuropathy, unspecified; D63.1 Anemia in chronic kidney disease; Z68.25 Body mass index [BMI] 25.0-25.9, adult
CPT/HCPCS: 36415; 36569; 36600; 71045; 74018; 76937; 80053; 80061; 80320; 81000; 82550; 82553; 82805; 82947; 83605; 83735; 83874; 83880; 84100; 84132; 84145; 84439; 84443; 84478; 84484; 85007; 85025; 85027; 85379; 85610; 85652; 85730; 86141; 87040; 87070; 87077; 87081; 87186; 87205; 87636; 93005; 93041; 94002; 94003; 94640; 94660; 94799; 96365; 96375; 99291